=== PATIENT | male | born 1960 | race Caucasian/White ===

== ENCOUNTER 2016-08-10 10:11 | Inpatient (IN) | payer MEDICARE, MEDICAID ==
[2016-08-10 10:11] VITALS: BMI 27.1
[2016-08-10 10:40] LABS: BASO % 0.8 % (0.0-2.0); EOS # 0.3 K/uL (0.0-0.7); EOS % 5.1 % (0.0-4.0); HEMATOCRIT 35.1 % (35.0-51.0); LYMPH # 1.7 K/uL (1.0-4.3); LYMPH % 29.2 % (20.0-40.0); MEAN CELL VOLUME 91.2 fL (80.0-94.0); MEAN CORPUSCULAR HEMOGLOBIN 29.8 pg (27.0-31.0); MEAN CORPUSCULAR HGB CONC 32.7 g/dL (33.0-37.0); MEAN PLATELET VOLUME 9.6 fL (7.2-11.7); MONO # 0.4 K/uL (0.0-0.8); MONO % 6.7 % (0.0-10.0); WHITE BLOOD COUNT 5.9 K/uL (4.8-10.8)
--- NOTE | 2016-08-10 10:47 | C.PDOC ---
History Of Present Illness Patient is a 56 y/o male that is brought to the ED by for evaluation of onset of seizure this morning. As per , patient is non-verbal at baseline s/ p stroke 9 months ago. denies any fever, or vomiting. HPI limited due to pt non-verbal condition. PMD: Eva Sorensen from [facility] Time Seen by Provider: 08/10/16 10:20 Chief Complaint (Nursing): Seizure History Per: Family () History/Exam Limitations: no limitations Recent travel outside of the [place]: No Past Medical History Reviewed: Historical Data, Nursing Documentation, Vital Signs Vital Signs: Last Vital Signs Temp 97.8 F 08/10/16 10:17 Pulse 78 08/10/16 12:13 Resp 13 08/10/16 12:13 BP 146/70 08/10/16 12:13 Pulse Ox 97 08/10/16 12:26 - Medical History PMH: Anemia, Depression, HTN, Hypercholesterolemia, Chronic Kidney Disease, Sleep Apnea (c pap) Surgical History: Endoscopy - [facility] Procedures CATARAC PHACOEMULS/ASPIR (05/17/14) INSERT LENS AT CATAR EXT (05/17/14) Family History: States: No Known Family Hx - Social History Hx Alcohol Use: No Hx Substance Use: No Review Of Systems Constitutional: Negative for: Fever Gastrointestinal: Negative for: Vomiting Neurological: Positive for: Seizures Physical Exam - Physical Exam Additional Physical Exam Comments: Constitutional: No acute distress. Head: Atraumatic. Left side craniectomy. Eyes: PERRL. ENT: Moist mucous membranes. Neck: Supple. Cardiovascular: Regular rate. Radial pulse 2+ bilaterally. Chest: No tenderness. Respiratory: Clear to auscultation bilaterally. GI: Soft. Nontender. Nondistended. Gastrostomy tube in place. Back: No CVA tenderness. Musculoskeletal: No tenderness or swelling of extremities. Skin: No rash. Neurologic: Motor 0/5 right leg and arm. Left motor intact. ED Course And Treatment - Laboratory Results Result Diagrams: 08/10/16 10:37 08/10/16 10:37 O2 Sat by Pulse Oximetry: 97 Medical Decision Making Medical Decision Making: EKG: Normal sinus rhythm at [address] elevation. No acute changes. CXR: Midline sternotomy wire. Patchy opacity left lower lobe. No infiltrates or consolidation. Head CT FINDINGS: HEMORRHAGE: No intracranial hemorrhage. Linear hyperdensity along the left parieto- occipital cerebrum likely represents calcification. BRAIN: Prior left frontoparietal temporal craniectomy. A portion of the left frontoparietal cerebral cortex extrudes through the large craniotomy site. Prominent somewhat cystic encephalomalacia seen within the left posterior frontal, parietal, occipital, and temporal regions. Prominent lacunar infarction within the left basal ganglia with associated encephalomalacia. Focal areas of low attenuation with a suggestion of chronic infarction in the left aspect of the midbrain and jesus. Bilateral basal ganglia calcifications. VENTRICLES: Ex vacuo dilatation of the left lateral ventricle as well as the 3rd ventricle. Mild right to left midline shift measuring approximately 4 millimeters. CALVARIUM: Prominent left-sided craniectomy. PARANASAL SINUSES: Mild mucosal thickening of the ethmoid air cells. MASTOID AIR CELLS: Unremarkable as visualized. No inflammatory changes. OTHER FINDINGS: Intracranial arterial atherosclerotic calcifications. IMPRESSION: Prior left frontoparietal temporal craniectomy. A portion of the left frontoparietal cerebral cortex extrudes through the large craniotomy site. Prominent somewhat cystic encephalomalacia seen within the left posterior frontal, parietal, occipital, and temporal regions. Prominent lacunar infarction within the left basal ganglia with associated encephalomalacia. Focal areas of low attenuation with a suggestion of chronic infarction in the left aspect of the midbrain and jesus. Bilateral basal ganglia calcifications. Ex vacuo dilatation of the left lateral ventricle as well as the 3rd ventricle. Mild right to left midline shift measuring approximately 4 millimeters. Correlation with MRI may be helpful if clinically indicated. Accepted for admission by Dr. Hauser for PNA and first time seizure. Antibiotics started and blood cultures drawn. Disposition Discussed With : Emilia Hauser Doctor Will See Patient In The: Hospital - Disposition Disposition: HOSPITALIZED Disposition Time: 12:10 Condition: GUARDED - POA Core Measure Indicators: Pneumonia - Clinical Impression Clinical Impression: Seizure, Pneumonia - Scribe Statement The provider has reviewed the documentation as recorded by the Luis Enrique Hauser Provider Attestation: All medical record entries made by the Amanibelio were at my direction and personally dictated by me. I have reviewed the chart and agree that the record accurately reflects my personal performance of the history, physical exam, medical decision making, and the department course for this patient. I have also personally directed, reviewed, and agree with the discharge instructions and disposition.
[2016-08-10 10:48] LABS: CHLORIDE 97 mmol/L (98-107)
[2016-08-10 10:49] LABS: POTASSIUM 4.6 mmol/L (3.6-5.2); SODIUM 138 mmol/L (132-148)
[2016-08-10 10:51] LABS: ALB/GLOB RATIO 1.3 (1.0-2.1); ALKALINE PHOSPHATASE 76 U/L (38-126); AST/SGOT 31 U/L (17-59); BILIRUBIN,TOTAL 0.4 mg/dL (0.2-1.3); BLOOD UREA NITROGEN 30 mg/dL (9-20); CARBON DIOXIDE 24 mmol/L (22-30); GFR AFRICAN-AMERICAN > 60; TOTAL PROTEIN 7.1 g/dL (6.3-8.3)
[2016-08-10 10:52] LABS: ALT/SGPT 40 U/L (21-72); CALCIUM 8.7 mg/dl (8.6-10.4); GLUCOSE,RANDOM 200 mg/dL (75-110); MAGNESIUM 1.7 mg/dL (1.6-2.3); PHOSPHOROUS 3.8 mg/dL (2.5-4.5)
[2016-08-10 11:28] LABS: RBC URINE 8 /hpf (0-3); URINE BILIRUBIN NEGATIVE (NEGATIVE); URINE COLOR Straw (YELLOW); URINE GLUCOSE (UA) NORMAL (Normal); URINE KETONE NEGATIVE (NEGATIVE); URINE LEUKOCYTE ESTERASE NEG Leu/uL (Negative); URINE PROTEIN 2+ mg/dL (NEGATIVE); URINE UROBILINOGEN NORMAL mg/dL (0.2-1.0); WBC URINE 1 /hpf (0-5)
[2016-08-10 11:32] LABS: URINE BLOOD 1+ (NEGATIVE)
--- NOTE | 2016-08-10 12:05 | CT ---
PROCEDURE: CT HEAD WITHOUT CONTRAST. HISTORY: seizure, h/o CVA/craniectomy COMPARISON: None available. TECHNIQUE: Axial computed tomography images were obtained through the head/brain without intravenous contrast. Radiation dose: Total exam DLP = 917 mGy-cm. This CT exam was performed using one or more of the following dose reduction techniques: Automated exposure control, adjustment of the mA and/or kV according to patient size, and/or use of iterative reconstruction technique. FINDINGS: HEMORRHAGE: No intracranial hemorrhage. Linear hyperdensity along the left parieto-occipital cerebrum likely represents calcification. BRAIN: Prior left frontoparietal temporal craniectomy. A portion of the left frontoparietal cerebral cortex extrudes through the large craniotomy site. Prominent somewhat cystic encephalomalacia seen within the left posterior frontal, parietal, occipital, and temporal regions. Prominent lacunar infarction within the left basal ganglia with associated encephalomalacia. Focal areas of low attenuation with a suggestion of chronic infarction in the left aspect of the midbrain and jesus. Bilateral basal ganglia calcifications. VENTRICLES: Ex vacuo dilatation of the left lateral ventricle as well as the 3rd ventricle. Mild right to left midline shift measuring approximately 4 millimeters. CALVARIUM: Prominent left-sided craniectomy. PARANASAL SINUSES: Mild mucosal thickening of the ethmoid air cells. MASTOID AIR CELLS: Unremarkable as visualized. No inflammatory changes. OTHER FINDINGS: Intracranial arterial atherosclerotic calcifications. IMPRESSION: Prior left frontoparietal temporal craniectomy. A portion of the left frontoparietal cerebral cortex extrudes through the large craniotomy site. Prominent somewhat cystic encephalomalacia seen within the left posterior frontal, parietal, occipital, and temporal regions. Prominent lacunar infarction within the left basal ganglia with associated encephalomalacia. Focal areas of low attenuation with a suggestion of chronic infarction in the left aspect of the midbrain and jesus. Bilateral basal ganglia calcifications. Ex vacuo dilatation of the left lateral ventricle as well as the 3rd ventricle. Mild right to left midline shift measuring approximately 4 millimeters. Correlation with MRI may be helpful if clinically indicated.
--- NOTE | 2016-08-10 12:17 | RAD ---
HISTORY: seizure COMPARISON: 05/02/2014 FINDINGS: LUNGS: Mild venous congestion. Patchy left basilar airspace opacity. PLEURA: No significant pleural effusion identified, no pneumothorax apparent. CARDIOVASCULAR: Status post median sternotomy and CABG. Mild cardiomegaly. OSSEOUS STRUCTURES: No significant abnormalities. VISUALIZED UPPER ABDOMEN: Normal. OTHER FINDINGS: None. IMPRESSION: Mild venous congestion. Patchy left basilar airspace opacity.
[2016-08-10] MEDS ORDERED: Azithromycin 500 MG in Sodium Chloride 0.9% 250 ML IVPB STA (12:55)
[2016-08-10] MEDS ORDERED: cefTRIAXone IV 1 gm in Dextros 50 ML IVPB ONE (13:32)
[2016-08-10] MEDS ORDERED: Acetaminophen 650mg/20.3ml solution UD PO PRN (15:32)
--- NOTE | 2016-08-10 15:36 | CP.PCM.HP ---
History of Present Illness - History of Present Illness History of Present Illness: 56-year-old male patient that is brought to the ED by for evaluation of onset of seizure this morning. As per , patient is nonverbal at baseline S/ P stroke 9 months ago. denies any fever, vomiting. HPI limited due to patient nonverbal condition. Present on Admission - Present on Admission Any Indicators Present on Admission: No Past Patient History - Past Medical History & Family History Past Medical History?: Yes - Past Social History Smoking Status: Never Smoked - CARDIAC Hx Hypercholesterolemia: Yes Hx Hypertension: Yes - PULMONARY Hx Sleep Apnea: Yes (c pap) - NEUROLOGICAL HX Cerebrovascular Accident: Yes - HEENT Hx HEENT Problems: No - RENAL Hx Chronic Kidney Disease: Yes - ENDOCRINE/METABOLIC Hx Endocrine Disorders: Yes Hx Diabetes Mellitus Type 2: Yes - HEMATOLOGICAL/ONCOLOGICAL Hx Anemia: Yes - INTEGUMENTARY Hx Dermatological Problems: No - MUSCULOSKELETAL/RHEUMATOLOGICAL Hx Musculoskeletal Disorders: No - GASTROINTESTINAL Hx Gastrointestinal Disorders: Yes HX Swallowing Problems: Yes - GENITOURINARY/GYNECOLOGICAL Hx Genitourinary Disorders: No - PSYCHIATRIC Hx Depression: Yes Hx Substance Use: No - SURGICAL HISTORY Hx Surgeries: Yes Hx Cataract Extraction: Yes (BILATERAL) Hx Cardiac Catheterization: Yes - ANESTHESIA Hx Anesthesia: Yes Hx Anesthesia Reactions: No Hx Malignant Hyperthermia: No Meds Home Medications: Home Medication List Medication Instructions Recorded Confirmed Type Azithromycin [Zithromax] 500 mg IVPB Q24H vial 08/13/16 Rx cefTRIAXone [Rocephin] 1 gm IVPB STAT vial 08/13/16 Rx levETIRAcetam [Keppra] 500 mg PO BID tab 08/13/16 Rx Allergies/Adverse Reactions: Allergies Allergy/AdvReac Type Severity Reaction Status Date / Time lisinopril Allergy Verified 08/10/16 10:17 Physical Exam - Constitutional Appears: Well - Head Exam Head Exam: ATRAUMATIC, NORMAL INSPECTION, NORMOCEPHALIC - Eye Exam Eye Exam: EOMI, Normal appearance, PERRL Pupil Exam: NORMAL ACCOMODATION, PERRL - ENT Exam ENT Exam: Mucous Membranes Moist, Normal Exam - Neck Exam Neck exam: Positive for: Normal Inspection - Respiratory Exam Respiratory Exam: Decreased Breath Sounds - Cardiovascular Exam Cardiovascular Exam: REGULAR RHYTHM, +S1, +S2 - GI/Abdominal Exam GI & Abdominal Exam: Diminished Bowel Sounds, Soft - Rectal Exam Rectal Exam: Deferred Results - Vital Signs Recent Vital Signs: Last Vital Signs Temp 97.8 F 08/10/16 10:17 Pulse 74 08/10/16 13:33 Resp 10 L 08/10/16 13:33 BP 153/75 H 08/10/16 13:33 Pulse Ox 99 08/10/16 13:33 - Labs Result Diagrams: 08/13/16 11:20 08/13/16 11:20 Assessment & Plan - Assessment and Plan (Free Text) Plan: protonix voenox rocephine zithromax [facility] ct head neurology consultation toher mx as ordred feeding as ordred
[2016-08-10] MEDS: Dextrose 5%/0.45% NS 1,000 ML IV SCH (18:57)
[2016-08-11] MEDS: Dextrose 5%/0.45% NS 1,000 ML IV SCH ×3 (05:49→21:53)
--- NOTE | 2016-08-11 10:04 | CON ---
DATE: 08/11/2016 ATTENDING PHYSICIAN: Gopi Hauser MD ROOM NUMBER: [id number], bed A. REASON FOR CONSULTATION: New onset of seizures. CHIEF COMPLAINT: The patient was brought into [facility] by his with a history of witnessed seizure. Following this, patient was nonverbal. From neurological point of view, I was called in to evaluate him for further management. HISTORY OF PRESENTING ILLNESS: The patient is a 56-year-old, right-handed, male presenting with witnessed seizure activities while he was at home , being witnessed by his . No history of similar episodes happened in the past. HISTORY OF PRESENTING ILLNESS: The patient is a 56-year-old, right-handed, male who had undergone hemicraniectomy on his left side with a history of possible stroke 9 months ago. Ever since, he was nonverbal and right hemiparesis. No history of seizures as per the documentation. The patient did have seizures. Ever since, he was nonverbal and not arousable in the Emergency Room. PAST MEDICAL HISTORY: Anemia, depression, hypertension, dyslipidemia, chronic kidney disease, sleep apnea. The patient did have a history of tracheostomy during the neurological insult 9 months ago. The patient also on PEG. REVIEW OF SYSTEMS: As per H and P. PHYSICAL EXAMINATION: VITAL SIGNS: Blood pressure 145/77, mean arterial [id number], respiratory rate 16, temperature afebrile. NECK: Supple. No carotid bruit. HEART SOUNDS: Regular. CHEST: Fair air entry. EXTREMITIES: Right side diffuse hypotrophy of all proximal and distal muscle groups. Tone is increased on his right side. NEUROLOGIC: The patient is awake. Tried to communicate. Speech is not communicable. The patient is aphasic. The patient able to copy. CRANIAL NERVES: Visual field decreased on his right side to compare with the left side. Visual threat is decreased. Good corneal reflex. No primary gaze. Nystagmus noted. Facial asymmetry manifesting as a flattening of the right nasolabial fold. SKULL: Swelling on his left frontoparietal occipital region with soft to touch. MOTOR: Left side spontaneous movement. Right side, he needs assistance to move. DEEP TENDON REFLEXES: Hyperreflexic on the right side. Left side was 1+. Plantars are upgoing on the right side. SENSORY: Decreased response to pain on his right side to compare with the left side. COORDINATION AND GAIT: Deferred at this time. CONCLUSION: Upon reviewing his history and neurological examination, the patient is presenting with new onset of seizures with postictal phase of weakness with speech impairment. The patient's current examination, patient presenting with aphasia, spastic hemiparesis, right homonymous hemianopsia. This current presentation is old from his previous surgery secondary to his stroke. 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 Encephalomalacia also noted. Some shift from left to the right noted. There is a questionable hyperdense area over frontal region at subarachnoid area, probably post-surgical changes versus new bleed. BLOOD WORKUP: WBC 5.9, hemoglobin 11.5, hematocrit 35.1, platelet 176. PT 11.1 , INR 1.0, PTT 31. Sodium 138, potassium 4.6, chloride 97, bicarbonate 30, creatinine 1.1, glucose 169. Urinalysis shows 2+ proteinuria, 1+ blood, 8 RBCs. RECOMMENDATIONS: 1. EEG. 2. Seizure precaution. 3. Keppra dose is increased to 500 twice a day. 4. MRI of the brain to rule out any space occupying lesion as well as to assess the current status of his brain from his previous surgery. 5. The patient can be resumed percutaneous endoscopic gastrostomy feeding. The patient may be benefited with proper antibiotic for his possible urinary tract infection. Rizwan Merino MD cc: [id number] TT: 08/11/2016 08:51:59 Confirmation # [id number] Dictation # [id number] MTDD
[2016-08-11] MEDS: Pantoprazole 40 mg EC Tab PO SCH (10:41)
[2016-08-11] MEDS: Enoxaparin 40 mg Syringe SC SCH (10:44)
[2016-08-11] MEDS: (Novolog) Insulin Aspart, Recombinant 100 u/ml 10 ml vial SC SCH ×3 (12:42→21:57)
[2016-08-11] MEDS: Azithromycin 500 MG in Sodium Chloride 0.9% 250 ML IVPB SCH (15:44)
--- NOTE | 2016-08-11 18:54 | CP.PCM.PN ---
Subjective - Date & Time of Evaluation Date of Evaluation: 08/11/16 Time of Evaluation: 03:00 - Subjective Subjective: pt. is stable after episode of seizure Objective - Vital Signs/Intake and Output Vital Signs (last 24 hours): Temp Pulse Resp BP Pulse Ox 97.8 F 86 20 138/71 98 08/11/16 16:41 08/11/16 18:40 08/11/16 16:41 08/11/16 16:41 08/11/16 16:41 Intake and Output: 08/11/16 08/11/16 06:59 18:59 Intake Total 750 800 Output Total 200 550 Balance 550 250 - Medications Medications: Current Medications Acetaminophen (Tylenol 650mg/20.3ml Solution Ud) 650 mg PO Q6 PRN PRN Reason: Fever >100.4 F Aspirin (Ecotrin) 81 mg PO DAILY [facility] Last Admin: 08/11/16 10:42 Dose: 81 mg Enoxaparin Sodium (Lovenox) 40 mg SC DAILY [facility] Last Admin: 08/11/16 10:44 Dose: 40 mg Escitalopram Oxalate (Lexapro) 5 mg PO DAILY [facility] Last Admin: 08/11/16 10:53 Dose: 5 mg Finasteride (Proscar) 5 mg PO DAILY [facility] Last Admin: 08/11/16 10:42 Dose: 5 mg Folic Acid (Folic Acid) 1 mg PO DAILY [facility] Last Admin: 08/11/16 10:42 Dose: 1 mg Azithromycin 500 mg/ Sodium (Chloride) 250 mls @ 167 mls/hr IVPB Q24H [facility] Last Admin: 08/11/16 15:44 Dose: 167 mls/hr Ceftriaxone Sodium 1 gm/ (Sodium Chloride) 100 mls @ 100 mls/hr IVPB DAILY [facility] Last Admin: 08/11/16 10:49 Dose: 100 mls/hr Dextrose/Sodium Chloride (Dextrose 5%/0.45% Ns 1000 Ml) 1,000 mls @ 75 mls/hr IV .[id number] [facility] Last Admin: 08/11/16 08:30 Dose: Not Given Insulin Aspart (Novolog) 0 unit SC ACHS [facility] PRN Reason: Protocol Last Admin: 08/11/16 12:42 Dose: 3 unit Levetiracetam (Keppra) 500 mg PO BID [facility] Last Admin: 08/11/16 12:42 Dose: 500 mg Metoprolol Tartrate (Lopressor) 25 mg PO DAILY [facility] Last Admin: 08/11/16 10:42 Dose: 25 mg Pantoprazole Sodium (Protonix Ec Tab) 40 mg PO DAILY [facility] Last Admin: 08/11/16 10:41 Dose: 40 mg Pneumococcal Polyvalent Vaccine (Pneumovax 23 Vaccine) 0.5 ml IM .ONCE ONE Stop: 08/14/16 10:01 Rosuvastatin Calcium (Crestor) 40 mg PO [facility] Last Admin: 08/10/16 22:00 Dose: Not Given - Labs Labs: PT 11.1 SECONDS (9.7-12.2) 08/10/16 10:37 INR 1.0 08/10/16 10:37 APTT 31 SECONDS (21-34) 08/10/16 10:37 - Constitutional Appears: Well - Head Exam Head Exam: ATRAUMATIC, NORMAL INSPECTION, NORMOCEPHALIC - Eye Exam Eye Exam: EOMI, Normal appearance, PERRL Pupil Exam: NORMAL ACCOMODATION, PERRL - ENT Exam ENT Exam: Mucous Membranes Moist, Normal Exam - Neck Exam Neck Exam: Full ROM, Normal Inspection. absent: Lymphadenopathy - Respiratory Exam Respiratory Exam: Decreased Breath Sounds - Cardiovascular Exam Cardiovascular Exam: REGULAR RHYTHM, +S1, +S2 - GI/Abdominal Exam GI & Abdominal Exam: Soft, Diminished Bowel Sounds - Rectal Exam Rectal Exam: Deferred Assessment and Plan - Assessment and Plan (Free Text) Plan: protonix voenox rocephine zithromax [facility] ct head shows sign of infarction from previous stroke neurology consultation toher mx as ordred feeding as ordred
--- NOTE | 2016-08-11 21:01 | EEG ---
DATE: 08/11/2016 This is a 16-channel electroencephalogram of an awake and drowsy adult. During the study, photic stimulation was performed. Hyperventilation was not performed. The resting electroencephalogram consists of low amplitude low frequency theta activity noted from the beginning, which showed up increased amplitude with delta activities seen in bilateral cortical leads suggestive of drowsiness. This slow activity is continuously noted from the beginning. The photic stimulation did not evoke driving response noted at 2-20 Hz. IMPRESSION: This is abnormal electroencephalogram because of persistent slowing throughout the record suggestive of possible N2 sleep. However, during the study, K complexes and sleep spindles are not noted. This study also does not show any paroxysmal activities or focal slowing noted. Rizwan Merino MD cc: [id number] TT: 08/11/2016 21:00:15 Confirmation # [id number] Dictation # [id number] MTDD
[2016-08-12] MEDS: (Novolog) Insulin Aspart, Recombinant 100 u/ml 10 ml vial SC SCH ×4 (08:25→21:38)
[2016-08-12] MEDS ORDERED: Gadodiamide 287 MG/ML VIAL (15ML) IV ONE (09:10)
--- NOTE | 2016-08-12 10:28 | CP.PCM.PN ---
Subjective - Date & Time of Evaluation Date of Evaluation: 08/12/16 Time of Evaluation: 13:40 - Subjective Subjective: clinically same Objective - Vital Signs/Intake and Output Vital Signs (last 24 hours): Temp Pulse Resp BP Pulse Ox 98.7 F 68 20 149/77 100 08/12/16 07:05 08/12/16 07:05 08/12/16 07:05 08/12/16 07:05 08/12/16 07:05 Intake and Output: 08/12/16 08/12/16 06:59 18:59 Intake Total 600 Balance 600 - Medications Medications: Current Medications Acetaminophen (Tylenol 650mg/20.3ml Solution Ud) 650 mg PO Q6 PRN PRN Reason: Fever >100.4 F Aspirin (Ecotrin) 81 mg PO DAILY [facility] Last Admin: 08/11/16 10:42 Dose: 81 mg Enoxaparin Sodium (Lovenox) 40 mg SC DAILY [facility] Last Admin: 08/11/16 10:44 Dose: 40 mg Escitalopram Oxalate (Lexapro) 5 mg PO DAILY [facility] Last Admin: 08/11/16 10:53 Dose: 5 mg Finasteride (Proscar) 5 mg PO DAILY [facility] Last Admin: 08/11/16 10:42 Dose: 5 mg Folic Acid (Folic Acid) 1 mg PO DAILY [facility] Last Admin: 08/11/16 10:42 Dose: 1 mg Azithromycin 500 mg/ Sodium (Chloride) 250 mls @ 167 mls/hr IVPB Q24H [facility] Last Admin: 08/11/16 15:44 Dose: 167 mls/hr Ceftriaxone Sodium 1 gm/ (Sodium Chloride) 100 mls @ 100 mls/hr IVPB DAILY [facility] Last Admin: 08/11/16 10:49 Dose: 100 mls/hr Dextrose/Sodium Chloride (Dextrose 5%/0.45% Ns 1000 Ml) 1,000 mls @ 75 mls/hr IV .[id number] [facility] Last Admin: 08/11/16 21:53 Dose: 75 mls/hr Insulin Aspart (Novolog) 0 unit SC ACHS [facility] PRN Reason: Protocol Last Admin: 08/12/16 08:25 Dose: 2 unit Levetiracetam (Keppra) 500 mg PO BID [facility] Last Admin: 08/11/16 21:50 Dose: 500 mg Metoprolol Tartrate (Lopressor) 25 mg PO DAILY [facility] Last Admin: 08/11/16 10:42 Dose: 25 mg Pantoprazole Sodium (Protonix Ec Tab) 40 mg PO DAILY [facility] Last Admin: 08/11/16 10:41 Dose: 40 mg Pneumococcal Polyvalent Vaccine (Pneumovax 23 Vaccine) 0.5 ml IM .ONCE ONE Stop: 08/14/16 10:01 Rosuvastatin Calcium (Crestor) 40 mg PO [facility] Last Admin: 08/11/16 21:53 Dose: 40 mg - Labs Labs: PT 11.1 SECONDS (9.7-12.2) 08/10/16 10:37 INR 1.0 08/10/16 10:37 APTT 31 SECONDS (21-34) 08/10/16 10:37 - Constitutional Appears: Well - Head Exam Head Exam: ATRAUMATIC, NORMAL INSPECTION, NORMOCEPHALIC - Eye Exam Eye Exam: EOMI, Normal appearance, PERRL Pupil Exam: NORMAL ACCOMODATION, PERRL - ENT Exam ENT Exam: Mucous Membranes Moist, Normal Exam - Neck Exam Neck Exam: Full ROM, Normal Inspection. absent: Lymphadenopathy - Respiratory Exam Respiratory Exam: Decreased Breath Sounds - Cardiovascular Exam Cardiovascular Exam: REGULAR RHYTHM, +S1, +S2 - GI/Abdominal Exam GI & Abdominal Exam: Soft, Diminished Bowel Sounds - Rectal Exam Rectal Exam: Deferred Assessment and Plan - Assessment and Plan (Free Text) Plan: continue meds as ordered f/u MRI f/u Dr. Merino and Dr. Finn
[2016-08-12] MEDS: Enoxaparin 40 mg Syringe SC SCH (10:50)
[2016-08-12] MEDS: Pantoprazole 40 mg EC Tab PO SCH (10:51)
--- NOTE | 2016-08-12 11:45 | MRI ---
PROCEDURE: MRI BRAIN WITH AND WITHOUT CONTRAST HISTORY: Seizure protocol COMPARISON: Noncontrast head CT from 08/10/2016 and MRI brain from 05/29/2015. TECHNIQUE: Multiplanar, multisequence MR images of the brain were obtained with and without intravenous contrast enhancement. 13 mL Omniscan was injected intravenously. FINDINGS: HEMORRHAGE: None DWI: No evidence of an acute or early subacute infarction. BRAIN PARENCHYMA: Status post left temporal parietal craniectomy and duraplasty. There is cystic encephalomalacia and gliosis in the left temporal and parietal lobes with volume loss and ex vacuo dilatation of the left lateral ventricle as well as well Wallerian degeneration of the pyramidal tract. There is also cystic encephalomalacia in the left basal ganglia. There is herniation of the encephalomalacic parietal and temporal lobes into the craniectomy defect. There is no mass or extra-axial fluid collection. ENHANCEMENT: No abnormal intracranial enhancement. VENTRICLES: Ex vacuo dilatation of the left lateral ventricle. Normal remaining ventricles. No hydrocephalus. CRANIUM: Status post left temporoparietal craniectomy, otherwise normal bone marrow signal. ORBITS: Grossly unremarkable. PARANASAL SINUSES/MASTOIDS: Mild mucosal thickening in the paranasal sinuses and trace left mastoid effusion. VASCULAR SYSTEM: There are normal signal voids in the larger intracranial arteries. OTHER FINDINGS: None . IMPRESSION: Status post left temporoparietal craniectomy and duraplasty, cystic encephalomalacia and gliosis in the temporal and parietal lobes and herniation of the temporal and parietal lobes into the craniectomy defect. Ex vacuo dilatation of the left lateral ventricle and Wallerian degeneration of the pyramidal tract.
[2016-08-12] MEDS: Azithromycin 500 MG in Sodium Chloride 0.9% 250 ML IVPB SCH (14:39)
[2016-08-12] MEDS: Dextrose 5%/0.45% NS 1,000 ML IV SCH ×2 (14:40)
[2016-08-12 16:47] VITALS: RESP 20
--- NOTE | 2016-08-12 18:15 | CT ---
PROCEDURE: CT Chest without contrast HISTORY: hiccup COMPARISON: None. TECHNIQUE: Contiguous axial images were obtained through the chest without intravenous contrast enhancement. Sagittal and coronal reconstructions were performed. Radiation dose (DLP): 469.52. MGy-cm. This CT exam was performed using one or more of the following dose reduction techniques: Automated exposure control, adjustment of the mA and/or kV according to patient size, and/or use of iterative reconstruction technique. FINDINGS: LUNGS: Clear lungs. Visualized airway clear. Incidental finding(s): Calcified granuloma right lower lobe. MEDIASTINUM: Unremarkable thoracic aorta. No aneurysm. Cardiomegaly. No evidence of acute, significant cardiovascular disease. Main pulmonary artery unremarkable. No vascular congestion. No lymphadenopathy.Incidental Finding(s): Postoperative changes related to sternotomy. PLEURA: No pleural fluid. No pneumothorax. BONES: No fracture. No destructive lesion. UPPER ABDOMEN: Grossly unremarkable. OTHER FINDINGS: None. IMPRESSION: No significant or acute findings to account for/ related to the clinical presentation.
[2016-08-13] MEDS: Dextrose 5%/0.45% NS 1,000 ML IV SCH ×2 (05:27→14:38)
--- NOTE | 2016-08-13 07:54 | CP.PCM.PN ---
Subjective - Date & Time of Evaluation Date of Evaluation: 08/13/16 Time of Evaluation: 09:00 - Subjective Subjective: Dr. Hauser service: Patient seen and examined this morning. He is non verbal with no family member present. Per chart review he is her because of seizures, there are no acute events overnight per nursing staff. Objective - Vital Signs/Intake and Output Vital Signs (last 24 hours): Temp Pulse Resp BP Pulse Ox 97.8 F 69 20 162/73 H 100 08/13/16 07:05 08/13/16 07:05 08/13/16 07:05 08/13/16 07:05 08/13/16 07:05 Intake and Output: 08/13/16 08/13/16 06:59 18:59 Intake Total 1325 Output Total 150 Balance 1175 - Medications Medications: Current Medications Acetaminophen (Tylenol 650mg/20.3ml Solution Ud) 650 mg PO Q6 PRN PRN Reason: Fever >100.4 F Aspirin (Ecotrin) 81 mg PO DAILY [facility] Last Admin: 08/12/16 10:49 Dose: 81 mg Enoxaparin Sodium (Lovenox) 40 mg SC DAILY [facility] Last Admin: 08/12/16 10:50 Dose: 40 mg Escitalopram Oxalate (Lexapro) 5 mg PO DAILY [facility] Last Admin: 08/12/16 10:50 Dose: 5 mg Finasteride (Proscar) 5 mg PO DAILY [facility] Last Admin: 08/12/16 10:51 Dose: 5 mg Folic Acid (Folic Acid) 1 mg PO DAILY [facility] Last Admin: 08/12/16 10:49 Dose: 1 mg Azithromycin 500 mg/ Sodium (Chloride) 250 mls @ 167 mls/hr IVPB Q24H [facility] Last Admin: 08/12/16 14:39 Dose: 167 mls/hr Ceftriaxone Sodium 1 gm/ (Sodium Chloride) 100 mls @ 100 mls/hr IVPB DAILY [facility] Last Admin: 08/12/16 10:52 Dose: 100 mls/hr Dextrose/Sodium Chloride (Dextrose 5%/0.45% Ns 1000 Ml) 1,000 mls @ 75 mls/hr IV .[id number] [facility] Last Admin: 08/13/16 05:27 Dose: 75 mls/hr Insulin Aspart (Novolog) 0 unit SC ACHS [facility] PRN Reason: Protocol Last Admin: 08/12/16 21:38 Dose: Not Given Levetiracetam (Keppra) 500 mg PO BID [facility] Last Admin: 08/12/16 18:03 Dose: 500 mg Metoprolol Tartrate (Lopressor) 25 mg PO DAILY [facility] Last Admin: 08/12/16 10:50 Dose: 25 mg Pantoprazole Sodium (Protonix Ec Tab) 40 mg PO DAILY [facility] Last Admin: 08/12/16 10:51 Dose: 40 mg Pneumococcal Polyvalent Vaccine (Pneumovax 23 Vaccine) 0.5 ml IM .ONCE ONE Stop: 08/14/16 10:01 Rosuvastatin Calcium (Crestor) 40 mg PO HS [facility] Last Admin: 08/12/16 21:38 Dose: 40 mg - Labs Labs: PT 11.1 SECONDS (9.7-12.2) 08/10/16 10:37 INR 1.0 08/10/16 10:37 APTT 31 SECONDS (21-34) 08/10/16 10:37 - Constitutional Appears: No Acute Distress - Head Exam Head Exam: NORMOCEPHALIC - Respiratory Exam Respiratory Exam: Clear to Ausculation Bilateral. 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 Spoke with Dr. Merino and Dr. Finn Neurosurgery who is ok with the patient to be discharged to [facility]. Patient will follow up with Dr. Finn as outpatient. Status: Acute (2) Pneumonia Status: Acute
[2016-08-13] MEDS: (Novolog) Insulin Aspart, Recombinant 100 u/ml 10 ml vial SC SCH ×3 (08:15→17:36)
--- NOTE | 2016-08-13 09:29 | CP.PCM.CON ---
<Fahad Briones - Last Filed: 08/13/16 09:23> History of Present Illness - History of Present Illness History of Present Illness: PGY4 GI Fellow Consult Note Patient is a 56yo male with PMHx significant for CVA (9 months prior) with left temporoparietal craniectomy and duraplasty, HTN, dyslipidemia, CKD, VIRY and diverticulosis who was brought in by his for new onset seizure. Per records , patient is aphasic but he is responding to questions that we ask him; unclear if he suffers from receptive aphasia. Our service has been consulted for hiccups. At bedside the patient is unable to provide history and there is no family present. According to nursing staff, they heard him making noise from hallway and on evaluation noted him to be having hiccups yesterday. At present, there is no evidence of this and no issues overnight. He is currently written for a soft diet and has been tolerating without issue. Patient is being evaluated by neurology and is on Azithromycin/Ceftriaxone for presumed CAP though CT chest was rather unremarkable. PMHx: See HPI PSHx: Tracheostomy (reversed), PEG placement, Left temporoparietal craniectomy and duraplasty FHx: Unknown Social: Denies tobacco, EtOH or illicit drug use Endo: Per EMR, Colonoscopy 04/2015 - 1mm polyp - unremarkable Review of Systems - Review of Systems Systems not reviewed;Unavailable: Other (clinical condition) Past Patient History - Past Medical History & Family History Past Medical History?: Yes - Past Social History Smoking Status: Former Smoker - CARDIAC Hx Hypercholesterolemia: Yes Hx Hypertension: Yes - PULMONARY Hx Sleep Apnea: Yes (c pap) - NEUROLOGICAL HX Cerebrovascular Accident: Yes (right side residual weakness) - HEENT Hx HEENT Problems: No - RENAL Hx Chronic Kidney Disease: Yes - ENDOCRINE/METABOLIC Hx Endocrine Disorders: Yes Hx Diabetes Mellitus Type 2: Yes - HEMATOLOGICAL/ONCOLOGICAL Hx Anemia: Yes - INTEGUMENTARY Hx Dermatological Problems: No - MUSCULOSKELETAL/RHEUMATOLOGICAL Hx Falls: No - GASTROINTESTINAL Hx Gastrointestinal Disorders: Yes HX Swallowing Problems: Yes Other/Comment: with old PEG but not in use as per son. - GENITOURINARY/GYNECOLOGICAL Hx Genitourinary Disorders: No - PSYCHIATRIC Hx Depression: Yes Hx Substance Use: No - SURGICAL HISTORY Hx Surgeries: Yes Hx Cataract Extraction: Yes (BILATERAL) Hx Cardiac Catheterization: Yes Hx Open Heart Surgery: Yes (August 2015) Other/Comment: craniotomy October 22, 2015. - ANESTHESIA Hx Anesthesia: Yes Hx Anesthesia Reactions: No Hx Malignant Hyperthermia: No Meds Allergies/Adverse Reactions: Allergies Allergy/AdvReac Type Severity Reaction Status Date / Time lisinopril Allergy Verified 08/10/16 10:17 - Medications Medications: Current Medications Acetaminophen (Tylenol 650mg/20.3ml Solution Ud) 650 mg PO Q6 PRN PRN Reason: Fever >100.4 F Aspirin (Ecotrin) 81 mg PO DAILY [facility] Last Admin: 08/12/16 10:49 Dose: 81 mg Enoxaparin Sodium (Lovenox) 40 mg SC DAILY [facility] Last Admin: 08/12/16 10:50 Dose: 40 mg Escitalopram Oxalate (Lexapro) 5 mg PO DAILY [facility] Last Admin: 08/12/16 10:50 Dose: 5 mg Finasteride (Proscar) 5 mg PO DAILY [facility] Last Admin: 08/12/16 10:51 Dose: 5 mg Folic Acid (Folic Acid) 1 mg PO DAILY [facility] Last Admin: 08/12/16 10:49 Dose: 1 mg Azithromycin 500 mg/ Sodium (Chloride) 250 mls @ 167 mls/hr IVPB Q24H [facility] Last Admin: 08/12/16 14:39 Dose: 167 mls/hr Ceftriaxone Sodium 1 gm/ (Sodium Chloride) 100 mls @ 100 mls/hr IVPB DAILY [facility] Last Admin: 08/12/16 10:52 Dose: 100 mls/hr Dextrose/Sodium Chloride (Dextrose 5%/0.45% Ns 1000 Ml) 1,000 mls @ 75 mls/hr IV .[id number] [facility] Last Admin: 08/13/16 05:27 Dose: 75 mls/hr Insulin Aspart (Novolog) 0 unit SC ACHS [facility] PRN Reason: Protocol Last Admin: 08/13/16 08:15 Dose: 2 unit Levetiracetam (Keppra) 500 mg PO BID [facility] Last Admin: 08/12/16 18:03 Dose: 500 mg Metoprolol Tartrate (Lopressor) 25 mg PO DAILY [facility] Last Admin: 08/12/16 10:50 Dose: 25 mg Pantoprazole Sodium (Protonix Ec Tab) 40 mg PO DAILY [facility] Last Admin: 08/12/16 10:51 Dose: 40 mg Pneumococcal Polyvalent Vaccine (Pneumovax 23 Vaccine) 0.5 ml IM .ONCE ONE Stop: 08/14/16 10:01 Rosuvastatin Calcium (Crestor) 40 mg PO HS [facility] Last Admin: 08/12/16 21:38 Dose: 40 mg Physical Exam - Constitutional Appears: Non-toxic, No Acute Distress - Eye Exam Eye Exam: PERRL - ENT Exam ENT Exam: Mucous Membranes Dry - Respiratory Exam Respiratory Exam: Clear to Auscultation Bilateral. absent: Rales, Rhonchi, Wheezes - Cardiovascular Exam Cardiovascular Exam: RRR, +S1, +S2 - GI/Abdominal Exam GI & Abdominal Exam: Normal Bowel Sounds, Soft. absent: Distended, Firm, Guarding, Organomegaly, Rigid, Tenderness - Extremities Exam Extremities exam: Positive for: normal inspection. Negative for: pedal edema - Neurological Exam Neurological exam: Alert Additional comments: RUE/RLE 0/5 - Psychiatric Exam Psychiatric exam: Normal Affect, Normal Mood - Skin Skin Exam: Dry, Warm Results - Vital Signs Recent Vital Signs: Last Vital Signs Temp 97.8 F 08/13/16 07:05 Pulse 69 08/13/16 07:05 Resp 20 08/13/16 07:05 BP 162/73 H 08/13/16 07:05 Pulse Ox 100 08/13/16 07:05 - Labs Result Diagrams: 08/10/16 10:37 08/10/16 10:37 Labs: Laboratory Results - last 24 hr 08/12/16 08/12/16 08/12/16 11:33 16:18 21:06 POC Glucose (mg/dL) 198 H 202 H 187 H 08/13/16 06:13 POC Glucose (mg/dL) 200 H Assessment & Plan - Assessment and Plan (Free Text) Assessment: Patient is a 56yo male with PMHx significant for CVA (9 months prior) with left temporoparietal craniectomy and duraplasty, HTN, dyslipidemia, CKD, VIRY and diverticulosis who was brought in by his for new onset seizure. Our service has been consulted for hiccups. -New onset seizure -Significant neurologic dysfunction 2/2 prior CVA -Right hemiplegia -Intermittent hiccups Plan: -No evidence of intractable hiccups at this time -If persistent, consider use of a promotility agent such as reglan though risk of neurologic side effects should be noted and described to family prior to use - would have high threshold for initiation in absence of symptoms -Neurologic work up ongoing -Consider discontinuation of antibiotic therapy in absence of SIRS, leukocytosis , abnormal vitals or infiltrates on CT chest -No further recommendations at this time - Date & Time Date: 08/13/16 Time: 06:30 <Shannon Shukla - Last Filed: 08/13/16 11:09> Meds - Medications Medications: Current Medications Acetaminophen (Tylenol 650mg/20.3ml Solution Ud) 650 mg PO Q6 PRN PRN Reason: Fever >100.4 F Aspirin (Ecotrin) 81 mg PO DAILY [facility] Last Admin: 08/13/16 10:13 Dose: 81 mg Enoxaparin Sodium (Lovenox) 40 mg SC DAILY [facility] Last Admin: 08/13/16 10:13 Dose: 40 mg Escitalopram Oxalate (Lexapro) 5 mg PO DAILY [facility] Last Admin: 08/13/16 10:14 Dose: 5 mg Finasteride (Proscar) 5 mg PO DAILY [facility] Last Admin: 08/13/16 10:13 Dose: 5 mg Folic Acid (Folic Acid) 1 mg PO DAILY [facility] Last Admin: 08/13/16 10:14 Dose: 1 mg Azithromycin 500 mg/ Sodium (Chloride) 250 mls @ 167 mls/hr IVPB Q24H [facility] Last Admin: 08/12/16 14:39 Dose: 167 mls/hr Ceftriaxone Sodium 1 gm/ (Sodium Chloride) 100 mls @ 100 mls/hr IVPB DAILY [facility] Last Admin: 08/13/16 10:12 Dose: 100 mls/hr Dextrose/Sodium Chloride (Dextrose 5%/0.45% Ns 1000 Ml) 1,000 mls @ 75 mls/hr IV .[id number] [facility] Last Admin: 08/13/16 05:27 Dose: 75 mls/hr Insulin Aspart (Novolog) 0 unit SC ACHS [facility] PRN Reason: Protocol Last Admin: 08/13/16 08:15 Dose: 2 unit Levetiracetam (Keppra) 500 mg PO BID [facility] Last Admin: 08/13/16 10:22 Dose: 500 mg Metoprolol Tartrate (Lopressor) 25 mg PO DAILY [facility] Last Admin: 08/13/16 10:22 Dose: 25 mg Pantoprazole Sodium (Protonix Ec Tab) 40 mg PO DAILY [facility] Last Admin: 08/13/16 10:14 Dose: 40 mg Pneumococcal Polyvalent Vaccine (Pneumovax 23 Vaccine) 0.5 ml IM .ONCE ONE Stop: 08/14/16 10:01 Rosuvastatin Calcium (Crestor) 40 mg PO HS [facility] Last Admin: 08/12/16 21:38 Dose: 40 mg Results - Vital Signs Recent Vital Signs: Last Vital Signs Temp 97.8 F 08/13/16 07:05 Pulse 69 08/13/16 07:05 Resp 20 08/13/16 07:05 BP 162/73 H 08/13/16 10:22 Pulse Ox 100 08/13/16 07:05 - Labs Result Diagrams: 08/10/16 10:37 08/10/16 10:37 Labs: Laboratory Results - last 24 hr 08/12/16 08/12/16 08/12/16 11:33 16:18 21:06 POC Glucose (mg/dL) 198 H 202 H 187 H 08/13/16 06:13 POC Glucose (mg/dL) 200 H Attending/Attestation - Attestation I have personally seen and examined this patient.: Yes I have fully participated in the care of the patient.: Yes I have reviewed all pertinent clinical information: Yes Notes (Text): Patient seen and examined with GI fellow. Agree with his note as documented above with the following additions/exceptions. This is a 56 year old male with h/o prior stroke s/p L parietotemporal craniectomy complicated by R hemiplegia, HTN, HL, s/p trach (reversed) and PEG who is admitted with seizure. We are consulted for evaluation of hiccups. His hiccups are non intractable. He is unable to provide meaningful history, but appears comfortable at present. Discussed with nursing staff who report self limited hiccups yesterday, but none at present. His undergoing neuro evaluation for seizure activity, MRI brain shows craniectomy with gliosis/encephalomalacia and herniation of temporoparietal lobe into craniectomy defect. He is receiving/tolerating PEG feedings. No vomiting. He is having regular BM. His abdomen is soft and non distended. Hiccups possibly neurologic in etiology and would continue current management as per neurology service, but at this time they are intermittent/ transient, would treat conservatively. If more persistent can consider use of chlorpromazine. Please call with any further questions/concerns. 08/13/16 11:01
[2016-08-13] MEDS: Enoxaparin 40 mg Syringe SC SCH (10:13)
[2016-08-13] MEDS: Pantoprazole 40 mg EC Tab PO SCH (10:14)
[2016-08-13 11:25] LABS: BASO % 0.7 % (0.0-2.0); EOS # 0.3 K/uL (0.0-0.7); EOS % 4.8 % (0.0-4.0); HEMATOCRIT 32.4 % (35.0-51.0); LYMPH # 1.4 K/uL (1.0-4.3); LYMPH % 21.2 % (20.0-40.0); MEAN CELL VOLUME 90.4 fL (80.0-94.0); MEAN CORPUSCULAR HGB CONC 33.2 g/dL (33.0-37.0); MEAN PLATELET VOLUME 9.9 fL (7.2-11.7); MONO # 0.5 K/uL (0.0-0.8); MONO % 6.8 % (0.0-10.0); NRBC % 0.1 % (0.0-2.0); WHITE BLOOD COUNT 6.8 K/uL (4.8-10.8)
[2016-08-13 11:36] LABS: CHLORIDE 95 mmol/L (98-107); POTASSIUM 4.4 mmol/L (3.6-5.2); SODIUM 136 mmol/L (132-148)
[2016-08-13 11:38] LABS: BILIRUBIN,TOTAL 0.3 mg/dL (0.2-1.3); CARBON DIOXIDE 30 mmol/L (22-30); GFR AFRICAN-AMERICAN > 60
[2016-08-13 11:39] LABS: ALB/GLOB RATIO 1.2 (1.0-2.1); ALKALINE PHOSPHATASE 77 U/L (38-126); ALT/SGPT 39 U/L (21-72); AST/SGOT 25 U/L (17-59); BLOOD UREA NITROGEN 15 mg/dL (9-20); CALCIUM 8.2 mg/dl (8.6-10.4); GLUCOSE,RANDOM 244 mg/dL (75-110); MAGNESIUM 1.5 mg/dL (1.6-2.3); PHOSPHOROUS 3.7 mg/dL (2.5-4.5); TOTAL PROTEIN 6.2 g/dL (6.3-8.3)
[2016-08-13] MEDS: Azithromycin 500 MG in Sodium Chloride 0.9% 250 ML IVPB SCH (14:33)
[2016-08-13 15:48] VITALS: BP 150/83; PULSE 65; TEMP 98.4; O2SAT 98
--- NOTE | 2016-08-13 18:04 | CP.PCM.PN ---
Subjective - Date & Time of Evaluation Date of Evaluation: 08/13/16 Time of Evaluation: 13:20 - Subjective Subjective: clinically same Objective - Vital Signs/Intake and Output Vital Signs (last 24 hours): Temp Pulse Resp BP Pulse Ox 98.4 F 65 20 150/83 98 08/13/16 15:42 08/13/16 15:42 08/13/16 15:42 08/13/16 15:42 08/13/16 15:42 Intake and Output: 08/13/16 08/13/16 06:59 18:59 Intake Total 1325 1100 Output Total 150 1700 Balance 1175 -600 - Medications Medications: Current Medications Acetaminophen (Tylenol 650mg/20.3ml Solution Ud) 650 mg PO Q6 PRN PRN Reason: Fever >100.4 F Aspirin (Ecotrin) 81 mg PO DAILY [facility] Last Admin: 08/13/16 10:13 Dose: 81 mg Enoxaparin Sodium (Lovenox) 40 mg SC DAILY [facility] Last Admin: 08/13/16 10:13 Dose: 40 mg Escitalopram Oxalate (Lexapro) 5 mg PO DAILY [facility] Last Admin: 08/13/16 10:14 Dose: 5 mg Finasteride (Proscar) 5 mg PO DAILY [facility] Last Admin: 08/13/16 10:13 Dose: 5 mg Folic Acid (Folic Acid) 1 mg PO DAILY [facility] Last Admin: 08/13/16 10:14 Dose: 1 mg Azithromycin 500 mg/ Sodium (Chloride) 250 mls @ 167 mls/hr IVPB Q24H [facility] Last Admin: 08/13/16 14:33 Dose: 167 mls/hr Ceftriaxone Sodium 1 gm/ (Sodium Chloride) 100 mls @ 100 mls/hr IVPB DAILY [facility] Last Admin: 08/13/16 10:12 Dose: 100 mls/hr Dextrose/Sodium Chloride (Dextrose 5%/0.45% Ns 1000 Ml) 1,000 mls @ 75 mls/hr IV .[id number] [facility] Last Admin: 08/13/16 14:38 Dose: Not Given Insulin Aspart (Novolog) 0 unit SC ACHS [facility] PRN Reason: Protocol Last Admin: 08/13/16 17:36 Dose: 2 unit Levetiracetam (Keppra) 500 mg PO BID [facility] Last Admin: 08/13/16 17:36 Dose: 500 mg Metoprolol Tartrate (Lopressor) 25 mg PO DAILY [facility] Last Admin: 08/13/16 10:22 Dose: 25 mg Pantoprazole Sodium (Protonix Ec Tab) 40 mg PO DAILY [facility] Last Admin: 08/13/16 10:14 Dose: 40 mg Pneumococcal Polyvalent Vaccine (Pneumovax 23 Vaccine) 0.5 ml IM .ONCE ONE Stop: 08/14/16 10:01 Rosuvastatin Calcium (Crestor) 40 mg PO HS [facility] Last Admin: 08/12/16 21:38 Dose: 40 mg - Labs Labs: 08/13/16 11:20 08/13/16 11:20 PT 11.1 SECONDS (9.7-12.2) 08/10/16 10:37 INR 1.0 08/10/16 10:37 APTT 31 SECONDS (21-34) 08/10/16 10:37 - Constitutional Appears: Well - Head Exam Head Exam: ATRAUMATIC, NORMAL INSPECTION, NORMOCEPHALIC - Eye Exam Eye Exam: EOMI, Normal appearance, PERRL Pupil Exam: NORMAL ACCOMODATION, PERRL - ENT Exam ENT Exam: Mucous Membranes Moist, Normal Exam - Neck Exam Neck Exam: Full ROM, Normal Inspection. 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 Spoke with Dr. Merino and Dr. Finn, who is ok with the patient to be discharged to [facility]. Pt. will f/u with Dr. Finn as outpatient.
[2016-08-14] MEDS ORDERED: Pneumococcal 23-Valent Vaccine IM ONE (10:00)
== END 2016-08-13 20:25 | DRG 100 ==
LOC: C.ER 10:11 → C.9E 12:55 → C.6T 20:27
PROVIDERS: ADMIT Internal Medicine Nephrology; ATTEND Internal Medicine Nephrology
DX: R56.9 Unspecified convulsions (principal); J18.9 Pneumonia, unspecified organism; I69.351 Hemiplegia and hemiparesis following cerebral infarction affecting right dominant side; I12.9 Hypertensive chronic kidney disease with stage 1 through stage 4 chronic kidney disease, or unspecified chronic kidney disease; E78.5 Hyperlipidemia, unspecified; N18.9 Chronic kidney disease, unspecified; F32.9 Major depressive disorder, single episode, unspecified; I69.320 Aphasia following cerebral infarction

== ENCOUNTER 2017-01-29 07:04 | Day surgery (SDC) | payer MEDICARE ==
[2017-01-29 07:38] VITALS: BMI 26.6
[2017-01-29 08:09] VITALS: O2SAT 100
[2017-01-29] MEDS ORDERED: Bacitracin 500 Units/gm Oint Foilpak UD ONE (08:50)
[2017-01-29 09:28] VITALS: BP 148/73; PULSE 62; RESP 18; TEMP 97.5
== END 2017-01-29 09:25 | disposition home or self-care (01) ==
LOC: C.ENDO 07:04
PROVIDERS: ATTEND Internal Medicine Gastroenterology
DX: Z43.1 Encounter for attention to gastrostomy (principal)

== ENCOUNTER 2017-02-15 20:49 | Observation (INO) | payer MEDICARE ==
[2017-02-15 20:49] VITALS: BMI 26.6
--- NOTE | 2017-02-16 00:44 | C.PDOC ---
History Of Present Illness 56 y/o male comes in with his family after his peg tube came out at 19:00 today. Tube was placed by Dr. Mcintyre 3 weeks ago. Patient has no other complaints at this time. Patient has a hx of CVA with right sided paralysis and is now nonverbal. Time Seen by Provider: 02/15/17 21:35 Chief Complaint (Nursing): GI Problem History Per: Patient, Family History/Exam Limitations: no limitations Onset/Duration Of Symptoms: Hrs Current Symptoms Are (Timing): Still Present Severity: Mild Reports Recently: Treated By A Physician Additional History Per: Patient Past Medical History Reviewed: Historical Data, Nursing Documentation, Vital Signs Vital Signs: Last Vital Signs Temp 98.5 F 02/15/17 20:55 Pulse 63 02/15/17 20:55 Resp 16 02/15/17 20:55 BP 156/78 H 02/15/17 20:55 Pulse Ox 100 02/16/17 00:46 - Medical History PMH: Anemia, Depression, HTN, Hypercholesterolemia Denies: Chronic Kidney Disease Surgical History: Endoscopy - [employer] Procedures CATARAC PHACOEMULS/ASPIR (05/17/14) INSERT LENS AT CATAR EXT (05/17/14) Family History: States: Unknown Family Hx - Social History Hx Alcohol Use: No Hx Substance Use: No Review Of Systems Except As Marked, All Systems Reviewed And Found Negative. Constitutional: Negative for: Fever, Chills Cardiovascular: Negative for: Chest Pain Respiratory: Negative for: Shortness of Breath Gastrointestinal: Negative for: Nausea, Vomiting, Diarrhea Physical Exam - Physical Exam Appears: Non-toxic, No Acute Distress Skin: Warm, Dry Head: Atraumatic, Normacephalic Cardiovascular: Rhythm Regular, No Murmur Respiratory: Normal Breath Sounds, No Rales, No Rhonchi, No Wheezing Gastrointestinal/Abdominal: Bowel Sounds (Good), Soft, Other (Peg tube hole, no drainage, no erythema.) Neurological/Psych: Other (Right upper and lower extremity has no movement (old symptom). Awake and alert) ED Course And Treatment O2 Sat by Pulse Oximetry: 100 (RA) Pulse Ox Interpretation: Normal Medical Decision Making Medical Decision Making: Plans: * EKG * Blood labs * CXR Spoke with GI fellow and hospitalist and patient will be admitted for peg tube placement in the morning. Disposition - Disposition Disposition Time: 22:40 Condition: STABLE Forms: [employer] Connect (Dive[employer]) - Clinical Impression Clinical Impression: PEG (percutaneous endoscopic gastrostomy) adjustment/replacement/removal - Scribe Statement The provider has reviewed the documentation as recorded by the Scribe Jun han All medical record entries made by the Amanibe were at my direction and personally dictated by me. I have reviewed the chart and agree that the record accurately reflects my personal performance of the history, physical exam, medical decision making, and the department course for this patient. I have also personally directed, reviewed, and agree with the discharge instructions and disposition.
[2017-02-16 00:50] LABS: BASO # 0.1 K/uL (0.0-0.2); BASO % 0.8 % (0.0-2.0); EOS # 0.4 K/uL (0.0-0.7); EOS % 5.7 % (0.0-4.0); HEMATOCRIT 30.2 % (35.0-51.0); LYMPH # 2.3 K/uL (1.0-4.3); LYMPH % 29.7 % (20.0-40.0); MEAN CELL VOLUME 91.6 fL (80.0-94.0); MEAN CORPUSCULAR HEMOGLOBIN 31.3 pg (27.0-31.0); MEAN CORPUSCULAR HGB CONC 34.2 g/dL (33.0-37.0); MEAN PLATELET VOLUME 9.1 fL (7.2-11.7); MONO # 0.5 K/uL (0.0-0.8); MONO % 6.9 % (0.0-10.0); WHITE BLOOD COUNT 7.8 K/uL (4.8-10.8)
[2017-02-16 01:00] LABS: CHLORIDE 99 mmol/L (98-107); POTASSIUM 4.6 mmol/L (3.6-5.2); SODIUM 134 mmol/L (132-148)
[2017-02-16 01:02] LABS: BILIRUBIN,TOTAL 0.4 mg/dL (0.2-1.3); CARBON DIOXIDE 27 mmol/L (22-30); GFR AFRICAN-AMERICAN > 60
[2017-02-16 01:03] LABS: ALKALINE PHOSPHATASE 97 U/L (38-126); ALT/SGPT 50 U/L (21-72); AST/SGOT 27 U/L (17-59); BLOOD UREA NITROGEN 21 mg/dL (9-20); GLUCOSE,RANDOM 114 mg/dL (75-110); TOTAL PROTEIN 7.3 g/dL (6.3-8.3)
[2017-02-16 01:08] VITALS: RESP 20
--- NOTE | 2017-02-16 01:28 | CP.PCM.HP ---
<Becky Cuevas - Last Filed: 02/16/17 01:19> History of Present Illness - History of Present Illness History of Present Illness: Patient is a 56 year old male with a past medical history of CVA (2015) with left temporoparietal craniectomy and duraplasty, right sided weakness, hypertension, dyslipidemia, chronic kidney disease, obstructive sleep apnea, seizures, and diverticulosis, who was brought in to the ED by family because his PEG tube came out. The PEG tube was placed approximately three weeks ago by Dr. Mcintyre. Patient is oriented to self only, and when examined, no family was at bedside. History was obtained from prior EMR records. Patient does follow commands. Patient reports having headaches, leg pain, weakness on his right side of his body; otherwise review of systems obtainable due to patient's condition. PMHx: As per EMR, CVA (2015) with left temporoparietal craniectomy and duraplasty, hypertension, dyslipidemia, chronic kidney disease, obstructive sleep apnea, and diverticulosis PSHx: As per EMR, Colonoscopy 04/2015 - 1mm polyp - unremarkable, Tracheostomy ( reversed), PEG placement, Left temporoparietal craniectomy and duraplasty FHx: As per EMR, Unknown Social: As per EMR, denies tobacco, EtOH or illicit drug use Allergies: NKDA Medications: See EMR Present on Admission - Present on Admission Any Indicators Present on Admission: No Review of Systems - Review of Systems Systems not reviewed;Unavailable: Other Past Patient History - Past Medical History & Family History Past Medical History?: Yes - Past Social History Smoking Status: Never Smoked - CARDIAC Hx Hypercholesterolemia: Yes Hx Hypertension: Yes - NEUROLOGICAL Hx Neurological Disorder: Yes HX Cerebrovascular Accident: Yes Hx Paralysis: Yes (right side) - HEENT Hx HEENT Problems: No Hx Cataracts: Yes - RENAL Hx Chronic Kidney Disease: No - ENDOCRINE/METABOLIC Hx Endocrine Disorders: Yes Hx Diabetes Mellitus Type 2: Yes - HEMATOLOGICAL/ONCOLOGICAL Hx Anemia: Yes - INTEGUMENTARY Hx Dermatological Problems: No - MUSCULOSKELETAL/RHEUMATOLOGICAL Hx Musculoskeletal Disorders: No Hx Falls: No Other/Comment: amp 5 th toe right foot - GASTROINTESTINAL Hx Gastrointestinal Disorders: Yes HX Swallowing Problems: Yes Other/Comment: with old PEG but not in use as per son. - GENITOURINARY/GYNECOLOGICAL Hx Genitourinary Disorders: No - PSYCHIATRIC Hx Depression: Yes Hx Substance Use: No - SURGICAL HISTORY Hx Surgeries: Yes Hx Amputation: Yes (RIGHT FIFTH TOE) Hx Cataract Extraction: Yes (BILATERAL) Hx Cardiac Catheterization: Yes Hx Herniorrhaphy: Yes Hx Open Heart Surgery: Yes (August 2015) Other/Comment: craniotomy October 22, 2015. - ANESTHESIA Hx Anesthesia: Yes Hx Anesthesia Reactions: No Hx Malignant Hyperthermia: No Meds Allergies/Adverse Reactions: Allergies Allergy/AdvReac Type Severity Reaction Status Date / Time No Known Allergies Allergy Verified 01/29/17 07:37 Physical Exam - Head Exam Head Exam: ATRAUMATIC - Eye Exam Eye Exam: EOMI, Normal appearance - ENT Exam ENT Exam: Mucous Membranes Moist - Respiratory Exam Respiratory Exam: Clear to Auscultation Bilateral, NORMAL BREATHING PATTERN. absent: Rhonchi, Wheezes, Respiratory Distress - Cardiovascular Exam Cardiovascular Exam: REGULAR RHYTHM, +S1, +S2. absent: Bradycardia, Tachycardia - GI/Abdominal Exam GI & Abdominal Exam: Normal Bowel Sounds, Soft. absent: Distended, Firm, Guarding, Mass, Tenderness - Extremities Exam Extremities exam: Positive for: pedal pulses present. Negative for: calf tenderness, full ROM (Right sided weakness LE&UE; Full ROM Left side), pedal edema - Neurological Exam Neurological exam: Alert - Psychiatric Exam Psychiatric exam: Normal Affect, Normal Mood - Skin Skin Exam: Dry, Normal Color, Warm Additional comments: Dressing at PEG site- clean, dry, intact. Results - Vital Signs Recent Vital Signs: Last Vital Signs Temp 97.8 F 02/16/17 00:55 Pulse 66 02/16/17 00:55 Resp 20 02/16/17 00:55 BP 159/76 H 02/16/17 00:55 Pulse Ox 100 02/16/17 00:55 - Labs Result Diagrams: 02/16/17 00:47 02/16/17 00:47 Labs: Laboratory Results - last 24 hr 02/16/17 02/16/17 02/16/17 00:47 00:47 00:47 WBC 7.8 RBC 3.30 L Hgb 10.3 L Hct 30.2 L MCV 91.6 MCH 31.3 H MCHC 34.2 RDW 13.0 Plt Count 187 MPV 9.1 Neut % (Auto) 56.9 Lymph % (Auto) 29.7 [place] % (Auto) 6.9 Eos % (Auto) 5.7 H Baso % (Auto) 0.8 Neut # 4.4 Lymph # 2.3 [place] # 0.5 Eos # 0.4 Baso # 0.1 PT 11.4 INR 1.0 APTT 31 Sodium 134 Potassium 4.6 Chloride 99 Carbon Dioxide 27 Anion Gap 13 BUN 21 H Creatinine 1.1 Est GFR ( Amer) > 60 Est GFR (Non-Af Amer) > 60 Random Glucose 114 H Calcium 9.0 Total Bilirubin 0.4 AST 27 ALT 50 Alkaline Phosphatase 97 Total Protein 7.3 Albumin 3.7 Globulin 3.6 Albumin/Globulin Ratio 1.0 Assessment & Plan (1) PEG (percutaneous endoscopic gastrostomy) adjustment/replacement/removal Assessment and Plan: Patient is scheduled for PEG replacement with Dr. Mcintyre on 02/16/17. Keep NPO EKG: f/u results CXR: f/u results Follow up morning labs Status: Acute (2) Prophylactic measure Assessment and Plan: NPO Fall precautions SCDs Status: Acute <Raúl Foy - Last Filed: 02/16/17 06:17> Results - Vital Signs Recent Vital Signs: Last Vital Signs Temp 98.1 F 02/16/17 01:54 Pulse 64 02/16/17 01:54 Resp 20 02/16/17 01:54 BP 174/84 H 02/16/17 01:54 Pulse Ox 98 02/16/17 01:54 - Labs Result Diagrams: 02/16/17 00:47 02/16/17 00:47 Labs: Laboratory Results - last 24 hr 02/16/17 02/16/17 02/16/17 00:47 00:47 00:47 WBC 7.8 RBC 3.30 L Hgb 10.3 L Hct 30.2 L MCV 91.6 MCH 31.3 H MCHC 34.2 RDW 13.0 Plt Count 187 MPV 9.1 Neut % (Auto) 56.9 Lymph % (Auto) 29.7 [place] % (Auto) 6.9 Eos % (Auto) 5.7 H Baso % (Auto) 0.8 Neut # 4.4 Lymph # 2.3 [place] # 0.5 Eos # 0.4 Baso # 0.1 PT 11.4 INR 1.0 APTT 31 Sodium 134 Potassium 4.6 Chloride 99 Carbon Dioxide 27 Anion Gap 13 BUN 21 H Creatinine 1.1 Est GFR ( Amer) > 60 Est GFR (Non-Af Amer) > 60 Random Glucose 114 H Calcium 9.0 Total Bilirubin 0.4 AST 27 ALT 50 Alkaline Phosphatase 97 Total Protein 7.3 Albumin 3.7 Globulin 3.6 Albumin/Globulin Ratio 1.0 Assessment & Plan - Date & Time Date: 02/16/17 (I have seen and examined the patient. I agree with the findings and plan of care as documented by Dr. Cuevas. Patient with PEG tube but recently pulled out. Consult to GI for replacement of PEG. Medically optimize. Monitor for acute changes.) Time: 06:16 Attending/Attestation - Attestation I have personally seen and examined this patient.: Yes I have fully participated in the care of the patient.: Yes I have reviewed all pertinent clinical information: Yes
--- NOTE | 2017-02-16 08:00 | CP.PCM.CON ---
<Kaitlyn Robert - Last Filed: 02/16/17 10:14> History of Present Illness - History of Present Illness History of Present Illness: GI Fellow PGY4 Consult This is a 56 year old male with a past medical history of CVA (2015) with left temporoparietal craniectomy and duraplasty, right sided weakness, hypertension, dyslipidemia, chronic kidney disease, obstructive sleep apnea, seizures, who was brought in to the ED by family because his PEG tube came out. The PEG tube was exchanged on 01/29/2017 because it was clogged with 22 Fr Bard. Unclear when pt had initial PEG tube placed. Patient is oriented to self only and is unable to answer questions, no family was at bedside. History was obtained from prior EMR records. ROs: A 12pt ROS was negative except as above. PMHx: As stated in HPI PSHx: Colonoscopy 04/2015 - 1mm polyp, Tracheostomy (reversed), PEG placement, Left temporoparietal craniectomy and duraplasty FHx: Unknown SHx: As per EMR, denies tobacco, EtOH or illicit drug use Past Patient History - Past Medical History & Family History Past Medical History?: Yes - Past Social History Smoking Status: Never Smoked - CARDIAC Hx Hypercholesterolemia: Yes Hx Hypertension: Yes - NEUROLOGICAL Hx Neurological Disorder: Yes HX Cerebrovascular Accident: Yes Hx Paralysis: Yes (right side) - HEENT Hx HEENT Problems: No Hx Cataracts: Yes - RENAL Hx Chronic Kidney Disease: No - ENDOCRINE/METABOLIC Hx Endocrine Disorders: Yes Hx Diabetes Mellitus Type 2: Yes - HEMATOLOGICAL/ONCOLOGICAL Hx Anemia: Yes - INTEGUMENTARY Hx Dermatological Problems: No - MUSCULOSKELETAL/RHEUMATOLOGICAL Hx Musculoskeletal Disorders: No Hx Falls: No Other/Comment: amp 5 th toe right foot - GASTROINTESTINAL Hx Gastrointestinal Disorders: Yes HX Swallowing Problems: Yes Other/Comment: with old PEG but not in use as per son. - GENITOURINARY/GYNECOLOGICAL Hx Genitourinary Disorders: No - PSYCHIATRIC Hx Depression: Yes Hx Substance Use: No - SURGICAL HISTORY Hx Surgeries: Yes Hx Amputation: Yes (RIGHT FIFTH TOE) Hx Cataract Extraction: Yes (BILATERAL) Hx Cardiac Catheterization: Yes Hx Herniorrhaphy: Yes Hx Open Heart Surgery: Yes (August 2015) Other/Comment: craniotomy October 22, 2015. - ANESTHESIA Hx Anesthesia: Yes Hx Anesthesia Reactions: No Hx Malignant Hyperthermia: No Meds Allergies/Adverse Reactions: Allergies Allergy/AdvReac Type Severity Reaction Status Date / Time No Known Allergies Allergy Verified 01/29/17 07:37 - Medications Medications: Current Medications Pneumococcal Polyvalent Vaccine (Pneumovax 23 Vaccine) 0.5 ml IM .ONCE ONE Stop: 02/19/17 10:01 Physical Exam - Constitutional Appears: Non-toxic, No Acute Distress - Head Exam Head Exam: ATRAUMATIC, NORMAL INSPECTION, NORMOCEPHALIC - Eye Exam Eye Exam: EOMI, Normal appearance, PERRL Pupil Exam: PERRL - ENT Exam ENT Exam: Mucous Membranes Moist, Normal Exam - Neck Exam Neck exam: Positive for: Normal Inspection - Respiratory Exam Respiratory Exam: Clear to Auscultation Bilateral, Wheezes - Cardiovascular Exam Cardiovascular Exam: RRR, +S1, +S2 - GI/Abdominal Exam GI & Abdominal Exam: Normal Bowel Sounds, Soft. absent: Distended, Organomegaly , Tenderness Additional comments: PEg site with clean dressing, no erythema, no signs of infection - Rectal Exam Rectal Exam: Deferred - Extremities Exam Extremities exam: Positive for: normal inspection - Back Exam Back exam: NORMAL INSPECTION - Neurological Exam Neurological exam: Alert - Psychiatric Exam Psychiatric exam: Normal Affect, Normal Mood - Skin Skin Exam: Dry, Intact, Normal Color, Warm Results - Vital Signs Recent Vital Signs: Last Vital Signs Temp 98.1 F 02/16/17 01:54 Pulse 64 02/16/17 01:54 Resp 20 02/16/17 01:54 BP 174/84 H 02/16/17 01:54 Pulse Ox 98 02/16/17 01:54 - Labs Result Diagrams: 02/16/17 00:47 02/16/17 00:47 Labs: Laboratory Results - last 24 hr 02/16/17 02/16/17 02/16/17 00:47 00:47 00:47 WBC 7.8 RBC 3.30 L Hgb 10.3 L Hct 30.2 L MCV 91.6 MCH 31.3 H MCHC 34.2 RDW 13.0 Plt Count 187 MPV 9.1 Neut % (Auto) 56.9 Lymph % (Auto) 29.7 [place] % (Auto) 6.9 Eos % (Auto) 5.7 H Baso % (Auto) 0.8 Neut # 4.4 Lymph # 2.3 [place] # 0.5 Eos # 0.4 Baso # 0.1 PT 11.4 INR 1.0 APTT 31 Sodium 134 Potassium 4.6 Chloride 99 Carbon Dioxide 27 Anion Gap 13 BUN 21 H Creatinine 1.1 Est GFR ( Amer) > 60 Est GFR (Non-Af Amer) > 60 POC Glucose (mg/dL) Random Glucose 114 H Calcium 9.0 Total Bilirubin 0.4 AST 27 ALT 50 Alkaline Phosphatase 97 Total Protein 7.3 Albumin 3.7 Globulin 3.6 Albumin/Globulin Ratio 1.0 02/16/17 06:43 WBC RBC Hgb Hct MCV MCH MCHC RDW Plt Count MPV Neut % (Auto) Lymph % (Auto) [place] % (Auto) Eos % (Auto) Baso % (Auto) Neut # Lymph # [place] # Eos # Baso # PT INR APTT Sodium Potassium Chloride Carbon Dioxide Anion Gap BUN Creatinine Est GFR ( Amer) Est GFR (Non-Af Amer) POC Glucose (mg/dL) 161 H Random Glucose Calcium Total Bilirubin AST ALT Alkaline Phosphatase Total Protein Albumin Globulin Albumin/Globulin Ratio Assessment & Plan - Assessment and Plan (Free Text) Assessment: This is 56yM presenting after pulling PEG tube out at home. 1. Pulled PEG tube 2. Anemia 3. Hx of CVA, aphasia 4. Hx Seizures Plan: -Continue supportive care -Plan to replace PEG today at bedside with 22Fr Bard. -Keep NPO -Anemia-Hgb trending down slowly from prior admissions, no active GI bleed, hemodynamically stable -Will order iron profile, folate, vitamin B12 -Colonoscopy 2yrs ago with one polyp removed -Will continue to follow pt closely <Jordan RIBERA,Lan - Last Filed: 02/16/17 13:15> Meds - Medications Medications: Current Medications Pneumococcal Polyvalent Vaccine (Pneumovax 23 Vaccine) 0.5 ml IM .ONCE ONE Stop: 02/19/17 10:01 Results - Vital Signs Recent Vital Signs: Last Vital Signs Temp 97.5 F L 02/16/17 08:00 Pulse 70 02/16/17 11:02 Resp 20 02/16/17 08:00 BP 152/75 H 02/16/17 11:02 Pulse Ox 96 02/16/17 11:02 - Labs Result Diagrams: 02/16/17 00:47 02/16/17 00:47 Labs: Laboratory Results - last 24 hr 02/16/17 02/16/17 02/16/17 00:47 00:47 00:47 WBC 7.8 RBC 3.30 L Hgb 10.3 L Hct 30.2 L MCV 91.6 MCH 31.3 H MCHC 34.2 RDW 13.0 Plt Count 187 MPV 9.1 Neut % (Auto) 56.9 Lymph % (Auto) 29.7 [place] % (Auto) 6.9 Eos % (Auto) 5.7 H Baso % (Auto) 0.8 Neut # 4.4 Lymph # 2.3 [place] # 0.5 Eos # 0.4 Baso # 0.1 PT 11.4 INR 1.0 APTT 31 Sodium 134 Potassium 4.6 Chloride 99 Carbon Dioxide 27 Anion Gap 13 BUN 21 H Creatinine 1.1 Est GFR ( Amer) > 60 Est GFR (Non-Af Amer) > 60 POC Glucose (mg/dL) Random Glucose 114 H Calcium 9.0 Iron TIBC % Saturation Total Bilirubin 0.4 AST 27 ALT 50 Alkaline Phosphatase 97 Total Protein 7.3 Albumin 3.7 Globulin 3.6 Albumin/Globulin Ratio 1.0 Vitamin B12 Folate 02/16/17 02/16/17 02/16/17 06:43 11:02 11:02 WBC RBC Hgb Hct MCV MCH MCHC RDW Plt Count MPV Neut % (Auto) Lymph % (Auto) [place] % (Auto) Eos % (Auto) Baso % (Auto) Neut # Lymph # [place] # Eos # Baso # PT INR APTT Sodium Potassium Chloride Carbon Dioxide Anion Gap BUN Creatinine Est GFR ( Amer) Est GFR (Non-Af Amer) POC Glucose (mg/dL) 161 H Random Glucose Calcium Iron 83 TIBC 332 % Saturation 25 Total Bilirubin AST ALT Alkaline Phosphatase Total Protein Albumin Globulin Albumin/Globulin Ratio Vitamin B12 > 1000 H Folate > 20.0 02/16/17 02/16/17 11:02 11:55 WBC RBC Hgb Hct MCV MCH MCHC RDW Plt Count MPV Neut % (Auto) Lymph % (Auto) [place] % (Auto) Eos % (Auto) Baso % (Auto) Neut # Lymph # [place] # Eos # Baso # PT INR APTT Sodium Potassium Chloride Carbon Dioxide Anion Gap BUN Creatinine Est GFR ( Amer) Est GFR (Non-Af Amer) POC Glucose (mg/dL) 151 H Random Glucose Calcium Iron TIBC % Saturation 24 Total Bilirubin AST ALT Alkaline Phosphatase Total Protein Albumin Globulin Albumin/Globulin Ratio Vitamin B12 Folate Attending/Attestation - Attestation I have personally seen and examined this patient.: Yes I have fully participated in the care of the patient.: Yes I have reviewed all pertinent clinical information: Yes Notes (Text): 02/16/17 13:11 Patient seen and examined at bedside this am. This is a 56 yr old M with history of CVA and aphasia presenting after pulling PEG tube out at home. PEG placed endoscopically more than 4 weeks ago. PEG replacement done at bedside on 01/29. Stoma open. No s/s of induration. placed roman 16 fr at bedside to keep stoma open. Will place bedside PEG 18 Fr if size present in endoscopy. If patient is high risk for pulling PEG, recommend putting binder. Continue supportive care.
--- NOTE | 2017-02-16 08:48 | RAD ---
HISTORY: r/o infiltrate COMPARISON: 08/10/2016. FINDINGS: LUNGS: There are low lung volumes. No focal consolidation. PLEURA: No significant pleural effusion identified, no pneumothorax apparent. CARDIOVASCULAR: There is mild cardiomegaly. Status post CABG. OSSEOUS STRUCTURES: No significant abnormalities. VISUALIZED UPPER ABDOMEN: Normal. OTHER FINDINGS: None. IMPRESSION: No acute findings.
[2017-02-16 08:55] VITALS: O2SAT 96
[2017-02-16 12:06] LABS: IRON 83 ug/dL (49-181)
[2017-02-16 12:43] LABS: FOLATE > 20.0 ng/mL
--- NOTE | 2017-02-16 12:59 | CARD ---
APPROVED REPORT EKG Measurement Heart [id number] CT [id number] [id number] <Conclusion> Normal sinus rhythm ST & T wave abnormality, consider lateral ischemia Abnormal ECG
--- NOTE | 2017-02-16 14:18 | PCM.PROC ---
Procedures Attestation:: I certify that I have explained the specified Operation(s) or Procedure(s), risks, benefits and reasonable alternatives to the Patient and/or other person responsible. The opportunity was given to ask questions and all questions answered - Feeding Tube Replacement Type of Tube: gastrostomy Insertion Site Prior to Procedure: clean Tube Used for Reinsertion: Bard [place] Tube Size (F): 18 Verification of Placement: auscultation Tube Secured by: attachment device Patient Tolerated Procedure: well, no complications Additional comments: After pt pulled out PEG, inserted Snyder 16 [place]. This was replaced by PEG at bedside 18French Bard.
[2017-02-16] MEDS ORDERED: ACETAMINOPHEN PO PRN (14:41)
[2017-02-16] MEDS: Influenza Vaccine 60 mcg/0.5 mL SYR (4YR UP) IM ONE ×2 (14:45→15:15)
--- NOTE | 2017-02-16 14:49 | CP.PCM.DIS ---
<Denise Pierce - Last Filed: 02/16/17 17:18> Provider - Provider Date of Admission: 02/15/17 23:48 Attending physician: Raúl Foy MD Consults: GI consult: Dr. Mcintyre Time Spent in preparation of Discharge (in minutes): 34 Hospital Course - Lab Results Lab Results: Most Recent Lab Values WBC 7.8 K/uL (4.8-10.8) 02/16/17 00:47 RBC 3.30 Mil/uL (4.40-5.90) L 02/16/17 00:47 Hgb 10.3 g/dL (12.0-18.0) L 02/16/17 00:47 Hct 30.2 % (35.0-51.0) L 02/16/17 00:47 MCV 91.6 fL (80.0-94.0) 02/16/17 00:47 MCH 31.3 pg (27.0-31.0) H 02/16/17 00:47 MCHC 34.2 g/dL (33.0-37.0) 02/16/17 00:47 RDW 13.0 % (11.5-14.5) 02/16/17 00:47 Plt Count 187 K/uL (130-400) 02/16/17 00:47 MPV 9.1 fL (7.2-11.7) 02/16/17 00:47 Neut % (Auto) 56.9 % (50.0-75.0) 02/16/17 00:47 Lymph % (Auto) 29.7 % (20.0-40.0) 02/16/17 00:47 [place] % (Auto) 6.9 % (0.0-10.0) 02/16/17 00:47 Eos % (Auto) 5.7 % (0.0-4.0) H 02/16/17 00:47 Baso % (Auto) 0.8 % (0.0-2.0) 02/16/17 00:47 Neut # 4.4 K/uL (1.8-7.0) 02/16/17 00:47 Lymph # 2.3 K/uL (1.0-4.3) 02/16/17 00:47 [place] # 0.5 K/uL (0.0-0.8) 02/16/17 00:47 Eos # 0.4 K/uL (0.0-0.7) 02/16/17 00:47 Baso # 0.1 K/uL (0.0-0.2) 02/16/17 00:47 PT 11.4 SECONDS (9.7-12.2) 02/16/17 00:47 INR 1.0 02/16/17 00:47 APTT 31 SECONDS (21-34) 02/16/17 00:47 Sodium 134 mmol/L (132-148) 02/16/17 00:47 Potassium 4.6 mmol/L (3.6-5.2) 02/16/17 00:47 Chloride 99 mmol/L (98-107) 02/16/17 00:47 Carbon Dioxide 27 mmol/L (22-30) 02/16/17 00:47 Anion Gap 13 (10-20) 02/16/17 00:47 BUN 21 mg/dL (9-20) H 02/16/17 00:47 Creatinine 1.1 mg/dL (0.8-1.5) 02/16/17 00:47 Est GFR ( Amer) > 60 02/16/17 00:47 Est GFR (Non-Af Amer) > 60 02/16/17 00:47 POC Glucose (mg/dL) 151 mg/dL (65-110) H 02/16/17 11:55 Random Glucose 114 mg/dL (75-110) H 02/16/17 00:47 Calcium 9.0 mg/dl (8.6-10.4) 02/16/17 00:47 Iron 83 ug/dL (49-181) 02/16/17 11:02 TIBC 332 ug/dL (250-450) 02/16/17 11:02 % Saturation 24 (20-55) 02/16/17 11:02 Total Bilirubin 0.4 mg/dL (0.2-1.3) 02/16/17 00:47 AST 27 U/L (17-59) 02/16/17 00:47 ALT 50 U/L (21-72) 02/16/17 00:47 Alkaline Phosphatase 97 U/L (38-126) 02/16/17 00:47 Total Protein 7.3 g/dL (6.3-8.3) 02/16/17 00:47 Albumin 3.7 g/dL (3.5-5.0) 02/16/17 00:47 Globulin 3.6 gm/dL (2.2-3.9) 02/16/17 00:47 Albumin/Globulin Ratio 1.0 (1.0-2.1) 02/16/17 00:47 Vitamin B12 > 1000 pg/mL (239-931) H 02/16/17 11:02 Folate > 20.0 ng/mL 02/16/17 11:02 - Hospital Course Hospital Course: HPI 56 year old male with a past medical history of CVA (2016) with left temporoparietal craniectomy and duraplasty, right sided weakness, hypertension, dyslipidemia, chronic kidney disease, obstructive sleep apnea, seizures, and diverticulosis, who was brought in to the ED by family because his PEG tube came out. The PEG tube was placed approximately three weeks ago by Dr. Mcintyre. Patient is oriented to self only, and when examined, no family was at bedside. History was obtained from prior EMR records. Patient does follow commands. Patient reports having headaches, leg pain, weakness on his right side of his body; otherwise review of systems obtainable due to patient's condition Hospital Course During hospital stay, patient had 16Fr roman catheter placed in place of the PEG pulled out by patient. Patient pulled out PEG prior to arrival at ED. GI placed an 18Fr Gastrostomy tube at bedside. and Patient was medically stable for discharge. Patient had no complaints during hospital stay and was able to tolerate procedure well at bedside. It's important to note that patient can speak full sentences, but has difficulty coming up with words at times. Discharge: follow up with GI doctor in 1 week Follow up with Primary care doctor in 1 week Patient is able to use PEG tube if necessary. Patient can eat by mouth if tolerated. Return to ED if abdominal pain, nausea, vomiting Please see EMR for further information regarding patient's stay at the hospital - Date & Time of H&P Date of H&P: 02/16/17 Time of H&P: 14:48 Discharge Exam - Head Exam Head Exam: ATRAUMATIC, NORMAL INSPECTION, NORMOCEPHALIC - Eye Exam Eye Exam: EOMI - ENT Exam ENT Exam: Mucous Membranes Moist - Respiratory Exam Respiratory Exam: NORMAL BREATHING PATTERN. absent: Accessory Muscle Use, Respiratory Distress - Cardiovascular Exam Cardiovascular Exam: REGULAR RHYTHM, +S1, +S2. absent: Bradycardia, Tachycardia - GI/Abdominal Exam GI & Abdominal Exam: Soft. absent: Tenderness Additional comments: PEG tube insertion site midepigastric. no drainage. - Extremities Exam Additional comments: patient states he can't move his right leg well because of the CVA in his past - Psychiatric Exam Psychiatric exam: Normal Affect, Normal Mood - Skin Skin Exam: Dry, Warm Discharge Plan - Follow Up Plan Condition: STABLE Disposition: HOME/ ROUTINE Instructions: Percutaneous Endoscopic Gastrostomy Insertion (DC), How to Use and Care for Your PEG Tube (DC) Additional Instructions: Patient can go home with abdominal guard PEG was placed. patient can resume tube feeds if necessary continue feeding by mouth as tolerated Return to ED if abdominal pain, nausea, vomiting Follow up with family doctor in 1 week Follow up with GI doctor in 1 week <Remi Aguilar - Last Filed: 02/16/17 17:40> Provider - Provider Date of Admission: 02/15/17 23:48 Attending physician: Raúl Foy MD Hospital Course - Lab Results Lab Results: Most Recent Lab Values WBC 7.8 K/uL (4.8-10.8) 02/16/17 00:47 RBC 3.30 Mil/uL (4.40-5.90) L 02/16/17 00:47 Hgb 10.3 g/dL (12.0-18.0) L 02/16/17 00:47 Hct 30.2 % (35.0-51.0) L 02/16/17 00:47 MCV 91.6 fL (80.0-94.0) 02/16/17 00:47 MCH 31.3 pg (27.0-31.0) H 02/16/17 00:47 MCHC 34.2 g/dL (33.0-37.0) 02/16/17 00:47 RDW 13.0 % (11.5-14.5) 02/16/17 00:47 Plt Count 187 K/uL (130-400) 02/16/17 00:47 MPV 9.1 fL (7.2-11.7) 02/16/17 00:47 Neut % (Auto) 56.9 % (50.0-75.0) 02/16/17 00:47 Lymph % (Auto) 29.7 % (20.0-40.0) 02/16/17 00:47 [place] % (Auto) 6.9 % (0.0-10.0) 02/16/17 00:47 Eos % (Auto) 5.7 % (0.0-4.0) H 02/16/17 00:47 Baso % (Auto) 0.8 % (0.0-2.0) 02/16/17 00:47 Neut # 4.4 K/uL (1.8-7.0) 02/16/17 00:47 Lymph # 2.3 K/uL (1.0-4.3) 02/16/17 00:47 [place] # 0.5 K/uL (0.0-0.8) 02/16/17 00:47 Eos # 0.4 K/uL (0.0-0.7) 02/16/17 00:47 Baso # 0.1 K/uL (0.0-0.2) 02/16/17 00:47 PT 11.4 SECONDS (9.7-12.2) 02/16/17 00:47 INR 1.0 02/16/17 00:47 APTT 31 SECONDS (21-34) 02/16/17 00:47 Sodium 134 mmol/L (132-148) 02/16/17 00:47 Potassium 4.6 mmol/L (3.6-5.2) 02/16/17 00:47 Chloride 99 mmol/L (98-107) 02/16/17 00:47 Carbon Dioxide 27 mmol/L (22-30) 02/16/17 00:47 Anion Gap 13 (10-20) 02/16/17 00:47 BUN 21 mg/dL (9-20) H 02/16/17 00:47 Creatinine 1.1 mg/dL (0.8-1.5) 02/16/17 00:47 Est GFR ( Amer) > 60 10 00:47 Est GFR (Non-Af Amer) > 60 02/16/17 00:47 POC Glucose (mg/dL) 116 mg/dL (65-110) H 02/16/17 15:55 Random Glucose 114 mg/dL (75-110) H 02/16/17 00:47 Calcium 9.0 mg/dl (8.6-10.4) 02/16/17 00:47 Iron 83 ug/dL (49-181) 02/16/17 11:02 TIBC 332 ug/dL (250-450) 02/16/17 11:02 % Saturation 24 (20-55) 02/16/17 11:02 Total Bilirubin 0.4 mg/dL (0.2-1.3) 02/16/17 00:47 AST 27 U/L (17-59) 02/16/17 00:47 ALT 50 U/L (21-72) 02/16/17 00:47 Alkaline Phosphatase 97 U/L (38-126) 02/16/17 00:47 Total Protein 7.3 g/dL (6.3-8.3) 02/16/17 00:47 Albumin 3.7 g/dL (3.5-5.0) 02/16/17 00:47 Globulin 3.6 gm/dL (2.2-3.9) 02/16/17 00:47 Albumin/Globulin Ratio 1.0 (1.0-2.1) 02/16/17 00:47 Vitamin B12 > 1000 pg/mL (239-931) H 02/16/17 11:02 Folate > 20.0 ng/mL 02/16/17 11:02 Attending/Attestation - Attestation I have personally seen and examined this patient.: Yes I have fully participated in the care of the patient.: Yes I have reviewed all pertinent clinical information, including history, physical exam and plan: Yes Notes (Text): 02/16/17 17:34 Medical attending: Patient was seen and examined by me, agree with the above note by medical tech. This is my first time meeting the patient, so I had reviewed the previous notes , discussed with the medical residents, and also introduced myself and discussed with the patient. This being said the patient does have history of CVA in the past, our discussion with the patient was rather limited because of this. From what I understand the patient was brought in the previous day to concerns of the PEG tube that was out. From my discussion with some the staff there was concern that the patient pulled out his previous PEG tube Regardless the PEG has been icepack and by GI. This time were try to discharge patient back to home. His lab work is currently stable at this time as is his vital signs. Thank you very much, Remi Aguilar
[2017-02-16] MEDS ORDERED: Influenza Vaccine 60 mcg/0.5 mL SYR (4YR UP) IM ONE (15:00)
[2017-02-16 16:16] VITALS: BP 154/83; PULSE 72; TEMP 98.2
[2017-02-19] MEDS ORDERED: Pneumococcal 23-Valent Vaccine IM ONE (10:00)
== END 2017-02-16 16:20 | disposition home or self-care (01) ==
LOC: C.ER 20:49 → C.5S 23:48
PROVIDERS: ADMIT Family Medicine; ATTEND Family Medicine
DX: Z43.1 Encounter for attention to gastrostomy (principal); G47.33 Obstructive sleep apnea (adult) (pediatric); E78.5 Hyperlipidemia, unspecified; D64.9 Anemia, unspecified; I69.251 Hemiplegia and hemiparesis following other nontraumatic intracranial hemorrhage affecting right dominant side; I69.220 Aphasia following other nontraumatic intracranial hemorrhage
CPT/HCPCS: 71010; 80053; 82607; 82746; 82948; 83540; 83550; 85025; 85610; 85730; 90674; 93005; 97110; 97162; 99285; G0008; G0378; G8978; G8979

== ENCOUNTER 2017-02-19 09:30 | Emergency (ER) | payer MEDICARE ==
[2017-02-19 09:30] VITALS: BMI 26.6
[2017-02-19 09:35] VITALS: TEMP 98.2; O2SAT 100
--- NOTE | 2017-02-19 10:32 | C.PDOC ---
History Of Present Illness 56 y/o M c PMHx hemorrhagic stroke s/p craniectomy, s/p trach, s/p gastrostomy tube, now with motor and verbal deficit brought by family for dislodged gastrostomy tube. Patient has had tube placed about 1 month prior and replaced due to dislodgement twice since. Family states patient not using tube, just "sits there." Reportedly eating a full normal diet by mouth without coughing or difficulty. Gastrostomy site without discharge of pus, no fever, no erythema. Time Seen by Provider: 02/19/17 09:50 Chief Complaint (Nursing): GI Problem Past Medical History Vital Signs: Last Vital Signs Temp 98.2 F 02/19/17 09:34 Pulse 63 02/19/17 09:34 Resp 20 02/19/17 09:34 BP 161/81 H 02/19/17 09:34 Pulse Ox 100 02/19/17 09:34 - Medical History PMH: Anemia, Depression, HTN, Hypercholesterolemia Denies: Chronic Kidney Disease Surgical History: Endoscopy - [facility] Procedures CATARAC PHACOEMULS/ASPIR (05/17/14) INSERT LENS AT CATAR EXT (05/17/14) Family History: States: Unknown Family Hx - Social History Hx Alcohol Use: No Hx Substance Use: No Review Of Systems Review Of Systems: ROS cannot be obtained secondary to pt's inabilty to answer questions. Constitutional: Negative for: Fever Gastrointestinal: Negative for: Vomiting Physical Exam - Physical Exam Appears: No Acute Distress Head: No Normacephalic (craniectomy) Oral Mucosa: Moist Cardiovascular: Rhythm Regular Respiratory: No Accessory Muscle Use Gastrointestinal/Abdominal: Soft, No Tenderness, No Distention, No Guarding, No Rebound, Other (gastrostomy site with normal discharge, no pus, no surrounding erythema) Neurological/Psych: Other (Awake) ED Course And Treatment O2 Sat by Pulse Oximetry: 100 Medical Decision Making Medical Decision Making: Discussed case with Dr. Ellison, she agrees with no replacement at this time and will see patient in office. Discharged home, instructed to return to ED for any fever, visible pus, or erythema concerning for infection. Disposition Discussed With DrNya: Anny Ellison Doctor Will See Patient In The: Office - Disposition Referrals: Anny Ellison MD [Staff Provider] - Disposition: HOME/ ROUTINE Disposition Time: 10:24 Condition: STABLE Instructions: How to Use and Care for Your PEG Tube (ED) - Clinical Impression Clinical Impression: Dislodged gastrostomy tube
[2017-02-19 10:42] VITALS: BP 149/63; PULSE 64; RESP 18
== END 2017-02-19 10:41 | disposition home or self-care (01) ==
LOC: C.ER 09:30
DX: Z43.1 Encounter for attention to gastrostomy (principal); E78.00 Pure hypercholesterolemia, unspecified; I10 Essential (primary) hypertension; Z93.0 Tracheostomy status

== ENCOUNTER 2017-06-02 13:29 | Inpatient (IN) | payer MEDICARE ==
[2017-06-02 13:29] VITALS: BMI 26.6
--- NOTE | 2017-06-02 14:56 | C.PDOC ---
History Of Present Illness Patient is a 56 year old male with a past medical history of CVA (2015) with left temporoparietal craniectomy and duraplasty, right sided weakness, hypertension, dyslipidemia, chronic kidney disease, obstructive sleep apnea, seizures, and diverticulosis, who was brought in to the ED by family because his PMHx: As per EMR, CVA (2016) with left temporoparietal craniectomy and duraplasty, hypertension, dyslipidemia, chronic kidney disease, obstructive sleep apnea, and diverticulosis PSHx: As per EMR, Colonoscopy 04/2015 - 1mm polyp - unremarkable, Tracheostomy ( reversed), PEG placement, Left temporoparietal craniectomy and duraplasty FHx: As per EMR, Unknown Social: As per EMR, denies tobacco, EtOH or illicit drug use Allergies: NKDA Medications: See EMR Time Seen by Provider: 06/02/17 14:29 Chief Complaint (Nursing): Abnormal Skin Integrity Past Medical History Vital Signs: Last Vital Signs Temp 98.4 F 06/02/17 13:55 Pulse 66 06/02/17 13:55 Resp 14 06/02/17 13:55 BP 178/81 H 06/02/17 13:55 Pulse Ox 99 06/02/17 16:45 - Medical History PMH: Anemia, Depression, HTN, Hypercholesterolemia, Seizures Denies: Chronic Kidney Disease Surgical History: Endoscopy - [facility] Procedures CATARAC PHACOEMULS/ASPIR (05/17/14) INSERT LENS AT CATAR EXT (05/17/14) Family History: States: Unknown Family Hx - Social History Hx Alcohol Use: No Hx Substance Use: No - Immunization History Hx Influenza Vaccination: No Hx Pneumococcal Vaccination: No ED Course And Treatment - Laboratory Results Result Diagrams: 06/02/17 15:18 06/02/17 15:18 Lab Interpretation: No Acute Changes ECG: Interpreted By Me, Viewed By Me (and ED attending) ECG Interpretation: Abnormal Interpretation Of ECG: SR@65/min, LAD, T wave inversion in I, AVL, V5-6, no acute St-T changes O2 Sat by Pulse Oximetry: 99 Pulse Ox Interpretation: Normal - Other Rad Right foot X-Ray: Interpreted by Me, Viewed By Me - CT Scan/US Doppler US Other Rad Studies (CT/US): Read By Radiologist, Radiology Report Reviewed CT/US Interpretation: (-) DVT RLE Progress Note: Podiatry consult called, pt was evaluated by resident. Wound Cx obtained. As per Podiatry resident, case discussed with Occupational Health Nurse Manager on-call and wound debridement offered Disposition - Disposition Disposition Time: 17:29 Condition: STABLE Forms: [facility] ([place]) - Clinical Impression Clinical Impression: EKG abnormalities, Foot ulcer, Osteomyelitis
[2017-06-02 15:25] LABS: BASO % 0.6 % (0.0-2.0); EOS # 0.3 K/uL (0.0-0.7); EOS % 5.4 % (0.0-4.0); HEMOGLOBIN 11.4 g/dL (12.0-18.0); LYMPH # 1.4 K/uL (1.0-4.3); MEAN CELL VOLUME 90.6 fL (80.0-94.0); MEAN CORPUSCULAR HEMOGLOBIN 31.3 pg (27.0-31.0); MEAN CORPUSCULAR HGB CONC 34.6 g/dL (33.0-37.0); MEAN PLATELET VOLUME 9.2 fL (7.2-11.7); MONO # 0.4 K/uL (0.0-0.8); MONO % 6.4 % (0.0-10.0); NEUT # 4.2 K/uL (1.8-7.0); NEUT % 65.6 % (50.0-75.0); RBC 3.64 Mil/uL (4.40-5.90); WHITE BLOOD COUNT 6.4 K/uL (4.8-10.8)
[2017-06-02 15:35] LABS: PROTHROMBIN TIME 11.6 SECONDS (9.7-12.2)
[2017-06-02 15:36] LABS: BLOOD UREA NITROGEN 17 mg/dL (9-20); CALCIUM 8.6 mg/dl (8.6-10.4); GFR AFRICAN-AMERICAN > 60; GFR NON-AFRICAN AMERICAN > 60
--- NOTE | 2017-06-02 16:45 | CP.PCM.CON ---
History of Present Illness - History of Present Illness History of Present Illness: Podiatry Consult Note- Dr. Song: This is a 56 yo male patient who was seen in the ED today for right foot ulceration/discoloration. Pt's family brought patient to ED, because mother noticed a blister 4 weeks ago, which see says she tried to pop and drain at home and then noticed the bottom of his foot getting darker 3 weeks ago. Mother says she was becoming concerned as it was not going away. Family says that patient is bed and wheelchair bound, that his feet are usually down on the wheelchair foot pedals during the day, and that he does not wear a shoe to the right foot. Pt denies f/n/v/c/sob/cp/weakness or dizziness at this time. Does complain of tenderness to the bottom of the right foot. 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 PMHX: CVA (2016) with left temporoparietal craniectomy and duraplasty, right sided weakness, HTN, HLD, CKD, obstructive sleep apnea, seizures, and diverticulosis who seen in the ED today for right foot ulceration ALL: NKDA Review of Systems - Review of Systems Review of Systems: all systems reviewed and found negative outside hpi Past Patient History - Infectious Disease Hx of Infectious Diseases: None - Past Medical History & Family History Past Medical History?: Yes - Past Social History Smoking Status: Never Smoked - CARDIAC Hx Hypercholesterolemia: Yes Hx Hypertension: Yes - NEUROLOGICAL Hx Seizures: Yes - HEENT Hx Cataracts: Yes - RENAL Hx Chronic Kidney Disease: No - ENDOCRINE/METABOLIC Hx Diabetes Mellitus Type 2: Yes - HEMATOLOGICAL/ONCOLOGICAL Hx Anemia: Yes - INTEGUMENTARY Hx Dermatological Problems: No - MUSCULOSKELETAL/RHEUMATOLOGICAL Hx Musculoskeletal Disorders: No - GASTROINTESTINAL Hx Gastrointestinal Disorders: Yes HX Swallowing Problems: Yes (now eats "reg food") - GENITOURINARY/GYNECOLOGICAL Hx Genitourinary Disorders: No - PSYCHIATRIC Hx Depression: Yes Hx Substance Use: No - SURGICAL HISTORY Other/Comment: "Cardiac sugery 3 veins clogged" - veins taken from [facility] @ [place]". Tracheostomy removed 2016. Feeding removed Mar 2017. Amputation 5th digit - rt foot - ANESTHESIA Hx Anesthesia: Yes Hx Anesthesia Reactions: No Hx Malignant Hyperthermia: No Meds Allergies/Adverse Reactions: Allergies Allergy/AdvReac Type Severity Reaction Status Date / Time No Known Allergies Allergy Verified 06/02/17 14:03 Physical Exam - Constitutional Appears: Non-toxic, No Acute Distress - Extremities Exam Extremities exam: Negative for: calf tenderness Additional comments: RLE exam: VASC- pedal pulses are palpable (DP/PT), skin temp runs warm to cool, cap refill is brisk to all digits, neg edema NEURO- gross and protective pedal sensation are intact DERM- there is a necrotic eschar noted to central-lateral aspect of plantar right foot with surrounding fibrotic rim (eschar appears stable and dry), just proximal to this echar there is a bullous lesion which appears sero-sanguinous, no local erythema, no ascending cellulitis, + malodor, neg probe to one, neg undermining Post drainage of bullous lesion: 2 cc of sero-sanguinous drainage evacuated, neg purulence MSK: POP to central aspect of wound, MMT 0/4 in all directions right lower extremity - Neurological Exam Neurological exam: Alert, CN II-XII Intact, Oriented x3 - Psychiatric Exam Psychiatric exam: Normal Affect, Normal Mood Results - Vital Signs Recent Vital Signs: Last Vital Signs Temp 98.4 F 06/02/17 13:55 Pulse 66 06/02/17 13:55 Resp 14 06/02/17 13:55 BP 178/81 H 06/02/17 13:55 Pulse Ox 99 06/02/17 14:56 - Labs Result Diagrams: 06/02/17 15:18 06/02/17 15:18 Labs: Laboratory Results - last 24 hr 06/02/17 06/02/17 06/02/17 15:18 15:18 15:18 WBC 6.4 RBC 3.64 L Hgb 11.4 L Hct 33.0 L MCV 90.6 MCH 31.3 H MCHC 34.6 RDW 13.0 Plt Count 226 MPV 9.2 Neut % (Auto) 65.6 Lymph % (Auto) 22.0 [place] % (Auto) 6.4 Eos % (Auto) 5.4 H Baso % (Auto) 0.6 Neut # 4.2 Lymph # 1.4 [place] # 0.4 Eos # 0.3 Baso # 0.0 PT 11.6 INR 1.0 APTT 33 Sodium 135 Potassium 5.1 Chloride 97 L Carbon Dioxide 31 H Anion Gap 12 BUN 17 Creatinine 1.2 Est GFR ( Amer) > 60 Est GFR (Non-Af Amer) > 60 Random Glucose 192 H Calcium 8.6 Assessment & Plan - Assessment and Plan (Free Text) Assessment: 56 yo male patient with ulceration of right plantar foot 2/2 pressure Plan: Pt S&E at bedside in ED Plan discussed with attending Dr. Song Chart, labs vitals reviewed: afebrile, no leukocytosis Verbal consent obtained for aseptic drainage of blister right foot with 2 cc of serosanguinous drainage expressed. Pt tolerated procedure well without incident Wound dressed with betadine soaked gauze, DSD Multipodus boot ordered: to be worn to right foot at all times while in bed Wound cx taken: results pending Right foot x-ray: negative findings for gas, s/p partial 5th ray amputation, soft tissue defect consistent with ulcer location is noted sub-met 4, sub-met 5 appears plantarflexed, calcification of pedal arteries noted Venous duplex: neg DVT Arterial duplex: pending Per ED, plan for admission to hospitalist service (abnormal EKG) Will require surgical debridement of right foot ulceration, DOS TBD Will require medical clearance prior to debridement Podiatry will follow while in house.
--- NOTE | 2017-06-02 16:51 | VASCLAB ---
PROCEDURE: Right Lower Extremity Venous Duplex Exam. HISTORY: Right foot discoloration, Right hemiplegia PRIORS: None. TECHNIQUE: Right common femoral, femoral, popliteal and posterior tibial, peroneal and great saphenous veins were evaluated. Flow was assessed with color Doppler, compressibility, assessment of phasic flow and augmentation response. Report prepared by ASIM Vega, RVT FINDINGS: RIGHT: 1. Common Femoral Vein: 1.1. Compressibility - Fully compressible: Thrombus - None: Flow - Phasic: Augmentation -Normal: Reflux - None. 2. Femoral Vein: 2.1. Compressibility - Fully compressible: Thrombus - None: Flow - Phasic: Augmentation -Normal: Reflux - None. 3. Popliteal Vein: 3.1. Compressibility - Fully compressible: Thrombus - None: Flow - Phasic: Augmentation -Normal: Reflux - None. 4. Posterior Tibial Vein: 4.1. Compressibility - Fully compressible: Thrombus - None: Flow - Phasic: Augmentation -Normal: Reflux - None. 5. Peroneal Vein: 5.1. Compressibility - Fully compressible: Thrombus - None: Flow - Phasic: Augmentation -Normal: Reflux - None. 6. Great Saphenous Vein: 6.1. Compressibility - Fully compressible: Thrombus -None: Flow - Phasic: Augmentation - Normal: Reflux - None. OTHER FINDINGS: Biphasic arterial velocities noted in the right distal posterior and anterior tibial arteries. IMPRESSION: No evidence of deep or superficial vein thrombosis of the right lower extremity with excellent venous flow. Normal valve function noted of the right side. Normal venous flow noted in the left common femoral vein.
[2017-06-02 17:16] LABS: B-TYPE NATRIURETIC PEPTIDE 1240 pg/mL (0-900)
--- NOTE | 2017-06-02 18:20 | CP.PCM.HP ---
<Becky Cuevas - Last Filed: 06/02/17 20:19> History of Present Illness - History of Present Illness History of Present Illness: HPI: Patient is a 56 year old male with a past medical history of HTN, DM, HLD, CVA with right sided weakness, seizures, and triple bypass, who presents to the ED with a right foot ulcer. Patient's son, Romeo, and , Taty, were at bedside providing the history. Patient is nonverbal since patient had CVA in 2016 (occasionally saying a few words and responds to some commands). Patient's noticed the right foot ulceration 4 weeks ago, which started on the heel and progressed to the arch. The tried to "pop" the blister and used hydrogen peroxide to clean the wound; no improvement was noticed. Patient's noticed "water" that drained from the blister. Patient has not complained of any pain in the lower extremity. As per the family, the patient has never had a foot ulcer in the past. Review of systems is limited due to patient's condition. PMD: Dr. Ellison PMHX: HTN, HLD, DM, CVA with right sided weakness, seizures, triple bypass, depression, BPH. SurgHx: [facility] at [facility] ([facility]); left temporoparietal craniectomy and duraplasty; PEG placement and removal (02/17); tracheostomy (removed 05/20) FamHx: denies SocHx: former tobacco user (1 pack per month for 1 year); Former social drinker ; denies drug use; lives with and son (Romeo Posey) in [place]. Allergies: NKDA Medications: See EMR Present on Admission - Present on Admission Any Indicators Present on Admission: No Review of Systems - Review of Systems Systems not reviewed;Unavailable: Uncooperative (limited due to patients condition) Past Patient History - Infectious Disease Hx of Infectious Diseases: None - Past Medical History & Family History Past Medical History?: Yes - Past Social History Smoking Status: Never Smoked - CARDIAC Hx Hypercholesterolemia: Yes Hx Hypertension: Yes - NEUROLOGICAL Hx Seizures: Yes - HEENT Hx Cataracts: Yes - RENAL Hx Chronic Kidney Disease: No - ENDOCRINE/METABOLIC Hx Diabetes Mellitus Type 2: Yes - HEMATOLOGICAL/ONCOLOGICAL Hx Anemia: Yes - INTEGUMENTARY Hx Dermatological Problems: No - MUSCULOSKELETAL/RHEUMATOLOGICAL Hx Musculoskeletal Disorders: No - GASTROINTESTINAL Hx Gastrointestinal Disorders: Yes HX Swallowing Problems: Yes (now eats "reg food") - GENITOURINARY/GYNECOLOGICAL Hx Genitourinary Disorders: No - PSYCHIATRIC Hx Depression: Yes Hx Substance Use: No - SURGICAL HISTORY Other/Comment: "Cardiac sugery 3 veins clogged" - veins taken from ze legs @ [facility]". Tracheostomy removed 2016. Feeding removed Mar 2017. Amputation 5th digit - rt foot - ANESTHESIA Hx Anesthesia: Yes Hx Anesthesia Reactions: No Hx Malignant Hyperthermia: No Meds Allergies/Adverse Reactions: Allergies Allergy/AdvReac Type Severity Reaction Status Date / Time No Known Allergies Allergy Verified 06/02/17 14:03 Physical Exam - Constitutional Appears: No Acute Distress - Eye Exam Eye Exam: Normal appearance (loss of vision in right eye) - ENT Exam ENT Exam: Mucous Membranes Moist - Neck Exam Neck exam: Negative for: Normal Inspection (scar from tracheostomy) - Respiratory Exam Respiratory Exam: Clear to Auscultation Bilateral, Rhonchi, NORMAL BREATHING PATTERN. absent: Rales, Wheezes - Cardiovascular Exam Cardiovascular Exam: REGULAR RHYTHM, +S1, +S2 - GI/Abdominal Exam GI & Abdominal Exam: Normal Bowel Sounds, Soft, Tenderness (RUQ, RLQ). absent: Distended, Firm - Extremities Exam Extremities exam: Negative for: normal inspection, pedal edema, pedal pulses present (diminished) Additional comments: RLE- s/p drainage by podiatry; wrapped in gauze, dressing clean, dry, intact. Decreased sensation in RLE; Weakness RUE, RLE secondary to hx CVA - Neurological Exam Neurological exam: Abnormal Gait (unable to ambulate), Alert Additional comments: Right sided weakness, loss of vision in right eye secondary to CVA. - Psychiatric Exam Psychiatric exam: Normal Affect, Normal Mood - Skin Skin Exam: Dry, Warm Additional comments: Tracheostomy scar noted. Midline sternal scar s/p triple bypass. Scarring from previous sacral ulcer noted. RLE scar noted. Dressing from previous PEG tube- clean, dry, intact. Results - Vital Signs Recent Vital Signs: Last Vital Signs Temp 98.4 F 06/02/17 17:58 Pulse 66 06/02/17 17:58 Resp 18 06/02/17 17:58 BP 182/88 H 06/02/17 17:58 Pulse Ox 99 06/02/17 17:58 - Labs Result Diagrams: 06/02/17 15:18 06/02/17 15:18 Labs: Laboratory Results - last 24 hr 06/02/17 06/02/17 06/02/17 15:18 15:18 15:18 WBC 6.4 RBC 3.64 L Hgb 11.4 L Hct 33.0 L MCV 90.6 MCH 31.3 H MCHC 34.6 RDW 13.0 Plt Count 226 MPV 9.2 Neut % (Auto) 65.6 Lymph % (Auto) 22.0 Childress % (Auto) 6.4 Eos % (Auto) 5.4 H Baso % (Auto) 0.6 Neut # 4.2 Lymph # 1.4 Childress # 0.4 Eos # 0.3 Baso # 0.0 PT 11.6 INR 1.0 APTT 33 Sodium 135 Potassium 5.1 Chloride 97 L Carbon Dioxide 31 H Anion Gap 12 BUN 17 Creatinine 1.2 Est GFR ( Amer) > 60 Est GFR (Non-Af Amer) > 60 Random Glucose 192 H Calcium 8.6 Total Creatine Kinase Troponin I NT-Pro-B Natriuret Pep 06/02/17 16:29 WBC RBC Hgb Hct MCV MCH MCHC RDW Plt Count MPV Neut % (Auto) Lymph % (Auto) Childress % (Auto) Eos % (Auto) Baso % (Auto) Neut # Lymph # Childress # Eos # Baso # PT INR APTT Sodium Potassium Chloride Carbon Dioxide Anion Gap BUN Creatinine Est GFR ( Amer) Est GFR (Non-Af Amer) Random Glucose Calcium Total Creatine Kinase 69 Troponin I < 0.0120 NT-Pro-B Natriuret Pep 1240 H Assessment & Plan (1) Right foot ulcer Assessment and Plan: Blister drained by podiatry in ED * Vancomycin 1gm IV Q12h (started on 06/02/17) * Zosyn 3.375gm IV Q6h (started on 06/02/17) * Florastor 250mg PO BID * Tylenol 650mg PO Q6h prn for pain * Blood cx: f/u results * Wound cx: f/u results * Right foot xray: f/u results * Venous dopplers: negative * Arterial duplex: f/u results * Podiatry consulted, Dr. Song; help appreciated Status: Acute (2) Abnormal EKG Assessment and Plan: History of triple bypass * Prior cardiology workup from [facility]; request prior records * Cardiology consulted for cardiac clearance, Dr. Rosen; recs appreciated. * Hold aspirin for possible podiatry procedure * Continue home medications: Metoprolol 25mg PO daily, Atorvastatin 80mg PO HS Status: Acute (3) Hypertension Assessment and Plan: Continue home medication: Metoprolol 25mg PO daily Not on Otto/Arb at home; will follow up. Continue to monitor Status: Acute (4) Diabetes Assessment and Plan: * ISS * A1c: f/u results * Lipid panel: f/u * Hold Metformin (prevent lactic acidosis, possible MRI to r/o osteomyelitis. * Hypoglycemic protocol * Monitor blood glucose, accuchecks Status: Acute (5) History of seizure Assessment and Plan: Continue home medication: Keppra 500mg PO BID Seizure precautions Status: Chronic (6) History of cerebrovascular accident (CVA) with residual deficit Assessment and Plan: History of CVA with right sided weakness * Hold aspirin for possible podiatry procedure * Patient not on otto/arb? Will follow up. * Continue home medication: Atorvastatin 80mg PO HS Status: Chronic (7) BPH (benign prostatic hyperplasia) Assessment and Plan: Continue home medication: Finasteride 5mg PO daily Status: Chronic (8) Depression Assessment and Plan: Continue home medication: Lexapro 5mg PO daily Status: Chronic (9) Prophylactic measure Assessment and Plan: Heparin 5000sc Q8h Protonix 40mg PO Status: Acute <Katie Wright V - Last Filed: 06/05/17 06:32> Results - Vital Signs Recent Vital Signs: Last Vital Signs Temp 98.5 F 06/04/17 23:48 Pulse 67 06/04/17 23:48 Resp 18 06/04/17 23:48 BP 157/74 H 06/04/17 23:48 Pulse Ox 96 06/04/17 23:48 - Labs Result Diagrams: 06/04/17 07:56 06/04/17 07:56 Labs: Laboratory Results - last 24 hr 06/04/17 06/04/17 06/04/17 06:22 07:56 07:56 WBC 6.0 RBC 3.39 L Hgb 10.8 L Hct 30.7 L MCV 90.6 MCH 31.8 H MCHC 35.1 RDW 13.1 Plt Count 198 MPV 10.1 Neut % (Auto) 60.9 Lymph % (Auto) 26.6 Childress % (Auto) 7.1 Eos % (Auto) 4.8 H Baso % (Auto) 0.6 Neut # (Auto) 3.6 Lymph # (Auto) 1.6 Childress # (Auto) 0.4 Eos # (Auto) 0.3 Baso # (Auto) 0.0 PT INR Sodium 132 Potassium 4.3 Chloride 98 Carbon Dioxide 26 Anion Gap 12 BUN 15 Creatinine 1.4 Est GFR ( Amer) > 60 Est GFR (Non-Af Amer) 52 POC Glucose (mg/dL) 143 H Random Glucose 153 H Calcium 8.1 L Phosphorus 4.0 Magnesium 1.4 L Total Bilirubin 0.6 AST 22 ALT 26 Alkaline Phosphatase 109 Total Protein 6.0 L Albumin 3.2 L Globulin 2.8 Albumin/Globulin Ratio 1.2 Vancomycin Trough 06/04/17 06/04/17 06/04/17 07:56 07:56 11:09 WBC RBC Hgb Hct MCV MCH MCHC RDW Plt Count MPV Neut % (Auto) Lymph % (Auto) Childress % (Auto) Eos % (Auto) Baso % (Auto) Neut # (Auto) Lymph # (Auto) Childress # (Auto) Eos # (Auto) Baso # (Auto) PT 12.7 H INR 1.1 Sodium Potassium Chloride Carbon Dioxide Anion Gap BUN Creatinine Est GFR ( Amer) Est GFR (Non-Af Amer) POC Glucose (mg/dL) 257 H Random Glucose Calcium Phosphorus Magnesium Total Bilirubin AST ALT Alkaline Phosphatase Total Protein Albumin Globulin Albumin/Globulin Ratio Vancomycin Trough 23.5 H 18 06/04/17 16:35 20:55 WBC RBC Hgb Hct MCV MCH MCHC RDW Plt Count MPV Neut % (Auto) Lymph % (Auto) Childress % (Auto) Eos % (Auto) Baso % (Auto) Neut # (Auto) Lymph # (Auto) Childress # (Auto) Eos # (Auto) Baso # (Auto) PT INR Sodium Potassium Chloride Carbon Dioxide Anion Gap BUN Creatinine Est GFR ( Amer) Est GFR (Non-Af Amer) POC Glucose (mg/dL) 213 H 157 H Random Glucose Calcium Phosphorus Magnesium Total Bilirubin AST ALT Alkaline Phosphatase Total Protein Albumin Globulin Albumin/Globulin Ratio Vancomycin Trough Attending/Attestation - Attestation I have personally seen and examined this patient.: Yes I have fully participated in the care of the patient.: Yes I have reviewed all pertinent clinical information: Yes Notes (Text): This is a late computer entry for 06/02/17. Patient seen, examined and case discussed with medical field representative. Patient with past medical history including hypertension, triple vessel disease , diabetes, history of seizure, history of CVA with residual deficit (cannot move right upper extremity) comes in for right foot ulcer. Podiatry resident has came and evaluated the patient in the ED. We will start antibiotics to cover. We will consult cardiology in light of extensive cardiac history. Case discussed with medical field representative and admitting orders discussed with the resident. Note: right foot ulcer has areas of eschar not only bullae. Assessment/Plan (1) Right foot ulcer Assessment and Plan: * Podiatry consulted, Dr. Song; help appreciated * Blister drained by podiatry in ED * Start Vancomycin 1gm IV Q12h (started on 06/02/17) * Start Zosyn 3.375gm IV Q6h (started on 06/02/17) * Florastor 250mg PO BID * Tylenol 650mg PO Q6h prn for pain * Blood cx (06/02/17): f/u results * Wound cx (06/02/17): f/u results * Right foot xray (06/02/17): f/u results * Venous dopplers: negative * Arterial duplex: f/u results * Podiatry consulted, Dr. Song; help appreciated Status: Acute (2) Abnormal EKG Assessment and Plan: History of triple bypass * Prior cardiology workup from [facility]; request prior records * Cardiology consulted for cardiac clearance, Dr. Rsoen; recs appreciated. * Hold aspirin for possible podiatry procedure * Continue home medications: Metoprolol tarate 25mg PO daily, Atorvastatin 80mg PO HS Status: Chronic (3) Hypertension Assessment and Plan: * Continue home medication: Metoprolol tartrate 25mg PO daily * Not on Otto/Arb at home; will follow up. * Continue to monitor Status: Chronic (4) Diabetes Assessment and Plan: * ISS * A1c: f/u results * Lipid panel: f/u * Hold Metformin on admission: prevent lactic acidosis and if patient needs contrast based study for further evaluation * Hypoglycemic protocol * Monitor blood glucose, accuchecks Status: Chronic (5) History of seizure Assessment and Plan: * Continue home medication: Keppra 500mg PO BID * Seizure precautions Status: Chronic (6) History of cerebrovascular accident (CVA) with residual deficit Assessment and Plan: * History of CVA with right sided weakness * Hold aspirin for possible podiatry procedure * Patient not on otto/arb? Will follow up. * Continue home medication: Atorvastatin 80mg PO HS Status: Chronic (7) BPH (benign prostatic hyperplasia) Assessment and Plan: * Continue home medication: Finasteride 5mg PO daily Status: Chronic (8) Depression Assessment and Plan: * Continue home medication: Lexapro 5mg PO daily Status: Chronic (9) Prophylactic measure Assessment and Plan: * Heparin 5000sc Q8h * Protonix 40mg PO daily * Prevalon boots Status: Acute
[2017-06-02] MEDS: Piperacillin/Tazobact 3.375 GM in Sodium Chloride 100 ML IVPB SCH (21:30)
[2017-06-02] MEDS: (Novolin R) Insulin Human Regular 100 units/ml vial SC SCH (22:26)
[2017-06-02] MEDS: Vancomycin 1 gm/NS 200 ml 1 GM/200 ML BAG IVPB SCH (22:41)
[2017-06-02 23:48] LABS: HDL CHOLESTEROL 34 mg/dL (30-70)
[2017-06-02 23:59] LABS: LDL CHOLESTEROL 46 mg/dL (0-129)
[2017-06-03 03:49] LABS: BASO # 0.1 K/uL (0.0-0.2); EOS # 0.3 K/uL (0.0-0.7); EOS % 5.2 % (0.0-4.0); HEMOGLOBIN 10.4 g/dL (12.0-18.0); LYMPH # 1.5 K/uL (1.0-4.3); LYMPH % 23.8 % (20.0-40.0); MEAN CELL VOLUME 90.1 fL (80.0-94.0); MEAN CORPUSCULAR HEMOGLOBIN 31.5 pg (27.0-31.0); MEAN PLATELET VOLUME 9.4 fL (7.2-11.7); MONO # 0.4 K/uL (0.0-0.8); MONO % 6.8 % (0.0-10.0); NEUT # 4.1 K/uL (1.8-7.0); NEUT % 63.2 % (50.0-75.0); NRBC % 0.1 % (0.0-2.0); RBC 3.3 Mil/uL (4.40-5.90); WHITE BLOOD COUNT 6.4 K/uL (4.8-10.8)
[2017-06-03 04:02] LABS: ALB/GLOB RATIO 1.1 (1.0-2.1); ALBUMIN 3.4 g/dL (3.5-5.0); CALCIUM 8.3 mg/dl (8.6-10.4); GFR AFRICAN-AMERICAN > 60; GFR NON-AFRICAN AMERICAN > 60
[2017-06-03 04:03] LABS: ALT/SGPT 28 U/L (21-72); AST/SGOT 31 U/L (17-59); BLOOD UREA NITROGEN 14 mg/dL (9-20)
[2017-06-03] MEDS: Piperacillin/Tazobact 3.375 GM in Sodium Chloride 100 ML IVPB SCH (04:20)
--- NOTE | 2017-06-03 08:36 | RAD ---
PROCEDURE: Right Foot Radiographs. HISTORY: pain COMPARISON: None. FINDINGS: BONES: Prior 5th transmetatarsal amputation. No acute fracture or periosteal reaction. JOINTS: Normal. SOFT TISSUES: Unremarkable. OTHER FINDINGS: Arterial vascular calcifications. IMPRESSION: Prior 5th transmetatarsal amputation. No demonstrated acute fracture no evidence of periosteal reaction.
--- NOTE | 2017-06-03 09:09 | RAD ---
PROCEDURE: CHEST RADIOGRAPH, 1 VIEW HISTORY: Cough COMPARISON: Chest radiograph dated 02/15/2017. FINDINGS: LUNGS: Clear. PLEURA: No pneumothorax or pleural fluid seen. CARDIOVASCULAR: Prior sternotomy with sternal wires and surgical clips redemonstrated. Cardiomediastinal silhouette stably enlarged. OSSEOUS STRUCTURES: Unchanged. VISUALIZED UPPER ABDOMEN: Normal. OTHER FINDINGS: None. IMPRESSION: No active disease.
--- NOTE | 2017-06-03 09:39 | CP.PCM.PN ---
<Iwona Niteo - Last Filed: 06/03/17 19:10> Subjective - Date & Time of Evaluation Date of Evaluation: 06/03/17 Time of Evaluation: 07:00 - Subjective Subjective: Medicine Progress Note: Patient was sen and examined at bedside in the AM. 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 Objective - Vital Signs/Intake and Output Vital Signs (last 24 hours): Temp Pulse Resp BP Pulse Ox 98 F 66 16 161/74 H 98 06/03/17 07:20 06/03/17 09:25 06/03/17 09:25 06/03/17 09:25 06/03/17 09:25 Intake and Output: 06/03/17 06/03/17 06:59 18:59 Output Total 750 Balance -750 - Medications Medications: Current Medications Acetaminophen (Tylenol 650 Mg Supp) 650 mg GA Q6 PRN PRN Reason: Pain, Mild (1-3) Escitalopram Oxalate (Lexapro) 5 mg PO DAILY [facility] Finasteride (Proscar) 5 mg PO DAILY [facility] Folic Acid (Folic Acid) 1 mg PO DAILY [facility] Heparin Sodium (Porcine) (Heparin) 5,000 units SC Q8 [facility] Last Admin: 06/03/17 06:23 Dose: 5,000 units Vancomycin/Sodium Chloride (Vancomycin 1 Gm/Ns 200 Ml) 1 gm in 200 mls @ 133 mls/hr IVPB Q12H [facility] Stop: 06/07/17 21:31 Last Admin: 06/02/17 22:41 Dose: 133 mls/hr Piperacillin Sod/Tazobactam Sod (Zosyn 3.375 Gm Iv Premix) 3.375 gm in 50 mls @ 200 mls/hr IVPB Q6H [facility] Insulin Human Regular (Novolin R) 0 unit SC ACHS [facility] PRN Reason: Protocol Last Admin: 06/02/17 22:26 Dose: Not Given Levetiracetam (Keppra) 500 mg PO BID [facility] Metoprolol Tartrate (Lopressor) 25 mg PO DAILY [facility] Pantoprazole Sodium (Protonix Ec Tab) 40 mg PO DAILY [facility] Rosuvastatin Calcium (Crestor) 40 mg PO HS [facility] Last Admin: 06/02/17 22:24 Dose: 40 mg Saccharomyces Boulardii (Florastor) 250 mg PO DAILY [facility] - Labs Labs: 06/03/17 03:45 06/03/17 03:45 PT 11.6 SECONDS (9.7-12.2) 06/02/17 15:18 INR 1.0 06/02/17 15:18 APTT 33 SECONDS (21-34) 06/02/17 15:18 - Constitutional Appears: No Acute Distress - Head Exam Head Exam: ATRAUMATIC, NORMAL INSPECTION - Eye Exam Eye Exam: EOMI, Normal appearance - ENT Exam ENT Exam: Mucous Membranes Moist - Respiratory Exam Respiratory Exam: NORMAL BREATHING PATTERN - Cardiovascular Exam Cardiovascular Exam: REGULAR RHYTHM, +S1, +S2 - GI/Abdominal Exam GI & Abdominal Exam: Soft, Normal Bowel Sounds. absent: Tenderness - Extremities Exam Extremities Exam: absent: Normal Inspection (Right lower extremity wrapped in gauze and boot in place, dressing clean, dry, intact.) Additional comments: Patient cannot move his right upper extremity s/p CVA in 2016 - Neurological Exam Neurological Exam: Alert, Awake. absent: Oriented x3 Additional comments: Patient does not understand when asked to complete tasks - does not respond to commands - Psychiatric Exam Psychiatric exam: Normal Affect, Normal Mood - Skin Skin Exam: Dry, Intact, Normal Color, Warm Assessment and Plan - Assessment and Plan (Free Text) Assessment: 1.) Right foot ulcer - Podiatry Consult: Dr. Song --> help appreciated - Blister drained by podiatry in ED - Spoke with Podiatry Resident Dr. Kraus: plan is for debridement on Thursday - Cardiology Consult: Dr. Rosen --> appreciated for Cardiac clearance for surgery - per cardiology note: Patient is clear from cardiology standpoint for surgery under LOCAL anesthesia - Medications: * Vancomycin 1gm IV Q12h (started on 06/02/17) * f/u Vanco troph 06/04/17 * Zosyn 3.375gm IV Q6h (started on 06/02/17) * Florastor 250mg PO BID * Tylenol 650mg PO Q6h prn for pain - Blood culture: f/u results - Wound culture: Gram Positive Cocci - Images: * Right foot xray: Prior 5th transmetatarsal amputation. No demonstrated acute fracture no evidence of periosteal reaction. * Venous dopplers: No evidence of DVT of the right lower extremity with excellent venous flow. Normal valve function noted of the right side. Normal venous flow noted in the left common femoral vein. * Arterial duplex: There is no evidence of hemodynamically significant arterial insufficiency in the right lower extremity. Arterial wall calcification is noted throughout the right lower extremity. 2.) Abnormal EKG History of triple bypass - Cardiology Consult: Dr. Rosen --> help appreciated appreciated - Metoprolol 25mg PO daily - Atorvastatin 80mg PO HS - Lisinopril 10mg po daily 3.) Hypertension - uncontrolled - Home medication: Metoprolol 25mg PO daily --> changed (06/03/17) Metoprolol Tartrate 25mg po BID - Patient receives medication from [facility]. - the provider on the prescriptions is: Dr. Yovanny Cui; however will again follow up with PMD in regards to HTN - Lisinopril 10mg po daily - Hydralazine 10mg q6 PRN systolic bp >160 - Continue to monitor 4.) Diabetes - ISS - Accuchecks - Hemoglobin A1c: 8.6 - Lipid panel: Triglycerides 219; Total Cholesterol 112; LDL 46; HDL 34 - Metformin (home medication) - held - Hypoglycemic protocol 5.) History of seizure - Keppra 500mg PO BID - Seizure precautions 6.) History of cerebrovascular accident (CVA) with residual deficit History of CVA with right sided weakness - Aspirin 81mg po daily - Atorvastatin 80mg PO HS 7.) Benign prostatic hyperplasia - Finasteride 5mg PO daily 8.) Depression - Lexapro 5mg PO daily 9.) Prophylactic measure - Heparin 5000sc Q8h - Protonix 40mg PO - PT eval and treat - OT eval and treat Case discussed with Dr. Adriana Nieto PGY-1 <Katie Wright V - Last Filed: 06/05/17 06:41> Objective - Vital Signs/Intake and Output Vital Signs (last 24 hours): Temp Pulse Resp BP Pulse Ox 98.5 F 67 18 157/74 H 96 06/04/17 23:48 06/04/17 23:48 06/04/17 23:48 06/04/17 23:48 06/04/17 23:48 Intake and Output: 06/04/17 06/05/17 18:59 06:59 Output Total 550 Balance -550 - Medications Medications: Current Medications Acetaminophen (Tylenol 650 Mg Supp) 650 mg GA Q6 PRN PRN Reason: Pain, Mild (1-3) Aspirin (Aspirin Chewable) 81 mg PO DAILY [facility] Last Admin: 06/04/17 09:39 Dose: 81 mg Escitalopram Oxalate (Lexapro) 5 mg PO DAILY [facility] Last Admin: 06/04/17 09:38 Dose: 5 mg Finasteride (Proscar) 5 mg PO DAILY [facility] Last Admin: 06/04/17 09:38 Dose: 5 mg Folic Acid (Folic Acid) 1 mg PO DAILY [facility] Last Admin: 06/04/17 09:39 Dose: 1 mg Heparin Sodium (Porcine) (Heparin) 5,000 units SC Q8 [facility] Last Admin: 06/04/17 14:23 Dose: 5,000 units Vancomycin/Sodium Chloride (Vancomycin 1 Gm/Ns 200 Ml) 1 gm in 200 mls @ 133 mls/hr IVPB Q12H [facility] Stop: 06/07/17 21:31 Last Admin: 06/04/17 22:36 Dose: Not Given Piperacillin Sod/Tazobactam Sod (Zosyn 3.375 Gm Iv Premix) 3.375 gm in 50 mls @ 200 mls/hr IVPB Q6H [facility] Last Admin: 06/05/17 02:43 Dose: 200 mls/hr Insulin Human Regular (Novolin R) 0 unit SC ACHS [facility] PRN Reason: Protocol Last Admin: 06/04/17 22:00 Dose: 2 unit Levetiracetam (Keppra) 500 mg PO BID [facility] Last Admin: 06/04/17 19:00 Dose: 500 mg Lisinopril (Zestril) 10 mg PO DAILY [facility] Last Admin: 06/04/17 09:38 Dose: 10 mg Metoprolol Succinate (Toprol Xl) 12.5 mg PO DAILY [facility] Pantoprazole Sodium (Protonix Ec Tab) 40 mg PO DAILY [facility] Last Admin: 06/04/17 09:39 Dose: 40 mg Rosuvastatin Calcium (Crestor) 40 mg PO HS [facility] Last Admin: 06/04/17 21:59 Dose: 40 mg Saccharomyces Boulardii (Florastor) 250 mg PO DAILY [facility] Last Admin: 06/04/17 09:38 Dose: 250 mg Spironolactone (Aldactone) 25 mg PO BID [facility] Last Admin: 06/04/17 19:04 Dose: 25 mg - Labs Labs: 06/04/17 07:56 06/04/17 07:56 PT 12.7 SECONDS (9.7-12.2) H 06/04/17 07:56 INR 1.1 06/04/17 07:56 APTT 33 SECONDS (21-34) 06/02/17 15:18 Attending/Attestation - Attestation I have personally seen and examined this patient.: Yes I have fully participated in the care of the patient.: Yes I have reviewed all pertinent clinical information, including history, physical exam and plan: Yes Notes (Text): This is late computer entry for 06/03/17. Patient seen, examined and case discussed with day-time resident. Patient seen at bedside with his present during morning rounds. Patient does speak in [place] in simple statements. Patient does not report any pain. Patient cannot move his right upper extremity and is weak in the right lower extremity in comparison to his left side. Resident has confirmed patient's home medications and will reach out to patient's primary care: Dr Ellison. Plan by podiatry is for debridement for this upcoming Thursday pending medical optimization prior to procedure. Assessment/Plan (1) Right foot ulcer Assessment and Plan: * Podiatry consulted, Dr. Song; help appreciated * Blister drained by podiatry in ED on admission * Start Vancomycin 1gm IV Q12h (started on 06/02/17) * Start Zosyn 3.375gm IV Q6h (started on 06/02/17) * Florastor 250mg PO BID * Tylenol 650mg PO Q6h prn for pain * Blood cx (06/02/17): f/u results * Wound cx (06/02/17): Gram Positive Cocci * Right foot xray: Prior 5th transmetatarsal amputation. No demonstrated acute fracture no evidence of periosteal reaction. * Venous dopplers: No evidence of DVT of the right lower extremity with excellent venous flow. Normal valve function noted of the right side. Normal venous flow noted in the left common femoral vein. * Arterial duplex: There is no evidence of hemodynamically significant arterial insufficiency in the right lower extremity. Arterial wall calcification is noted throughout the right lower extremity. * Cardiology (Dr. Rosen) Help appreciated * Cardiology Consult: Dr. Rosen --> appreciated for Cardiac clearance for surgery * per cardiology note: Patient is clear from cardiology standpoint for surgery under LOCAL anesthesia Status: Acute (2) Abnormal EKG Assessment and Plan: History of triple bypass * Prior [facility] workup from [facility]; request prior records * Cardiology consulted for cardiac clearance, Dr. Rosen; recs appreciated. * Hold aspirin for possible podiatry procedure * Increase Metoprolol tarate 25mg PO BID * Atorvastatin 80mg PO HS (switch to Crestor in hospital secondary to lack of lipitor on formulary) * Start Lisinopril 10mg PO daily Status: Chronic (3) Hypertension Assessment and Plan: * Increase Metoprolol tarate 25mg PO BID * Atorvastatin 80mg PO HS (switch to Crestor in hospital secondary to lack of lipitor on formulary) * Start Lisinopril 10mg PO daily Status: Chronic (4) Uncontrolled Diabetes Assessment and Plan: * ISS * A1c: 8.6 * Lipid panel: Triglycerides 219; Total Cholesterol 112; LDL 46; HDL 34 * Hold Metformin on admission: prevent lactic acidosis and if patient needs contrast based study for further evaluation * Atorvastatin 80mg PO HS (switch to Crestor in hospital secondary to lack of lipitor on formulary) * Hypoglycemic protocol * Monitor blood glucose, accuchecks Status: Chronic (5) History of seizure Assessment and Plan: * Continue home medication: Keppra 500mg PO BID * Seizure precautions Status: Chronic (6) History of cerebrovascular accident (CVA) with residual deficit Assessment and Plan: * History of CVA with right sided weakness * Hold aspirin for possible podiatry procedure * Atorvastatin 80mg PO HS (switch to Crestor in hospital secondary to lack of lipitor on formulary) * Increase Metoprolol tarate 25mg PO BID * Start Lisinopril 10mg PO daily Status: Chronic (7) BPH (benign prostatic hyperplasia) Assessment and Plan: * Continue home medication: Finasteride 5mg PO daily Status: Chronic (8) Depression Assessment and Plan: * Continue home medication: Lexapro 5mg PO daily Status: Chronic (9) Prophylactic measure Assessment and Plan: * Heparin 5000sc Q8h * Protonix 40mg PO daily * Prevalon boots Status: Acute
--- NOTE | 2017-06-03 10:05 | CP.PCM.CON ---
<Maurice Garcia - Last Filed: 06/03/17 15:08> History of Present Illness - History of Present Illness History of Present Illness: Cardiology Consult Note for Dr. Rosen CC: Right foot ulcer Pt is a 56 yo M with PMH of HTN, DM, HLD, CVA, seizures, and CAD s/p triple bypass presents to [facility] for a right foot ulcer. Right foot ulcer on heel was noticed by 4 weeks ago, which began as a blister and is starting to drain. Pt's attempted to care for the wound at home, but it did not improve. Of note, patient does not respond to questioning appropriately and is his baseline since CVA in 2016. Pt has prior history of CABG on 08/11/15 at [facility], in which triple bypass was performed (GAMBLE to LAD, SVG to OM, and SVG to PDA). At that time EF was 25-30%. According to family, patient has not experienced any recent CP, SOB, palpitations, or any other symptoms that would be concerning for worsening cardiac status. Review of systems limited due to patient's current mental status. PMH: HTN, HLD, DM, CVA, CAD, seizures, triple bypass, depression, BPH. Surg: CABG triple bypass ([facility] 2015); left temporoparietal craniectomy and duraplasty; PEG placement and removal (02/17); tracheostomy (removed 05/20) All: NKDA FH: Non-contributory SocHx: Former tobacco user, Denied EtOH and illicit drug use. Lives with and son in [place]. Medications as per MAR Review of Systems - Review of Systems Review of Systems: ROS limited due to patient's current mental status. Past Patient History - Infectious Disease Hx of Infectious Diseases: None - Past Medical History & Family History Past Medical History?: Yes - Past Social History Smoking Status: Never Smoked - CARDIAC Hx Hypercholesterolemia: Yes Hx Hypertension: Yes - NEUROLOGICAL Hx Seizures: Yes - HEENT Hx Cataracts: Yes - RENAL Hx Chronic Kidney Disease: No - ENDOCRINE/METABOLIC Hx Diabetes Mellitus Type 2: Yes - HEMATOLOGICAL/ONCOLOGICAL Hx Anemia: Yes - INTEGUMENTARY Hx Dermatological Problems: No - MUSCULOSKELETAL/RHEUMATOLOGICAL Hx Musculoskeletal Disorders: No - GASTROINTESTINAL Hx Gastrointestinal Disorders: Yes HX Swallowing Problems: Yes (now eats "reg food") - GENITOURINARY/GYNECOLOGICAL Hx Genitourinary Disorders: No - PSYCHIATRIC Hx Depression: Yes Hx Substance Use: No - SURGICAL HISTORY Other/Comment: "Cardiac sugery 3 veins clogged" - veins taken from ze legs @ [facility]". Tracheostomy removed 2016. Feeding removed Mar 2017. Amputation 5th digit - rt foot - ANESTHESIA Hx Anesthesia: Yes Hx Anesthesia Reactions: No Hx Malignant Hyperthermia: No Meds Allergies/Adverse Reactions: Allergies Allergy/AdvReac Type Severity Reaction Status Date / Time No Known Allergies Allergy Verified 06/02/17 14:03 - Medications Medications: Current Medications Acetaminophen (Tylenol 650 Mg Supp) 650 mg MA Q6 PRN PRN Reason: Pain, Mild (1-3) Escitalopram Oxalate (Lexapro) 5 mg PO DAILY [facility] Finasteride (Proscar) 5 mg PO DAILY [facility] Folic Acid (Folic Acid) 1 mg PO DAILY [facility] Heparin Sodium (Porcine) (Heparin) 5,000 units SC Q8 [facility] Last Admin: 06/03/17 06:23 Dose: 5,000 units Vancomycin/Sodium Chloride (Vancomycin 1 Gm/Ns 200 Ml) 1 gm in 200 mls @ 133 mls/hr IVPB Q12H [facility] Stop: 06/07/17 21:31 Last Admin: 06/02/17 22:41 Dose: 133 mls/hr Piperacillin Sod/Tazobactam Sod (Zosyn 3.375 Gm Iv Premix) 3.375 gm in 50 mls @ 200 mls/hr IVPB Q6H [facility] Insulin Human Regular (Novolin R) 0 unit SC ACHS [facility] PRN Reason: Protocol Last Admin: 06/02/17 22:26 Dose: Not Given Levetiracetam (Keppra) 500 mg PO BID [facility] Metoprolol Tartrate (Lopressor) 25 mg PO DAILY [facility] Pantoprazole Sodium (Protonix Ec Tab) 40 mg PO DAILY [facility] Rosuvastatin Calcium (Crestor) 40 mg PO HS [facility] Last Admin: 06/02/17 22:24 Dose: 40 mg Saccharomyces Boulardii (Florastor) 250 mg PO DAILY [facility] Physical Exam - Constitutional Appears: No Acute Distress - Head Exam Head Exam: NORMAL INSPECTION - Eye Exam Eye Exam: Normal appearance - ENT Exam ENT Exam: Normal Exam - Neck Exam Neck exam: Positive for: Normal Inspection - Respiratory Exam Respiratory Exam: Clear to Auscultation Bilateral. absent: Rales, Rhonchi, Wheezes - Cardiovascular Exam Cardiovascular Exam: RRR. absent: Diastolic murmur, Gallop, Rubs, Systolic Murmur - GI/Abdominal Exam GI & Abdominal Exam: Soft. absent: Distended, Guarding, Rebound, Tenderness - Extremities Exam Additional comments: right foot ulcer - Back Exam Back exam: NORMAL INSPECTION - Neurological Exam Neurological exam: Alert, Altered Results - Vital Signs Recent Vital Signs: Last Vital Signs Temp 98 F 06/03/17 07:20 Pulse 62 06/03/17 07:20 Resp 15 06/03/17 07:20 BP 169/68 H 06/03/17 07:20 Pulse Ox 100 06/03/17 07:20 - Labs Result Diagrams: 06/03/17 03:45 06/03/17 03:45 Labs: Laboratory Results - last 24 hr 06/02/17 06/02/17 06/02/17 15:18 15:18 15:18 WBC 6.4 RBC 3.64 L Hgb 11.4 L Hct 33.0 L MCV 90.6 MCH 31.3 H MCHC 34.6 RDW 13.0 Plt Count 226 MPV 9.2 Neut % (Auto) 65.6 Lymph % (Auto) 22.0 Gilmer % (Auto) 6.4 Eos % (Auto) 5.4 H Baso % (Auto) 0.6 Neut # 4.2 Lymph # 1.4 Gilmer # 0.4 Eos # 0.3 Baso # 0.0 Neut # (Auto) Lymph # (Auto) Gilmer # (Auto) Eos # (Auto) Baso # (Auto) PT 11.6 INR 1.0 APTT 33 Sodium 135 Potassium 5.1 Chloride 97 L Carbon Dioxide 31 H Anion Gap 12 BUN 17 Creatinine 1.2 Est GFR ( Amer) > 60 Est GFR (Non-Af Amer) > 60 Random Glucose 192 H POC Glucose (mg/dL) Hemoglobin A1c Calcium 8.6 Total Bilirubin AST ALT Alkaline Phosphatase Total Creatine Kinase Troponin I NT-Pro-B Natriuret Pep Total Protein Albumin Globulin Albumin/Globulin Ratio Triglycerides Cholesterol LDL Cholesterol Direct HDL Cholesterol 06/02/17 06/02/17 06/02/17 16:29 21:34 23:38 WBC RBC Hgb Hct MCV MCH MCHC RDW Plt Count MPV Neut % (Auto) Lymph % (Auto) Gilmer % (Auto) Eos % (Auto) Baso % (Auto) Neut # Lymph # Gilmer # Eos # Baso # Neut # (Auto) Lymph # (Auto) Gilmer # (Auto) Eos # (Auto) Baso # (Auto) PT INR APTT Sodium Potassium Chloride Carbon Dioxide Anion Gap BUN Creatinine Est GFR ( Amer) Est GFR (Non-Af Amer) Random Glucose POC Glucose (mg/dL) 93 Hemoglobin A1c Calcium Total Bilirubin AST ALT Alkaline Phosphatase Total Creatine Kinase 69 Troponin I < 0.0120 NT-Pro-B Natriuret Pep 1240 H Total Protein Albumin Globulin Albumin/Globulin Ratio Triglycerides 219 H Cholesterol 112 LDL Cholesterol Direct 46 HDL Cholesterol 34 06/03/17 06/03/17 06/03/17 03:45 03:45 03:45 WBC 6.4 RBC 3.30 L Hgb 10.4 L Hct 29.7 L MCV 90.1 MCH 31.5 H MCHC 35.0 RDW 13.0 Plt Count 198 MPV 9.4 Neut % (Auto) 63.2 Lymph % (Auto) 23.8 Gilmer % (Auto) 6.8 Eos % (Auto) 5.2 H Baso % (Auto) 1.0 Neut # Lymph # Gilmer # Eos # Baso # Neut # (Auto) 4.1 Lymph # (Auto) 1.5 Gilmer # (Auto) 0.4 Eos # (Auto) 0.3 Baso # (Auto) 0.1 PT INR APTT Sodium 136 Potassium 4.8 Chloride 101 Carbon Dioxide 30 Anion Gap 10 BUN 14 Creatinine 1.1 Est GFR ( Amer) > 60 Est GFR (Non-Af Amer) > 60 Random Glucose 146 H POC Glucose (mg/dL) Hemoglobin A1c 8.6 H Calcium 8.3 L Total Bilirubin 0.6 AST 31 ALT 28 Alkaline Phosphatase 105 Total Creatine Kinase Troponin I NT-Pro-B Natriuret Pep Total Protein 6.6 Albumin 3.4 L Globulin 3.2 Albumin/Globulin Ratio 1.1 Triglycerides Cholesterol LDL Cholesterol Direct HDL Cholesterol Assessment & Plan - Assessment and Plan (Free Text) Assessment: 56 yo male with PMH of HTN, HLD, DM CVA, seizure, depression BPH, and CAD s/p CABG presents to [facility] for right foot ulcer. Cardiology consulted for cardiac clearance for surgical debridement of right foot. Plan: 1. Right Foot Ulcer - Management per Podiatry - Patient is low to moderate risk for surgery - Patient is clear from cardiology standpoint for surgery under LOCAL anesthesia If general anesthesia is required further cardiac testing will be needed prior to surgery 2. CAD s/p CABG - Troponin negative x1 - BNP 1240 - Cont Lopressor - Echo showed EF 30-35% 3. HTN - Cont Lopressor - Cont to monitor 4. HLD - Cont Crestor 5. DM - Management per primary 6. BPH - Management per primary 7. H/O Seizures - Management per primary 8. Depression - Management per primary GI/DVT PPx - Protonix - Heparin Pt seen and discussed in detail with Dr. Rosen. Anupam Garcia, PGY1 <Raffi Rosen - Last Filed: 06/03/17 22:28> Meds - Medications Medications: Current Medications Acetaminophen (Tylenol 650 Mg Supp) 650 mg MA Q6 PRN PRN Reason: Pain, Mild (1-3) Aspirin (Aspirin Chewable) 81 mg PO DAILY [facility] Escitalopram Oxalate (Lexapro) 5 mg PO DAILY [facility] Last Admin: 06/03/17 10:30 Dose: 5 mg Finasteride (Proscar) 5 mg PO DAILY [facility] Last Admin: 06/03/17 10:30 Dose: 5 mg Folic Acid (Folic Acid) 1 mg PO DAILY [facility] Last Admin: 06/03/17 10:30 Dose: 1 mg Heparin Sodium (Porcine) (Heparin) 5,000 units SC Q8 [facility] Last Admin: 06/03/17 22:02 Dose: 5,000 units Vancomycin/Sodium Chloride (Vancomycin 1 Gm/Ns 200 Ml) 1 gm in 200 mls @ 133 mls/hr IVPB Q12H [facility] Stop: 06/07/17 21:31 Last Admin: 06/03/17 22:03 Dose: 133 mls/hr Piperacillin Sod/Tazobactam Sod (Zosyn 3.375 Gm Iv Premix) 3.375 gm in 50 mls @ 200 mls/hr IVPB Q6H [facility] Last Admin: 06/03/17 17:22 Dose: 200 mls/hr Insulin Human Regular (Novolin R) 0 unit SC ACHS [facility] PRN Reason: Protocol Last Admin: 06/03/17 21:58 Dose: Not Given Levetiracetam (Keppra) 500 mg PO BID [facility] Last Admin: 06/03/17 17:22 Dose: 500 mg Lisinopril (Zestril) 10 mg PO DAILY [facility] Metoprolol Tartrate (Lopressor) 25 mg PO BID [facility] Pantoprazole Sodium (Protonix Ec Tab) 40 mg PO DAILY [facility] Pneumococcal Polyvalent Vaccine (Pneumovax 23 Vaccine) 0.5 ml IM .ONCE ONE Stop: 06/05/17 10:01 Rosuvastatin Calcium (Crestor) 40 mg PO HS [facility] Last Admin: 06/03/17 22:02 Dose: 40 mg Saccharomyces Boulardii (Florastor) 250 mg PO DAILY [facility] Last Admin: 06/03/17 10:21 Dose: 250 mg Results - Vital Signs Recent Vital Signs: Last Vital Signs Temp 98.7 F 06/03/17 15:59 Pulse 66 06/03/17 15:59 Resp 20 06/03/17 15:59 BP 171/82 H 06/03/17 15:59 Pulse Ox 98 06/03/17 15:59 - Labs Result Diagrams: 06/03/17 03:45 06/03/17 03:45 Labs: Laboratory Results - last 24 hr 06/02/17 06/03/17 06/03/17 23:38 03:45 03:45 WBC 6.4 RBC 3.30 L Hgb 10.4 L Hct 29.7 L MCV 90.1 MCH 31.5 H MCHC 35.0 RDW 13.0 Plt Count 198 MPV 9.4 Neut % (Auto) 63.2 Lymph % (Auto) 23.8 Gilmer % (Auto) 6.8 Eos % (Auto) 5.2 H Baso % (Auto) 1.0 Neut # (Auto) 4.1 Lymph # (Auto) 1.5 Gilmer # (Auto) 0.4 Eos # (Auto) 0.3 Baso # (Auto) 0.1 Sodium 136 Potassium 4.8 Chloride 101 Carbon Dioxide 30 Anion Gap 10 BUN 14 Creatinine 1.1 Est GFR ( Amer) > 60 Est GFR (Non-Af Amer) > 60 POC Glucose (mg/dL) Random Glucose 146 H Hemoglobin A1c Calcium 8.3 L Total Bilirubin 0.6 AST 31 ALT 28 Alkaline Phosphatase 105 Total Protein 6.6 Albumin 3.4 L Globulin 3.2 Albumin/Globulin Ratio 1.1 Triglycerides 219 H Cholesterol 112 LDL Cholesterol Direct 46 HDL Cholesterol 34 06/03/17 06/03/17 06/03/17 03:45 08:10 13:01 WBC RBC Hgb Hct MCV MCH MCHC RDW Plt Count MPV Neut % (Auto) Lymph % (Auto) [place] % (Auto) Eos % (Auto) Baso % (Auto) Neut # (Auto) Lymph # (Auto) [place] # (Auto) Eos # (Auto) Baso # (Auto) Sodium Potassium Chloride Carbon Dioxide Anion Gap BUN Creatinine Est GFR ( Amer) Est GFR (Non-Af Amer) POC Glucose (mg/dL) 163 H 220 H Random Glucose Hemoglobin A1c 8.6 H Calcium Total Bilirubin AST ALT Alkaline Phosphatase Total Protein Albumin Globulin Albumin/Globulin Ratio Triglycerides Cholesterol LDL Cholesterol Direct HDL Cholesterol 06/03/17 06/03/17 06/03/17 13:01 16:56 20:57 WBC RBC Hgb Hct MCV MCH MCHC RDW Plt Count MPV Neut % (Auto) Lymph % (Auto) [place]mer % (Auto) Eos % (Auto) Baso % (Auto) Neut # (Auto) Lymph # (Auto) [place] # (Auto) Eos # (Auto) Baso # (Auto) Sodium Potassium Chloride Carbon Dioxide Anion Gap BUN Creatinine Est GFR ( Amer) Est GFR (Non-Af Amer) POC Glucose (mg/dL) 220 H 168 H 142 H Random Glucose Hemoglobin A1c Calcium Total Bilirubin AST ALT Alkaline Phosphatase Total Protein Albumin Globulin Albumin/Globulin Ratio Triglycerides Cholesterol LDL Cholesterol Direct HDL Cholesterol Attending/Attestation - Attestation I have personally seen and examined this patient.: Yes I have fully participated in the care of the patient.: Yes I have reviewed all pertinent clinical information: Yes
[2017-06-03] MEDS: Piperacill/Tazo 3.375gm in Dex 3.375 GM/50 ML BAG IVPB SCH ×2 (10:10→17:22)
[2017-06-03] MEDS: (Novolin R) Insulin Human Regular 100 units/ml vial SC SCH ×3 (10:20→21:58)
[2017-06-03] MEDS: Saccharomyces Boulardi 250 mg Cap PO SCH (10:21)
[2017-06-03] MEDS ORDERED: (Novolin R) Insulin Human Regular 100 units/ml vial ONE (10:22)
[2017-06-03] MEDS: Vancomycin 1 gm/NS 200 ml 1 GM/200 ML BAG IVPB SCH ×2 (10:50→22:03)
--- NOTE | 2017-06-03 10:52 | CP.PCM.PN ---
Subjective - Date & Time of Evaluation Date of Evaluation: 06/03/17 Time of Evaluation: 10:30 - Subjective Subjective: Podiatry Progress Note- Dr. Song 56 yo male patient seen at bedside in ED this AM concerning right foot ulceration. Pt seen resting comfortably eating breakfast at time of visit. Dressing to R foot appears c/d/i with multipodus boot in place. Pt is mostly non -verbal (2/2 CVA 2015), however is able to follow verbal commands. Does complain of some tenderness to the ulcer site. Denies f/n/v/c/sob/cp/weakness or dizziness today. Objective - Vital Signs/Intake and Output Vital Signs (last 24 hours): Temp Pulse Resp BP Pulse Ox 98 F 66 16 162/74 H 98 06/03/17 07:20 06/03/17 09:25 06/03/17 09:25 06/03/17 10:30 06/03/17 09:25 Intake and Output: 06/03/17 06/03/17 06:59 18:59 Output Total 750 Balance -750 - Medications Medications: Current Medications Acetaminophen (Tylenol 650 Mg Supp) 650 mg ND Q6 PRN PRN Reason: Pain, Mild (1-3) Escitalopram Oxalate (Lexapro) 5 mg PO DAILY [facility] Last Admin: 06/03/17 10:30 Dose: 5 mg Finasteride (Proscar) 5 mg PO DAILY [facility] Last Admin: 06/03/17 10:30 Dose: 5 mg Folic Acid (Folic Acid) 1 mg PO DAILY [facility] Last Admin: 06/03/17 10:30 Dose: 1 mg Heparin Sodium (Porcine) (Heparin) 5,000 units SC Q8 [facility] Last Admin: 06/03/17 06:23 Dose: 5,000 units Vancomycin/Sodium Chloride (Vancomycin 1 Gm/Ns 200 Ml) 1 gm in 200 mls @ 133 mls/hr IVPB Q12H [facility] Stop: 06/07/17 21:31 Last Admin: 06/02/17 22:41 Dose: 133 mls/hr Piperacillin Sod/Tazobactam Sod (Zosyn 3.375 Gm Iv Premix) 3.375 gm in 50 mls @ 200 mls/hr IVPB Q6H [facility] Last Admin: 06/03/17 10:10 Dose: 200 mls/hr Insulin Human Regular (Novolin R) 0 unit SC ACHS [facility] PRN Reason: Protocol Last Admin: 06/03/17 10:20 Dose: 2 unit Levetiracetam (Keppra) 500 mg PO BID [facility] Last Admin: 06/03/17 10:30 Dose: 500 mg Metoprolol Tartrate (Lopressor) 25 mg PO DAILY [facility] Last Admin: 06/03/17 10:30 Dose: 25 mg Pantoprazole Sodium (Protonix Ec Tab) 40 mg PO DAILY [facility] Rosuvastatin Calcium (Crestor) 40 mg PO HS [facility] Last Admin: 06/02/17 22:24 Dose: 40 mg Saccharomyces Boulardii (Florastor) 250 mg PO DAILY [facility] Last Admin: 06/03/17 10:21 Dose: 250 mg - Labs Labs: 06/03/17 03:45 06/03/17 03:45 PT 11.6 SECONDS (9.7-12.2) 06/02/17 15:18 INR 1.0 06/02/17 15:18 APTT 33 SECONDS (21-34) 06/02/17 15:18 - Constitutional Appears: Non-toxic, No Acute Distress - Extremities Exam Extremities Exam: absent: Calf Tenderness Additional comments: RLE exam: dressing appears c/d/i VASC- pedal pulses palpable (DP/PT graded 2/4), skin temp runs warm to cool, cap refill is brisk to all digits, neg edema NEURO- gross and protective pedal sensation are intact DERM- there is a necrotic eschar noted to central-lateral aspect of plantar right foot with surrounding fibrotic rim (eschar appears stable and dry), just proximal to this echar there is a lanced bullous lesion which appears sero- sanguinous, no local erythema, no ascending cellulitis, + malodor, neg probe to one, neg undermining, there is also an unstageable DTI to the right posterior heel (neg signs infection) MSK: + POP to central aspect of wound, MMT 0/4 in all directions right lower extremity - Neurological Exam Neurological Exam: Alert, Awake - Psychiatric Exam Psychiatric exam: Normal Affect, Normal Mood Assessment and Plan - Assessment and Plan (Free Text) Assessment: 56 yo male patient with ulcerations of right plantar foot 2/2 pressure Plan: Pt S&E at bedside in ED Plan discussed with attending Dr. 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 Rosen): Echo ordered Plan for OR Monday 06/05 @ 3pm w/ Dr. Song for R foot ulcer debridement + graft application Will require medical/cardiac clearance prior to debridement Podiatry will follow
--- NOTE | 2017-06-03 11:34 | VASCLAB ---
PROCEDURE: HISTORY: Right foot discoloration, right hemiplegia COMPARISON: Previous arterial exam, 03/17/2015 TECHNIQUE: Grayscale and duplex Doppler evaluation of the right common femoral, femoral, profunda femoral, popliteal, posterior tibial, anterior tibial and dorsalis pedis arteries was performed. Report prepared by ASIM Vega, RVT FINDINGS: RIGHT LOWER EXTREMITY: * Common Femoral Artery: Peak Systolic Velocity - 82: Doppler Waveform: Biphasic: Plaque description - * Profunda Femoral Artery: Peak Systolic Velocity - 71: Doppler Waveform: Biphasic.: Plaque description - * Femoral Artery o Proximal Segment: Peak Systolic Velocity - 64: Doppler Waveform: Biphasic: Plaque description - o Middle Segment: Peak Systolic Velocity - 72: Doppler Waveform: Biphasic: Plaque description - o Distal Segment: Peak Systolic Velocity - 74: Doppler Waveform: Biphasic: Plaque description - * Popliteal Artery o Proximal Segment: Peak Systolic Velocity - 85: Doppler Waveform: Biphasic: Plaque description - o Middle Segment: Peak Systolic Velocity - 55: Doppler Waveform: Biphasic: Plaque description - o Distal Segment: Peak Systolic Velocity - 82: Doppler Waveform: Biphasic: Plaque description - * Posterior Tibial Artery: Peak Systolic Velocity - 101: Doppler Waveform: Biphasic: Plaque description - * Anterior Tibial Artery: Peak Systolic Velocity - 106: Doppler Waveform: Biphasic: Plaque description - OTHER FINDINGS: IMPRESSION: There is no evidence of hemodynamically significant arterial insufficiency in the right lower extremity. Arterial wall calcification is noted throughout the right lower extremity.
[2017-06-04] MEDS: Piperacill/Tazo 3.375gm in Dex 3.375 GM/50 ML BAG IVPB SCH ×4 (03:29→20:48)
[2017-06-04] MEDS: (Novolin R) Insulin Human Regular 100 units/ml vial SC SCH ×4 (07:54→22:00)
[2017-06-04 08:10] LABS: INR 1.1; PROTHROMBIN TIME 12.7 SECONDS (9.7-12.2)
[2017-06-04 08:11] LABS: BASO % 0.6 % (0.0-2.0); EOS # 0.3 K/uL (0.0-0.7); EOS % 4.8 % (0.0-4.0); HEMOGLOBIN 10.8 g/dL (12.0-18.0); LYMPH # 1.6 K/uL (1.0-4.3); LYMPH % 26.6 % (20.0-40.0); MEAN CELL VOLUME 90.6 fL (80.0-94.0); MEAN CORPUSCULAR HEMOGLOBIN 31.8 pg (27.0-31.0); MEAN CORPUSCULAR HGB CONC 35.1 g/dL (33.0-37.0); MEAN PLATELET VOLUME 10.1 fL (7.2-11.7); MONO # 0.4 K/uL (0.0-0.8); MONO % 7.1 % (0.0-10.0); NEUT # 3.6 K/uL (1.8-7.0); NEUT % 60.9 % (50.0-75.0); RBC 3.39 Mil/uL (4.40-5.90); RED CELL DISTRIBUTION WIDTH 13.1 % (11.5-14.5)
[2017-06-04 08:26] LABS: ALB/GLOB RATIO 1.2 (1.0-2.1); ALBUMIN 3.2 g/dL (3.5-5.0); ALT/SGPT 26 U/L (21-72); AST/SGOT 22 U/L (17-59); BLOOD UREA NITROGEN 15 mg/dL (9-20); CALCIUM 8.1 mg/dl (8.6-10.4); GFR AFRICAN-AMERICAN > 60; GFR NON-AFRICAN AMERICAN 52; MAGNESIUM 1.4 mg/dL (1.6-2.3)
--- NOTE | 2017-06-04 09:25 | CP.PCM.PN ---
<Iwona Nieto - Last Filed: 06/04/17 15:55> Subjective - Date & Time of Evaluation Date of Evaluation: 06/04/17 Time of Evaluation: 07:00 - Subjective Subjective: Medicine Progress Note: Patient was sen and examined at bedside in the AM. 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 Objective - Vital Signs/Intake and Output Vital Signs (last 24 hours): Temp Pulse Resp BP Pulse Ox 98.0 F 61 20 146/74 96 06/04/17 07:10 06/04/17 07:10 06/04/17 07:10 06/04/17 08:18 06/04/17 07:10 Intake and Output: 06/04/17 06/04/17 06:59 18:59 Output Total 450 Balance -450 - Medications Medications: Current Medications Acetaminophen (Tylenol 650 Mg Supp) 650 mg MS Q6 PRN PRN Reason: Pain, Mild (1-3) Aspirin (Aspirin Chewable) 81 mg PO DAILY [facility] Escitalopram Oxalate (Lexapro) 5 mg PO DAILY [facility] Last Admin: 06/03/17 10:30 Dose: 5 mg Finasteride (Proscar) 5 mg PO DAILY [facility] Last Admin: 06/03/17 10:30 Dose: 5 mg Folic Acid (Folic Acid) 1 mg PO DAILY [facility] Last Admin: 06/03/17 10:30 Dose: 1 mg Heparin Sodium (Porcine) (Heparin) 5,000 units SC Q8 [facility] Last Admin: 06/04/17 05:03 Dose: 5,000 units Vancomycin/Sodium Chloride (Vancomycin 1 Gm/Ns 200 Ml) 1 gm in 200 mls @ 133 mls/hr IVPB Q12H [facility] Stop: 06/07/17 21:31 Last Admin: 06/03/17 22:03 Dose: 133 mls/hr Piperacillin Sod/Tazobactam Sod (Zosyn 3.375 Gm Iv Premix) 3.375 gm in 50 mls @ 200 mls/hr IVPB Q6H [facility] Last Admin: 06/04/17 03:29 Dose: 200 mls/hr Insulin Human Regular (Novolin R) 0 unit SC ACHS [facility] PRN Reason: Protocol Last Admin: 06/04/17 07:54 Dose: Not Given Levetiracetam (Keppra) 500 mg PO BID [facility] Last Admin: 06/03/17 17:22 Dose: 500 mg Lisinopril (Zestril) 10 mg PO DAILY [facility] Metoprolol Tartrate (Lopressor) 25 mg PO BID [facility] Last Admin: 06/04/17 08:18 Dose: 25 mg Pantoprazole Sodium (Protonix Ec Tab) 40 mg PO DAILY [facility] Pneumococcal Polyvalent Vaccine (Pneumovax 23 Vaccine) 0.5 ml IM .ONCE ONE Stop: 06/05/17 10:01 Rosuvastatin Calcium (Crestor) 40 mg PO HS [facility] Last Admin: 06/03/17 22:02 Dose: 40 mg Saccharomyces Boulardii (Florastor) 250 mg PO DAILY [facility] Last Admin: 06/03/17 10:21 Dose: 250 mg - Labs Labs: 06/04/17 07:56 06/04/17 07:56 PT 12.7 SECONDS (9.7-12.2) H 06/04/17 07:56 INR 1.1 06/04/17 07:56 APTT 33 SECONDS (21-34) 06/02/17 15:18 - Constitutional Appears: No Acute Distress - Head Exam Head Exam: ATRAUMATIC, NORMAL INSPECTION - Eye Exam Eye Exam: EOMI - ENT Exam ENT Exam: Mucous Membranes Moist - Respiratory Exam Respiratory Exam: NORMAL BREATHING PATTERN - Cardiovascular Exam Cardiovascular Exam: REGULAR RHYTHM, +S1, +S2 - GI/Abdominal Exam GI & Abdominal Exam: Soft, Normal Bowel Sounds. absent: Tenderness - Extremities Exam Extremities Exam: absent: Normal Inspection (Right lower extremity wrapped in gauze and boot in place, dressing clean, dry, intact.) - Neurological Exam Neurological Exam: Alert, Awake - Psychiatric Exam Psychiatric exam: Normal Affect, Normal Mood - Skin Skin Exam: Dry, Intact, Normal Color, Warm Assessment and Plan - Assessment and Plan (Free Text) Assessment: 1.) Right foot ulcer - Podiatry Consult: Dr. Song --> help appreciated - Blister drained by podiatry in ED - Spoke with Podiatry Resident Dr. Kraus: plan is for debridement on Thursday - NPO after midnight & heparin held - Cardiology Consult: Dr. Rosen --> appreciated for Cardiac clearance for surgery - per cardiology note: Patient is clear from cardiology standpoint for surgery under LOCAL anesthesia - Medications: * Vancomycin 1gm IV Q12h (started on 06/02/17) * Vanco troph 06/04/17: 23.5 * Zosyn 3.375gm IV Q6h (started on 06/02/17) * Florastor 250mg PO BID * Tylenol 650mg PO Q6h prn for pain - Blood culture: no growth - preliminary - Right Wound culture: MRSA + - Images: * Right foot xray: Prior 5th transmetatarsal amputation. No demonstrated acute fracture no evidence of periosteal reaction. * Venous dopplers: No evidence of DVT of the right lower extremity with excellent venous flow. Normal valve function noted of the right side. Normal venous flow noted in the left common femoral vein. * Arterial duplex: There is no evidence of hemodynamically significant arterial insufficiency in the right lower extremity. Arterial wall calcification is noted throughout the right lower extremity. 2.) Abnormal EKG History of triple bypass - Cardiology Consult: Dr. Rosen --> help appreciated appreciated - Metoprolol Succinate 12.5mg PO daily - Atorvastatin 80mg PO HS - Lisinopril 10mg po daily 3.) Hypertension - uncontrolled - Home medication: Metoprolol 25mg PO daily --> changed (06/03/17) Metoprolol Tartrate 25mg po BID - Patient receives medication from [facility]. - the provider on the prescriptions is: Dr. Yovanny Cui; however will again follow up with PMD in regards to HTN - Lisinopril 10mg po daily - Spironolactone 25mg PO bid - Continue to monitor 4.) Diabetes - ISS - Accuchecks - Hemoglobin A1c: 8.6 - Lipid panel: Triglycerides 219; Total Cholesterol 112; LDL 46; HDL 34 - Metformin (home medication) - held - Hypoglycemic protocol 5.) History of seizure - Keppra 500mg PO BID - Seizure precautions 6.) History of cerebrovascular accident (CVA) with residual deficit History of CVA with right sided weakness - Aspirin 81mg po daily - Atorvastatin 80mg PO HS 7.) Benign prostatic hyperplasia - Finasteride 5mg PO daily 8.) Depression - Lexapro 5mg PO daily 9.) Prophylactic measure - Heparin 5000sc Q8h - held for debridement on Thursday06/05/17 - Protonix 40mg PO - PT eval and treat - OT eval and treat Case discussed with Dr. Adriana Nieto PGY-1 <Katie Wright V - Last Filed: 06/05/17 06:52> Objective - Vital Signs/Intake and Output Vital Signs (last 24 hours): Temp Pulse Resp BP Pulse Ox 98.5 F 67 18 157/74 H 96 06/04/17 23:48 06/04/17 23:48 06/04/17 23:48 06/04/17 23:48 06/04/17 23:48 Intake and Output: 06/04/17 06/05/17 18:59 06:59 Output Total 550 Balance -550 - Medications Medications: Current Medications Acetaminophen (Tylenol 650 Mg Supp) 650 mg MS Q6 PRN PRN Reason: Pain, Mild (1-3) Aspirin (Aspirin Chewable) 81 mg PO DAILY [facility] Last Admin: 06/04/17 09:39 Dose: 81 mg Escitalopram Oxalate (Lexapro) 5 mg PO DAILY [facility] Last Admin: 06/04/17 09:38 Dose: 5 mg Finasteride (Proscar) 5 mg PO DAILY [facility] Last Admin: 06/04/17 09:38 Dose: 5 mg Folic Acid (Folic Acid) 1 mg PO DAILY [facility] Last Admin: 06/04/17 09:39 Dose: 1 mg Heparin Sodium (Porcine) (Heparin) 5,000 units SC Q8 [facility] Last Admin: 06/04/17 14:23 Dose: 5,000 units Vancomycin/Sodium Chloride (Vancomycin 1 Gm/Ns 200 Ml) 1 gm in 200 mls @ 133 mls/hr IVPB Q12H [facility] Stop: 06/07/17 21:31 Last Admin: 06/04/17 22:36 Dose: Not Given Piperacillin Sod/Tazobactam Sod (Zosyn 3.375 Gm Iv Premix) 3.375 gm in 50 mls @ 200 mls/hr IVPB Q6H [facility] Last Admin: 06/05/17 02:43 Dose: 200 mls/hr Insulin Human Regular (Novolin R) 0 unit SC ACHS [facility] PRN Reason: Protocol Last Admin: 06/04/17 22:00 Dose: 2 unit Levetiracetam (Keppra) 500 mg PO BID [facility] Last Admin: 06/04/17 19:00 Dose: 500 mg Lisinopril (Zestril) 10 mg PO DAILY [facility] Last Admin: 06/04/17 09:38 Dose: 10 mg Metoprolol Succinate (Toprol Xl) 12.5 mg PO DAILY [facility] Pantoprazole Sodium (Protonix Ec Tab) 40 mg PO DAILY [facility] Last Admin: 06/04/17 09:39 Dose: 40 mg Rosuvastatin Calcium (Crestor) 40 mg PO HS [facility] Last Admin: 06/04/17 21:59 Dose: 40 mg Saccharomyces Boulardii (Florastor) 250 mg PO DAILY [facility] Last Admin: 06/04/17 09:38 Dose: 250 mg Spironolactone (Aldactone) 25 mg PO BID [facility] Last Admin: 06/04/17 19:04 Dose: 25 mg - Labs Labs: 06/04/17 07:56 06/04/17 07:56 PT 12.7 SECONDS (9.7-12.2) H 06/04/17 07:56 INR 1.1 06/04/17 07:56 APTT 33 SECONDS (21-34) 06/02/17 15:18 Attending/Attestation - Attestation I have personally seen and examined this patient.: Yes I have fully participated in the care of the patient.: Yes I have reviewed all pertinent clinical information, including history, physical exam and plan: Yes Notes (Text): This is late computer entry for 06/04/17. Patient seen, examined and case discussed with medical laboratory technicians. Patient seen at bedside, in no acute distress. No family present at bedside. Patient moved into isolation room secondary to MRSA infection. Infectious Disease on consult Per cardiology, patient is low to moderate risk for surgery for procedure under local anesthesia. Will continue IV antibiotics. Patient is planned for podiatric procedure tomorrow for right foot ulcer debridement and graft application. Will need to follow up with podiatry post procedure when to restart aspirin and anticoagulation Assessment/Plan (1) Right foot ulcer History of Peripheral Vascular Disease Assessment and Plan: * Podiatry consulted, Dr. Song; help appreciated * Plan for OR tomorrow Monday 06/05 @ 3pm w/ Dr. Song for R foot ulcer debridement + graft application * NPO past midnight tonight * Hold anti-coags for procedure * Pt's Taty (health proxy) plans to be present prior to surgery tomorrow to sign surgical consent * Infectious Disease, Dr. Myers: help appreciated * Blister drained by podiatry in ED on admission * Start Vancomycin 1gm IV Q12h (started on 06/02/17) * Start Zosyn 3.375gm IV Q6h (started on 06/02/17) * Florastor 250mg PO BID * Tylenol 650mg PO Q6h prn for pain * On contact isolation * Blood cx (06/02/17): f/u results * Wound cx (06/02/17): Gram Positive Cocci * Right foot xray: Prior 5th transmetatarsal amputation. No demonstrated acute fracture no evidence of periosteal reaction. * Venous dopplers: No evidence of DVT of the right lower extremity with excellent venous flow. Normal valve function noted of the right side. Normal venous flow noted in the left common femoral vein. * Arterial duplex: There is no evidence of hemodynamically significant arterial insufficiency in the right lower extremity. Arterial wall calcification is noted throughout the right lower extremity. * Will hold Aspirin in light of podiatric procedure * Chest xray: no active disease * Cardiology (Dr. Rosen) Help appreciated * Cardiology Consult: Dr. Rosen --> appreciated for Cardiac clearance for surgery * per cardiology note: Patient is clear from cardiology standpoint for surgery under LOCAL anesthesia * Patient is low to moderate risk for surgery * If general anesthesia is required further cardiac testing will be needed prior to surgery * Patient is moderate risk individual in light of extensive cardiac history for podiatric procedure. Surgery and anesthesia to explain risk and benefits of procedure respectively to patient's prior to procedure. Status: Acute (2) Abnormal EKG History of Triple Bypass Chronic Systolic Congestive Heart Failure EF: 30-35% Assessment and Plan: * Cardiology consulted for cardiac clearance, Dr. Rosen; recs appreciated. * Patient has had prior extensive cardiac workup at [facility] * Hold aspirin for possible podiatry procedure * Echo showed EF 30-35% per consult read; echocardiogram not officially read in the EMR * c/w Metoprolol tarate 25mg PO BID-->Switched to Toprol XL 12.5mg PO daily * Atorvastatin 80mg PO HS (switch to Crestor in hospital secondary to lack of lipitor on formulary) * Start Lisinopril 10mg PO daily * Started Aldactone 25 mg PO BID Status: Chronic (3) Hypertension Assessment and Plan: * c/w Metoprolol tarate 25mg PO BID-->Switched to Toprol XL 12.5mg PO daily * Atorvastatin 80mg PO HS (switch to Crestor in hospital secondary to lack of lipitor on formulary) * Start Lisinopril 10mg PO daily * Started Aldactone 25 mg PO BID Status: Chronic (4) Uncontrolled Diabetes Assessment and Plan: * ISS * A1c: 8.6 * Lipid panel: Triglycerides 219; Total Cholesterol 112; LDL 46; HDL 34 * Hold Metformin on admission: prevent lactic acidosis and if patient needs contrast based study for further evaluation * Atorvastatin 80mg PO HS (switch to Crestor in hospital secondary to lack of lipitor on formulary) * Hypoglycemic protocol * Monitor blood glucose, accuchecks Status: Chronic (5) History of seizure Assessment and Plan: * Continue home medication: Keppra 500mg PO BID * Seizure precautions Status: Chronic (6) History of cerebrovascular accident (CVA) with residual deficit Assessment and Plan: * Patient speaks in small words * has former peg and trach sites which are healed * History of CVA with right sided weakness * Hold aspirin for possible podiatry procedure * Atorvastatin 80mg PO HS (switch to Crestor in hospital secondary to lack of lipitor on formulary) * Increase Metoprolol tarate 25mg PO BID * Start Lisinopril 10mg PO daily Status: Chronic (7) BPH (benign prostatic hyperplasia) Assessment and Plan: * Continue home medication: Finasteride 5mg PO daily Status: Chronic (8) Depression Assessment and Plan: * Continue home medication: Lexapro 5mg PO daily Status: Chronic (9) Prophylactic measure Assessment and Plan: * on hold Heparin 5000sc Q8h for podiatric procedure * Protonix 40mg PO daily * Prevalon boots Status: Acute
[2017-06-04] MEDS: Saccharomyces Boulardi 250 mg Cap PO SCH (09:38)
[2017-06-04] MEDS: Pantoprazole 40 mg EC Tab PO SCH (09:39)
--- NOTE | 2017-06-04 09:45 | CP.PCM.PN ---
Subjective - Date & Time of Evaluation Date of Evaluation: 06/04/17 Time of Evaluation: 10:45 - Subjective Subjective: Podiatry Progress Note- Dr. Song 56 yo male seen at bedside this AM for right foot ulceration. Pt is seen in isolation room (wound cx grew +MRSA). Pt is seen resting comfortably in bed at time of visit with multipodus boot in place R foot. Pt says "yes" when asked if he has pain to the foot wound. No acute events reported overnight. Objective - Vital Signs/Intake and Output Vital Signs (last 24 hours): Temp Pulse Resp BP Pulse Ox 98.0 F 58 L 20 150/76 96 06/04/17 07:10 06/04/17 09:37 06/04/17 07:10 06/04/17 09:37 06/04/17 07:10 Intake and Output: 06/04/17 06/04/17 06:59 18:59 Output Total 450 Balance -450 - Medications Medications: Current Medications Acetaminophen (Tylenol 650 Mg Supp) 650 mg [place] Q6 PRN PRN Reason: Pain, Mild (1-3) Aspirin (Aspirin Chewable) 81 mg PO DAILY [facility] Last Admin: 06/04/17 09:39 Dose: 81 mg Escitalopram Oxalate (Lexapro) 5 mg PO DAILY [facility] Last Admin: 06/04/17 09:38 Dose: 5 mg Finasteride (Proscar) 5 mg PO DAILY [facility] Last Admin: 06/04/17 09:38 Dose: 5 mg Folic Acid (Folic Acid) 1 mg PO DAILY [facility] Last Admin: 06/04/17 09:39 Dose: 1 mg Heparin Sodium (Porcine) (Heparin) 5,000 units SC Q8 [facility] Last Admin: 06/04/17 05:03 Dose: 5,000 units Vancomycin/Sodium Chloride (Vancomycin 1 Gm/Ns 200 Ml) 1 gm in 200 mls @ 133 mls/hr IVPB Q12H [facility] Stop: 06/07/17 21:31 Last Admin: 06/03/17 22:03 Dose: 133 mls/hr Piperacillin Sod/Tazobactam Sod (Zosyn 3.375 Gm Iv Premix) 3.375 gm in 50 mls @ 200 mls/hr IVPB Q6H [facility] Last Admin: 06/04/17 09:40 Dose: 200 mls/hr Insulin Human Regular (Novolin R) 0 unit SC [facility] PRN Reason: Protocol Last Admin: 06/04/17 07:54 Dose: Not Given Levetiracetam (Keppra) 500 mg PO BID [facility] Last Admin: 06/04/17 09:39 Dose: 500 mg Lisinopril (Zestril) 10 mg PO DAILY [facility] Last Admin: 06/04/17 09:38 Dose: 10 mg Metoprolol Tartrate (Lopressor) 25 mg PO BID [facility] Last Admin: 06/04/17 08:18 Dose: 25 mg Pantoprazole Sodium (Protonix Ec Tab) 40 mg PO DAILY [facility] Last Admin: 06/04/17 09:39 Dose: 40 mg Pneumococcal Polyvalent Vaccine (Pneumovax 23 Vaccine) 0.5 ml IM .ONCE ONE Stop: 06/05/17 10:01 Rosuvastatin Calcium (Crestor) [address] [facility] Last Admin: 06/03/17 22:02 Dose: 40 mg Saccharomyces Boulardii (Florastor) 250 mg PO DAILY [facility] Last Admin: 06/04/17 09:38 Dose: 250 mg - Labs Labs: 06/04/17 07:56 06/04/17 07:56 PT 12.7 SECONDS (9.7-12.2) H 06/04/17 07:56 INR 1.1 06/04/17 07:56 APTT 33 SECONDS (21-34) 06/02/17 15:18 - Constitutional Appears: Non-toxic, No Acute Distress - Extremities Exam Extremities Exam: absent: Calf Tenderness Additional comments: RLE exam: dressing appears c/d/i w/ multipodus boot in place VASC- pedal pulses palpable (DP/PT graded 2/4), skin temp runs warm to cool, cap refill is brisk to all digits, neg edema NEURO- gross and protective pedal sensation are intact DERM- there is a necrotic eschar noted to central-lateral aspect of plantar right foot with surrounding fibrotic rim (eschar appears stable and dry), just proximal to this echar there is a lanced bullous lesion which appears dry, no local erythema, no ascending cellulitis, neg malodor today, neg probe to one, neg undermining, there is also an unstageable DTI to the right posterior heel ( neg signs infection) MSK: + POP to central aspect of wound, MMT 0/4 in all directions right lower extremity - Neurological Exam Neurological Exam: Alert, Awake - Psychiatric Exam Psychiatric exam: Normal Affect, Normal Mood Assessment and Plan - Assessment and Plan (Free Text) Assessment: Pt S&E at the bedside Plan discussed with attending DR. Song Chart, labs and vitals reviewed wound cx + MRSA ID consulted (Dr. Myers): f/u recs Per cardiology (Dr. Rosen), pt is cleared for foot surgery with LOCAL Arterial duplex: neg for hemodynamically significant insufficiency in the right lower extremity Plan for OR tomorrow Monday 06/05 @ 3pm w/ Dr. Song for R foot ulcer debridement + graft application NPO past midnight tonight Hold anti-coags for procedure Pt's Taty (health proxy) plans to be present prior to surgery tomorrow to sign surgical consent c/w multipodus boot at all times right foot Will follow
--- NOTE | 2017-06-04 09:46 | CP.PCM.PN ---
Addendum entered and electronically signed by Maurice Gacria DO 06/04/17 10:32 : Additional Assessment: Peripheral Vascular Disease: cont crestor and ASA Original Note: <Maurice Garcia - Last Filed: 06/04/17 10:13> Subjective - Date & Time of Evaluation Date of Evaluation: 06/04/17 Time of Evaluation: 09:43 - Subjective Subjective: Cardiology Progress Note for Dr. Rosen Pt seen and examined at bedside. No acute overnight events. BP improved overnight. ROS limited due to patient's current mental status. Objective - Vital Signs/Intake and Output Vital Signs (last 24 hours): Temp Pulse Resp BP Pulse Ox 98.0 F 58 L 20 150/76 96 06/04/17 07:10 06/04/17 09:37 06/04/17 07:10 06/04/17 09:37 06/04/17 07:10 Intake and Output: 06/04/17 06/04/17 06:59 18:59 Output Total 450 Balance -450 - Medications Medications: Current Medications Acetaminophen (Tylenol 650 Mg Supp) 650 mg KS Q6 PRN PRN Reason: Pain, Mild (1-3) Aspirin (Aspirin Chewable) 81 mg PO DAILY [facility] Last Admin: 06/04/17 09:39 Dose: 81 mg Escitalopram Oxalate (Lexapro) 5 mg PO DAILY [facility] Last Admin: 06/04/17 09:38 Dose: 5 mg Finasteride (Proscar) 5 mg PO DAILY [facility] Last Admin: 06/04/17 09:38 Dose: 5 mg Folic Acid (Folic Acid) 1 mg PO DAILY [facility] Last Admin: 06/04/17 09:39 Dose: 1 mg Heparin Sodium (Porcine) (Heparin) 5,000 units SC Q8 [facility] Last Admin: 06/04/17 05:03 Dose: 5,000 units Vancomycin/Sodium Chloride (Vancomycin 1 Gm/Ns 200 Ml) 1 gm in 200 mls @ 133 mls/hr IVPB Q12H [facility] Stop: 06/07/17 21:31 Last Admin: 06/03/17 22:03 Dose: 133 mls/hr Piperacillin Sod/Tazobactam Sod (Zosyn 3.375 Gm Iv Premix) 3.375 gm in 50 mls @ 200 mls/hr IVPB Q6H [facility] Last Admin: 06/04/17 09:40 Dose: 200 mls/hr Insulin Human Regular (Novolin R) 0 unit SC ACHS [facility] PRN Reason: Protocol Last Admin: 06/04/17 07:54 Dose: Not Given Levetiracetam (Keppra) 500 mg PO BID [facility] Last Admin: 06/04/17 09:39 Dose: 500 mg Lisinopril (Zestril) 10 mg PO DAILY [facility] Last Admin: 06/04/17 09:38 Dose: 10 mg Metoprolol Tartrate (Lopressor) 25 mg PO BID [facility] Last Admin: 06/04/17 08:18 Dose: 25 mg Pantoprazole Sodium (Protonix Ec Tab) 40 mg PO DAILY [facility] Last Admin: 06/04/17 09:39 Dose: 40 mg Pneumococcal Polyvalent Vaccine (Pneumovax 23 Vaccine) 0.5 ml IM .ONCE ONE Stop: 06/05/17 10:01 Rosuvastatin Calcium (Crestor) 40 mg PO [facility] Last Admin: 06/03/17 22:02 Dose: 40 mg Saccharomyces Boulardii (Florastor) 250 mg PO DAILY [facility] Last Admin: 06/04/17 09:38 Dose: 250 mg - Labs Labs: 06/04/17 07:56 06/04/17 07:56 PT 12.7 SECONDS (9.7-12.2) H 06/04/17 07:56 INR 1.1 06/04/17 07:56 APTT 33 SECONDS (21-34) 06/02/17 15:18 - Constitutional Appears: No Acute Distress - Head Exam Head Exam: NORMAL INSPECTION - Eye Exam Eye Exam: Normal appearance - ENT Exam ENT Exam: Normal Exam - Neck Exam Neck Exam: Normal Inspection - Respiratory Exam Respiratory Exam: Clear to Ausculation Bilateral. absent: Accessory Muscle Use , Rales, Rhonchi, Wheezes, Respiratory Distress - Cardiovascular Exam Cardiovascular Exam: RRR, +S1, +S2. absent: Clicks, Gallop, Rubs, Murmur - GI/Abdominal Exam GI & Abdominal Exam: Soft. absent: Distended, Guarding, Tenderness, Hernia, Rebound - Extremities Exam Additional comments: R foot ulcer - Back Exam Back Exam: NORMAL INSPECTION - Neurological Exam Neurological Exam: Alert, Awake - Skin Skin Exam: Dry, Intact, Normal Color, Warm Assessment and Plan - Assessment and Plan (Free Text) Assessment: 56 yo male with PMH of HTN, HLD, DM CVA, seizure, depression BPH, and CAD s/p CABG presents to [facility] for right foot ulcer. Cardiology consulted for cardiac clearance for surgical debridement of right foot. Plan: 1. Right Foot Ulcer - Management per Podiatry - Patient is low to moderate risk for surgery - Patient is clear from cardiology standpoint for surgery under LOCAL anesthesia If general anesthesia is required further cardiac testing will be needed prior to surgery 2. Chronic CHF with Reduced EF - Echo showed EF 30-35% - BNP 1240 - Started Toprol XL 12.5 mg PO daily; D/c Lopressor - Started Aldactone 25 mg PO BID - Cont Lisinopril 3. CAD s/p CABG - Troponin negative x1 - Cont ASA, crestor 3. HTN - Cont lisinopril - Cont to monitor 4. HLD - Cont Crestor 5. DM - Management per primary 6. BPH - Management per primary 7. H/O Seizures - Management per primary 8. Depression - Management per primary GI/DVT PPx - Protonix - Heparin Pt seen and discussed in detail with Dr. Rosen. Anupam Garcia, PGY1 <Raffi Rosen - Last Filed: 06/05/17 01:46> Objective - Vital Signs/Intake and Output Vital Signs (last 24 hours): Temp Pulse Resp BP Pulse Ox 98.5 F 67 18 157/74 H 96 06/04/17 23:48 06/04/17 23:48 06/04/17 23:48 06/04/17 23:48 06/04/17 23:48 Intake and Output: 06/04/17 06/05/17 18:59 06:59 Output Total 250 Balance -250 - Medications Medications: Current Medications Acetaminophen (Tylenol 650 Mg Supp) 650 mg KS Q6 PRN PRN Reason: Pain, Mild (1-3) Aspirin (Aspirin Chewable) 81 mg PO DAILY [facility] Last Admin: 06/04/17 09:39 Dose: 81 mg Escitalopram Oxalate (Lexapro) 5 mg PO DAILY [facility] Last Admin: 06/04/17 09:38 Dose: 5 mg Finasteride (Proscar) 5 mg PO DAILY [facility] Last Admin: 06/04/17 09:38 Dose: 5 mg Folic Acid (Folic Acid) 1 mg PO DAILY [facility] Last Admin: 06/04/17 09:39 Dose: 1 mg Heparin Sodium (Porcine) (Heparin) 5,000 units SC Q8 [facility] Last Admin: 06/04/17 14:23 Dose: 5,000 units Vancomycin/Sodium Chloride (Vancomycin 1 Gm/Ns 200 Ml) 1 gm in 200 mls @ 133 mls/hr IVPB Q12H [facility] Stop: 06/07/17 21:31 Last Admin: 06/04/17 22:36 Dose: Not Given Piperacillin Sod/Tazobactam Sod (Zosyn 3.375 Gm Iv Premix) 3.375 gm in 50 mls @ 200 mls/hr IVPB Q6H [facility] Last Admin: 06/04/17 20:48 Dose: 200 mls/hr Insulin Human Regular (Novolin R) 0 unit SC ACHS [facility] PRN Reason: Protocol Last Admin: 06/04/17 22:00 Dose: 2 unit Levetiracetam (Keppra) 500 mg PO BID [facility] Last Admin: 06/04/17 19:00 Dose: 500 mg Lisinopril (Zestril) 10 mg PO DAILY [facility] Last Admin: 06/04/17 09:38 Dose: 10 mg Metoprolol Succinate (Toprol Xl) 12.5 mg PO DAILY [facility] Pantoprazole Sodium (Protonix Ec Tab) 40 mg PO DAILY [facility] Last Admin: 06/04/17 09:39 Dose: 40 mg Rosuvastatin Calcium (Crestor) 40 mg PO HS [facility] Last Admin: 06/04/17 21:59 Dose: 40 mg Saccharomyces Boulardii (Florastor) 250 mg PO DAILY [facility] Last Admin: 06/04/17 09:38 Dose: 250 mg Spironolactone (Aldactone) 25 mg PO BID [facility] Last Admin: 06/04/17 19:04 Dose: 25 mg - Labs Labs: 06/04/17 07:56 06/04/17 07:56 PT 12.7 SECONDS (9.7-12.2) H 06/04/17 07:56 INR 1.1 06/04/17 07:56 APTT 33 SECONDS (21-34) 06/02/17 15:18 Attending/Attestation - Attestation I have personally seen and examined this patient.: Yes I have fully participated in the care of the patient.: Yes I have reviewed all pertinent clinical information, including history, physical exam and plan: Yes
[2017-06-04] MEDS: Vancomycin 1 gm/NS 200 ml 1 GM/200 ML BAG IVPB SCH ×3 (10:12→22:36)
--- NOTE | 2017-06-04 11:11 | CP.PCM.PCO ---
Physician Communication Note - Physician Communication Note Physician Communication Note: Patient has MRSA right foot infection. Please hold influenza vaccination.
--- NOTE | 2017-06-04 20:37 | CP.PCM.CON ---
History of Present Illness - History of Present Illness History of Present Illness: dictated Past Patient History - Infectious Disease Hx of Infectious Diseases: None - Past Medical History & Family History Past Medical History?: Yes - Past Social History Smoking Status: Never Smoked - CARDIAC Hx Hypercholesterolemia: Yes Hx Hypertension: Yes - NEUROLOGICAL Hx Seizures: Yes - HEENT Hx Cataracts: Yes - RENAL Hx Chronic Kidney Disease: No - ENDOCRINE/METABOLIC Hx Diabetes Mellitus Type 2: Yes - HEMATOLOGICAL/ONCOLOGICAL Hx Anemia: Yes - INTEGUMENTARY Hx Dermatological Problems: No - MUSCULOSKELETAL/RHEUMATOLOGICAL Hx Musculoskeletal Disorders: No - GASTROINTESTINAL Hx Gastrointestinal Disorders: Yes HX Swallowing Problems: Yes (now eats "reg food") - GENITOURINARY/GYNECOLOGICAL Hx Genitourinary Disorders: No - PSYCHIATRIC Hx Depression: Yes Hx Substance Use: No - SURGICAL HISTORY Other/Comment: "Cardiac sugery 3 veins clogged" - veins taken from ze legs @ [facility]". Tracheostomy removed 2016. Feeding removed Mar 2017. Amputation 5th digit - rt foot - ANESTHESIA Hx Anesthesia: Yes Hx Anesthesia Reactions: No Hx Malignant Hyperthermia: No Meds Allergies/Adverse Reactions: Allergies Allergy/AdvReac Type Severity Reaction Status Date / Time No Known Allergies Allergy Verified 06/02/17 14:03 - Medications Medications: Current Medications Acetaminophen (Tylenol 650 Mg Supp) 650 mg NE Q6 PRN PRN Reason: Pain, Mild (1-3) Aspirin (Aspirin Chewable) 81 mg PO DAILY [facility] Last Admin: 06/04/17 09:39 Dose: 81 mg Escitalopram Oxalate (Lexapro) 5 mg PO DAILY [facility] Last Admin: 06/04/17 09:38 Dose: 5 mg Finasteride (Proscar) 5 mg PO DAILY [facility] Last Admin: 06/04/17 09:38 Dose: 5 mg Folic Acid (Folic Acid) 1 mg PO DAILY [facility] Last Admin: 06/04/17 09:39 Dose: 1 mg Heparin Sodium (Porcine) (Heparin) 5,000 units SC Q8 [facility] Last Admin: 06/04/17 14:23 Dose: 5,000 units Vancomycin/Sodium Chloride (Vancomycin 1 Gm/Ns 200 Ml) 1 gm in 200 mls @ 133 mls/hr IVPB Q12H [facility] Stop: 06/07/17 21:31 Last Admin: 06/04/17 10:12 Dose: 133 mls/hr Piperacillin Sod/Tazobactam Sod (Zosyn 3.375 Gm Iv Premix) 3.375 gm in 50 mls @ 200 mls/hr IVPB Q6H [facility] Last Admin: 06/04/17 16:25 Dose: 200 mls/hr Insulin Human Regular (Novolin R) 0 unit SC ACHS [facility] PRN Reason: Protocol Last Admin: 06/04/17 17:19 Dose: 3 unit Levetiracetam (Keppra) 500 mg PO BID [facility] Last Admin: 06/04/17 19:00 Dose: 500 mg Lisinopril (Zestril) 10 mg PO DAILY [facility] Last Admin: 06/04/17 09:38 Dose: 10 mg Metoprolol Succinate (Toprol Xl) 12.5 mg PO DAILY [facility] Pantoprazole Sodium (Protonix Ec Tab) 40 mg PO DAILY [facility] Last Admin: 06/04/17 09:39 Dose: 40 mg Rosuvastatin Calcium (Crestor) 40 mg PO HS [facility] Last Admin: 06/03/17 22:02 Dose: 40 mg Saccharomyces Boulardii (Florastor) 250 mg PO DAILY [facility] Last Admin: 06/04/17 09:38 Dose: 250 mg Spironolactone (Aldactone) 25 mg PO BID [facility] Last Admin: 06/04/17 19:04 Dose: 25 mg Results - Vital Signs Recent Vital Signs: Last Vital Signs Temp 98.4 F 06/04/17 15:54 Pulse 60 06/04/17 15:54 Resp 20 06/04/17 15:54 BP 152/80 H 06/04/17 15:54 Pulse Ox 97 06/04/17 15:54 - Labs Result Diagrams: 06/04/17 07:56 06/04/17 07:56 Labs: Laboratory Results - last 24 hr 06/03/17 06/04/17 06/04/17 20:57 06:22 07:56 WBC 6.0 RBC 3.39 L Hgb 10.8 L Hct 30.7 L MCV 90.6 MCH 31.8 H MCHC 35.1 RDW 13.1 Plt Count 198 MPV 10.1 Neut % (Auto) 60.9 Lymph % (Auto) 26.6 Jefferson % (Auto) 7.1 Eos % (Auto) 4.8 H Baso % (Auto) 0.6 Neut # (Auto) 3.6 Lymph # (Auto) 1.6 Jefferson # (Auto) 0.4 Eos # (Auto) 0.3 Baso # (Auto) 0.0 PT INR Sodium Potassium Chloride Carbon Dioxide Anion Gap BUN Creatinine Est GFR ( Amer) Est GFR (Non-Af Amer) POC Glucose (mg/dL) 142 H 143 H Random Glucose Calcium Phosphorus Magnesium Total Bilirubin AST ALT Alkaline Phosphatase Total Protein Albumin Globulin Albumin/Globulin Ratio Vancomycin Trough 06/04/17 06/04/17 06/04/17 07:56 07:56 07:56 WBC RBC Hgb Hct MCV MCH MCHC RDW Plt Count MPV Neut % (Auto) Lymph % (Auto) Jefferson % (Auto) Eos % (Auto) Baso % (Auto) Neut # (Auto) Lymph # (Auto) Jefferson # (Auto) Eos # (Auto) Baso # (Auto) PT 12.7 H INR 1.1 Sodium 132 Potassium 4.3 Chloride 98 Carbon Dioxide 26 Anion Gap 12 BUN 15 Creatinine 1.4 Est GFR ( Amer) > 60 Est GFR (Non-Af Amer) 52 POC Glucose (mg/dL) Random Glucose 153 H Calcium 8.1 L Phosphorus 4.0 Magnesium 1.4 L Total Bilirubin 0.6 AST 22 ALT 26 Alkaline Phosphatase 109 Total Protein 6.0 L Albumin 3.2 L Globulin 2.8 Albumin/Globulin Ratio 1.2 Vancomycin Trough 23.5 H 06/04/17 06/04/17 11:09 16:35 WBC RBC Hgb Hct MCV MCH MCHC RDW Plt Count MPV Neut % (Auto) Lymph % (Auto) Jefferson % (Auto) Eos % (Auto) Baso % (Auto) Neut # (Auto) Lymph # (Auto) Jefferson # (Auto) Eos # (Auto) Baso # (Auto) PT INR Sodium Potassium Chloride Carbon Dioxide Anion Gap BUN Creatinine Est GFR ( Amer) Est GFR (Non-Af Amer) POC Glucose (mg/dL) 257 H 213 H Random Glucose Calcium Phosphorus Magnesium Total Bilirubin AST ALT Alkaline Phosphatase Total Protein Albumin Globulin Albumin/Globulin Ratio Vancomycin Trough
--- NOTE | 2017-06-05 00:09 | CON ---
DATE: INFECTIOUS DISEASE CONSULTATION REQUESTING PHYSICIAN: Dr. Wright. HISTORY OF PRESENT ILLNESS: This patient is 56-year-old male. He has history of hypertension, diabetes mellitus, hyperlipidemia, CVA. He has right-sided weakness and seizure disorder. He also has coronary artery disease with triple bypass and has right-sided weakness. He has a right foot ulcer, and he is mostly nonverbal, but is able to comprehend. He had a CVA in 2016. He has a right foot ulcer which started 4 weeks ago, and . tried to pop it up and then it started to get bigger and it developed a blister, and the patient has never had foot ulcers in the past but it is dependent right foot probably due to his condition, but he is also diabetic. PAST MEDICAL HISTORY: Significant as above for hypertension, hyperlipemia, diabetes, CVA with right-sided hemiparesis, seizure disorder, triple bypass, depression, and BPH. PAST SURGICAL HISTORY: Surgical history of cardiac bypass at [place] in 2015, left temporoparietal craniotomy and duraplasty, pack placement and removal in 02/2017. FAMILY HISTORY: Denies. SOCIAL HISTORY: Former smoker. One pack per day. Former social drinker. Denies drug abuse. Lives with and the son. ALLERGIES: HE IS NOT ALLERGIC TO ANY MEDICINE. REVIEW OF SYSTEMS: We are not able to obtain due to the patient is nonverbal. Most of it is seen from the chart. Past history is in the chart. At this time, taken from the chart. Most of the history is as above. He is nonverbal, but he comprehends, probably expressive aphasia. PHYSICAL EXAMINATION: VITAL SIGNS: T-max is 98.4, pulse 60, blood pressure 152/80, respirations at 20. HEENT: Head is atraumatic, normocephalic. Pupils are reacting to light. NECK: Supple. JVP is flat. LUNGS: Clear. No crackles or rales present. No wheezing. HEART: S1 and S2 is regular. No murmur is appreciated. ABDOMEN: Soft and is firm. Right hemiplegia present. EXTREMITIES: He had a dressing on the foot and so I was not able to see, it has been drained and he is for OR tomorrow with right leg weakness from the stroke. LABORATORY DATA: Labs are noted. Labs show white count is 6, hemoglobin 10.8, hematocrit 30.7, platelet count is 198. INR is 1.1. His BUN is 15, creatinine is 1.4. Magnesium was low and needs to be supplemented, and micro-membreno, there were wound culture which grew MRSA, hence he is in contact precautions and it is sensitive to vancomycin. He is on vancomycin and Zosyn at this time, and blood culture also is positive, but it has enterococcus faecalis by PNA FISH. Actually, we will continue both the antibiotics. His creatinine is 1.4, so I will stay away from gentamicin at this time and other than echo to be sure that he has no vegetation. Makenzie Myers MD
[2017-06-05] MEDS: Piperacill/Tazo 3.375gm in Dex 3.375 GM/50 ML BAG IVPB SCH ×4 (02:43→21:46)
--- NOTE | 2017-06-05 03:58 | CARD ---
APPROVED REPORT EKG Measurement Heart [id number] <Conclusion> Normal sinus rhythm Anterior infarct, age undetermined T wave abnormality, consider lateral ischemia Abnormal ECG
--- NOTE | 2017-06-05 07:25 | CARD ---
APPROVED REPORT EXAM: Two-dimensional and M-mode echocardiogram with Doppler and color Doppler. Other Information Quality : GoodRhythm : INDICATION CVA/TIA Pre-Op RISK FACTORS Hypertension Diabetes M-Mode DIMENSIONS RVDd3.30 (2.1-3.2cm)Left Atrium (MM)3.40 (2.5-4.0cm) IVSd1.18 (0.7-1.1cm)Aortic Root3.59 (2.2-3.7cm) LVDd5.17 (4.0-5.6cm)Aortic Cusp Exc.1.95 (1.5-2.0cm) PWd1.18 (0.7-1.1cm)FS (%) 23 % LVDs3.99 (2.0-3.8cm)LVEF (%)46 (>50%) Mitral Valve MV E Tlxsgsau67.1cm/sMV A Trdrlrrb99.8cm/sE/A ratio0.9 TDI E/Lateral E'0.0E/Medial E'0.0 Tricuspid Valve TR Peak [id number]/sTR Peak [id number] <Conclusion> Left ventricle: thickness: normal; size: normal; overall ejection fraction: 45%: diastolic filling pressures: elevated Mitral valve: annulus: normal: leaflets: normal: excursion: normal; no significant trans-mitral gradient: no significant incompetence: left atrium: normal Aortic valve: leaflets: normal: excursion: normal; no significant trans-aortic gradient: No significant incompetence: aortic root: normal Right sided Structures: Pulmonary valve: normal; no significant incompetence; Tricuspid valve: normal; no significant incompetence: Intra-cardiac hemodynamics: pulmonary systolic pressures: normal; central venous pressures: normal No pericardial effusion
[2017-06-05 07:50] LABS: BASO % 0.5 % (0.0-2.0); EOS # 0.3 K/uL (0.0-0.7); EOS % 4.7 % (0.0-4.0); HEMOGLOBIN 10.6 g/dL (12.0-18.0); INR 1.1; LYMPH # 1.7 K/uL (1.0-4.3); LYMPH % 27.4 % (20.0-40.0); MEAN CELL VOLUME 90.4 fL (80.0-94.0); MEAN CORPUSCULAR HEMOGLOBIN 31.4 pg (27.0-31.0); MEAN CORPUSCULAR HGB CONC 34.8 g/dL (33.0-37.0); MEAN PLATELET VOLUME 9.8 fL (7.2-11.7); MONO # 0.5 K/uL (0.0-0.8); MONO % 8.1 % (0.0-10.0); NEUT # 3.6 K/uL (1.8-7.0); NEUT % 59.3 % (50.0-75.0); NRBC % 0.2 % (0.0-2.0); PROTHROMBIN TIME 12.2 SECONDS (9.7-12.2); RBC 3.38 Mil/uL (4.40-5.90); RED CELL DISTRIBUTION WIDTH 13.1 % (11.5-14.5); WHITE BLOOD COUNT 6.1 K/uL (4.8-10.8)
[2017-06-05 08:03] LABS: ALB/GLOB RATIO 1.1 (1.0-2.1); ALBUMIN 3.4 g/dL (3.5-5.0); CALCIUM 8.3 mg/dl (8.6-10.4); MAGNESIUM 1.5 mg/dL (1.6-2.3)
[2017-06-05] MEDS: (Novolin R) Insulin Human Regular 100 units/ml vial SC SCH ×4 (08:17→21:52)
[2017-06-05] MEDS ORDERED: Pneumococcal 23-Valent Vaccine IM ONE (10:00)
[2017-06-05] MEDS ORDERED: Metoprolol Succinate 12.5 mg XL PO SCH (10:00)
[2017-06-05] MEDS: Saccharomyces Boulardi 250 mg Cap PO SCH (11:00)
[2017-06-05] MEDS: Metoprolol Succinate 25 mg XL Tab PO SCH (11:00)
[2017-06-05] MEDS: Pantoprazole 40 mg EC Tab PO SCH ×2 (11:00→11:08)
[2017-06-05] MEDS: Sodium Chloride 0.9% 1,000 ML IV SCH (11:19)
--- NOTE | 2017-06-05 12:56 | CARD ---
APPROVED REPORT EXAM: Two-dimensional and M-mode echocardiogram with Doppler and color Doppler. Other Information Quality : GoodRhythm : INDICATION R/O ENDOCARDITIS, LIMITED ECHO Mitral Valve E/A ratio0.0 TDI E/Lateral E'0.0E/Medial E'0.0 LEFT VENTRICLE The left ventricle is normal size. There is normal left ventricular wall thickness. Left ventricle systolic function is normal. The Ejection Fraction is 55-60%. There is mild to moderate hypokinesis in the apical septal wall. No Doppler There is no ventricular septal defect visualized. RIGHT VENTRICLE The right ventricle is normal size. The right ventricular systolic function is normal. ATRIA The left atrium size is normal. The right atrium size is normal. AORTIC VALVE The aortic valve is tri-cuspid. The aortic valve is normal in structure. No aortic regurgitation is present. No spectral Doppler MITRAL VALVE 1 cm density on the posterior leaflet of the mitral valve, atrial aspect. Fixed on the leaflet highly suggestive of vegetations, definite increases in size and density over 48 hours There is no evidence of mitral valve prolapse. Mitral regurgitation is mild. TRICUSPID VALVE The tricuspid valve is normal in structure. No Doppler PULMONIC VALVE The pulmonary valve is normal in structure. No Doppler GREAT VESSELS The aortic root is normal in size. PERICARDIAL EFFUSION There is no pericardial effusion. <Conclusion> Left ventricle systolic function is normal. The Ejection Fraction is 55-60%. There is mild to moderate hypokinesis in the apical septal wall. 1 cm density on the posterior leaflet of the mitral valve, atrial aspect. Fixed on the leaflet highly suggestive of vegetations, definite increases in size and density over 48 hours
[2017-06-05] MEDS ORDERED: Lidocaine 2% Inj (20ml) ONE ×2 (13:05→14:45)
[2017-06-05] MEDS ORDERED: Bupivacaine HCl 0.5% PF (10 ml) Inj ONE (13:05)
[2017-06-05] MEDS ORDERED: Propofol 10 mg/ml Inj (20 ML) ONE (13:08)
[2017-06-05] MEDS ORDERED: Midazolam 2 MG/2 ML VIAL ONE (13:08)
[2017-06-05] MEDS ORDERED: Lidocaine Hydrochloride 5 ML INJ ONE (13:22)
[2017-06-05] MEDS ORDERED: Magnesium Sulfate 1 gm in D5W 1 GM/100 ML BAG IVPB ONE (13:30)
--- NOTE | 2017-06-05 14:05 | CP.PCM.PCO ---
Assessment & Plan - Assessment and Plan (Free Text) Assessment: pt is a 56 yo m ho multiple co-morbities with recent echo showing density on MV. Spoke with Dr. Rosen re: patients cardiac risk during procedure. Pt is a moderate risk and local anesthesia (NOT general) is the safest route at this time. Case d/w dr. asencio. Will proceed under [place].
--- NOTE | 2017-06-05 14:23 | CP.PCM.PN ---
<Russell Price - Last Filed: 06/05/17 19:30> Subjective - Date & Time of Evaluation Date of Evaluation: 06/05/17 Time of Evaluation: 08:23 - Subjective Subjective: Medicine Progress Note: Patient was sen and examined at bedside in the AM. 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 Objective - Vital Signs/Intake and Output Vital Signs (last 24 hours): Temp Pulse Resp BP Pulse Ox 97.6 F 60 20 152/79 H 95 06/05/17 07:15 06/05/17 07:15 06/05/17 07:15 06/05/17 07:15 06/05/17 07:15 Intake and Output: 06/05/17 06/05/17 06:59 18:59 Output Total 550 Balance -550 - Medications Medications: Current Medications Acetaminophen (Tylenol 650 Mg Supp) 650 mg MT Q6 PRN PRN Reason: Pain, Mild (1-3) Aspirin (Aspirin Chewable) 81 mg PO DAILY [facility] Last Admin: 06/04/17 09:39 Dose: 81 mg Escitalopram Oxalate (Lexapro) 5 mg PO DAILY [facility] Last Admin: 06/05/17 11:00 Dose: 5 mg Finasteride (Proscar) 5 mg PO DAILY [facility] Last Admin: 06/05/17 11:00 Dose: 5 mg Folic Acid (Folic Acid) 1 mg PO DAILY [facility] Last Admin: 06/05/17 11:00 Dose: 1 mg Heparin Sodium (Porcine) (Heparin) 5,000 units SC Q8 [facility] Last Admin: 06/04/17 14:23 Dose: 5,000 units Vancomycin/Sodium Chloride (Vancomycin 1 Gm/Ns 200 Ml) 1 gm in 200 mls @ 133 mls/hr IVPB Q12H [facility] Stop: 06/07/17 21:31 Last Admin: 06/04/17 22:36 Dose: Not Given Piperacillin Sod/Tazobactam Sod (Zosyn 3.375 Gm Iv Premix) 3.375 gm in 50 mls @ 200 mls/hr IVPB Q6H [facility] Last Admin: 06/05/17 09:30 Dose: 200 mls/hr Sodium Chloride (Sodium Chloride 0.9%) 1,000 mls @ 50 mls/hr IV .Q20H [facility] Last Admin: 06/05/17 11:19 Dose: 50 mls/hr Insulin Human Regular (Novolin R) 0 unit SC ACHS [facility] PRN Reason: Protocol Last Admin: 06/05/17 13:03 Dose: Not Given Levetiracetam (Keppra) 500 mg PO BID [facility] Last Admin: 06/05/17 11:00 Dose: 500 mg Lisinopril (Zestril) 10 mg PO DAILY [facility] Last Admin: 06/05/17 11:00 Dose: 10 mg Metoprolol Succinate (Toprol Xl) 25 mg PO DAILY [facility] Last Admin: 06/05/17 11:00 Dose: 25 mg Pantoprazole Sodium (Protonix Ec Tab) 40 mg PO DAILY [facility] Last Admin: 06/05/17 11:08 Dose: 40 mg Rosuvastatin Calcium (Crestor) 40 mg PO HS [facility] Last Admin: 06/04/17 21:59 Dose: 40 mg Saccharomyces Boulardii (Florastor) 250 mg PO DAILY [facility] Last Admin: 06/05/17 11:00 Dose: 250 mg Spironolactone (Aldactone) 25 mg PO BID [facility] Last Admin: 06/05/17 11:00 Dose: 25 mg - Labs Labs: 06/05/17 07:13 06/05/17 07:13 PT 12.2 SECONDS (9.7-12.2) 06/05/17 07:13 INR 1.1 06/05/17 07:13 APTT 33 SECONDS (21-34) 06/02/17 15:18 Assessment and Plan - Assessment and Plan (Free Text) Plan: 1.) Right foot ulcer - Podiatry Consult: Dr. Song --> help appreciated - Blister drained by podiatry in ED - Spoke with Podiatry Resident Dr. Kraus: plan is for debridement on Thursday -Echo results showed 1cm density on the posterior leaflet of the mitral valve , atrial aspect. Fixed on the leaflet highly suggestive for vegetations. EF 55-60%. -F/u with Podiatry resident to determine when to restart Anticoagulation - Cardiology Consult: Dr. Rosen --> appreciated for Cardiac clearance for surgery - per cardiology note: Patient is clear from cardiology standpoint for surgery under LOCAL anesthesia - Medications: * Vancomycin 1gm IV Q12h (started on 06/02/17) held due to level being elevated. Will recheck a random Vancomycin level tomorrow. * Vanco troph 06/04/17: 23.5 * Zosyn 3.375gm IV Q6h (started on 06/02/17) * Florastor 250mg PO BID * Tylenol 650mg PO Q6h prn for pain * IV fluids ns @50cc/hr. 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 No demonstrated acute fracture no evidence of periosteal reaction. * Venous dopplers: No evidence of DVT of the right lower extremity with excellent venous flow. Normal valve function noted of the right side. Normal venous flow noted in the left common femoral vein. * Arterial duplex: There is no evidence of hemo-dynamically significant arterial insufficiency in the right lower extremity. Arterial wall calcification is noted throughout the right lower extremity. 2.) Abnormal EKG History of triple bypass - Cardiology Consult: Dr. Rosen --> help appreciated appreciated - Metoprolol Succinate 12.5mg PO daily - Atorvastatin 80mg PO HS - Lisinopril 10mg po daily 3.) Hypertension - uncontrolled - Home medication: Metoprolol 25mg PO daily --> changed (06/03/17) Metoprolol Tartrate 25mg po BID - Patient receives medication from [facility]. - the provider on the prescriptions is: Dr. Yovanny Ciu; however will again follow up with PMD in regards to HTN - Lisinopril 10mg po daily - Spironolactone 25mg PO bid - Continue to monitor 4.) Diabetes - ISS - Accuchecks - Hemoglobin A1c: 8.6 - Lipid panel: Triglycerides 219; Total Cholesterol 112; LDL 46; HDL 34 - Metformin (home medication) - held - Hypoglycemic protocol 5.) History of seizure - Keppra 500mg PO BID - Seizure precautions 6.) History of cerebrovascular accident (CVA) with residual deficit History of CVA with right sided weakness - Aspirin 81mg po daily - Atorvastatin 80mg PO HS 7.) Benign prostatic hyperplasia - Finasteride 5mg PO daily 8.) Depression - Lexapro 5mg PO daily 9.) Prophylactic measure - Heparin 5000sc Q8h - held for debridement on Thursday06/05/17 - Protonix 40mg PO - PT eval and treat - OT eval and treat <Katie Wright V - Last Filed: 06/06/17 00:36> Objective - Vital Signs/Intake and Output Vital Signs (last 24 hours): Temp Pulse Resp BP Pulse Ox 98.1 F 58 L 20 143/82 96 06/05/17 16:22 06/05/17 16:22 06/05/17 16:22 06/05/17 16:22 06/05/17 16:22 - Medications Medications: Current Medications Acetaminophen (Tylenol 650 Mg Supp) 650 mg MT Q6 PRN PRN Reason: Pain, Mild (1-3) Aspirin (Aspirin Chewable) 81 mg PO DAILY [facility] Last Admin: 06/04/17 09:39 Dose: 81 mg Escitalopram Oxalate (Lexapro) 5 mg PO DAILY [facility] Last Admin: 06/05/17 11:00 Dose: 5 mg Finasteride (Proscar) 5 mg PO DAILY [facility] Last Admin: 06/05/17 11:00 Dose: 5 mg Folic Acid (Folic Acid) 1 mg PO DAILY [facility] Last Admin: 06/05/17 11:00 Dose: 1 mg Heparin Sodium (Porcine) (Heparin) 5,000 units SC Q8 [facility] Last Admin: 06/04/17 14:23 Dose: 5,000 units Vancomycin/Sodium Chloride (Vancomycin 1 Gm/Ns 200 Ml) 1 gm in 200 mls @ 133 mls/hr IVPB Q12H [facility] Stop: 06/07/17 21:31 Last Admin: 06/04/17 22:36 Dose: Not Given Piperacillin Sod/Tazobactam Sod (Zosyn 3.375 Gm Iv Premix) 3.375 gm in 50 mls @ 200 mls/hr IVPB Q6H [facility] Last Admin: 06/05/17 21:46 Dose: 200 mls/hr Sodium Chloride (Sodium Chloride 0.9%) 1,000 mls @ 50 mls/hr IV .Q20H [facility] Last Admin: 06/05/17 11:19 Dose: 50 mls/hr Insulin Human Regular (Novolin R) 0 unit SC ACHS [facility] PRN Reason: Protocol Last Admin: 06/05/17 21:52 Dose: 3 unit Levetiracetam (Keppra) 500 mg PO BID [facility] Last Admin: 06/05/17 18:23 Dose: 500 mg Lisinopril (Zestril) 10 mg PO DAILY [facility] Last Admin: 06/05/17 11:00 Dose: 10 mg Metoprolol Succinate (Toprol Xl) 25 mg PO DAILY [facility] Last Admin: 06/05/17 11:00 Dose: 25 mg Oxycodone/Acetaminophen (Percocet 5/325 Mg Tab) 1 tab PO Q4H PRN PRN Reason: Pain, moderate (4-7) Stop: 06/08/17 16:00 Last Admin: 06/05/17 21:47 Dose: 1 tab Oxycodone/Acetaminophen (Percocet 5/325 Mg Tab) 2 tab PO Q4H PRN PRN Reason: Pain, severe (8-10) Stop: 06/08/17 16:00 Pantoprazole Sodium (Protonix Ec Tab) 40 mg PO DAILY [facility] Last Admin: 06/05/17 11:08 Dose: 40 mg Rosuvastatin Calcium (Crestor) 40 mg PO HS [facility] Last Admin: 06/05/17 21:47 Dose: 40 mg Saccharomyces Boulardii (Florastor) 250 mg PO DAILY [facility] Last Admin: 06/05/17 11:00 Dose: 250 mg Spironolactone (Aldactone) 25 mg PO BID [facility] Last Admin: 06/05/17 18:23 Dose: 25 mg - Labs Labs: 06/05/17 07:13 06/05/17 07:13 PT 12.2 SECONDS (9.7-12.2) 06/05/17 07:13 INR 1.1 06/05/17 07:13 APTT 33 SECONDS (21-34) 06/02/17 15:18 Attending/Attestation - Attestation I have personally seen and examined this patient.: Yes I have fully participated in the care of the patient.: Yes I have reviewed all pertinent clinical information, including history, physical exam and plan: Yes Notes (Text): This is late computer entry for 06/05/17. Patient seen, examined and case discussed with day-time resident Patient seen prior OR for podiatric procedure. Podiatry, anesthesia, and cardiology discussed amongst regarding latest echocardiogram result revealing vegetation; per cardiology may proceed with procedure under local anesthesia. Cardiology to schedule patient for RAHEL for 06/09/17. Assessment/Plan (1) Endocarditis Assessment and Plan: * Cardiology (Dr. Rosen) on the case-->help appreciated * Echocardiogram (06/05/17): left ventricle systolic function is normal. EF: 55- 560%. Mild to moderate hypokineses in the apical septal wall 1cm density on the posterior leaflet of the mitral valve, atrial aspect. Fixed on the leaflet highly suggestive of vegetations, definite increases in size and density over 48 hours * RAHEL scheduled for 06/09/17 * Blood culture (06/02/17): Enterococcus Faecalis (1 out 2 cultures) * Repeat blood culture (06/05/17): uncollected-->unclear why * Repeat blood culture (06/06/17): * Patient is afebrile (2) Right foot ulcer History of Peripheral Vascular Disease Assessment and Plan: * Podiatry consulted, Dr. Song; help appreciated * Plan for OR today Monday 06/05 @ 3pm w/ Dr. Song for R foot ulcer debridement + graft application-->Debridement of necrotic ulceration right foot with application of Integra graft and wound vac * Infectious Disease, Dr. Myers: help appreciated * Blister drained by podiatry in ED on admission * Start Vancomycin 1gm IV Q12h (started on 06/02/17) * On hold in light of vancomycin trough and elevated random vancomycin level * Repeat vancomycin level tomorrow * Start Zosyn 3.375gm IV Q6h (started on 06/02/17) * Florastor 250mg PO BID * Tylenol 650mg PO Q6h prn for pain * On contact isolation * Wound cx (06/02/17): Gram Positive Cocci * Blood culture (06/02/17): Enterococcus Faecalis (1 out 2 cultures) Imaging: * Right foot xray: Prior 5th transmetatarsal amputation. No demonstrated acute fracture no evidence of periosteal reaction. * Venous dopplers: No evidence of DVT of the right lower extremity with excellent venous flow. Normal valve function noted of the right side. Normal venous flow noted in the left common femoral vein. * Arterial duplex: There is no evidence of hemodynamically significant arterial insufficiency in the right lower extremity. Arterial wall calcification is noted throughout the right lower extremity. * Will hold Aspirin in light of podiatric procedure * Chest xray: no active disease * Cardiology (Dr. Rosen) Help appreciated * Cardiology Consult: Dr. Rosen --> appreciated for Cardiac clearance for surgery * per cardiology note: Patient is clear from cardiology standpoint for surgery under LOCAL anesthesia * Patient is low to moderate risk for surgery * If general anesthesia is required further cardiac testing will be needed prior to surgery * Patient is moderate risk individual in light of extensive cardiac history for podiatric procedure. Surgery and anesthesia to explain risk and benefits of procedure respectively to patient's prior to procedure. Status: Acute (2) Abnormal EKG History of Triple Bypass Chronic Systolic Congestive Heart Failure EF: 30-35% Assessment and Plan: * Cardiology consulted for cardiac clearance, Dr. Rosen; recs appreciated. * Patient has had prior extensive cardiac workup at [place] * Hold aspirin for possible podiatry procedure * Echo showed EF 30-35% per consult read; echocardiogram not officially read in the EMR * c/w Metoprolol tarate 25mg PO BID-->Switched to Toprol XL 12.5mg PO daily * Atorvastatin 80mg PO HS (switch to Crestor in hospital secondary to lack of lipitor on formulary) * Start Lisinopril 10mg PO daily * Started Aldactone 25 mg PO BID * Echocardiogram (06/05/17): left ventricle systolic function is normal. EF: 55- 560%. Mild to moderate hypokineses in the apical septal wall 1cm density on the posterior leaflet of the mitral valve, atrial aspect. Fixed on the leaflet highly suggestive of vegetations, definite increases in size and density over 48 hours * RAHEL scheduled for 06/09/17 Status: Chronic (3) Hypertension Assessment and Plan: * c/w Metoprolol tarate 25mg PO BID-->Switched to Toprol XL 12.5mg PO daily * Atorvastatin 80mg PO HS (switch to Crestor in hospital secondary to lack of lipitor on formulary) * Start Lisinopril 10mg PO daily * Started Aldactone 25 mg PO BID Status: Chronic (4) Uncontrolled Diabetes Assessment and Plan: * ISS * A1c: 8.6 * Lipid panel: Triglycerides 219; Total Cholesterol 112; LDL 46; HDL 34 * Hold Metformin on admission: prevent lactic acidosis and if patient needs contrast based study for further evaluation * Atorvastatin 80mg PO HS (switch to Crestor in hospital secondary to lack of lipitor on formulary) * Hypoglycemic protocol * Monitor blood glucose, accuchecks Status: Chronic (5) History of seizure Assessment and Plan: * Continue home medication: Keppra 500mg PO BID * Seizure precautions Status: Chronic (6) History of cerebrovascular accident (CVA) with residual deficit Assessment and Plan: * Patient speaks in small words * has former peg and trach sites which are healed * History of CVA with right sided weakness * Hold aspirin for possible podiatry procedure * Atorvastatin 80mg PO HS (switch to Crestor in hospital secondary to lack of lipitor on formulary) * Increase Metoprolol tarate 25mg PO BID * Start Lisinopril 10mg PO daily Status: Chronic (7) BPH (benign prostatic hyperplasia) Assessment and Plan: * Continue home medication: Finasteride 5mg PO daily Status: Chronic (8) Depression Assessment and Plan: * Continue home medication: Lexapro 5mg PO daily Status: Chronic (9) Prophylactic measure Assessment and Plan: * on hold Heparin 5000sc Q8h for podiatric procedure * Protonix 40mg PO daily * Prevalon boots Status: Acute Disposition: Patient went to OR today for debridement ulceration of plantar aspect right foot. Of latest echocardiogram, cardiology, anethesiology, and podiatry discussed prior to proceeding with procedure under local. Patient is scheduled for RAHEL this morning. Vancomycin on hold in light of elevated random vancomycin level. Patient is on gentle IV hydration.
--- NOTE | 2017-06-05 15:58 | PCM.SURG1 ---
Surgeon's Initial Post Op Note - Surgeon's Notes Surgeon: Dr. Song Window Caser: Dr. Ellyn Kraus PGY-2; Dr. Paula Padilla PGY-1 Type of Anesthesia: Local Anesthesia Administered By: Nahun (monitoring only) Pre-Operative Diagnosis: necrotic ulceration of plantar aspect right foot Operative Findings: see operative report Post-Operative Diagnosis: same Operation Performed: debridement of necrotic ulceration right foot with application of Integra graft and wound vac Specimen/Specimens Removed: necrotic soft tissue right foot Estimated Blood Loss: EBL {In ML}: 50 Blood Products Given: N/A Drains Used: Wound Vac ([facility]) Date of Surgery/Procedure: 06/05/17 Time of Surgery/Procedure: 15:00
[2017-06-05] MEDS ORDERED: Oxycodone/Acetaminophen 5/325 mg Tab PO PRN ×2 (15:59)
--- NOTE | 2017-06-05 17:53 | CP.PCM.PN ---
<Maurice Garcia - Last Filed: 06/05/17 17:44> Subjective - Date & Time of Evaluation Date of Evaluation: 06/05/17 Time of Evaluation: 17:45 - Subjective Subjective: Cardiology Progress Note for Dr. Rosen Pt seen and examined at bedside. No acute overnight events. Pt is s/p right foot debridement POD#0. ROS limited due to patient's current mental status. Objective - Vital Signs/Intake and Output Vital Signs (last 24 hours): Temp Pulse Resp BP Pulse Ox 98.1 F 58 L 20 143/82 96 06/05/17 16:22 06/05/17 16:22 06/05/17 16:22 06/05/17 16:22 06/05/17 16:22 Intake and Output: 06/05/17 06/05/17 06:59 18:59 Output Total 550 Balance -550 - Medications Medications: Current Medications Acetaminophen (Tylenol 650 Mg Supp) 650 mg AL Q6 PRN PRN Reason: Pain, Mild (1-3) Aspirin (Aspirin Chewable) 81 mg PO DAILY [facility] Last Admin: 06/04/17 09:39 Dose: 81 mg Escitalopram Oxalate (Lexapro) 5 mg PO DAILY [facility] Last Admin: 06/05/17 11:00 Dose: 5 mg Finasteride (Proscar) 5 mg PO DAILY [facility] Last Admin: 06/05/17 11:00 Dose: 5 mg Folic Acid (Folic Acid) 1 mg PO DAILY [facility] Last Admin: 06/05/17 11:00 Dose: 1 mg Heparin Sodium (Porcine) (Heparin) 5,000 units SC Q8 [facility] Last Admin: 06/04/17 14:23 Dose: 5,000 units Vancomycin/Sodium Chloride (Vancomycin 1 Gm/Ns 200 Ml) 1 gm in 200 mls @ 133 mls/hr IVPB Q12H [facility] Stop: 06/07/17 21:31 Last Admin: 06/04/17 22:36 Dose: Not Given Piperacillin Sod/Tazobactam Sod (Zosyn 3.375 Gm Iv Premix) 3.375 gm in 50 mls @ 200 mls/hr IVPB Q6H [facility] Last Admin: 06/05/17 17:13 Dose: 200 mls/hr Sodium Chloride (Sodium Chloride 0.9%) 1,000 mls @ 50 mls/hr IV .Q20H [facility] Last Admin: 06/05/17 11:19 Dose: 50 mls/hr Insulin Human Regular (Novolin R) 0 unit SC ACHS [facility] PRN Reason: Protocol Last Admin: 06/05/17 17:14 Dose: Not Given Levetiracetam (Keppra) 500 mg PO BID [facility] Last Admin: 06/05/17 11:00 Dose: 500 mg Lisinopril (Zestril) 10 mg PO DAILY [facility] Last Admin: 06/05/17 11:00 Dose: 10 mg Metoprolol Succinate (Toprol Xl) 25 mg PO DAILY [facility] Last Admin: 06/05/17 11:00 Dose: 25 mg Oxycodone/Acetaminophen (Percocet 5/325 Mg Tab) 1 tab PO Q4H PRN PRN Reason: Pain, moderate (4-7) Stop: 06/08/17 16:00 Oxycodone/Acetaminophen (Percocet 5/325 Mg Tab) 2 tab PO Q4H PRN PRN Reason: Pain, severe (8-10) Stop: 06/08/17 16:00 Pantoprazole Sodium (Protonix Ec Tab) 40 mg PO DAILY [facility] Last Admin: 06/05/17 11:08 Dose: 40 mg Rosuvastatin Calcium (Crestor) 40 mg PO HS [facility] Last Admin: 06/04/17 21:59 Dose: 40 mg Saccharomyces Boulardii (Florastor) 250 mg PO DAILY [facility] Last Admin: 06/05/17 11:00 Dose: 250 mg Spironolactone (Aldactone) 25 mg PO BID [facility] Last Admin: 06/05/17 11:00 Dose: 25 mg - Labs Labs: 06/05/17 07:13 06/05/17 07:13 PT 12.2 SECONDS (9.7-12.2) 06/05/17 07:13 INR 1.1 06/05/17 07:13 APTT 33 SECONDS (21-34) 06/02/17 15:18 Assessment and Plan - Assessment and Plan (Free Text) Assessment: 56 yo male with PMH of HTN, HLD, DM CVA, seizure, depression BPH, and CAD s/p CABG presents to [facility] for right foot ulcer. Cardiology consulted for cardiac clearance for surgical debridement of right foot. Plan: 1. Right Foot Ulcer - Management per Podiatry - Patient is low to moderate risk for surgery - Patient is clear from cardiology standpoint for surgery under LOCAL anesthesia - POD #0 right foot debridement 2. Possible Endocarditis - Echo showed 1 cm density on posterior leaflet of mitral valve - RAHEL scheduled for Thursday 3. Chronic CHF with Reduced EF - Echo showed EF 55-60%, mild to moderate hypokinesis, 1cm density on posterior leaflet of mitral valve - BNP 1240 - Cont Toprol XL 12.5 mg PO daily - Cont Aldactone 25 mg PO BID - Cont Lisinopril 4. CAD s/p CABG - Troponin negative x1 - Cont ASA, crestor 5. Peripheral Vascular Disease - Cont Crestor and ASA 6. HTN - Cont lisinopril - Cont to monitor 7. HLD - Cont Crestor 8. DM - Management per primary 9. BPH - Management per primary 10. H/O Seizures - Management per primary 11. Depression - Management per primary GI/DVT PPx - Protonix - Heparin Pt seen and discussed in detail with Dr. Rosen. Anupam Garcia, PGY1 <Raffi Rosen - Last Filed: 06/05/17 23:53> Objective - Vital Signs/Intake and Output Vital Signs (last 24 hours): Temp Pulse Resp BP Pulse Ox 98.1 F 58 L 20 143/82 96 06/05/17 16:22 06/05/17 16:22 06/05/17 16:22 06/05/17 16:22 06/05/17 16:22 - Medications Medications: Current Medications Acetaminophen (Tylenol 650 Mg Supp) 650 mg AL Q6 PRN PRN Reason: Pain, Mild (1-3) Aspirin (Aspirin Chewable) 81 mg PO DAILY [facility] Last Admin: 06/04/17 09:39 Dose: 81 mg Escitalopram Oxalate (Lexapro) 5 mg PO DAILY [facility] Last Admin: 06/05/17 11:00 Dose: 5 mg Finasteride (Proscar) 5 mg PO DAILY [facility] Last Admin: 06/05/17 11:00 Dose: 5 mg Folic Acid (Folic Acid) 1 mg PO DAILY [facility] Last Admin: 06/05/17 11:00 Dose: 1 mg Heparin Sodium (Porcine) (Heparin) 5,000 units SC Q8 [facility] Last Admin: 06/04/17 14:23 Dose: 5,000 units Vancomycin/Sodium Chloride (Vancomycin 1 Gm/Ns 200 Ml) 1 gm in 200 mls @ 133 mls/hr IVPB Q12H [facility] Stop: 06/07/17 21:31 Last Admin: 06/04/17 22:36 Dose: Not Given Piperacillin Sod/Tazobactam Sod (Zosyn 3.375 Gm Iv Premix) 3.375 gm in 50 mls @ 200 mls/hr IVPB Q6H [facility] Last Admin: 06/05/17 21:46 Dose: 200 mls/hr Sodium Chloride (Sodium Chloride 0.9%) 1,000 mls @ 50 mls/hr IV .Q20H [facility] Last Admin: 06/05/17 11:19 Dose: 50 mls/hr Insulin Human Regular (Novolin R) 0 unit SC ACHS [facility] PRN Reason: Protocol Last Admin: 06/05/17 21:52 Dose: 3 unit Levetiracetam (Keppra) 500 mg PO BID [facility] Last Admin: 06/05/17 18:23 Dose: 500 mg Lisinopril (Zestril) 10 mg PO DAILY [facility] Last Admin: 06/05/17 11:00 Dose: 10 mg Metoprolol Succinate (Toprol Xl) 25 mg PO DAILY [facility] Last Admin: 06/05/17 11:00 Dose: 25 mg Oxycodone/Acetaminophen (Percocet 5/325 Mg Tab) 1 tab PO Q4H PRN PRN Reason: Pain, moderate (4-7) Stop: 06/08/17 16:00 Last Admin: 06/05/17 21:47 Dose: 1 tab Oxycodone/Acetaminophen (Percocet 5/325 Mg Tab) 2 tab PO Q4H PRN PRN Reason: Pain, severe (8-10) Stop: 06/08/17 16:00 Pantoprazole Sodium (Protonix Ec Tab) 40 mg PO DAILY [facility] Last Admin: 06/05/17 11:08 Dose: 40 mg Rosuvastatin Calcium (Crestor) 40 mg PO HS [facility] Last Admin: 06/05/17 21:47 Dose: 40 mg Saccharomyces Boulardii (Florastor) 250 mg PO DAILY [facility] Last Admin: 06/05/17 11:00 Dose: 250 mg Spironolactone (Aldactone) 25 mg PO BID [facility] Last Admin: 06/05/17 18:23 Dose: 25 mg - Labs Labs: 06/05/17 07:13 02/02/18 07:13 PT 12.2 SECONDS (9.7-12.2) 06/05/17 07:13 INR 1.1 06/05/17 07:13 APTT 33 SECONDS (21-34) 06/02/17 15:18 Attending/Attestation - Attestation I have personally seen and examined this patient.: Yes I have fully participated in the care of the patient.: Yes I have reviewed all pertinent clinical information, including history, physical exam and plan: Yes
--- NOTE | 2017-06-05 21:27 | CP.PCM.PN ---
Subjective - Date & Time of Evaluation Date of Evaluation: 06/05/17 Time of Evaluation: 06:00 - Subjective Subjective: dictated Objective - Vital Signs/Intake and Output Vital Signs (last 24 hours): Temp Pulse Resp BP Pulse Ox 98.1 F 58 L 20 143/82 96 06/05/17 16:22 06/05/17 16:22 06/05/17 16:22 06/05/17 16:22 06/05/17 16:22 - Medications Medications: Current Medications Acetaminophen (Tylenol 650 Mg Supp) 650 mg PA Q6 PRN PRN Reason: Pain, Mild (1-3) Aspirin (Aspirin Chewable) 81 mg PO DAILY [facility] Last Admin: 06/04/17 09:39 Dose: 81 mg Escitalopram Oxalate (Lexapro) 5 mg PO DAILY [facility] Last Admin: 06/05/17 11:00 Dose: 5 mg Finasteride (Proscar) 5 mg PO DAILY [facility] Last Admin: 06/05/17 11:00 Dose: 5 mg Folic Acid (Folic Acid) 1 mg PO DAILY [facility] Last Admin: 06/05/17 11:00 Dose: 1 mg Heparin Sodium (Porcine) (Heparin) 5,000 units SC Q8 [facility] Last Admin: 06/04/17 14:23 Dose: 5,000 units Vancomycin/Sodium Chloride (Vancomycin 1 Gm/Ns 200 Ml) 1 gm in 200 mls @ 133 mls/hr IVPB Q12H [facility] Stop: 06/07/17 21:31 Last Admin: 06/04/17 22:36 Dose: Not Given Piperacillin Sod/Tazobactam Sod (Zosyn 3.375 Gm Iv Premix) 3.375 gm in 50 mls @ 200 mls/hr IVPB Q6H [facility] Last Admin: 06/05/17 17:13 Dose: 200 mls/hr Sodium Chloride (Sodium Chloride 0.9%) 1,000 mls @ 50 mls/hr IV .Q20H [facility] Last Admin: 06/05/17 11:19 Dose: 50 mls/hr Insulin Human Regular (Novolin R) 0 unit SC ACHS [facility] PRN Reason: Protocol Last Admin: 06/05/17 17:14 Dose: Not Given Levetiracetam (Keppra) 500 mg PO BID [facility] Last Admin: 06/05/17 18:23 Dose: 500 mg Lisinopril (Zestril) 10 mg PO DAILY [facility] Last Admin: 06/05/17 11:00 Dose: 10 mg Metoprolol Succinate (Toprol Xl) 25 mg PO DAILY [facility] Last Admin: 06/05/17 11:00 Dose: 25 mg Oxycodone/Acetaminophen (Percocet 5/325 Mg Tab) 1 tab PO Q4H PRN PRN Reason: Pain, moderate (4-7) Stop: 06/08/17 16:00 Oxycodone/Acetaminophen (Percocet 5/325 Mg Tab) 2 tab PO Q4H PRN PRN Reason: Pain, severe (8-10) Stop: 06/08/17 16:00 Pantoprazole Sodium (Protonix Ec Tab) 40 mg PO DAILY [facility] Last Admin: 06/05/17 11:08 Dose: 40 mg Rosuvastatin Calcium (Crestor) 40 mg PO HS [facility] Last Admin: 06/04/17 21:59 Dose: 40 mg Saccharomyces Boulardii (Florastor) 250 mg PO DAILY [facility] Last Admin: 06/05/17 11:00 Dose: 250 mg Spironolactone (Aldactone) 25 mg PO BID [facility] Last Admin: 06/05/17 18:23 Dose: 25 mg - Labs Labs: 06/05/17 07:13 06/05/17 07:13 PT 12.2 SECONDS (9.7-12.2) 06/05/17 07:13 INR 1.1 06/05/17 07:13 APTT 33 SECONDS (21-34) 06/02/17 15:18
--- NOTE | 2017-06-06 02:23 | PN ---
DATE: SUBJECTIVE: He was trying to eat when I went to see him. He is status post surgery. He had debridement skin graft and he has a wound VAC. The patient has right-sided weakness. He was trying to eat. He does not speak much, so he could not communicate. PHYSICAL EXAMINATION: VITAL SIGNS: T-max is 98.1, pulse of 58, blood pressure 143/82, respirations are 20. HEENT: Head is atraumatic, normocephalic. NECK: Supple. LUNGS: Clear. No crackles or rales present. HEART: S1, S2 is regular. ABDOMEN: Soft and nontender. EXTREMITIES: Right foot had surgical dressings. ASSESSMENT: I am told that it seems that the echo showed 1 cm density on the posterior leaflet of the mitral valve, and the service worker noticed that during the echo has a 1 cm density on the posterior leaflet of the mitral valve, and he plans to do a RAHEL on Thursday, and we need to rule out endocarditis. At this time, he had debridement of the wounds on the right leg. His wound culture has MRSA, beta hemolytic, and hemolytic swab, and the blood culture, one of them grew enterococcus, other set is negative. This enterococcus is vancomycin sensitive, and he is on medications. He is on vancomycin and Zosyn. He will continue those. We will repeat the cultures, and of course, he needs echocardiogram. We will repeat culture tomorrow, and he will need RAHEL since transthoracic echo is abnormal, and we will follow. Makenzie Myers MD
[2017-06-06] MEDS: Sodium Chloride 0.9% 1,000 ML IV SCH ×3 (03:00→22:33)
[2017-06-06] MEDS: Piperacill/Tazo 3.375gm in Dex 3.375 GM/50 ML BAG IVPB SCH ×5 (03:43→21:57)
--- NOTE | 2017-06-06 04:32 | CP.PCM.PN ---
<Iwona Nieto - Last Filed: 06/06/17 06:19> Subjective - Date & Time of Evaluation Date of Evaluation: 06/06/17 Time of Evaluation: 06:00 - Subjective Subjective: Medicine Progress Note: Patient was sen and examined at bedside in the AM. 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 Objective - Vital Signs/Intake and Output Vital Signs (last 24 hours): Temp Pulse Resp BP Pulse Ox 97.9 F 57 L 20 125/64 96 06/06/17 00:00 06/06/17 00:00 06/06/17 00:00 06/06/17 00:00 06/06/17 00:00 - Medications Medications: Current Medications Acetaminophen (Tylenol 650 Mg Supp) 650 mg [place] Q6 PRN PRN Reason: Pain, Mild (1-3) Aspirin (Aspirin Chewable) 81 mg PO DAILY [facility] Last Admin: 06/04/17 09:39 Dose: 81 mg Escitalopram Oxalate (Lexapro) 5 mg PO DAILY [facility] Last Admin: 06/05/17 11:00 Dose: 5 mg Finasteride (Proscar) 5 mg PO DAILY [facility] Last Admin: 06/05/17 11:00 Dose: 5 mg Folic Acid (Folic Acid) 1 mg PO DAILY [facility] Last Admin: 06/05/17 11:00 Dose: 1 mg Heparin Sodium (Porcine) (Heparin) 5,000 units SC Q8 [facility] Last Admin: 06/04/17 14:23 Dose: 5,000 units Vancomycin/Sodium Chloride (Vancomycin 1 Gm/Ns 200 Ml) 1 gm in 200 mls @ 133 mls/hr IVPB Q12H [facility] Stop: 06/07/17 21:31 Last Admin: 06/04/17 22:36 Dose: Not Given Piperacillin Sod/Tazobactam Sod (Zosyn 3.375 Gm Iv Premix) 3.375 gm in 50 mls @ 200 mls/hr IVPB Q6H [facility] Last Admin: 06/06/17 03:43 Dose: 200 mls/hr Sodium Chloride (Sodium Chloride 0.9%) 1,000 mls @ 50 mls/hr IV .Q20H [facility] Last Admin: 06/05/17 11:19 Dose: 50 mls/hr Insulin Human Regular (Novolin R) 0 unit SC ACHS [facility] PRN Reason: Protocol Last Admin: 06/05/17 21:52 Dose: 3 unit Levetiracetam (Keppra) 500 mg PO BID [facility] Last Admin: 06/05/17 18:23 Dose: 500 mg Lisinopril (Zestril) 10 mg PO DAILY [facility] Last Admin: 06/05/17 11:00 Dose: 10 mg Metoprolol Succinate (Toprol Xl) 25 mg PO DAILY [facility] Last Admin: 06/05/17 11:00 Dose: 25 mg Oxycodone/Acetaminophen (Percocet 5/325 Mg Tab) 1 tab PO Q4H PRN PRN Reason: Pain, moderate (4-7) Stop: 06/08/17 16:00 Last Admin: 06/05/17 21:47 Dose: 1 tab Oxycodone/Acetaminophen (Percocet 5/325 Mg Tab) 2 tab PO Q4H PRN PRN Reason: Pain, severe (8-10) Stop: 06/08/17 16:00 Pantoprazole Sodium (Protonix Ec Tab) 40 mg PO DAILY [facility] Last Admin: 06/05/17 11:08 Dose: 40 mg Rosuvastatin Calcium (Crestor) 40 mg PO HS [facility] Last Admin: 06/05/17 21:47 Dose: 40 mg Saccharomyces Boulardii (Florastor) 250 mg PO DAILY [facility] Last Admin: 06/05/17 11:00 Dose: 250 mg Spironolactone (Aldactone) 25 mg PO BID [facility] Last Admin: 06/05/17 18:23 Dose: 25 mg - Labs Labs: 06/05/17 07:13 06/05/17 07:13 PT 12.2 SECONDS (9.7-12.2) 06/05/17 07:13 INR 1.1 06/05/17 07:13 APTT 33 SECONDS (21-34) 06/02/17 15:18 - Constitutional Appears: No Acute Distress - Head Exam Head Exam: ATRAUMATIC, NORMAL INSPECTION - Eye Exam Eye Exam: EOMI, Normal appearance - ENT Exam ENT Exam: Mucous Membranes Moist - Respiratory Exam Respiratory Exam: NORMAL BREATHING PATTERN - Cardiovascular Exam Cardiovascular Exam: REGULAR RHYTHM, +S1, +S2 - GI/Abdominal Exam GI & Abdominal Exam: Soft, Normal Bowel Sounds. absent: Tenderness - Extremities Exam Extremities Exam: absent: Normal Inspection (Right lower extremity wrapped in gauze and boot in place, dressing clean, dry, intact) - Neurological Exam Neurological Exam: Alert, Awake - Psychiatric Exam Psychiatric exam: Normal Affect, Normal Mood - Skin Skin Exam: Dry, Intact Assessment and Plan - Assessment and Plan (Free Text) Assessment: 1.) Right foot ulcer - Podiatry Consult: Dr. Song --> help appreciated - Blister drained by podiatry in ED - Spoke with Podiatry Resident Dr. Kraus: s/p PO Day 1 debridement of necrotic ulceration right foot with application of Integra graft and wound vac -F/u with Podiatry resident to determine when to restart Anticoagulation - Cardiology Consult: Dr. Rosen --> appreciated for Cardiac clearance for surgery - per cardiology note: Patient is clear from cardiology standpoint for surgery under LOCAL anesthesia -Echo results showed 1cm density on the posterior leaflet of the mitral valve, atrial aspect. Fixed on the leaflet highly suggestive for vegetations. EF 55- 60%. - Medications: * Vancomycin 1gm IV Q12h (started on 06/02/17) held due to level being elevated. Will recheck a random Vancomycin level tomorrow. * Vanco troph 06/04/17: 23.5 * Zosyn 3.375gm IV Q6h (started on 06/02/17) * Florastor 250mg PO BID * Tylenol 650mg PO Q6h prn for pain * IV fluids ns @50cc/hr. 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 No demonstrated acute fracture no evidence of periosteal reaction. * Venous dopplers: No evidence of DVT of the right lower extremity with excellent venous flow. Normal valve function noted of the right side. Normal venous flow noted in the left common femoral vein. * Arterial duplex: There is no evidence of hemo-dynamically significant arterial insufficiency in the right lower extremity. Arterial wall calcification is noted throughout the right lower extremity. 2.) Abnormal EKG History of triple bypass - Cardiology Consult: Dr. Rosen --> help appreciated appreciated - Metoprolol Succinate 12.5mg PO daily - Atorvastatin 80mg PO HS - Lisinopril 10mg po daily 3.) Hypertension - uncontrolled - Home medication: Metoprolol 25mg PO daily --> changed (06/03/17) Metoprolol Tartrate 25mg po BID - Patient receives medication from [email or web address]. - the provider on the prescriptions is: Dr. Yovanny Cui; however will again follow up with PMD in regards to HTN - Lisinopril 10mg po daily - Spironolactone 25mg PO bid - Continue to monitor 4.) Diabetes - ISS - Accuchecks - Hemoglobin A1c: 8.6 - Lipid panel: Triglycerides 219; Total Cholesterol 112; LDL 46; HDL 34 - Metformin (home medication) - held - Hypoglycemic protocol 5.) History of seizure - Keppra 500mg PO BID - Seizure precautions 6.) History of cerebrovascular accident (CVA) with residual deficit History of CVA with right sided weakness - Aspirin 81mg po daily - Atorvastatin 80mg PO HS 7.) Benign prostatic hyperplasia - Finasteride 5mg PO daily 8.) Depression - Lexapro 5mg PO daily 9.) Prophylactic measure - Heparin 5000sc Q8h - f/u with podiatry resident when can heparin be restarted. - Protonix 40mg PO - PT eval and treat - OT eval and treat <Katie Wright V - Last Filed: 06/06/17 11:40> Objective - Vital Signs/Intake and Output Vital Signs (last 24 hours): Temp Pulse Resp BP Pulse Ox 97.8 F 61 20 139/69 998 H 06/06/17 07:20 06/06/17 10:52 06/06/17 07:20 06/06/17 10:52 06/06/17 07:20 Intake and Output: 06/06/17 06/06/17 06:59 18:59 Intake Total 450 Balance 450 - Medications Medications: Current Medications Acetaminophen (Tylenol 650 Mg Supp) 650 mg VA Q6 PRN PRN Reason: Pain, Mild (1-3) Aspirin (Aspirin Chewable) 81 mg PO DAILY [facility] Last Admin: 06/04/17 09:39 Dose: 81 mg Escitalopram Oxalate (Lexapro) 5 mg PO DAILY [facility] Last Admin: 06/06/17 10:49 Dose: 5 mg Finasteride (Proscar) 5 mg PO DAILY [facility] Last Admin: 06/06/17 10:49 Dose: 5 mg Folic Acid (Folic Acid) 1 mg PO DAILY [facility] Last Admin: 06/06/17 10:50 Dose: 1 mg Heparin Sodium (Porcine) (Heparin) 5,000 units SC Q8 [facility] Last Admin: 06/06/17 07:00 Dose: 5,000 units Vancomycin/Sodium Chloride (Vancomycin 1 Gm/Ns 200 Ml) 1 gm in 200 mls @ 133 mls/hr IVPB Q12H [facility] Stop: 06/07/17 21:31 Last Admin: 06/04/17 22:36 Dose: Not Given Piperacillin Sod/Tazobactam Sod (Zosyn 3.375 Gm Iv Premix) 3.375 gm in 50 mls @ 200 mls/hr IVPB Q6H [facility] Last Admin: 06/06/17 11:21 Dose: 200 mls/hr Sodium Chloride (Sodium Chloride 0.9%) 1,000 mls @ 50 mls/hr IV .Q20H [facility] Last Admin: 06/06/17 03:00 Dose: Not Given Insulin Human Regular (Novolin R) 0 unit SC ACHS [facility] PRN Reason: Protocol Last Admin: 06/06/17 08:50 Dose: 2 unit Levetiracetam (Keppra) 500 mg PO BID [facility] Last Admin: 06/06/17 10:49 Dose: 500 mg Lisinopril (Zestril) 10 mg PO DAILY [facility] Last Admin: 06/06/17 10:49 Dose: 10 mg Metoprolol Succinate (Toprol Xl) 25 mg PO DAILY [facility] Last Admin: 06/06/17 10:49 Dose: 25 mg Oxycodone/Acetaminophen (Percocet 5/325 Mg Tab) 1 tab PO Q4H PRN PRN Reason: Pain, moderate (4-7) Stop: 06/08/17 16:00 Last Admin: 06/05/17 21:47 Dose: 1 tab Oxycodone/Acetaminophen (Percocet 5/325 Mg Tab) 2 tab PO Q4H PRN PRN Reason: Pain, severe (8-10) Stop: 06/08/17 16:00 Pantoprazole Sodium (Protonix Ec Tab) 40 mg PO DAILY [facility] Last Admin: 06/06/17 10:49 Dose: 40 mg Rosuvastatin Calcium (Crestor) 40 mg PO HS [facility] Last Admin: 06/05/17 21:47 Dose: 40 mg Saccharomyces Boulardii (Florastor) 250 mg PO DAILY [facility] Last Admin: 06/06/17 10:49 Dose: 250 mg Spironolactone (Aldactone) 25 mg PO BID [facility] Last Admin: 06/06/17 10:49 Dose: 25 mg - Labs Labs: 06/06/17 07:52 06/06/17 07:52 PT 12.0 SECONDS (9.7-12.2) 06/06/17 07:52 INR 1.1 06/06/17 07:52 APTT 33 SECONDS (21-34) 06/02/17 15:18 Attending/Attestation - Attestation I have personally seen and examined this patient.: Yes I have fully participated in the care of the patient.: Yes I have reviewed all pertinent clinical information, including history, physical exam and plan: Yes Notes (Text): Patient seen, examined and case discussed with day-time resident patient seen this morning. Family not present. patient does respond to simple phrases. patient denies pain. Patient reports had bowel movement yesterday. Note on my exam: some abdominal distension. Patient right foot is wrapped in choco bandage but has not been evaluated by podiatry this morning. Patient placed on telemetry for endocarditis. Cardiology to schedule patient for RAHEL for 06/09/17. Assessment/Plan (1) Endocarditis Assessment and Plan: * Cardiology (Dr. Rosen) on the case-->help appreciated * Echocardiogram (06/05/17): left ventricle systolic function is normal. EF: 55- 560%. Mild to moderate hypokineses in the apical septal wall 1cm density on the posterior leaflet of the mitral valve, atrial aspect. Fixed on the leaflet highly suggestive of vegetations, definite increases in size and density over 48 hours * RAHEL scheduled for 06/09/17 * Blood culture (06/02/17): Enterococcus Faecalis (1 out 2 cultures) * Repeat blood culture (06/06/17): pending * Patient is afebrile (2) Right foot ulcer History of Peripheral Vascular Disease Assessment and Plan: * Podiatry consulted, Dr. Song; help appreciated * 06/05/2017: debridement of necrotic ulceration right foot with application of Integra graft and wound vac * Infectious Disease, Dr. Myers: help appreciated * Blister drained by podiatry in ED on admission * Start Vancomycin 1gm IV Q12h (started on 06/02/17) * Start Zosyn 3.375gm IV Q6h (started on 06/02/17) * Florastor 250mg PO BID * Tylenol 650mg PO Q6h prn for pain * On contact isolation * Wound cx (06/02/17): MRSA, Beta hemolytic Strep Group B * Wound cx (06/05/17): no growth after 24 hours * Blood culture (06/02/17): Enterococcus Faecalis (1 out 2 cultures) * Blood culture (06/06/17): pending Imaging: * Right foot xray: Prior 5th transmetatarsal amputation. No demonstrated acute fracture no evidence of periosteal reaction. * Venous dopplers: No evidence of DVT of the right lower extremity with excellent venous flow. Normal valve function noted of the right side. Normal venous flow noted in the left common femoral vein. * Arterial duplex: There is no evidence of hemodynamically significant arterial insufficiency in the right lower extremity. Arterial wall calcification is noted throughout the right lower extremity. * Will hold Aspirin in light of podiatric procedure * Chest xray: no active disease * Cardiology (Dr. Rosen) Help appreciated * Cardiology Consult: Dr. Rosen --> appreciated for Cardiac clearance for surgery * per cardiology note: Patient is clear from cardiology standpoint for surgery under LOCAL anesthesia * Patient is low to moderate risk for surgery * If general anesthesia is required further cardiac testing will be needed prior to surgery * Patient is moderate risk individual in light of extensive cardiac history for podiatric procedure. Surgery and anesthesia to explain risk and benefits of procedure respectively to patient's prior to procedure. Status: Acute (2) Abnormal EKG History of Triple Bypass Chronic Systolic Congestive Heart Failure EF: 30-35% Assessment and Plan: * Cardiology consulted for cardiac clearance, Dr. Rosen; recs appreciated. * Patient has had prior extensive cardiac workup at [facility] * Hold aspirin for possible podiatry procedure * c/w Metoprolol tarate 25mg PO BID-->Switched to Toprol XL 12.5mg PO daily * Atorvastatin 80mg PO HS (switch to Crestor in hospital secondary to lack of lipitor on formulary) * Start Lisinopril 10mg PO daily * Started Aldactone 25 mg PO BID * Echocardiogram (06/05/17): left ventricle systolic function is normal. EF: 55-60 %. Mild to moderate hypokineses in the apical septal wall 1cm density on the posterior leaflet of the mitral valve, atrial aspect. Fixed on the leaflet highly suggestive of vegetations, definite increases in size and density over 48 hours * RAHEL scheduled for 06/09/17 Status: Chronic (3) Hypertension Assessment and Plan: * c/w Metoprolol tarate 25mg PO BID-->Switched to Toprol XL 12.5mg PO daily * Atorvastatin 80mg PO HS (switch to Crestor in hospital secondary to lack of lipitor on formulary) * Start Lisinopril 10mg PO daily * Started Aldactone 25 mg PO BID Status: Chronic (4) Uncontrolled Diabetes Assessment and Plan: * ISS * A1c: 8.6 * Lipid panel: Triglycerides 219; Total Cholesterol 112; LDL 46; HDL 34 * Hold Metformin on admission: prevent lactic acidosis and if patient needs contrast based study for further evaluation * Atorvastatin 80mg PO HS (switch to Crestor in hospital secondary to lack of lipitor on formulary) * Hypoglycemic protocol * Monitor blood glucose, accuchecks Status: Chronic (5) History of seizure Assessment and Plan: * Continue home medication: Keppra 500mg PO BID * Seizure precautions Status: Chronic (6) History of cerebrovascular accident (CVA) with residual deficit Assessment and Plan: * Patient speaks in small words * has former peg and trach sites which are healed * History of CVA with right sided weakness * Hold aspirin for possible podiatry procedure * Atorvastatin 80mg PO HS (switch to Crestor in hospital secondary to lack of lipitor on formulary) * Increase Metoprolol tarate 25mg PO BID * Start Lisinopril 10mg PO daily Status: Chronic (7) BPH (benign prostatic hyperplasia) Assessment and Plan: * Continue home medication: Finasteride 5mg PO daily Status: Chronic (8) Depression Assessment and Plan: * Continue home medication: Lexapro 5mg PO daily Status: Chronic (9) Prophylactic measure Assessment and Plan: * on hold Heparin 5000sc Q8h for podiatric procedure * Protonix 40mg PO daily * Prevalon boots Status: Acute Disposition: Patient is status post for debridement ulceration of plantar aspect right foot postoperative day one. Patient is scheduled for RAHEL for to evaluate vegetation with cardiology. patient is placed on telemetry. Will need to f/u podiatry in regards to restart aspirin and heparin given patient has skin graft.
--- NOTE | 2017-06-06 07:40 | CP.PCM.PN ---
<Maurice Garcia - Last Filed: 06/06/17 07:33> Subjective - Date & Time of Evaluation Date of Evaluation: 06/06/17 Time of Evaluation: 07:33 - Subjective Subjective: Cardiology Progress Note for Dr. Rosen Pt seen and examined at bedside. No acute overnight events. ROS limited due to patient's current mental status. Objective - Vital Signs/Intake and Output Vital Signs (last 24 hours): Temp Pulse Resp BP Pulse Ox 97.9 F 57 L 20 125/64 96 06/06/17 00:00 06/06/17 00:00 06/06/17 00:00 06/06/17 00:00 06/06/17 00:00 Intake and Output: 06/06/17 06/06/17 06:59 18:59 Intake Total 450 Balance 450 - Medications Medications: Current Medications Acetaminophen (Tylenol 650 Mg Supp) 650 mg UT Q6 PRN PRN Reason: Pain, Mild (1-3) Aspirin (Aspirin Chewable) [address] [facility] Last Admin: 06/04/17 09:39 Dose: 81 mg Escitalopram Oxalate (Lexapro) [address] [facility] Last Admin: 06/05/17 11:00 Dose: 5 mg Finasteride (Proscar) [address] [facility] Last Admin: 06/05/17 11:00 Dose: 5 mg Folic Acid (Folic Acid) [address] [facility] Last Admin: 06/05/17 11:00 Dose: 1 mg Heparin Sodium (Porcine) (Heparin) 5,[address] [facility] Last Admin: 06/04/17 14:23 Dose: 5,000 units Vancomycin/Sodium Chloride (Vancomycin 1 Gm/Ns 200 Ml) 1 gm in 200 mls @ 133 mls/hr IVPB Q12H [facility] Stop: 06/07/17 21:31 Last Admin: 06/04/17 22:36 Dose: Not Given Piperacillin Sod/Tazobactam Sod (Zosyn 3.375 Gm Iv Premix) 3.375 gm in 50 mls @ 200 mls/hr IVPB Q6H [facility] Last Admin: 06/06/17 03:43 Dose: 200 mls/hr Sodium Chloride (Sodium Chloride 0.9%) 1,000 mls @ 50 mls/hr IV .Q20H [facility] Last Admin: 06/06/17 03:00 Dose: Not Given Insulin Human Regular (Novolin R) [address] [facility] PRN Reason: Protocol Last Admin: 06/05/17 21:52 Dose: 3 unit Levetiracetam (Keppra) [address] [facility] Last Admin: 06/05/17 18:23 Dose: 500 mg Lisinopril (Zestril) [address] [facility] Last Admin: 06/05/17 11:00 Dose: 10 mg Metoprolol Succinate (Toprol Xl) [address] [facility] Last Admin: 06/05/17 11:00 Dose: 25 mg Oxycodone/Acetaminophen (Percocet 5/325 Mg Tab) 1 tab PO Q4H PRN PRN Reason: Pain, moderate (4-7) Stop: 06/08/17 16:00 Last Admin: 06/05/17 21:47 Dose: 1 tab Oxycodone/Acetaminophen (Percocet 5/325 Mg Tab) 2 tab PO Q4H PRN PRN Reason: Pain, severe (8-10) Stop: 06/08/17 16:00 Pantoprazole Sodium (Protonix Ec Tab) [address] [facility] Last Admin: 06/05/17 11:08 Dose: 40 mg Rosuvastatin Calcium (Crestor) [address] [facility] Last Admin: 06/05/17 21:47 Dose: 40 mg Saccharomyces Boulardii (Florastor) [address] [facility] Last Admin: 06/05/17 11:00 Dose: 250 mg Spironolactone (Aldactone) [address] [facility] Last Admin: 06/05/17 18:23 Dose: 25 mg - Labs Labs: 06/05/17 07:13 06/05/17 07:13 PT 12.2 SECONDS (9.7-12.2) 06/05/17 07:13 INR 1.1 06/05/17 07:13 APTT 33 SECONDS (21-34) 06/02/17 15:18 - Constitutional Appears: No Acute Distress - Head Exam Head Exam: NORMAL INSPECTION - ENT Exam ENT Exam: Normal Exam - Neck Exam Neck Exam: Normal Inspection - Respiratory Exam Respiratory Exam: Clear to Ausculation Bilateral. absent: Rales, Rhonchi, Wheezes - Cardiovascular Exam Cardiovascular Exam: RRR, +S1, +S2. absent: Clicks, Gallop, Rubs, Murmur - GI/Abdominal Exam GI & Abdominal Exam: Soft. absent: Distended, Guarding, Tenderness, Rebound - Extremities Exam Extremities Exam: Normal Inspection - Neurological Exam Neurological Exam: Alert, Awake. absent: Oriented x3 - Skin Skin Exam: Dry, Intact, Normal Color Assessment and Plan - Assessment and Plan (Free Text) Assessment: 56 yo male with PMH of HTN, HLD, DM CVA, seizure, depression BPH, and CAD s/p CABG presents to [facility] for right foot ulcer. Cardiology consulted for cardiac clearance for surgical debridement of right foot. Plan: 1. Right Foot Ulcer - POD #1 right foot debridement - Management per Podiatry - Patient is low to moderate risk for surgery - Patient is clear from cardiology standpoint for surgery under LOCAL anesthesia - Wound culture positive for MRSA and GBS - Blood culture positive for enterococcus faecalis - Cont IV abx 2. Possible Endocarditis - Echo showed 1 cm density on posterior leaflet of mitral valve - RAHEL scheduled for Thursday 3. Chronic CHF with Reduced EF - Echo showed EF 55-60%, mild to moderate hypokinesis, 1cm density on posterior leaflet of mitral valve - BNP 1240 - Cont Toprol XL 12.5 mg PO daily - Cont Aldactone 25 mg PO BID - Cont Lisinopril 4. CAD s/p CABG - Troponin negative x1 - Cont ASA, crestor 5. Peripheral Vascular Disease - Cont Crestor and ASA 6. HTN - Cont lisinopril - Cont to monitor 7. HLD - Cont Crestor 8. DM - Management per primary 9. BPH - Management per primary 10. H/O Seizures - Management per primary 11. Depression - Management per primary GI/DVT PPx - Protonix - Heparin Pt seen and discussed in detail with Dr. Rosen. Anupam Garcia, PGY1 <Raffi Rosen - Last Filed: 06/06/17 08:22> Objective - Vital Signs/Intake and Output Vital Signs (last 24 hours): Temp Pulse Resp BP Pulse Ox 97.9 F 57 L 20 125/64 96 06/06/17 00:00 06/06/17 00:00 06/06/17 00:00 06/06/17 00:00 06/06/17 00:00 Intake and Output: 06/06/17 06/06/17 06:59 18:59 Intake Total 450 Balance 450 - Medications Medications: Current Medications Acetaminophen (Tylenol 650 Mg Supp) 650 mg UT Q6 PRN PRN Reason: Pain, Mild (1-3) Aspirin (Aspirin Chewable) [address] [facility] Last Admin: 06/04/17 09:39 Dose: 81 mg Escitalopram Oxalate (Lexapro) [address] [facility] Last Admin: 06/05/17 11:00 Dose: 5 mg Finasteride (Proscar) [address] [facility] Last Admin: 06/05/17 11:00 Dose: 5 mg Folic Acid (Folic Acid) [address] [facility] Last Admin: 06/05/17 11:00 Dose: 1 mg Heparin Sodium (Porcine) (Heparin) 5,[address] [facility] Last Admin: 06/06/17 07:00 Dose: 5,000 units Vancomycin/Sodium Chloride (Vancomycin 1 Gm/Ns 200 Ml) 1 gm in 200 mls @ 133 mls/hr IVPB Q12H [facility] Stop: 06/07/17 21:31 Last Admin: 06/04/17 22:36 Dose: Not Given Piperacillin Sod/Tazobactam Sod (Zosyn 3.375 Gm Iv Premix) 3.375 gm in 50 mls @ 200 mls/hr IVPB Q6H [facility] Last Admin: 06/06/17 03:43 Dose: 200 mls/hr Sodium Chloride (Sodium Chloride 0.9%) 1,000 mls @ 50 mls/hr IV .Q20H [facility] Last Admin: 06/06/17 03:00 Dose: Not Given Insulin Human Regular (Novolin R) [address] [facility] PRN Reason: Protocol Last Admin: 06/05/17 21:52 Dose: 3 unit Levetiracetam (Keppra) [address] [facility] Last Admin: 06/05/17 18:23 Dose: 500 mg Lisinopril (Zestril) [address] [facility] Last Admin: 06/05/17 11:00 Dose: 10 mg Metoprolol Succinate (Toprol Xl) [address] [facility] Last Admin: 06/05/17 11:00 Dose: 25 mg Oxycodone/Acetaminophen (Percocet 5/325 Mg Tab) 1 tab PO Q4H PRN PRN Reason: Pain, moderate (4-7) Stop: 06/08/17 16:00 Last Admin: 06/05/17 21:47 Dose: 1 tab Oxycodone/Acetaminophen (Percocet 5/325 Mg Tab) 2 tab PO Q4H PRN PRN Reason: Pain, severe (8-10) Stop: 06/08/17 16:00 Pantoprazole Sodium (Protonix Ec Tab) [address] [facility] Last Admin: 06/05/17 11:08 Dose: 40 mg Rosuvastatin Calcium (Crestor) [address] [facility] Last Admin: 06/05/17 21:47 Dose: 40 mg Saccharomyces Boulardii (Florastor) [address] [facility] Last Admin: 06/05/17 11:00 Dose: 250 mg Spironolactone (Aldactone) [address] [facility] Last Admin: 06/05/17 18:23 Dose: 25 mg - Labs Labs: 06/05/17 07:13 06/05/17 07:13 PT 12.0 SECONDS (9.7-12.2) 06/06/17 07:52 INR 1.1 06/06/17 07:52 APTT 33 SECONDS (21-34) 06/02/17 15:18 Attending/Attestation - Attestation I have personally seen and examined this patient.: Yes I have fully participated in the care of the patient.: Yes I have reviewed all pertinent clinical information, including history, physical exam and plan: Yes Notes (Text): 06/06/17 08:21 Blood cx +ve for enterococcus plan for RAHEL on Thursday
[2017-06-06 08:17] LABS: INR 1.1
[2017-06-06 08:47] LABS: BASO # 0.1 K/uL (0.0-0.2); BASO % 0.9 % (0.0-2.0); EOS # 0.4 K/uL (0.0-0.7); EOS % 5.1 % (0.0-4.0); HEMOGLOBIN 10.3 g/dL (12.0-18.0); LYMPH # 1.9 K/uL (1.0-4.3); MEAN CORPUSCULAR HEMOGLOBIN 31.7 pg (27.0-31.0); MEAN CORPUSCULAR HGB CONC 34.8 g/dL (33.0-37.0); MEAN PLATELET VOLUME 11.5 fL (7.2-11.7); MONO # 0.5 K/uL (0.0-0.8); MONO % 7.7 % (0.0-10.0); NEUT # 4.2 K/uL (1.8-7.0); NEUT % 59.3 % (50.0-75.0); NRBC % 0.1 % (0.0-2.0); RBC 3.26 Mil/uL (4.40-5.90); RED CELL DISTRIBUTION WIDTH 12.9 % (11.5-14.5); WHITE BLOOD COUNT 7.1 K/uL (4.8-10.8)
[2017-06-06 08:48] LABS: ALB/GLOB RATIO 1.1 (1.0-2.1); ALBUMIN 3.6 g/dL (3.5-5.0); CALCIUM 8.4 mg/dl (8.6-10.4); MAGNESIUM 1.9 mg/dL (1.6-2.3)
[2017-06-06] MEDS: (Novolin R) Insulin Human Regular 100 units/ml vial SC SCH ×6 (08:49→21:23)
[2017-06-06] MEDS: Saccharomyces Boulardi 250 mg Cap PO SCH (10:49)
[2017-06-06] MEDS: Metoprolol Succinate 25 mg XL Tab PO SCH (10:49)
[2017-06-06] MEDS: Pantoprazole 40 mg EC Tab PO SCH (10:49)
--- NOTE | 2017-06-06 15:09 | CP.PCM.PN ---
Subjective - Date & Time of Evaluation Date of Evaluation: 06/06/17 Time of Evaluation: 12:00 - Subjective Subjective: Podiatry Progress Note- Dr. Song 56 y.o male seen 1 day s/p debridement of necrotic ulceration right foot with application of Integra graft and wound vac. Patient is seen resting comfortably at bedside and in NAD. , daughter, and son was seen at bedside during visitation. Patient reports yes to pain to the right LE. Dressing is c/d/i without strikethrough. Multipodus on bilateral LE. Patient says yes to nausea, denies v/sob/cp/chills or f when asked. No other pedal complaints at this time. Objective - Vital Signs/Intake and Output Vital Signs (last 24 hours): Temp Pulse Resp BP Pulse Ox 97.8 F 61 20 139/69 998 H 06/06/17 07:20 06/06/17 10:52 06/06/17 07:20 06/06/17 10:52 06/06/17 07:20 Intake and Output: 06/06/17 06/06/17 06:59 18:59 Intake Total 450 Balance 450 - Medications Medications: Current Medications Acetaminophen (Tylenol 650 Mg Supp) 650 mg UT Q6 PRN PRN Reason: Pain, Mild (1-3) Aspirin (Aspirin Chewable) 81 mg PO DAILY [facility] Last Admin: 06/04/17 09:39 Dose: 81 mg Docusate Sodium (Colace) 100 mg PO TID [facility] Last Admin: 06/06/17 14:54 Dose: 100 mg Escitalopram Oxalate (Lexapro) 5 mg PO DAILY [facility] Last Admin: 06/06/17 10:49 Dose: 5 mg Finasteride (Proscar) 5 mg PO DAILY [facility] Last Admin: 06/06/17 10:49 Dose: 5 mg Folic Acid (Folic Acid) 1 mg PO DAILY [facility] Last Admin: 06/06/17 10:50 Dose: 1 mg Heparin Sodium (Porcine) (Heparin) 5,000 units SC Q8 [facility] Last Admin: 06/06/17 07:00 Dose: 5,000 units Vancomycin/Sodium Chloride (Vancomycin 1 Gm/Ns 200 Ml) 1 gm in 200 mls @ 133 mls/hr IVPB Q12H [facility] Stop: 06/07/17 21:31 Last Admin: 06/04/17 22:36 Dose: Not Given Piperacillin Sod/Tazobactam Sod (Zosyn 3.375 Gm Iv Premix) 3.375 gm in 50 mls @ 200 mls/hr IVPB Q6H [facility] Last Admin: 06/06/17 14:54 Dose: 200 mls/hr Sodium Chloride (Sodium Chloride 0.9%) 1,000 mls @ 50 mls/hr IV .Q20H [facility] Last Admin: 06/06/17 14:54 Dose: 50 mls/hr Insulin Human Regular (Novolin R) 0 unit SC ACHS [facility] PRN Reason: Protocol Last Admin: 06/06/17 12:48 Dose: 4 unit Levetiracetam (Keppra) 500 mg PO BID [facility] Last Admin: 06/06/17 10:49 Dose: 500 mg Lisinopril (Zestril) 10 mg PO DAILY [facility] Last Admin: 06/06/17 10:49 Dose: 10 mg Metoprolol Succinate (Toprol Xl) 25 mg PO DAILY [facility] Last Admin: 06/06/17 10:49 Dose: 25 mg Oxycodone/Acetaminophen (Percocet 5/325 Mg Tab) 1 tab PO Q4H PRN PRN Reason: Pain, moderate (4-7) Stop: 06/08/17 16:00 Last Admin: 06/05/17 21:47 Dose: 1 tab Oxycodone/Acetaminophen (Percocet 5/325 Mg Tab) 2 tab PO Q4H PRN PRN Reason: Pain, severe (8-10) Stop: 06/08/17 16:00 Pantoprazole Sodium (Protonix Ec Tab) 40 mg PO DAILY [facility] Last Admin: 06/06/17 10:49 Dose: 40 mg Rosuvastatin Calcium (Crestor) 40 mg PO HS [facility] Last Admin: 06/05/17 21:47 Dose: 40 mg Saccharomyces Boulardii (Florastor) 250 mg PO DAILY [facility] Last Admin: 06/06/17 10:49 Dose: 250 mg Spironolactone (Aldactone) 25 mg PO BID [facility] Last Admin: 06/06/17 10:49 Dose: 25 mg - Labs Labs: 06/06/17 07:52 06/06/17 07:52 PT 12.0 SECONDS (9.7-12.2) 06/06/17 07:52 INR 1.1 06/06/17 07:52 APTT 33 SECONDS (21-34) 06/02/17 15:18 - Constitutional Appears: Well, Non-toxic, No Acute Distress - Extremities Exam Additional comments: RLE exam: VASC- pedal pulses palpable (DP/PT graded 2/4), skin temp runs warm to cool, cap refill is brisk to all digits, neg edema NEURO- gross and protective pedal sensation are intact DERM- graft seen intact to the central-lateral aspect of plantar right foot with mild sero-sanguinous drainage. no local erythema, no ascending cellulitis, + malodor; graft seen intact to right posterior heel, sutures intact. MSK: + POP to central aspect of wound, MMT 0/4 in all directions right lower extremity - Neurological Exam Neurological Exam: Alert, Awake - Psychiatric Exam Psychiatric exam: Normal Affect, Normal Mood Assessment and Plan - Assessment and Plan (Free Text) Assessment: 56 y.o male seen 1 day s/p debridement of necrotic ulceration right foot with application of Integra graft and wound vac to right foot ulceration Plan: Pt S&E at the bedside Plan discussed with attending DR. Song Chart, labs and vitals reviewed wound cx + MRSA Grafts are clean and intact to the ulcerations on right foot. CHAD dressing changed and secured over grafts and turned on. Noted to have continuos delivery of NPWT. Followed by luis curtis, and nati SANCHES. ID consulted (Dr. Myers): f/u recs Arterial duplex: neg for hemodynamically significant insufficiency in the right lower extremity c/w multipodus boot at all times right foot Will follow
--- NOTE | 2017-06-07 00:47 | CP.PCM.PN ---
<Iwona Nieto - Last Filed: 06/07/17 06:10> Subjective - Date & Time of Evaluation Date of Evaluation: 06/07/17 Time of Evaluation: 06:00 - Subjective Subjective: Medicine Progress Note: Patient was sen and examined at bedside in the AM. 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 Objective - Vital Signs/Intake and Output Vital Signs (last 24 hours): Temp Pulse Resp BP Pulse Ox 97.8 F 61 20 116/68 95 06/07/17 00:18 06/07/17 00:18 06/07/17 00:18 06/07/17 00:18 06/07/17 00:18 - Medications Medications: Current Medications Acetaminophen (Tylenol 650 Mg Supp) 650 mg NE Q6 PRN PRN Reason: Pain, Mild (1-3) Aspirin (Aspirin Chewable) 81 mg PO DAILY [facility] Last Admin: 06/04/17 09:39 Dose: 81 mg Docusate Sodium (Colace) 100 mg PO TID [facility] Last Admin: 06/06/17 18:19 Dose: 100 mg Escitalopram Oxalate (Lexapro) 5 mg PO DAILY [facility] Last Admin: 06/06/17 10:49 Dose: 5 mg Finasteride (Proscar) 5 mg PO DAILY [facility] Last Admin: 06/06/17 10:49 Dose: 5 mg Folic Acid (Folic Acid) 1 mg PO DAILY [facility] Last Admin: 06/06/17 10:50 Dose: 1 mg Heparin Sodium (Porcine) (Heparin) 5,000 units SC Q8 [facility] Last Admin: 06/06/17 07:00 Dose: 5,000 units Vancomycin/Sodium Chloride (Vancomycin 1 Gm/Ns 200 Ml) 1 gm in 200 mls @ 133 mls/hr IVPB Q12H [facility] Stop: 06/07/17 21:31 Last Admin: 06/04/17 22:36 Dose: Not Given Piperacillin Sod/Tazobactam Sod (Zosyn 3.375 Gm Iv Premix) 3.375 gm in 50 mls @ 200 mls/hr IVPB Q6H [facility] Last Admin: 06/06/17 21:57 Dose: 200 mls/hr Sodium Chloride (Sodium Chloride 0.9%) 1,000 mls @ 50 mls/hr IV .Q20H [facility] Last Admin: 06/06/17 22:33 Dose: Not Given Insulin Human Regular (Novolin R) 0 unit SC ACHS [facility] PRN Reason: Protocol Last Admin: 06/06/17 21:23 Dose: Not Given Levetiracetam (Keppra) 500 mg PO BID [facility] Last Admin: 06/06/17 18:19 Dose: 500 mg Lisinopril (Zestril) 10 mg PO DAILY [facility] Last Admin: 06/06/17 10:49 Dose: 10 mg Metoprolol Succinate (Toprol Xl) 25 mg PO DAILY [facility] Last Admin: 06/06/17 10:49 Dose: 25 mg Oxycodone/Acetaminophen (Percocet 5/325 Mg Tab) 1 tab PO Q4H PRN PRN Reason: Pain, moderate (4-7) Stop: 06/08/17 16:00 Last Admin: 06/05/17 21:47 Dose: 1 tab Oxycodone/Acetaminophen (Percocet 5/325 Mg Tab) 2 tab PO Q4H PRN PRN Reason: Pain, severe (8-10) Stop: 06/08/17 16:00 Last Admin: 06/06/17 18:19 Dose: 2 tab Pantoprazole Sodium (Protonix Ec Tab) 40 mg PO DAILY [facility] Last Admin: 06/06/17 10:49 Dose: 40 mg Rosuvastatin Calcium (Crestor) 40 mg PO HS [facility] Last Admin: 06/06/17 22:03 Dose: 40 mg Saccharomyces Boulardii (Florastor) 250 mg PO DAILY [facility] Last Admin: 06/06/17 10:49 Dose: 250 mg Spironolactone (Aldactone) 25 mg PO BID [facility] Last Admin: 06/06/17 18:19 Dose: 25 mg - Labs Labs: 06/06/17 07:52 06/06/17 07:52 PT 12.0 SECONDS (9.7-12.2) 06/06/17 07:52 INR 1.1 06/06/17 07:52 APTT 33 SECONDS (21-34) 06/02/17 15:18 - Constitutional Appears: No Acute Distress - Head Exam Head Exam: NORMAL INSPECTION - Eye Exam Eye Exam: EOMI, Normal appearance - ENT Exam ENT Exam: Mucous Membranes Moist - Respiratory Exam Respiratory Exam: NORMAL BREATHING PATTERN - Cardiovascular Exam Cardiovascular Exam: REGULAR RHYTHM, +S1, +S2 - GI/Abdominal Exam GI & Abdominal Exam: Soft, Normal Bowel Sounds. absent: Tenderness - Extremities Exam Additional comments: Right lower extremity wrapped in gauze and boot in place, dressing clean, dry, intact - Neurological Exam Neurological Exam: Alert, Awake - Psychiatric Exam Psychiatric exam: Normal Affect, Normal Mood - Skin Skin Exam: Dry, Intact, Normal Color, Warm Assessment and Plan - Assessment and Plan (Free Text) Assessment: 1.) Right foot ulcer - Podiatry Consult: Dr. Song --> help appreciated - Blister drained by podiatry in ED - Spoke with Podiatry Resident Dr. Kraus: s/p PO Day 1 debridement of necrotic ulceration right foot with application of Integra graft and wound vac -F/u with Podiatry resident to determine when to restart Anticoagulation - Cardiology Consult: Dr. Rosen --> appreciated for Cardiac clearance for surgery - per cardiology note: Patient is clear from cardiology standpoint for surgery under LOCAL anesthesia * Echo (06/04/17) results showed 1cm density on the posterior leaflet of the mitral valve, atrial aspect. Fixed on the leaflet highly suggestive for vegetations. EF 55-60%. * RAHEL scheduled for Thursday - Medications: * Vancomycin 1gm IV Q12h (started on 06/02/17) held due to level being elevated. Will recheck a random Vancomycin level tomorrow. * Vanco troph 06/04/17: 23.5 * Zosyn 3.375gm IV Q6h (started on 06/02/17) * Florastor 250mg PO BID * Tylenol 650mg PO Q6h prn for pain * IV fluids ns @50cc/hr. 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 No demonstrated acute fracture no evidence of periosteal reaction. * Venous dopplers: No evidence of DVT of the right lower extremity with excellent venous flow. Normal valve function noted of the right side. Normal venous flow noted in the left common femoral vein. * Arterial duplex: There is no evidence of hemo-dynamically significant arterial insufficiency in the right lower extremity. Arterial wall calcification is noted throughout the right lower extremity. 2.) Abnormal EKG History of triple bypass - Cardiology Consult: Dr. Rosen --> help appreciated appreciated - Metoprolol Succinate 12.5mg PO daily - Atorvastatin 80mg PO HS - Lisinopril 10mg po daily 3.) Hypertension - uncontrolled - Home medication: Metoprolol 25mg PO daily --> changed (06/03/17) Metoprolol Tartrate 25mg po BID - Patient receives medication from [facility] - the provider on the prescriptions is: Dr. Yovanny Cui; however will again follow up with PMD in regards to HTN - Lisinopril 10mg po daily - Spironolactone 25mg PO bid - Continue to monitor 4.) Diabetes - ISS - Accuchecks - Hemoglobin A1c: 8.6 - Lipid panel: Triglycerides 219; Total Cholesterol 112; LDL 46; HDL 34 - Metformin (home medication) - held - Hypoglycemic protocol 5.) History of seizure - Keppra 500mg PO BID - Seizure precautions 6.) History of cerebrovascular accident (CVA) with residual deficit History of CVA with right sided weakness - Aspirin 81mg po daily - Atorvastatin 80mg PO HS 7.) Benign prostatic hyperplasia - Finasteride 5mg PO daily 8.) Depression - Lexapro 5mg PO daily 9.) Prophylactic measure - Heparin 5000sc Q8h - f/u with podiatry resident when can heparin be restarted. - Protonix 40mg PO - PT eval and treat - OT eval and treat <Katie Wright V - Last Filed: 06/08/17 21:38> Objective - Vital Signs/Intake and Output Vital Signs (last 24 hours): Temp Pulse Resp BP Pulse Ox 97.4 F L 77 20 140/70 99 06/08/17 16:31 06/08/17 16:31 06/08/17 16:31 06/08/17 16:31 06/08/17 16:31 Intake and Output: 06/08/17 06/09/17 18:59 06:59 Intake Total 460 Balance 460 - Medications Medications: Current Medications Acetaminophen (Tylenol 650 Mg Supp) 650 mg NE Q6 PRN PRN Reason: Pain, Mild (1-3) Amlodipine Besylate (Norvasc) 5 mg PO DAILY [facility] Last Admin: 06/08/17 16:23 Dose: 5 mg Aspirin (Aspirin Chewable) 81 mg PO DAILY [facility] Last Admin: 06/04/17 09:39 Dose: 81 mg Docusate Sodium (Colace) 100 mg PO TID [facility] Last Admin: 06/08/17 18:14 Dose: 100 mg Escitalopram Oxalate (Lexapro) 5 mg PO DAILY [facility] Last Admin: 06/08/17 16:23 Dose: 5 mg Finasteride (Proscar) 5 mg PO DAILY [facility] Last Admin: 06/08/17 16:22 Dose: 5 mg Folic Acid (Folic Acid) 1 mg PO DAILY [facility] Last Admin: 06/08/17 16:23 Dose: 1 mg Heparin Sodium (Porcine) (Heparin) 5,000 units SC Q8 [facility] Last Admin: 06/06/17 07:00 Dose: 5,000 units Hydralazine HCl (Apresoline) 10 mg PO Q8H PRN PRN Reason: Systolic Blood Pressure Piperacillin Sod/Tazobactam Sod (Zosyn 2.25 Gm Iv Premix) 2.25 gm in 50 mls @ 100 mls/hr IVPB Q6H [facility] Last Admin: 06/08/17 16:22 Dose: Not Given Daptomycin 420 mg/ Sodium (Chloride) 100 mls @ 100 mls/hr IV Q48H [facility] Last Admin: 06/08/17 14:29 Dose: 100 mls/hr Sodium Chloride (Sodium Chloride 0.9%) 1,000 mls @ 65 mls/hr IV .[id number] [facility] Last Admin: 06/08/17 18:17 Dose: 65 mls/hr Insulin Human Regular (Novolin R) 0 unit SC ACHS [facility] PRN Reason: Protocol Last Admin: 06/08/17 17:25 Dose: Not Given Levetiracetam (Keppra) 500 mg PO BID [facility] Last Admin: 06/08/17 18:14 Dose: 500 mg Lisinopril (Zestril) 10 mg PO DAILY [facility] Last Admin: 06/08/17 10:30 Dose: Not Given Metoprolol Succinate (Toprol Xl) 25 mg PO DAILY [facility] Last Admin: 06/08/17 16:23 Dose: 25 mg Pantoprazole Sodium (Protonix Ec Tab) 40 mg PO DAILY [facility] Last Admin: 06/08/17 16:23 Dose: 40 mg Rosuvastatin Calcium (Crestor) 40 mg PO HS [facility] Last Admin: 06/07/17 22:20 Dose: 40 mg Saccharomyces Boulardii (Florastor) 250 mg PO DAILY [facility] Last Admin: 06/08/17 16:22 Dose: 250 mg Spironolactone (Aldactone) 25 mg PO BID [facility] Last Admin: 06/08/17 18:14 Dose: 25 mg - Labs Labs: 06/08/17 11:37 06/08/17 11:37 PT 11.9 SECONDS (9.7-12.2) 06/07/17 09:12 INR 1.0 06/07/17 09:12 APTT 33 SECONDS (21-34) 06/02/17 15:18 Attending/Attestation - Attestation I have personally seen and examined this patient.: Yes I have fully participated in the care of the patient.: Yes I have reviewed all pertinent clinical information, including history, physical exam and plan: Yes Notes (Text): This is late computer entry for 06/07/17. Patient seen, examined and case discussed with day-time resident patient seen this morning. Family not present. patient does respond to simple phrases. patient denies pain. Patient reports had bowel movement yesterday. Patient right foot is wrapped in choco bandage. Continue for telemetry. Patient placed on telemetry for endocarditis. Cardiology to schedule patient for RAHEL for 06/08/17. Assessment/Plan (1) Endocarditis Assessment and Plan: * Cardiology (Dr. Rosen) on the case-->help appreciated * Echocardiogram (06/05/17): left ventricle systolic function is normal. EF: 55- 560%. Mild to moderate hypokineses in the apical septal wall 1cm density on the posterior leaflet of the mitral valve, atrial aspect. Fixed on the leaflet highly suggestive of vegetations, definite increases in size and density over 48 hours * RAHEL scheduled for 06/08/17 (date in error from prior note, but not day) * Blood culture (06/02/17): Enterococcus Faecalis (1 out 2 cultures) * Repeat blood culture (06/06/17): pending * Patient is afebrile (2) Right foot ulcer History of Peripheral Vascular Disease Assessment and Plan: * Podiatry consulted, Dr. Song; help appreciated * 06/05/2017: debridement of necrotic ulceration right foot with application of Integra graft and wound vac * Infectious Disease, Dr. Myers: help appreciated * Blister drained by podiatry in ED on admission * Start Vancomycin 1gm IV Q12h (started on 06/02/17) * Start Zosyn 3.375gm IV Q6h (started on 06/02/17) * Florastor 250mg PO BID * Tylenol 650mg PO Q6h prn for pain * On contact isolation * Wound cx (06/02/17): MRSA, Beta hemolytic Strep Group B * Wound cx (06/05/17): no growth after 24 hours * Blood culture (06/02/17): Enterococcus Faecalis (1 out 2 cultures) * Blood culture (06/06/17): pending Imaging: * Right foot xray: Prior 5th transmetatarsal amputation. No demonstrated acute fracture no evidence of periosteal reaction. * Venous dopplers: No evidence of DVT of the right lower extremity with excellent venous flow. Normal valve function noted of the right side. Normal venous flow noted in the left common femoral vein. * Arterial duplex: There is no evidence of hemodynamically significant arterial insufficiency in the right lower extremity. Arterial wall calcification is noted throughout the right lower extremity. * Will hold Aspirin in light of podiatric procedure * Chest xray: no active disease * Cardiology (Dr. Rosen) Help appreciated * Cardiology Consult: Dr. Rosen --> appreciated for Cardiac clearance for surgery * per cardiology note: Patient is clear from cardiology standpoint for surgery under LOCAL anesthesia * Patient is low to moderate risk for surgery * If general anesthesia is required further cardiac testing will be needed prior to surgery * Patient is moderate risk individual in light of extensive cardiac history for podiatric procedure. Surgery and anesthesia to explain risk and benefits of procedure respectively to patient's prior to procedure. Status: Acute (2) Abnormal EKG History of Triple Bypass Chronic Systolic Congestive Heart Failure EF: 30-35% Assessment and Plan: * Cardiology consulted for cardiac clearance, Dr. Rosen; recs appreciated. * Patient has had prior extensive cardiac workup at [place] * Hold aspirin for possible podiatry procedure * c/w Metoprolol tarate 25mg PO BID-->Switched to Toprol XL 12.5mg PO daily * Atorvastatin 80mg PO HS (switch to Crestor in hospital secondary to lack of lipitor on formulary) * Start Lisinopril 10mg PO daily * Started Aldactone 25 mg PO BID * Echocardiogram (06/05/17): left ventricle systolic function is normal. EF: 55-60 %. Mild to moderate hypokineses in the apical septal wall 1cm density on the posterior leaflet of the mitral valve, atrial aspect. Fixed on the leaflet highly suggestive of vegetations, definite increases in size and density over 48 hours * RAHEL scheduled for 06/08/17 Status: Chronic (3) Hypertension Assessment and Plan: * c/w Metoprolol tarate 25mg PO BID-->Switched to Toprol XL 12.5mg PO daily * Atorvastatin 80mg PO HS (switch to Crestor in hospital secondary to lack of lipitor on formulary) * Start Lisinopril 10mg PO daily * Started Aldactone 25 mg PO BID Status: Chronic (4) Uncontrolled Diabetes Assessment and Plan: * ISS * A1c: 8.6 * Lipid panel: Triglycerides 219; Total Cholesterol 112; LDL 46; HDL 34 * Hold Metformin on admission: prevent lactic acidosis and if patient needs contrast based study for further evaluation * Atorvastatin 80mg PO HS (switch to Crestor in hospital secondary to lack of lipitor on formulary) * Hypoglycemic protocol * Monitor blood glucose, accuchecks Status: Chronic (5) History of seizure Assessment and Plan: * Continue home medication: Keppra 500mg PO BID * Seizure precautions Status: Chronic (6) History of cerebrovascular accident (CVA) with residual deficit Assessment and Plan: * Patient speaks in small words * has former peg and trach sites which are healed * History of CVA with right sided weakness * Hold aspirin for possible podiatry procedure * Atorvastatin 80mg PO HS (switch to Crestor in hospital secondary to lack of lipitor on formulary) * Increase Metoprolol tarate 25mg PO BID * Start Lisinopril 10mg PO daily Status: Chronic (7) BPH (benign prostatic hyperplasia) Assessment and Plan: * Continue home medication: Finasteride 5mg PO daily Status: Chronic (8) Depression Assessment and Plan: * Continue home medication: Lexapro 5mg PO daily Status: Chronic (9) Prophylactic measure Assessment and Plan: * on hold Heparin 5000sc Q8h for podiatric procedure * Protonix 40mg PO daily * Prevalon boots * Palliative care on consult (Dr. Ellison's private patient) will evaluate on Thursday. Status: Acute Disposition: Patient is status post for debridement ulceration of plantar aspect right foot postoperative day one. Patient is scheduled for RAHEL for to evaluate vegetation with cardiology. patient is placed on telemetry.
[2017-06-07] MEDS: Piperacill/Tazo 3.375gm in Dex 3.375 GM/50 ML BAG IVPB SCH ×2 (03:33→09:05)
[2017-06-07] MEDS: (Novolin R) Insulin Human Regular 100 units/ml vial SC SCH ×4 (08:25→21:27)
[2017-06-07 09:18] LABS: BASO % 0.7 % (0.0-2.0); EOS # 0.3 K/uL (0.0-0.7); EOS % 5.1 % (0.0-4.0); HEMOGLOBIN 9.5 g/dL (12.0-18.0); LYMPH # 1.6 K/uL (1.0-4.3); LYMPH % 23.8 % (20.0-40.0); MEAN CELL VOLUME 90.4 fL (80.0-94.0); MEAN CORPUSCULAR HEMOGLOBIN 31.7 pg (27.0-31.0); MEAN CORPUSCULAR HGB CONC 35.1 g/dL (33.0-37.0); MEAN PLATELET VOLUME 9.7 fL (7.2-11.7); MONO # 0.5 K/uL (0.0-0.8); MONO % 7.1 % (0.0-10.0); NEUT # 4.3 K/uL (1.8-7.0); NEUT % 63.3 % (50.0-75.0); NRBC % 0.1 % (0.0-2.0); RBC 2.99 Mil/uL (4.40-5.90); RED CELL DISTRIBUTION WIDTH 13.1 % (11.5-14.5); WHITE BLOOD COUNT 6.7 K/uL (4.8-10.8)
[2017-06-07 09:24] LABS: PROTHROMBIN TIME 11.9 SECONDS (9.7-12.2)
[2017-06-07 09:32] LABS: ALB/GLOB RATIO 1.1 (1.0-2.1); ALBUMIN 3.4 g/dL (3.5-5.0); CALCIUM 8.3 mg/dl (8.6-10.4); MAGNESIUM 1.9 mg/dL (1.6-2.3)
[2017-06-07] MEDS: Saccharomyces Boulardi 250 mg Cap PO SCH (09:44)
[2017-06-07] MEDS: Metoprolol Succinate 25 mg XL Tab PO SCH (09:44)
[2017-06-07] MEDS: Pantoprazole 40 mg EC Tab PO SCH (09:44)
[2017-06-07] MEDS: Sodium Chloride 0.9% 1,000 ML IV SCH ×2 (12:35→19:44)
--- NOTE | 2017-06-07 13:47 | CP.PCM.PN ---
Subjective - Date & Time of Evaluation Date of Evaluation: 06/07/17 Time of Evaluation: 11:00 - Subjective Subjective: Podiatry Progress Note- Dr. Song 56 y.o male seen 2 days s/p debridement of necrotic ulceration right foot with application of Integra graft and wound vac. Patient is seen sleeping comfortably at bedside and in NAD. Dressing is c/d/i without strikethrough. Multipodus on bilateral LE. CHAD is turned on Objective - Vital Signs/Intake and Output Vital Signs (last 24 hours): Temp Pulse Resp BP Pulse Ox 97.7 F 60 20 157/85 H 95 06/07/17 08:05 06/07/17 08:05 06/07/17 08:05 06/07/17 08:05 06/07/17 08:05 Intake and Output: 06/07/17 06/07/17 06:59 18:59 Output Total 700 Balance -700 - Medications Medications: Current Medications Acetaminophen (Tylenol 650 Mg Supp) 650 mg PA Q6 PRN PRN Reason: Pain, Mild (1-3) Aspirin (Aspirin Chewable) 81 mg PO DAILY [facility] Last Admin: 06/04/17 09:39 Dose: 81 mg Docusate Sodium (Colace) 100 mg PO TID [facility] Last Admin: 06/07/17 09:44 Dose: 100 mg Escitalopram Oxalate (Lexapro) 5 mg PO DAILY [facility] Last Admin: 06/07/17 09:44 Dose: 5 mg Finasteride (Proscar) 5 mg PO DAILY [facility] Last Admin: 06/07/17 09:44 Dose: 5 mg Folic Acid (Folic Acid) 1 mg PO DAILY [facility] Last Admin: 06/07/17 09:44 Dose: 1 mg Heparin Sodium (Porcine) (Heparin) 5,000 units SC Q8 [facility] Last Admin: 06/06/17 07:00 Dose: 5,000 units Vancomycin/Sodium Chloride (Vancomycin 1 Gm/Ns 200 Ml) 1 gm in 200 mls @ 133 mls/hr IVPB Q12H [facility] Stop: 06/07/17 21:31 Last Admin: 06/04/17 22:36 Dose: Not Given Sodium Chloride (Sodium Chloride 0.9%) 1,000 mls @ 50 mls/hr IV .Q20H [facility] Last Admin: 06/07/17 12:35 Dose: 50 mls/hr Piperacillin Sod/Tazobactam (Sod 3.375 gm/ Sodium Chloride) 100 mls @ 200 mls/ hr IVPB Q6H [facility] Insulin Human Regular (Novolin R) 0 unit SC ACHS [facility] PRN Reason: Protocol Last Admin: 06/07/17 12:34 Dose: 4 unit Levetiracetam (Keppra) 500 mg PO BID [facility] Last Admin: 06/07/17 09:44 Dose: 500 mg Lisinopril (Zestril) 10 mg PO DAILY [facility] Last Admin: 06/07/17 09:44 Dose: 10 mg Metoprolol Succinate (Toprol Xl) 25 mg PO DAILY [facility] Last Admin: 06/07/17 09:44 Dose: 25 mg Oxycodone/Acetaminophen (Percocet 5/325 Mg Tab) 1 tab PO Q4H PRN PRN Reason: Pain, moderate (4-7) Stop: 06/08/17 16:00 Last Admin: 06/05/17 21:47 Dose: 1 tab Oxycodone/Acetaminophen (Percocet 5/325 Mg Tab) 2 tab PO Q4H PRN PRN Reason: Pain, severe (8-10) Stop: 06/08/17 16:00 Last Admin: 06/06/17 18:19 Dose: 2 tab Pantoprazole Sodium (Protonix Ec Tab) 40 mg PO DAILY [facility] Last Admin: 06/07/17 09:44 Dose: 40 mg Rosuvastatin Calcium (Crestor) 40 mg PO HS [facility] Last Admin: 06/06/17 22:03 Dose: 40 mg Saccharomyces Boulardii (Florastor) 250 mg PO DAILY [facility] Last Admin: 06/07/17 09:44 Dose: 250 mg Spironolactone (Aldactone) 25 mg PO BID [facility] Last Admin: 06/07/17 09:44 Dose: 25 mg - Labs Labs: 06/07/17 09:12 06/07/17 09:12 PT 11.9 SECONDS (9.7-12.2) 06/07/17 09:12 INR 1.0 06/07/17 09:12 APTT 33 SECONDS (21-34) 06/02/17 15:18 - Constitutional Appears: Well, Non-toxic, No Acute Distress - Extremities Exam Additional comments: Dressing is c/d/i with no strikethrough CHAD wound vac is adhere to the skin with no leakage detected CHAD is turned on and continously running - Psychiatric Exam Psychiatric exam: Normal Affect, Normal Mood Assessment and Plan - Assessment and Plan (Free Text) Assessment: 56 y.o male seen 2 days s/p debridement of necrotic ulceration right foot with application of Integra graft and wound vac to right foot ulceration Plan: Pt S&E at the bedside Plan discussed with attending DR. Song Chart, labs and vitals reviewed wound cx + MRSA CHAD turned on. Dressing is c/d/i. ID consulted (Dr. Myers): f/u recs Arterial duplex: neg for hemodynamically significant insufficiency in the right lower extremity c/w multipodus boot at all times right foot Will follow while in house
[2017-06-07] MEDS: Piperacillin/Tazobact 3.375 GM in Sodium Chloride 0.9% 100 ML IVPB SCH ×2 (16:09→22:00)
[2017-06-08] MEDS: Piperacillin/Tazobact 3.375 GM in Sodium Chloride 0.9% 100 ML IVPB SCH ×2 (03:42→08:44)
--- NOTE | 2017-06-08 07:28 | CP.PCM.PN ---
Subjective - Date & Time of Evaluation Date of Evaluation: 06/08/17 Time of Evaluation: 07:00 - Subjective Subjective: Medicine Progress Note: Patient was sen and examined at bedside in the AM. 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 Objective - Vital Signs/Intake and Output Vital Signs (last 24 hours): Temp Pulse Resp BP Pulse Ox 98.1 F 62 20 147/75 96 06/08/17 00:06 06/08/17 00:38 06/08/17 00:06 06/08/17 00:06 06/08/17 00:06 Intake and Output: 06/08/17 06/08/17 06:59 18:59 Intake Total 400 Balance 400 - Medications Medications: Current Medications Acetaminophen (Tylenol 650 Mg Supp) 650 mg CO Q6 PRN PRN Reason: Pain, Mild (1-3) Aspirin (Aspirin Chewable) 81 mg PO DAILY [facility] Last Admin: 06/04/17 09:39 Dose: 81 mg Docusate Sodium (Colace) 100 mg PO TID [facility] Last Admin: 06/07/17 18:24 Dose: 100 mg Escitalopram Oxalate (Lexapro) 5 mg PO DAILY [facility] Last Admin: 06/07/17 09:44 Dose: 5 mg Finasteride (Proscar) 5 mg PO DAILY [facility] Last Admin: 06/07/17 09:44 Dose: 5 mg Folic Acid (Folic Acid) 1 mg PO DAILY [facility] Last Admin: 06/07/17 09:44 Dose: 1 mg Heparin Sodium (Porcine) (Heparin) 5,000 units SC Q8 [facility] Last Admin: 06/06/17 07:00 Dose: 5,000 units Sodium Chloride (Sodium Chloride 0.9%) 1,000 mls @ 50 mls/hr IV .Q20H [facility] Last Admin: 06/07/17 19:44 Dose: Not Given Piperacillin Sod/Tazobactam (Sod 3.375 gm/ Sodium Chloride) 100 mls @ 200 mls/ hr IVPB Q6H [facility] Last Admin: 06/08/17 03:42 Dose: 200 mls/hr Insulin Human Regular (Novolin R) 0 unit SC ACHS [facility] PRN Reason: Protocol Last Admin: 06/07/17 21:27 Dose: Not Given Levetiracetam (Keppra) 500 mg PO BID [facility] Last Admin: 06/07/17 18:24 Dose: 500 mg Lisinopril (Zestril) 10 mg PO DAILY [facility] Last Admin: 06/07/17 09:44 Dose: 10 mg Metoprolol Succinate (Toprol Xl) 25 mg PO DAILY [facility] Last Admin: 06/07/17 09:44 Dose: 25 mg Oxycodone/Acetaminophen (Percocet 5/325 Mg Tab) 1 tab PO Q4H PRN PRN Reason: Pain, moderate (4-7) Stop: 06/08/17 16:00 Last Admin: 06/05/17 21:47 Dose: 1 tab Oxycodone/Acetaminophen (Percocet 5/325 Mg Tab) 2 tab PO Q4H PRN PRN Reason: Pain, severe (8-10) Stop: 06/08/17 16:00 Last Admin: 06/06/17 18:19 Dose: 2 tab Pantoprazole Sodium (Protonix Ec Tab) 40 mg PO DAILY [facility] Last Admin: 06/07/17 09:44 Dose: 40 mg Rosuvastatin Calcium (Crestor) 40 mg PO [facility] Last Admin: 06/07/17 22:20 Dose: 40 mg Saccharomyces Boulardii (Florastor) 250 mg PO DAILY [facility] Last Admin: 06/07/17 09:44 Dose: 250 mg Spironolactone (Aldactone) 25 mg PO BID [facility] Last Admin: 06/07/17 18:24 Dose: 25 mg - Labs Labs: 06/07/17 09:12 06/07/17 09:12 PT 11.9 SECONDS (9.7-12.2) 06/07/17 09:12 INR 1.0 06/07/17 09:12 APTT 33 SECONDS (21-34) 06/02/17 15:18 - Constitutional Appears: No Acute Distress - Head Exam Head Exam: NORMAL INSPECTION - Eye Exam Eye Exam: EOMI, Normal appearance - ENT Exam ENT Exam: Mucous Membranes Moist - Respiratory Exam Respiratory Exam: NORMAL BREATHING PATTERN - Cardiovascular Exam Cardiovascular Exam: REGULAR RHYTHM, +S1, +S2 - GI/Abdominal Exam GI & Abdominal Exam: Soft, Normal Bowel Sounds. absent: Tenderness - Extremities Exam Additional comments: Right lower extremity wrapped in gauze and boot in place, dressing clean, dry, intact Left lower extremity boot in place - Neurological Exam Neurological Exam: Alert, Awake - Psychiatric Exam Psychiatric exam: Normal Affect, Normal Mood - Skin Skin Exam: Dry, Intact, Normal Color, Warm Assessment and Plan - Assessment and Plan (Free Text) Assessment: 1.) Right foot ulcer - Cardiology Consult: Dr. Rosen --> appreciated for Cardiac clearance for surgery - per cardiology note: Patient is clear from cardiology standpoint for surgery under LOCAL anesthesia - Podiatry Consult: Dr. Song --> help appreciated - Blister drained by podiatry in ED - s/p surgery (06/05/17): debridement of necrotic ulceration right foot with application of Integra graft and wound vac - Medications: * Vancomycin 1gm IV Q12h (started on 06/02/17) - discontinued * Zosyn 2.25gm IV Q6h (started on 06/02/17) * Florastor 250mg PO BID * Tylenol 650mg PO Q6h prn for pain - Blood culture: no growth - preliminary - Right Wound culture: MRSA + - Images: * Right foot xray: Prior 5th transmetatarsal amputation. No demonstrated acute fracture no evidence of periosteal reaction. * Venous dopplers: No evidence of DVT of the right lower extremity with excellent venous flow. Normal valve function noted of the right side. Normal venous flow noted in the left common femoral vein. * Arterial duplex: There is no evidence of hemo-dynamically significant arterial insufficiency in the right lower extremity. Arterial wall calcification is noted throughout the right lower extremity. 2.) Infective Endocarditis Cardiology Consult: Dr. Rosen --> recommendations appreciated - Echo (06/04/17) results showed 1cm density on the posterior leaflet of the mitral valve, atrial aspect. Fixed on the leaflet highly suggestive for vegetations. EF 55-60%. - f/u official report of RAHEL (06/08/17): per resident Dr. Garcia patient has an 8x8mm vegetation on the mitral valve ID Consult: Dr. Myers --> recommendations appreciated - started on Daptomycin 420mg (06/08/17) 3.) Abnormal EKG History of triple bypass - Cardiology Consult: Dr. Rosen --> help appreciated appreciated - Metoprolol Succinate 12.5mg PO daily - Atorvastatin 80mg PO HS - Lisinopril 10mg po daily - hold 4.) Hypertension - uncontrolled - Home medication: Metoprolol 25mg PO daily --> changed (06/03/17) Metoprolol Tartrate 25mg po BID - Patient receives medication from [facility]. - the provider on the prescriptions is: Dr. Yovanny Cui; however will again follow up with PMD in regards to HTN - Lisinopril 10mg po daily - hold - Spironolactone 25mg PO bid - Continue to monitor 5.) Diabetes - ISS - Accuchecks - Hemoglobin A1c: 8.6 - Lipid panel: Triglycerides 219; Total Cholesterol 112; LDL 46; HDL 34 - Metformin (home medication) - hold - Hypoglycemic protocol 6.) CARLOS - secondary to antibiotics - Lightly hydrate with N/S @ 65cc/hr 7.) History of seizure - Keppra 500mg PO BID - Seizure precautions 8.) History of cerebrovascular accident (CVA) with residual deficit History of CVA with right sided weakness - Aspirin 81mg po daily - Atorvastatin 80mg PO HS 9.) Benign prostatic hyperplasia - Finasteride 5mg PO daily 10.) Depression - Lexapro 5mg PO daily 11.) Prophylactic measure - Heparin 5000sc Q8h - f/u with podiatry resident when can heparin be restarted. - Protonix 40mg PO - PT eval and treat - OT eval and treat Family meeting 06/08/17 per palliative nurse Tabitha: Patient is Full Code; Discharge planning to care home. Case discussed with Dr. Murtaza Nieto PGY-1
[2017-06-08] MEDS: (Novolin R) Insulin Human Regular 100 units/ml vial SC SCH ×4 (08:28→22:32)
--- NOTE | 2017-06-08 10:04 | CP.PCM.PN ---
<RadhaMaurice - Last Filed: 06/08/17 13:29> Subjective - Date & Time of Evaluation Date of Evaluation: 06/08/17 Time of Evaluation: 10:01 - Subjective Subjective: Cardiology Progress Note for Dr. Rosen Pt seen and examined at bedside. No acute overnight events. Pt offers no complaints at this time. ROS limited due to patient's current mental state. Objective - Vital Signs/Intake and Output Vital Signs (last 24 hours): Temp Pulse Resp BP Pulse Ox 97.3 F L 65 20 172/92 H 96 06/08/17 09:34 06/08/17 09:34 06/08/17 09:34 06/08/17 09:34 06/08/17 09:34 Intake and Output: 06/08/17 06/08/17 06:59 18:59 Intake Total 400 Balance 400 - Medications Medications: Current Medications Acetaminophen (Tylenol 650 Mg Supp) 650 mg ND Q6 PRN PRN Reason: Pain, Mild (1-3) Aspirin (Aspirin Chewable) 81 mg PO DAILY [facility] Last Admin: 06/04/17 09:39 Dose: 81 mg Docusate Sodium (Colace) 100 mg PO TID [facility] Last Admin: 06/07/17 18:24 Dose: 100 mg Escitalopram Oxalate (Lexapro) 5 mg PO DAILY [facility] Last Admin: 06/07/17 09:44 Dose: 5 mg Finasteride (Proscar) 5 mg PO DAILY [facility] Last Admin: 06/07/17 09:44 Dose: 5 mg Folic Acid (Folic Acid) 1 mg PO DAILY [facility] Last Admin: 06/07/17 09:44 Dose: 1 mg Heparin Sodium (Porcine) (Heparin) 5,000 units SC Q8 [facility] Last Admin: 06/06/17 07:00 Dose: 5,000 units Piperacillin Sod/Tazobactam (Sod 3.375 gm/ Sodium Chloride) 100 mls @ 200 mls/ hr IVPB Q6H [facility] Last Admin: 06/08/17 08:44 Dose: 200 mls/hr Insulin Human Regular (Novolin R) 0 unit SC ACHS [facility] PRN Reason: Protocol Last Admin: 06/08/17 08:28 Dose: Not Given Levetiracetam (Keppra) 500 mg PO BID [facility] Last Admin: 06/07/17 18:24 Dose: 500 mg Lisinopril (Zestril) 10 mg PO DAILY [facility] Last Admin: 06/07/17 09:44 Dose: 10 mg Metoprolol Succinate (Toprol Xl) 25 mg PO DAILY [facility] Last Admin: 06/07/17 09:44 Dose: 25 mg Oxycodone/Acetaminophen (Percocet 5/325 Mg Tab) 1 tab PO Q4H PRN PRN Reason: Pain, moderate (4-7) Stop: 06/08/17 16:00 Last Admin: 06/05/17 21:47 Dose: 1 tab Oxycodone/Acetaminophen (Percocet 5/325 Mg Tab) 2 tab PO Q4H PRN PRN Reason: Pain, severe (8-10) Stop: 06/08/17 16:00 Last Admin: 06/06/17 18:19 Dose: 2 tab Pantoprazole Sodium (Protonix Ec Tab) 40 mg PO DAILY [facility] Last Admin: 06/07/17 09:44 Dose: 40 mg Rosuvastatin Calcium (Crestor) 40 mg PO HS [facility] Last Admin: 06/07/17 22:20 Dose: 40 mg Saccharomyces Boulardii (Florastor) 250 mg PO DAILY [facility] Last Admin: 06/07/17 09:44 Dose: 250 mg Spironolactone (Aldactone) 25 mg PO BID [facility] Last Admin: 06/07/17 18:24 Dose: 25 mg - Labs Labs: 06/07/17 09:12 06/07/17 09:12 PT 11.9 SECONDS (9.7-12.2) 06/07/17 09:12 INR 1.0 06/07/17 09:12 APTT 33 SECONDS (21-34) 06/02/17 15:18 - Constitutional Appears: No Acute Distress - Head Exam Head Exam: NORMAL INSPECTION - Eye Exam Eye Exam: Normal appearance - ENT Exam ENT Exam: Normal Exam - Neck Exam Neck Exam: Normal Inspection - Respiratory Exam Respiratory Exam: Clear to Ausculation Bilateral. absent: Rales, Rhonchi, Wheezes - Cardiovascular Exam Cardiovascular Exam: RRR, +S1, +S2. absent: Clicks, Gallop, Rubs, Murmur - GI/Abdominal Exam GI & Abdominal Exam: Soft. absent: Distended, Guarding, Tenderness, Rebound - Extremities Exam Additional comments: right foot ulcer s/p debridement - Neurological Exam Neurological Exam: Alert, Awake, Oriented x3 - Skin Skin Exam: Dry, Intact, Normal Color, Warm Assessment and Plan - Assessment and Plan (Free Text) Assessment: 56 yo male with PMH of HTN, HLD, DM CVA, seizure, depression BPH, and CAD s/p CABG presents to [facility] for right foot ulcer. Cardiology consulted for cardiac clearance for surgical debridement of right foot. Density found on echo suspicious for endocarditis, will follow up with RAHEL. Plan: 1. Right Foot Ulcer - POD #3 right foot debridement - Management per Podiatry - Wound culture positive for MRSA and GBS; repeat culture positive for MRSA - Blood culture positive for enterococcus faecalis; follow up cultures negative after 48 hrs - Cont IV abx 2. Infective Endocarditis - Echo showed 1 cm density on posterior leaflet of mitral valve - RAHEL revealed circumferential vegetation on A1 and A2 cusp of mitral valve measuring 8mm x 8mm - Recommend 6 weeks of abx on discharge Abx per ID 3. Chronic CHF with Reduced EF - Echo showed EF 45%, repeat Echo showed EF 55-60%, mild to moderate hypokinesis , 1 cm density on posterior leaflet of mitral valve - BNP 1240 - Cont Toprol XL 12.5 mg PO daily - Cont Aldactone 25 mg PO BID - Hold Lisinopril due to CARLOS 4. CARLOS - Cr 2.0 - Hold nephrotoxic medications - Consider Nephro consult 5. CAD s/p CABG - Troponin negative x1 - Cont ASA, crestor 6. Peripheral Vascular Disease - Cont Crestor and ASA 7. HTN - Hold Lisinopril due to CARLOS - Cont Toprol XL - Started Norvasc 5 mg PO daily - Hydralazine 10 mg PO Q8H prn - Cont to monitor 8. HLD - Cont Crestor 9. DM - Management per primary 10. BPH - Management per primary 11. H/O Seizures - Management per primary 12. Depression - Management per primary GI/DVT PPx - Protonix - Heparin Pt seen and discussed in detail with Dr. Rosen. Anupam Garcia, PGY1 <Raffi Rosen - Last Filed: 06/10/17 00:58> Objective - Vital Signs/Intake and Output Vital Signs (last 24 hours): Temp Pulse Resp BP Pulse Ox 98.5 F 63 20 155/73 H 100 06/09/17 16:11 06/09/17 20:13 06/09/17 16:11 06/09/17 16:11 06/09/17 16:11 Intake and Output: 06/09/17 06/10/17 18:59 06:59 Intake Total 1000 1020 Output Total 550 Balance 450 1020 - Medications Medications: Current Medications Acetaminophen (Tylenol 325mg Tab) 650 mg PO Q6 PRN PRN Reason: Pain, moderate (4-7) Last Admin: 06/09/17 13:19 Dose: 650 mg Amlodipine Besylate (Norvasc) 10 mg PO DAILY [facility] Aspirin (Aspirin Chewable) 81 mg PO DAILY [facility] Last Admin: 06/09/17 09:09 Dose: 81 mg Docusate Sodium (Colace) 100 mg PO TID [facility] Last Admin: 06/09/17 17:23 Dose: 100 mg Escitalopram Oxalate (Lexapro) 5 mg PO DAILY [facility] Last Admin: 06/09/17 10:05 Dose: 5 mg Finasteride (Proscar) 5 mg PO DAILY [facility] Last Admin: 06/09/17 10:05 Dose: 5 mg Folic Acid (Folic Acid) 1 mg PO DAILY [facility] Last Admin: 06/09/17 09:09 Dose: 1 mg Heparin Sodium (Porcine) (Heparin) 5,000 units SC Q8 [facility] Last Admin: 06/09/17 22:01 Dose: 5,000 units Hydralazine HCl (Apresoline) 10 mg PO Q8H PRN PRN Reason: Systolic Blood Pressure Piperacillin Sod/Tazobactam Sod (Zosyn 2.25 Gm Iv Premix) 2.25 gm in 50 mls @ 100 mls/hr IVPB Q6H [facility] Last Admin: 06/09/17 20:02 Dose: 100 mls/hr Daptomycin 420 mg/ Sodium (Chloride) 100 mls @ 100 mls/hr IV Q48H [facility] Last Admin: 06/08/17 14:29 Dose: 100 mls/hr Sodium Chloride (Sodium Chloride 0.9%) 1,000 mls @ 65 mls/hr IV .[id number] [facility] Last Admin: 06/09/17 09:07 Dose: 65 mls/hr Insulin Human Regular (Novolin R) 0 unit SC ACHS [facility] PRN Reason: Protocol Last Admin: 06/09/17 21:35 Dose: Not Given Levetiracetam (Keppra) 500 mg PO BID [facility] Last Admin: 06/09/17 17:23 Dose: 500 mg Lisinopril (Zestril) 10 mg PO DAILY [facility] Last Admin: 06/08/17 10:30 Dose: Not Given Metoprolol Succinate (Toprol Xl) 25 mg PO DAILY [facility] Last Admin: 06/09/17 09:08 Dose: 25 mg Pantoprazole Sodium (Protonix Ec Tab) 40 mg PO DAILY [facility] Last Admin: 06/09/17 09:08 Dose: 40 mg Rosuvastatin Calcium (Crestor) 40 mg PO HS [facility] Last Admin: 06/07/17 22:20 Dose: 40 mg Saccharomyces Boulardii (Florastor) 250 mg PO DAILY [facility] Last Admin: 06/09/17 09:08 Dose: 250 mg Spironolactone (Aldactone) 25 mg PO BID [facility] Last Admin: 06/09/17 09:08 Dose: 25 mg - Labs Labs: 06/09/17 07:51 06/09/17 07:51 PT 11.9 SECONDS (9.7-12.2) 06/07/17 09:12 INR 1.0 06/07/17 09:12 APTT 33 SECONDS (21-34) 06/02/17 15:18 Attending/Attestation - Attestation I have personally seen and examined this patient.: Yes I have fully participated in the care of the patient.: Yes I have reviewed all pertinent clinical information, including history, physical exam and plan: Yes Notes (Text): 06/08/17 00:57 s/p RAHEL showing 8x8 mm vegetation on A1/A2 cusp of AMV leaflet Abx x 6 weeks re-evaluate with RAHEL in 6 weeks
--- NOTE | 2017-06-08 11:56 | CP.PCM.PCO ---
Physician Communication Note - Physician Communication Note Physician Communication Note: Family meeting at 1 pm today
[2017-06-08 12:04] LABS: BASO % 0.4 % (0.0-2.0); EOS # 0.3 K/uL (0.0-0.7); EOS % 4.4 % (0.0-4.0); HEMOGLOBIN 9.2 g/dL (12.0-18.0); LYMPH # 1.4 K/uL (1.0-4.3); LYMPH % 24.4 % (20.0-40.0); MEAN CELL VOLUME 90.6 fL (80.0-94.0); MEAN CORPUSCULAR HEMOGLOBIN 31.8 pg (27.0-31.0); MEAN CORPUSCULAR HGB CONC 35.1 g/dL (33.0-37.0); MEAN PLATELET VOLUME 9.9 fL (7.2-11.7); MONO # 0.5 K/uL (0.0-0.8); NEUT # 3.6 K/uL (1.8-7.0); NEUT % 62.8 % (50.0-75.0); RBC 2.89 Mil/uL (4.40-5.90); RED CELL DISTRIBUTION WIDTH 12.9 % (11.5-14.5); WHITE BLOOD COUNT 5.8 K/uL (4.8-10.8)
[2017-06-08 12:29] LABS: ALB/GLOB RATIO 1.1 (1.0-2.1); ALBUMIN 3.2 g/dL (3.5-5.0); CALCIUM 8.2 mg/dl (8.6-10.4)
[2017-06-08] MEDS ORDERED: Midazolam 2 MG/2 ML VIAL ONE (12:55)
[2017-06-08] MEDS: Piperacill/Tazo 2.25gm in Dex 2.25 GM/50 ML BAG IVPB SCH ×2 (16:22→21:39)
[2017-06-08] MEDS: Saccharomyces Boulardi 250 mg Cap PO SCH (16:22)
[2017-06-08] MEDS: Metoprolol Succinate 25 mg XL Tab PO SCH (16:23)
[2017-06-08] MEDS: Pantoprazole 40 mg EC Tab PO SCH (16:23)
--- NOTE | 2017-06-08 16:45 | CP.PCM.CON ---
History of Present Illness - History of Present Illness History of Present Illness: Palliative consult Patient is 56 years old male, admitted from home for a right foot ulcer. It was noted that patient's saw the least on the right for about 4 weeks ago, and about 3 weeks ago the bottom of the fourth became dark. On admission the x-ray of the right foot was negative osteomyelitis. On June 05 patient underwent surgical debridement of the right foot wound. The culture of the right foot wound came back positive for MRSA. Patient is placed on Zosyn IV. Patient is managed with Percocet for pain as needed every 4 hours. I was asked to talk to the family members about goals of care Past medical history, CVA in 2016, left temporal craniotomy, right sided weakness, hypertension, high cholesterol lateral, chronic kidney disease, sleep apnea, seizures Social hx:, lives with and son, blocks all the night, and son take the skin taking care of the patient Family history, diabetes runs in the family, father from colon cancer, mother still alive Review of Systems - Review of Systems All systems: reviewed and no additional remarkable complaints except Review of Systems: review of systems obtained from nursing,due to patient's inability to speak. Per nursing, patient was without acute events overnight Past Patient History - Infectious Disease Hx of Infectious Diseases: None - Past Medical History & Family History Past Medical History?: Yes - Past Social History Smoking Status: Never Smoked - CARDIAC Hx Hypercholesterolemia: Yes Hx Hypertension: Yes - NEUROLOGICAL HX Cerebrovascular Accident: Yes (with right sided weakness) - HEENT Hx Cataracts: Yes - RENAL Hx Chronic Kidney Disease: No - ENDOCRINE/METABOLIC Hx Diabetes Mellitus Type 2: Yes - HEMATOLOGICAL/ONCOLOGICAL Hx Anemia: Yes - INTEGUMENTARY Hx Dermatological Problems: No - MUSCULOSKELETAL/RHEUMATOLOGICAL Hx Musculoskeletal Disorders: No - GASTROINTESTINAL Hx Gastrointestinal Disorders: Yes HX Swallowing Problems: Yes (now eats "reg food") - GENITOURINARY/GYNECOLOGICAL Hx Genitourinary Disorders: No - PSYCHIATRIC Hx Depression: Yes Hx Substance Use: No - SURGICAL HISTORY Other/Comment: "Cardiac sugery 3 veins clogged" - veins taken from ze legs @ [facility]". Tracheostomy removed 2016. Feeding removed Mar 2017. Amputation 5th digit - rt foot - ANESTHESIA Hx Anesthesia: Yes Hx Anesthesia Reactions: No Hx Malignant Hyperthermia: No Meds Allergies/Adverse Reactions: Allergies Allergy/AdvReac Type Severity Reaction Status Date / Time No Known Allergies Allergy Verified 06/02/17 14:03 - Medications Medications: Current Medications Acetaminophen (Tylenol 650 Mg Supp) 650 mg [place] Q6 PRN PRN Reason: Pain, Mild (1-3) Amlodipine Besylate (Norvasc) 5 mg PO DAILY [facility] Last Admin: 06/08/17 16:23 Dose: 5 mg Aspirin (Aspirin Chewable) 81 mg PO DAILY [facility] Last Admin: 06/04/17 09:39 Dose: 81 mg Docusate Sodium (Colace) 100 mg PO TID [facility] Last Admin: 06/08/17 16:22 Dose: 100 mg Escitalopram Oxalate (Lexapro) 5 mg PO DAILY [facility] Last Admin: 06/08/17 16:23 Dose: 5 mg Finasteride (Proscar) 5 mg PO DAILY [facility] Last Admin: 06/08/17 16:22 Dose: 5 mg Folic Acid (Folic Acid) 1 mg PO DAILY [facility] Last Admin: 06/08/17 16:23 Dose: 1 mg Heparin Sodium (Porcine) (Heparin) 5,000 units SC Q8 [facility] Last Admin: 06/06/17 07:00 Dose: 5,000 units Hydralazine HCl (Apresoline) 10 mg PO Q8H PRN PRN Reason: Systolic Blood Pressure Piperacillin Sod/Tazobactam Sod (Zosyn 2.25 Gm Iv Premix) 2.25 gm in 50 mls @ 100 mls/hr IVPB Q6H [facility] Daptomycin 420 mg/ Sodium (Chloride) 100 mls @ 100 mls/hr IV Q48H [facility] Last Admin: 06/08/17 14:29 Dose: 100 mls/hr Insulin Human Regular (Novolin R) 0 unit SC ACHS [facility] PRN Reason: Protocol Last Admin: 06/08/17 11:57 Dose: Not Given Levetiracetam (Keppra) 500 mg PO BID [facility] Last Admin: 06/08/17 10:30 Dose: Not Given Lisinopril (Zestril) 10 mg PO DAILY [facility] Last Admin: 06/08/17 10:30 Dose: Not Given Metoprolol Succinate (Toprol Xl) 25 mg PO DAILY [facility] Last Admin: 06/08/17 16:23 Dose: 25 mg Pantoprazole Sodium (Protonix Ec Tab) 40 mg PO DAILY [facility] Last Admin: 06/08/17 16:23 Dose: 40 mg Rosuvastatin Calcium (Crestor) 40 mg PO HS [facility] Last Admin: 06/07/17 22:20 Dose: 40 mg Saccharomyces Boulardii (Florastor) 250 mg PO DAILY [facility] Last Admin: 06/08/17 16:22 Dose: 250 mg Spironolactone (Aldactone) 25 mg PO BID [facility] Last Admin: 06/08/17 10:30 Dose: Not Given Physical Exam - Constitutional Appears: No Acute Distress, Chronically Ill - Head Exam Head Exam: ATRAUMATIC, NORMAL INSPECTION, NORMOCEPHALIC - Eye Exam Eye Exam: EOMI, Normal appearance, PERRL Pupil Exam: NORMAL ACCOMODATION, PERRL - ENT Exam ENT Exam: Mucous Membranes Moist, Normal Exam - Neck Exam Neck exam: Positive for: Normal Inspection - Respiratory Exam Respiratory Exam: Decreased Breath Sounds, NORMAL BREATHING PATTERN - Cardiovascular Exam Cardiovascular Exam: REGULAR RHYTHM - GI/Abdominal Exam GI & Abdominal Exam: Normal Bowel Sounds, Soft Additional comments: incontinent of bowel and bladder - Rectal Exam Rectal Exam: Deferred - Exam Exam: NORMAL INSPECTION - Extremities Exam Additional comments: right sided weakness - Back Exam Back exam: NORMAL INSPECTION - Neurological Exam Neurological exam: Alert, Altered, Motor Sensory Deficit - Psychiatric Exam Psychiatric exam: Normal Affect, Normal Mood - Skin Skin Exam: Normal Color, Warm Additional comments: right foot surgical dressing Results - Vital Signs Recent Vital Signs: Last Vital Signs Temp 97.4 F L 06/08/17 16:31 Pulse 77 06/08/17 16:31 Resp 20 06/08/17 16:31 BP 140/70 06/08/17 16:31 Pulse Ox 99 06/08/17 16:31 - Labs Result Diagrams: 06/08/17 11:37 06/08/17 11:37 Labs: Laboratory Results - last 24 hr 06/07/17 06/08/17 06/08/17 21:22 06:27 11:22 WBC RBC Hgb Hct MCV MCH MCHC RDW Plt Count MPV Neut % (Auto) Lymph % (Auto) [place] % (Auto) Eos % (Auto) Baso % (Auto) Neut # (Auto) Lymph # (Auto) [place] # (Auto) Eos # (Auto) Baso # (Auto) Sodium Potassium Chloride Carbon Dioxide Anion Gap BUN Creatinine Est GFR ( Amer) Est GFR (Non-Af Amer) POC Glucose (mg/dL) 239 H 232 H 169 H Random Glucose Calcium Total Bilirubin AST ALT Alkaline Phosphatase Total Protein Albumin Globulin Albumin/Globulin Ratio 06/08/17 06/08/17 11:37 11:37 WBC 5.8 RBC 2.89 L Hgb 9.2 L Hct 26.2 L MCV 90.6 MCH 31.8 H MCHC 35.1 RDW 12.9 Plt Count 172 MPV 9.9 Neut % (Auto) 62.8 Lymph % (Auto) 24.4 [place] % (Auto) 8.0 Eos % (Auto) 4.4 H Baso % (Auto) 0.4 Neut # (Auto) 3.6 Lymph # (Auto) 1.4 [place] # (Auto) 0.5 Eos # (Auto) 0.3 Baso # (Auto) 0.0 Sodium 138 Potassium 4.6 Chloride 104 Carbon Dioxide 27 Anion Gap 12 BUN 23 H Creatinine 1.9 H Est GFR ( Amer) 44 Est GFR (Non-Af Amer) 37 POC Glucose (mg/dL) Random Glucose 179 H Calcium 8.2 L Total Bilirubin 0.3 AST 29 ALT 32 Alkaline Phosphatase 74 Total Protein 6.2 L Albumin 3.2 L Globulin 3.0 Albumin/Globulin Ratio 1.1 Assessment & Plan - Assessment and Plan (Free Text) Assessment: Palliative consult There is no advanced directive in the chart, CODE STATUS full code, PPS 30%'s I reviewed medical records, all diagnostic studies, examining patient in the bed , discussed his condition with the nursing, and scheduled family meeting over the phone. Patient seen and examined in bed in no acute distress, looking chronically ill. Patient makes eye contact, able to follow simple commands, very poor ability to speak, patient able to say only a few short words. I asked patient if I could speak to his and son about his condition and he said yes. This physical exam reveals a chronically ill patient in no acute distress. Bed sounds are normal, there is no adventitious sounds, abdomen is soft, patient is incontinent of bowel level, patient tries to use the urinal. The right side is flaccid. Patient is moving his right arm by lifting it up by his left arm. The right leg flaccid as well. Blood pressure 147/75, temperature 98.1, oxygen saturation 96% on area. Patient denied pain at the moment. Family meeting held attended by patient's son recall don't and patient's taty. I reviewed patient's present condition. Goals of care discussed. The son and the acknowledged patient's need for maximal assistance at home. The states she works doing denied and taking care of her during the day becoming difficult for her. Her son takes care of father as well. In the past november the [facility] a [facility] and event denied by the insurance. The family is asking for assistance in the process of applying for Medicaid. I discussed these with Taty from drug abuse social worker. Called status discussed. The and the son stated not being ready to discussed it at the moment. They were poorly stated to me that they would like all measures to be applied to support patient's life. If patient's condition gets to the point that no medical interventions at benefiting the patient and she is bed becomes imminent they would like him to be allowed natural . However, despite, having clear expectations of care, family stated not feeling comfortable to sign POLST. Impression * This is chronically ill man with acute right ulcer, status post surgical debridement * Patient is debilitated with right sided weakness and inability to speak * Patient's family, the and the son, I'm advocating for the patient * The family admits not being able to take care of the patient at home, they wish patient was placed as a long-term resident at the facility * Family needs assistance with applying for the Medicaid Suggestions * Apply all measures to support life, for call * Assist patient with ADLs * Discharge planning to jail * Please have drug abuse social worker assist patient and family in applying for Medicaid * Thank you very much for consultation palliative care Advanced care discussion, 45 minutes
[2017-06-08] MEDS: Sodium Chloride 0.9% 1,000 ML IV SCH (18:17)
--- NOTE | 2017-06-08 20:17 | CP.PCM.PN ---
Subjective - Date & Time of Evaluation Date of Evaluation: 06/08/17 Time of Evaluation: 05:40 - Subjective Subjective: dictated Objective - Vital Signs/Intake and Output Vital Signs (last 24 hours): Temp Pulse Resp BP Pulse Ox 97.4 F L 77 20 140/70 99 06/08/17 16:31 06/08/17 16:31 06/08/17 16:31 06/08/17 16:31 06/08/17 16:31 Intake and Output: 06/08/17 06/09/17 18:59 06:59 Intake Total 460 Balance 460 - Medications Medications: Current Medications Acetaminophen (Tylenol 650 Mg Supp) 650 mg [place] Q6 PRN PRN Reason: Pain, Mild (1-3) Amlodipine Besylate (Norvasc) 5 mg PO DAILY [facility] Last Admin: 06/08/17 16:23 Dose: 5 mg Aspirin (Aspirin Chewable) 81 mg PO DAILY [facility] Last Admin: 06/04/17 09:39 Dose: 81 mg Docusate Sodium (Colace) 100 mg PO TID [facility] Last Admin: 06/08/17 18:14 Dose: 100 mg Escitalopram Oxalate (Lexapro) 5 mg PO DAILY [facility] Last Admin: 06/08/17 16:23 Dose: 5 mg Finasteride (Proscar) 5 mg PO DAILY [facility] Last Admin: 06/08/17 16:22 Dose: 5 mg Folic Acid (Folic Acid) 1 mg PO DAILY [facility] Last Admin: 06/08/17 16:23 Dose: 1 mg Heparin Sodium (Porcine) (Heparin) 5,000 units SC Q8 [facility] Last Admin: 06/06/17 07:00 Dose: 5,000 units Hydralazine HCl (Apresoline) 10 mg PO Q8H PRN PRN Reason: Systolic Blood Pressure Piperacillin Sod/Tazobactam Sod (Zosyn 2.25 Gm Iv Premix) 2.25 gm in 50 mls @ 100 mls/hr IVPB Q6H [facility] Last Admin: 06/08/17 16:22 Dose: Not Given Daptomycin 420 mg/ Sodium (Chloride) 100 mls @ 100 mls/hr IV Q48H [facility] Last Admin: 06/08/17 14:29 Dose: 100 mls/hr Sodium Chloride (Sodium Chloride 0.9%) 1,000 mls @ 65 mls/hr IV .[id number] [facility] Last Admin: 06/08/17 18:17 Dose: 65 mls/hr Insulin Human Regular (Novolin R) 0 unit SC [facility] PRN Reason: Protocol Last Admin: 06/08/17 17:25 Dose: Not Given Levetiracetam (Keppra) 500 mg PO BID [facility] Last Admin: 06/08/17 18:14 Dose: 500 mg Lisinopril (Zestril) 10 mg PO DAILY [facility] Last Admin: 06/08/17 10:30 Dose: Not Given Metoprolol Succinate (Toprol Xl) 25 mg PO DAILY [facility] Last Admin: 06/08/17 16:23 Dose: 25 mg Pantoprazole Sodium (Protonix Ec Tab) 40 mg PO DAILY [facility] Last Admin: 06/08/17 16:23 Dose: 40 mg Rosuvastatin Calcium (Crestor) 40 mg PO HS [facility] Last Admin: 06/07/17 22:20 Dose: 40 mg Saccharomyces Boulardii (Florastor) 250 mg PO DAILY [facility] Last Admin: 06/08/17 16:22 Dose: 250 mg Spironolactone (Aldactone) 25 mg PO BID [facility] Last Admin: 06/08/17 18:14 Dose: 25 mg - Labs Labs: 06/08/17 11:37 06/08/17 11:37 PT 11.9 SECONDS (9.7-12.2) 06/07/17 09:12 INR 1.0 06/07/17 09:12 APTT 33 SECONDS (21-34) 06/02/17 15:18
--- NOTE | 2017-06-08 22:45 | PN ---
DATE: SUBJECTIVE: The patient was trying to verbalize. He was trying to eat also. He has right hemiparesis, and he had dressing on the right foot. PHYSICAL EXAMINATION: VITAL SIGNS: T-max is 97.4, pulse 77, blood pressure is 114/70, respirations are 20. HEENT: Head is atraumatic, normocephalic. NECK: Supple. LUNGS: Clear. HEART: S1, S2 is regular. I was told, he had mitral valve endocarditis ABDOMEN: Soft and nontender. EXTREMITIES: Remain the dressing on the right foot and left foot also has mild swelling. He is bed bound. ASSESSMENT AND PLAN: His blood culture when he came in was positive for enterococcus which is ampicillin sensitive, linezolid and penicillin sensitive and is vancomycin sensitive, but his creatinine is 1.9; I cannot give him any vancomycin. He was started today on Cubicin for methicillin-resistant staphylococcus aureus and that will partially cover, and he needs to continue the Zosyn which was also treat for endocarditis and for the wound. So, this Zosyn will continue and right now it is better to use it rather than giving ampicillin. We will follow. He may need 4 to 6 weeks of both antibiotics. Right now Cubicin has started every other day; but if creatinine improves, we might have to give it daily, and if creatinine improves, we can also change it to vancomycin. We will follow. Prognosis remains guarded as he has a right heel ulcer and had graft placed but remains bed bound due to right hemiplegia and needs physical therapy. Makenzie Myers MD
[2017-06-09] MEDS: Piperacill/Tazo 2.25gm in Dex 2.25 GM/50 ML BAG IVPB SCH ×4 (02:33→20:02)
[2017-06-09 08:02] LABS: BASO % 0.6 % (0.0-2.0); EOS # 0.3 K/uL (0.0-0.7); EOS % 5.1 % (0.0-4.0); HEMOGLOBIN 8.8 g/dL (12.0-18.0); LYMPH # 1.4 K/uL (1.0-4.3); LYMPH % 21.6 % (20.0-40.0); MEAN CELL VOLUME 90.7 fL (80.0-94.0); MEAN CORPUSCULAR HEMOGLOBIN 31.9 pg (27.0-31.0); MEAN CORPUSCULAR HGB CONC 35.1 g/dL (33.0-37.0); MEAN PLATELET VOLUME 9.5 fL (7.2-11.7); MONO # 0.5 K/uL (0.0-0.8); MONO % 7.4 % (0.0-10.0); NEUT # 4.4 K/uL (1.8-7.0); NEUT % 65.3 % (50.0-75.0); RBC 2.78 Mil/uL (4.40-5.90); RED CELL DISTRIBUTION WIDTH 12.8 % (11.5-14.5); WHITE BLOOD COUNT 6.7 K/uL (4.8-10.8)
[2017-06-09 08:13] LABS: ALB/GLOB RATIO 1.1 (1.0-2.1); ALBUMIN 3.1 g/dL (3.5-5.0); CALCIUM 7.8 mg/dl (8.6-10.4); MAGNESIUM 1.8 mg/dL (1.6-2.3)
[2017-06-09] MEDS: (Novolin R) Insulin Human Regular 100 units/ml vial SC SCH ×4 (08:20→21:35)
[2017-06-09] MEDS: Sodium Chloride 0.9% 1,000 ML IV SCH (09:07)
[2017-06-09] MEDS: Saccharomyces Boulardi 250 mg Cap PO SCH (09:08)
[2017-06-09] MEDS: Metoprolol Succinate 25 mg XL Tab PO SCH (09:08)
[2017-06-09] MEDS: Pantoprazole 40 mg EC Tab PO SCH (09:08)
--- NOTE | 2017-06-09 09:57 | CP.PCM.PN ---
<Iwona Nieto - Last Filed: 06/09/17 16:12> Subjective - Date & Time of Evaluation Date of Evaluation: 06/09/17 Time of Evaluation: 07:00 - Subjective Subjective: Medicine Progress Note: Patient was sen and examined at bedside in the AM. 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 Objective - Vital Signs/Intake and Output Vital Signs (last 24 hours): Temp Pulse Resp BP Pulse Ox 97.9 F 63 20 173/79 H 100 06/09/17 07:25 06/09/17 07:25 06/09/17 07:25 06/09/17 07:25 06/09/17 07:25 Intake and Output: 06/09/17 06/09/17 06:59 18:59 Intake Total 725 Output Total 1150 Balance -425 - Medications Medications: Current Medications Acetaminophen (Tylenol 650 Mg Supp) 650 mg [place] Q6 PRN PRN Reason: Pain, Mild (1-3) Amlodipine Besylate (Norvasc) 5 mg PO DAILY [facility] Last Admin: 06/09/17 09:09 Dose: 5 mg Aspirin (Aspirin Chewable) 81 mg PO DAILY [facility] Last Admin: 06/09/17 09:09 Dose: 81 mg Docusate Sodium (Colace) 100 mg PO TID [facility] Last Admin: 06/09/17 09:08 Dose: 100 mg Escitalopram Oxalate (Lexapro) 5 mg PO DAILY [facility] Last Admin: 06/08/17 16:23 Dose: 5 mg Finasteride (Proscar) 5 mg PO DAILY [facility] Last Admin: 06/08/17 16:22 Dose: 5 mg Folic Acid (Folic Acid) 1 mg PO DAILY [facility] Last Admin: 06/09/17 09:09 Dose: 1 mg Heparin Sodium (Porcine) (Heparin) 5,000 units SC Q8 [facility] Last Admin: 06/09/17 05:21 Dose: 5,000 units Hydralazine HCl (Apresoline) 10 mg PO Q8H PRN PRN Reason: Systolic Blood Pressure Piperacillin Sod/Tazobactam Sod (Zosyn 2.25 Gm Iv Premix) 2.25 gm in 50 mls @ 100 mls/hr IVPB Q6H [facility] Last Admin: 06/09/17 09:08 Dose: 100 mls/hr Daptomycin 420 mg/ Sodium (Chloride) 100 mls @ 100 mls/hr IV Q48H [facility] Last Admin: 06/08/17 14:29 Dose: 100 mls/hr Sodium Chloride (Sodium Chloride 0.9%) 1,000 mls @ 65 mls/hr IV .[id number] [facility] Last Admin: 06/09/17 09:07 Dose: 65 mls/hr Insulin Human Regular (Novolin R) 0 unit SC ACHS [facility] PRN Reason: Protocol Last Admin: 06/09/17 08:20 Dose: 3 unit Levetiracetam (Keppra) 500 mg PO BID [facility] Last Admin: 06/09/17 09:09 Dose: 500 mg Lisinopril (Zestril) 10 mg PO DAILY [facility] Last Admin: 06/08/17 10:30 Dose: Not Given Metoprolol Succinate (Toprol Xl) 25 mg PO DAILY [facility] Last Admin: 06/09/17 09:08 Dose: 25 mg Pantoprazole Sodium (Protonix Ec Tab) 40 mg PO DAILY [facility] Last Admin: 06/09/17 09:08 Dose: 40 mg Rosuvastatin Calcium (Crestor) 40 mg PO HS [facility] Last Admin: 06/07/17 22:20 Dose: 40 mg Saccharomyces Boulardii (Florastor) 250 mg PO DAILY [facility] Last Admin: 06/09/17 09:08 Dose: 250 mg Spironolactone (Aldactone) 25 mg PO BID [facility] Last Admin: 06/09/17 09:08 Dose: 25 mg - Labs Labs: 06/09/17 07:51 06/09/17 07:51 PT 11.9 SECONDS (9.7-12.2) 06/07/17 09:12 INR 1.0 06/07/17 09:12 APTT 33 SECONDS (21-34) 06/02/17 15:18 - Constitutional Appears: No Acute Distress, Confused, Chronically Ill - Head Exam Head Exam: ATRAUMATIC, NORMAL INSPECTION - Eye Exam Eye Exam: EOMI, Normal appearance - ENT Exam ENT Exam: Mucous Membranes Moist - Respiratory Exam Respiratory Exam: Clear to Ausculation Bilateral, NORMAL BREATHING PATTERN - Cardiovascular Exam Cardiovascular Exam: REGULAR RHYTHM, +S1, +S2 - GI/Abdominal Exam GI & Abdominal Exam: Soft, Normal Bowel Sounds. absent: Tenderness - Extremities Exam Additional comments: Right lower extremity wrapped in gauze and boot in place, dressing clean, dry, intact Left lower extremity boot in place - Neurological Exam Neurological Exam: Alert, Awake - Psychiatric Exam Psychiatric exam: Normal Affect, Normal Mood - Skin Skin Exam: Dry, Intact, Normal Color, Warm Assessment and Plan - Assessment and Plan (Free Text) Assessment: 1.) Right foot ulcer - Cardiology Consult: Dr. Rosen --> appreciated for Cardiac clearance for surgery - per cardiology note: Patient is clear from cardiology standpoint for surgery under LOCAL anesthesia - Podiatry Consult: Dr. Song --> help appreciated - Blister drained by podiatry in ED - s/p surgery (06/05/17): debridement of necrotic ulceration right foot with application of Integra graft and wound vac - spoke with podiatry resident Dr. Valeria Donovan who will follow up in regards to discharge care planning - Medications: * Zosyn 2.25gm IV Q6h (started on 06/02/17) * Florastor 250mg PO BID * Tylenol 650mg PO Q6h prn for pain - Blood culture: no growth - preliminary - Right Wound culture: MRSA + - Images: * Right foot xray: Prior 5th transmetatarsal amputation. No demonstrated acute fracture no evidence of periosteal reaction. * Venous dopplers: No evidence of DVT of the right lower extremity with excellent venous flow. Normal valve function noted of the right side. Normal venous flow noted in the left common femoral vein. * Arterial duplex: There is no evidence of hemo-dynamically significant arterial insufficiency in the right lower extremity. Arterial wall calcification is noted throughout the right lower extremity. 2.) Infective Endocarditis Cardiology Consult: Dr. Rosen --> recommendations appreciated - Echo (06/04/17) results showed 1cm density on the posterior leaflet of the mitral valve, atrial aspect. Fixed on the leaflet highly suggestive for vegetations. EF 55-60%. - f/u official report of RAHEL (06/08/17): per resident Dr. Garcia patient has an 8x8mm vegetation on the mitral valve ID Consult: Dr. Myers --> recommendations appreciated - Daptomycin 420mg (06/08/17) q48h - Vancomycin MWF with dialysis - PICC line ordered for antibiotics for about 6 weeks 3.) Abnormal EKG History of triple bypass - Cardiology Consult: Dr. Rosen --> help appreciated appreciated - Echo (06/04/17) results showed 1cm density on the posterior leaflet of the mitral valve, atrial aspect. Fixed on the leaflet highly suggestive for vegetations. EF 55-60%. 4.) Hypertension - uncontrolled - Norvasc 10mg po daily - Metoprolol Succinate 12.5mg PO daily - Hydralazine 10mg po q8h prn >180 systolic bp - Lisinopril 10mg po daily - hold - Spironolactone 25mg PO bid - hold - Continue to monitor 5.) Diabetes - ISS - Accuchecks - Hemoglobin A1c: 8.6 - Lipid panel: Triglycerides 219; Total Cholesterol 112; LDL 46; HDL 34 - Metformin (home medication) - hold - Hypoglycemic protocol 6.) CARLOS - secondary to antibiotics - Lightly hydrate with N/S @ 65cc/hr 7.) History of seizure - Keppra 500mg PO BID - Seizure precautions 8.) History of cerebrovascular accident (CVA) with residual deficit History of CVA with right sided weakness - Aspirin 81mg po daily - Atorvastatin 40mg PO HS -hold 9.) Benign prostatic hyperplasia - Finasteride 5mg PO daily 10.) Depression - Lexapro 5mg PO daily 11.) Prophylactic measure - Heparin 5000sc Q8h - Protonix 40mg PO daily - PT eval and treat - OT eval and treat Family meeting 06/08/17 per palliative nurse Tabitha: Patient is Full Code. Disposition: Discharge planning to assisted. Case discussed with Dr. Murtaza Nieto PGY-1 <Nesotr Hauser - Last Filed: 06/09/17 19:58> Objective - Vital Signs/Intake and Output Vital Signs (last 24 hours): Temp Pulse Resp BP Pulse Ox 98.5 F 61 20 155/73 H 100 06/09/17 16:11 06/09/17 16:50 06/09/17 16:11 06/09/17 16:11 06/09/17 16:11 Intake and Output: 06/09/17 06/10/17 18:59 06:59 Intake Total 1000 Output Total 550 Balance 450 - Medications Medications: Current Medications Acetaminophen (Tylenol 325mg Tab) 650 mg PO Q6 PRN PRN Reason: Pain, moderate (4-7) Last Admin: 06/09/17 13:19 Dose: 650 mg Amlodipine Besylate (Norvasc) 10 mg PO DAILY [facility] Aspirin (Aspirin Chewable) 81 mg PO DAILY [facility] Last Admin: 06/09/17 09:09 Dose: 81 mg Docusate Sodium (Colace) 100 mg PO TID [facility] Last Admin: 06/09/17 17:23 Dose: 100 mg Escitalopram Oxalate (Lexapro) 5 mg PO DAILY [facility] Last Admin: 06/09/17 10:05 Dose: 5 mg Finasteride (Proscar) 5 mg PO DAILY [facility] Last Admin: 06/09/17 10:05 Dose: 5 mg Folic Acid (Folic Acid) 1 mg PO DAILY [facility] Last Admin: 06/09/17 09:09 Dose: 1 mg Heparin Sodium (Porcine) (Heparin) 5,000 units SC Q8 [facility] Last Admin: 06/09/17 13:19 Dose: 5,000 units Hydralazine HCl (Apresoline) 10 mg PO Q8H PRN PRN Reason: Systolic Blood Pressure Piperacillin Sod/Tazobactam Sod (Zosyn 2.25 Gm Iv Premix) 2.25 gm in 50 mls @ 100 mls/hr IVPB Q6H [facility] Last Admin: 06/09/17 14:57 Dose: 100 mls/hr Daptomycin 420 mg/ Sodium (Chloride) 100 mls @ 100 mls/hr IV Q48H [facility] Last Admin: 06/08/17 14:29 Dose: 100 mls/hr Sodium Chloride (Sodium Chloride 0.9%) 1,000 mls @ 65 mls/hr IV .[id number] [facility] Last Admin: 06/09/17 09:07 Dose: 65 mls/hr Insulin Human Regular (Novolin R) 0 unit SC ACHS [facility] PRN Reason: Protocol Last Admin: 06/09/17 17:23 Dose: 6 unit Levetiracetam (Keppra) 500 mg PO BID [facility] Last Admin: 06/09/17 17:23 Dose: 500 mg Lisinopril (Zestril) 10 mg PO DAILY [facility] Last Admin: 06/08/17 10:30 Dose: Not Given Metoprolol Succinate (Toprol Xl) 25 mg PO DAILY [facility] Last Admin: 06/09/17 09:08 Dose: 25 mg Pantoprazole Sodium (Protonix Ec Tab) 40 mg PO DAILY [facility] Last Admin: 06/09/17 09:08 Dose: 40 mg Rosuvastatin Calcium (Crestor) 40 mg PO HS [facility] Last Admin: 06/07/17 22:20 Dose: 40 mg Saccharomyces Boulardii (Florastor) 250 mg PO DAILY [facility] Last Admin: 06/09/17 09:08 Dose: 250 mg Spironolactone (Aldactone) 25 mg PO BID [facility] Last Admin: 06/09/17 09:08 Dose: 25 mg - Labs Labs: 06/09/17 07:51 06/09/17 07:51 PT 11.9 SECONDS (9.7-12.2) 06/07/17 09:12 INR 1.0 06/07/17 09:12 APTT 33 SECONDS (21-34) 06/02/17 15:18 Attending/Attestation - Attestation I have personally seen and examined this patient.: Yes I have fully participated in the care of the patient.: Yes I have reviewed all pertinent clinical information, including history, physical exam and plan: Yes Notes (Text): 06/09/17 19:47 Patient was seen and examined at 10:15 AM 06/09/17 Exam, assessment and plan were gone over with the resident Also on ROS Did not answer ROS questions at time of my exam Had bowel movement right before my exam as per FREIGHT ELEVATOR OPERATOR Also on Exam: CHAD wound vac on right pedal surface Assessments: 1). Endocarditis Confirmed with RAHEL on Mitral Valve Daptomycin 420 mg IV Q48H Blood Culture 06/02/17 Enterococcus Repeat Blood Cutlure 06/06/17 negative to date Speak with ID Dr. Myers for length of antibiotic: this is likely 6 weeks PICC line insertion has been ordered 2). Right Foot Ulcer Wound Culture showed MRSA and Beta Hemolytic Strep Group B Arterial Dopplers negative X Ray Right Foot shows prior 5th transmetatarsal amputation with NO periosteal elevation Multipodus Boot CHAD wound vac Zosyn 2.25 gm IV Q6H: speak with ID Dr. Myers for length of antibiotic Podiatry Dr. Song: confirm the length of CHAD wound vac and the follow up with Podiatry Team that will need to occur 3). Hx CAD/Systolic HF/CABG ASA 81 mg PO 1x/day Crestor 40 mg PO HS Zestril 10 mg PO 1x/day (on HOLD secondary to increased BUN/Cr) 4). Hx HTN Norvasc increased to 10 mg PO 1x/day due to elevated B/P Aldactone 25 mg PO 2x/day Zestril 10 mg PO 1x/day (on HOLD secondary to increased BUN/Cr) 5). Hx DM RISS ACHS 6). Hx Seizure Keppra 500 mg PO 2x/day 7). Hx CVA with Right Side Body Residual Deficit ASA, Crestor as above 8). Hx BPH Proscar 5 mg PO 1x/day 9). Hx Depression Lexapro 5 mg PO 1x/day 10). Elevated BUN/Cr Likely prerenal IVF 65 ml/hr started 06/08/17 and has normalized and we will continue for now and monitor respiratory exam Nephrology Dr. Maxwell 11). Low HgB/Hct This has been steadily decreasing F/U Stool Occult Blood ordered 06/09/17 Spoke with Paint Booth Operator Taty 06/09/17: patient has been accepted at [facility]. F/U with ID and Podiatry as mentioned above. Have PICC line placed and consent from family will be needed. Nestor Hauser D.O.
--- NOTE | 2017-06-09 17:33 | CP.PCM.PN ---
Subjective - Date & Time of Evaluation Date of Evaluation: 06/09/17 Time of Evaluation: 12:30 - Subjective Subjective: Podiatry Progress Note- Dr. Song 56 y.o male seen 4 days s/p debridement of necrotic ulceration right foot with application of Integra graft and wound vac. Patient is seen resting comfortably at bedside and in NAD. Dressing is c/d/i without strikethrough. Multipodus on bilateral LE. CHAD is turned on and displaying no errors. Pt denies and acute overnight events. Objective - Vital Signs/Intake and Output Vital Signs (last 24 hours): Temp Pulse Resp BP Pulse Ox 98.5 F 61 20 155/73 H 100 06/09/17 16:11 06/09/17 16:50 06/09/17 16:11 06/09/17 16:11 06/09/17 16:11 Intake and Output: 06/09/17 06/09/17 06:59 18:59 Intake Total 725 1000 Output Total 1150 550 Balance -425 450 - Medications Medications: Current Medications Acetaminophen (Tylenol 325mg Tab) 650 mg PO Q6 PRN PRN Reason: Pain, moderate (4-7) Last Admin: 06/09/17 13:19 Dose: 650 mg Amlodipine Besylate (Norvasc) 10 mg PO DAILY [facility] Aspirin (Aspirin Chewable) 81 mg PO DAILY [facility] Last Admin: 06/09/17 09:09 Dose: 81 mg Docusate Sodium (Colace) 100 mg PO TID [facility] Last Admin: 06/09/17 17:23 Dose: 100 mg Escitalopram Oxalate (Lexapro) 5 mg PO DAILY [facility] Last Admin: 06/09/17 10:05 Dose: 5 mg Finasteride (Proscar) 5 mg PO DAILY [facility] Last Admin: 06/09/17 10:05 Dose: 5 mg Folic Acid (Folic Acid) 1 mg PO DAILY [facility] Last Admin: 06/09/17 09:09 Dose: 1 mg Heparin Sodium (Porcine) (Heparin) 5,000 units SC Q8 [facility] Last Admin: 06/09/17 13:19 Dose: 5,000 units Hydralazine HCl (Apresoline) 10 mg PO Q8H PRN PRN Reason: Systolic Blood Pressure Piperacillin Sod/Tazobactam Sod (Zosyn 2.25 Gm Iv Premix) 2.25 gm in 50 mls @ 100 mls/hr IVPB Q6H [facility] Last Admin: 06/09/17 14:57 Dose: 100 mls/hr Daptomycin 420 mg/ Sodium (Chloride) 100 mls @ 100 mls/hr IV Q48H [facility] Last Admin: 06/08/17 14:29 Dose: 100 mls/hr Sodium Chloride (Sodium Chloride 0.9%) 1,000 mls @ 65 mls/hr IV .[id number] [facility] Last Admin: 06/09/17 09:07 Dose: 65 mls/hr Insulin Human Regular (Novolin R) 0 unit SC ACHS [facility] PRN Reason: Protocol Last Admin: 06/09/17 17:23 Dose: 6 unit Levetiracetam (Keppra) 500 mg PO BID [facility] Last Admin: 06/09/17 17:23 Dose: 500 mg Lisinopril (Zestril) 10 mg PO DAILY [facility] Last Admin: 06/08/17 10:30 Dose: Not Given Metoprolol Succinate (Toprol Xl) 25 mg PO DAILY [facility] Last Admin: 06/09/17 09:08 Dose: 25 mg Pantoprazole Sodium (Protonix Ec Tab) 40 mg PO DAILY [facility] Last Admin: 06/09/17 09:08 Dose: 40 mg Rosuvastatin Calcium (Crestor) 40 mg PO HS [facility] Last Admin: 06/07/17 22:20 Dose: 40 mg Saccharomyces Boulardii (Florastor) 250 mg PO DAILY [facility] Last Admin: 06/09/17 09:08 Dose: 250 mg Spironolactone (Aldactone) 25 mg PO BID [facility] Last Admin: 06/09/17 09:08 Dose: 25 mg - Labs Labs: 06/09/17 07:51 06/09/17 07:51 PT 11.9 SECONDS (9.7-12.2) 06/07/17 09:12 INR 1.0 06/07/17 09:12 APTT 33 SECONDS (21-34) 06/02/17 15:18 - Constitutional Appears: Well, Non-toxic, No Acute Distress - Extremities Exam Additional comments: RLE exam: CHAD vac contact dressing noted to be full/saturated with drainage- removed to evaluate wound site. VASC- pedal pulses palpable (DP/PT graded 2/4), skin temp runs warm to cool, cap refill is brisk to all digits, neg edema NEURO- gross and protective pedal sensation are intact DERM- graft seen intact to the central-lateral aspect of plantar right foot with mild sanguinous drainage. no local erythema, no ascending cellulitis, + malodor; graft seen intact to right posterior heel, sutures intact. Both graft sites are stably adhered to base, and showing incorporation and incorporated vascular budding. Absent signs of hematoma or seroma. Peripheral anchoring sutures are all intact. MSK: + POP to central aspect of wound, MMT 0/4 in all directions right lower extremity - Neurological Exam Neurological Exam: Alert, Awake - Psychiatric Exam Psychiatric exam: Normal Affect, Normal Mood Assessment and Plan - Assessment and Plan (Free Text) Assessment: 56 y.o male seen 4 day s/p debridement of necrotic ulceration right foot with application of Integra graft and wound vac to right foot ulceration Plan: Pt S&E at the bedside. Discussed with attending Dr. Song Chart, labs and vitals reviewed. wound cx + MRSA Grafts are clean and intact to the ulcerations on right foot. CHAD dressing changed and secured over grafts and turned on. Noted to have continuos delivery of NPWT, absent leaks. Followed by ever, luis, and light VERÓNICA. ID consulted (Dr. Myers): continue IV abx(Dapto and Vanco) noted PICC line ordered. c/w multipodus boot at all times right foot. Pt is stable for discharge to specialized nursing facility. Current wound vac dressing can remain inplace for up to 7 days( 06/16/17) or until saturated. Upon discharge, pt will follow up with Dr. Song in [facility] on Thursday after discharge. Will follow while inhouse.
[2017-06-09 18:43] LABS: CREATININE, RANDOM URINE 73.2 mg/dL
[2017-06-09 18:50] LABS: URINE CLARITY Clear (Clear); URINE COLOR YELLOW (YELLOW)
[2017-06-09 18:51] LABS: URINE BACTERIA RARE (<OCC); URINE BILIRUBIN NEGATIVE (NEGATIVE); URINE BLOOD 1+ (NEGATIVE); URINE GLUCOSE (UA) 3+ mg/dL (Normal); URINE LEUKOCYTE ESTERASE NEGATIVE Leu/uL (Negative); URINE NITRATE NEGATIVE (NEGATIVE); URINE PROTEIN 2+ mg/dL (NEGATIVE); URINE UROBILINOGEN Normal mg/dL (0.2-1.0)
--- NOTE | 2017-06-10 01:01 | CP.PCM.PN ---
Subjective - Date & Time of Evaluation Date of Evaluation: 06/09/17 Time of Evaluation: 11:00 - Subjective Subjective: status quo MS altered due to CVA Objective - Vital Signs/Intake and Output Vital Signs (last 24 hours): Temp Pulse Resp BP Pulse Ox 98.5 F 63 20 155/73 H 100 06/09/17 16:11 06/09/17 20:13 06/09/17 16:11 06/09/17 16:11 06/09/17 16:11 Intake and Output: 06/09/17 06/10/17 18:59 06:59 Intake Total 1000 1020 Output Total 550 Balance 450 1020 - Medications Medications: Current Medications Acetaminophen (Tylenol 325mg Tab) 650 mg PO Q6 PRN PRN Reason: Pain, moderate (4-7) Last Admin: 06/09/17 13:19 Dose: 650 mg Amlodipine Besylate (Norvasc) 10 mg PO DAILY [facility] Aspirin (Aspirin Chewable) 81 mg PO DAILY [facility] Last Admin: 06/09/17 09:09 Dose: 81 mg Docusate Sodium (Colace) 100 mg PO TID [facility] Last Admin: 06/09/17 17:23 Dose: 100 mg Escitalopram Oxalate (Lexapro) 5 mg PO DAILY [facility] Last Admin: 06/09/17 10:05 Dose: 5 mg Finasteride (Proscar) 5 mg PO DAILY [facility] Last Admin: 06/09/17 10:05 Dose: 5 mg Folic Acid (Folic Acid) 1 mg PO DAILY [facility] Last Admin: 06/09/17 09:09 Dose: 1 mg Heparin Sodium (Porcine) (Heparin) 5,000 units SC Q8 [facility] Last Admin: 06/09/17 22:01 Dose: 5,000 units Hydralazine HCl (Apresoline) 10 mg PO Q8H PRN PRN Reason: Systolic Blood Pressure Piperacillin Sod/Tazobactam Sod (Zosyn 2.25 Gm Iv Premix) 2.25 gm in 50 mls @ 100 mls/hr IVPB Q6H [facility] Last Admin: 06/09/17 20:02 Dose: 100 mls/hr Daptomycin 420 mg/ Sodium (Chloride) 100 mls @ 100 mls/hr IV Q48H [facility] Last Admin: 06/08/17 14:29 Dose: 100 mls/hr Sodium Chloride (Sodium Chloride 0.9%) 1,000 mls @ 65 mls/hr IV .[id number] [facility] Last Admin: 06/09/17 09:07 Dose: 65 mls/hr Insulin Human Regular (Novolin R) 0 unit SC ACHS [facility] PRN Reason: Protocol Last Admin: 06/09/17 21:35 Dose: Not Given Levetiracetam (Keppra) 500 mg PO BID [facility] Last Admin: 06/09/17 17:23 Dose: 500 mg Lisinopril (Zestril) 10 mg PO DAILY [facility] Last Admin: 06/08/17 10:30 Dose: Not Given Metoprolol Succinate (Toprol Xl) 25 mg PO DAILY [facility] Last Admin: 06/09/17 09:08 Dose: 25 mg Pantoprazole Sodium (Protonix Ec Tab) 40 mg PO DAILY [facility] Last Admin: 06/09/17 09:08 Dose: 40 mg Rosuvastatin Calcium (Crestor) 40 mg PO HS [facility] Last Admin: 06/07/17 22:20 Dose: 40 mg Saccharomyces Boulardii (Florastor) 250 mg PO DAILY [facility] Last Admin: 06/09/17 09:08 Dose: 250 mg Spironolactone (Aldactone) 25 mg PO BID [facility] Last Admin: 06/09/17 09:08 Dose: 25 mg - Labs Labs: 06/09/17 07:51 06/09/17 07:51 PT 11.9 SECONDS (9.7-12.2) 06/07/17 09:12 INR 1.0 06/07/17 09:12 APTT 33 SECONDS (21-34) 06/02/17 15:18 - Constitutional Appears: Non-toxic, Chronically Ill - Head Exam Head Exam: ATRAUMATIC, NORMOCEPHALIC - Eye Exam Eye Exam: EOMI, Normal appearance, PERRL - ENT Exam ENT Exam: Mucous Membranes Moist, Normal Exam - Neck Exam Neck Exam: Normal Inspection - Respiratory Exam Respiratory Exam: Rales, NORMAL BREATHING PATTERN - Cardiovascular Exam Cardiovascular Exam: REGULAR RHYTHM, +S1, +S2, Murmur - GI/Abdominal Exam GI & Abdominal Exam: Soft, Normal Bowel Sounds - Extremities Exam Extremities Exam: Normal Capillary Refill - Back Exam Back Exam: NORMAL INSPECTION - Neurological Exam Neurological Exam: Altered - Psychiatric Exam Psychiatric exam: Flat Affect - Skin Skin Exam: Dry Assessment and Plan (1) Endocarditis Status: Acute (2) Abnormal EKG Status: Acute (3) Foot ulcer Status: Acute (4) Hypertension Status: Acute (5) History of cerebrovascular accident (CVA) with residual deficit Status: Chronic (6) History of seizure Status: Chronic
[2017-06-10] MEDS: Piperacill/Tazo 2.25gm in Dex 2.25 GM/50 ML BAG IVPB SCH ×4 (02:23→21:22)
[2017-06-10] MEDS: Sodium Chloride 0.9% 1,000 ML IV SCH ×2 (02:25→15:59)
--- NOTE | 2017-06-10 02:43 | CON ---
DATE: LOCATION: [facility]. NEPHROLOGY CONSULTATION HISTORY OF PRESENT ILLNESS: This is a 56-year-old male with past medical history of hypertension, diabetes, hyperlipidemia, previous CVA with right-sided weakness, status post triple bypass surgery, seizure disorder, presented to ED with right foot ulcer; as part of infectious workup, the patient found to have mitral valve vegetation on transthoracic echo; the patient has been started on antibiotics; Nephrology now being consulted for acute kidney injury. The patient found to have blood culture positive with Enterococcus faecalis, sensitive to vancomycin; the patient's foot wound grew MRSA, as well as beta hemolytic Streptococcus; the patient had been started on vancomycin and Zosyn; vancomycin first given on 06/04/2017, subsequently held after vancomycin trough elevated to . Otherwise, history is difficult to obtain from the patient as the patient is for the most part nonverbal, but does reply to yes and no questions. PAST MEDICAL HISTORY: As above. SURGICAL HISTORY: Triple bypass at [place] in 2016, status post left temporoparietal craniectomy and duraplasty, status post PEG placement and removal, status post tracheostomy. SOCIAL HISTORY: Former smoker. REVIEW OF SYSTEMS: CONSTITUTIONAL: No recent fevers. Reportedly, has been eating per nursing staff. HEENT: The patient reportedly having cough. RESPIRATORY: No reported difficulty breathing. CARDIOVASCULAR: No chest pains. GASTROINTESTINAL: Tolerating diet. Has some loose stool earlier. GENITOURINARY: The patient is passing urine spontaneously. MUSCULOSKELETAL: No complaint of any pain. PSYCHIATRIC: History of depression. SKIN: Right foot ulcer. PHYSICAL EXAMINATION: VITAL SIGNS: This morning, blood pressure 154/71, heart rate 79, respirations 20, temperature 97.9, and O2 saturation 100% via nasal cannula. GENERAL: No distress, lying comfortably in bed. HEENT: Moist mucous membranes, nonicteric. NECK: No cervical lymphadenopathy. RESPIRATORY: Lungs are clear to auscultation bilaterally. No rales. No rhonchi. No wheezes. CARDIOVASCULAR: Heart sounds S1 and S2 normal. No murmurs. No gallops. No rubs. GASTROINTESTINAL: Abdomen soft, nontender, nondistended. GENITOURINARY: No bladder distention. EXTREMITIES: No leg edema. PSYCHIATRIC: Not agitated. SKIN: Warm. No cyanosis. LABORATORY DATA: Labs this morning, CBC: WBC 6.7, hemoglobin 8.8, hematocrit 25.2, platelets 166. Chemistry panel: Sodium 136, potassium 4.6, chloride 102, bicarb 26, BUN 19, creatinine 1.5 improved from 1.9 yesterday. Glucose 242, calcium 7.8, phosphorus 3.2, magnesium 1.8, AST 26, ALT 38, albumin 3.1. UA from last year showing 2+ proteinuria. Renal ultrasound from 2013 showing kidneys with relatively normal echogenicity. ASSESSMENT AND PLAN: 1. Acute kidney disease on chronic kidney disease. The patient's renal function did improve after starting IV fluids and holding lisinopril; cannot rule out some component of acute tubular necrosis due to vancomycin toxicity in the setting of mildly elevated trough level. Otherwise, stable electrolyte and volume status. Continue NS at 65 mL per hour. 2. Chronic kidney disease. The patient with mild renal insufficiency and baseline creatinine about 1.1, but consistently with proteinuria on dipstick; likely due to diabetic nephropathy, but we will obtain limited workup to look for other possible causes. Obtaining hepatitis B and C serologies, HIV serologies, C3, C4, and finally checking random urine for protein, microalbumin and creatinine. 3. Hypertension. Blood pressure mildly elevated today. Currently, the patient is on Toprol 25 mg daily, hydralazine p.r.n., amlodipine just started today 10 mg daily. Should consider to hold spironolactone as we are giving IV fluids. Can restart lisinopril once renal function has returned to baseline. 4. Anemia. Hemoglobin dropping slowly, should check iron studies. 5. Endocarditis. The patient is currently on Zosyn, dose for creatinine clearance less than 40; may need to adjust dose once renal function improves close to the baseline. The patient is also receiving daptomycin, dose for renal insufficiency; may need to dose daily once renal function improves. Thank you for this referral. We will be following up closely. Aleksey Maxwell MD
--- NOTE | 2017-06-10 04:48 | OP ---
PROCEDURE DATE: 06/05/2017. PREOPERATIVE DIAGNOSES: 1. Full-thickness ulceration of plantar lateral foot, right. 2. Deep tissue injury of posterior heel, right foot. POSTOPERATIVE DIAGNOSES: 1. Full-thickness ulceration of plantar lateral foot, right. 2. Deep tissue injury of posterior heel, right foot. PROCEDURES: 1. Full-thickness debridement of necrotic ulceration, plantar lateral aspect of right foot. 2. Debridement of deep tissue injury of posterior heel, right foot. SURGEON: Annette Song DPM ASSISTANTS: 1. Lisbeth Kraus DPM, PGY2. 2. Tiffanie Padilla DPM, PGY1. TYPE OF ANESTHESIA: Local. GLOBAL CONSUMER SECTOR VICE PRESIDENT: Dr. Otto Garnica (Monitoring only). INDICATIONS: The patient is a 56-year-old male with a past history of a CVA with secondary right -sided hemiparesis and aphasia. Of note, the patient was recently hospitalized due to a new-onset pressure ulceration that formed under the posterior lateral aspect of his right foot. The patient is accompanied by his Taty, who is his healthcare proxy and is present at the time of the preoperative assessment. The patient requires surgical intervention at this time. All risks, benefits, and possible complications to the proposed procedure have been explained to the patient and the patient's Taty at length. The patient's Taty verbalized understanding and wishes to proceed with the procedure. All questions were answered, no guarantees were given nor implied. Consent was signed by the patient's and n.p.o. was confirmed prior to bringing the patient into the operating room. OPERATIVE PROCEDURE: The patient was brought into the operating room and placed on the operating room table in a supine position. No pneumatic ankle tourniquet or hemostasis was used for this procedure. Next, a local injection consisting of 1:1 mixture of 30 mL of 0.5% Marcaine plain with 2% lidocaine plain was introduced via a posterior tibial nerve block and a plantar block in the patient's right foot. Once local anesthesia was achieved, the foot was then prepped and draped in the usual sterile manner and the procedure was begun. 1. Debridement of plantar lateral ulceration of right foot with application of graft and wound VAC. At this time, our attention was directed to the plantar lateral aspect of the patient's right midfoot, where a necrotic ulceration was noted. The ulceration had a necrotic central aspect, which measured approximately 12.0 x 3.0 cm. Of note, the ulceration was surrounded by a combination of macerated and hyperkeratotic skin. The wound did not probe to bone at this time. There was no fluctuance. There was no erythema and no clinical signs of infection. At this time, using a #15 blade, the necrotic eschar was excisionally debrided from the right central lateral foot and was packed from the operative field. At this time, the central aspect of the wound bed did appear to be a mixture of fibrogranular tissue with negative probe to bone. At this time, the wound border was then excisionally debrided with a new #15 blade. All nonviable tissue was passed from the operative field at this time. Next, using the Versajet system, the wound bed was then sharply debrided of all the remaining nonviable fibrotic tissue. At this time, post debridement, the wound bed did appear to be 100% granular in nature, measuring the following dimensions, it is a 6.0 cm x 4.0 cm x 0.4 cm. At this time, the INTEGRA bilayer graft was then soaked in saline and then applied to the wound bed. Using #3-0 nylon suture, the graft was then adhered to the wound bed using simple suture technique. 2. Debridement of deep tissue injury/ulceration of posterior heel, right foot. At this time, there did appear to be a deep tissue injury noted to the posterior proximal aspect of the patient's right heel. Using a fresh #15 blade, the ulceration was then excisionally debrided of all necrotic and nonviable tissue, which was then passed from the operative field. Following debridement, the wound dimensions measured of 3.0 x 1.0 x 0.4 cm. The wound did appear to be 100% granular at its base post debridement with negative probe to bone, negative malodor, and negative signs of infection. At this time, the CHAD wound VAC dressing was then applied over the ulceration site running from proximal to distal. Next, copious amounts of gauze, ABDs, and Kerlix were applied as the next layer of dressing. Next, an Otto bandage was applied loosely to give light compression. It should be noted that the wound VAC at this time will remain off until the dressing change when the patient returns to the floor the following morning. POSTOPERATIVE CONDITION: The patient tolerated the procedure and local anesthesia well with no apparent complications or complaint. The patient was escorted from the OR to the recovery room with vital signs stable and neurovascular structures intact to the right foot. The patient will continue to be followed on the floor by the Podiatry Service and will follow up at the [facility] with Dr. Song as an outpatient. Lisbeth Kraus DPM Annette Song DPM [email or web address]
[2017-06-10 07:44] LABS: BASO % 0.7 % (0.0-2.0); EOS # 0.4 K/uL (0.0-0.7); EOS % 5.8 % (0.0-4.0); HEMOGLOBIN 9.3 g/dL (12.0-18.0); LYMPH # 1.5 K/uL (1.0-4.3); LYMPH % 22.3 % (20.0-40.0); MEAN CORPUSCULAR HEMOGLOBIN 31.8 pg (27.0-31.0); MEAN PLATELET VOLUME 9.7 fL (7.2-11.7); MONO # 0.4 K/uL (0.0-0.8); MONO % 6.9 % (0.0-10.0); NEUT # 4.2 K/uL (1.8-7.0); NEUT % 64.3 % (50.0-75.0); RBC 2.94 Mil/uL (4.40-5.90); RED CELL DISTRIBUTION WIDTH 12.8 % (11.5-14.5); WHITE BLOOD COUNT 6.5 K/uL (4.8-10.8)
[2017-06-10 08:05] LABS: ALB/GLOB RATIO 1.2 (1.0-2.1); ALBUMIN 3.3 g/dL (3.5-5.0); ALT/SGPT 43 U/L (21-72); AST/SGOT 25 U/L (17-59); BLOOD UREA NITROGEN 15 mg/dL (9-20); CALCIUM 8.3 mg/dl (8.6-10.4); GFR AFRICAN-AMERICAN 58; GFR NON-AFRICAN AMERICAN 48; MAGNESIUM 1.7 mg/dL (1.6-2.3)
[2017-06-10] MEDS: (Novolin R) Insulin Human Regular 100 units/ml vial SC SCH ×4 (08:20→22:06)
[2017-06-10 08:46] LABS: HEPATITIS B SURFACE AG Negative (NEGATIVE)
[2017-06-10] MEDS: Metoprolol Succinate 25 mg XL Tab PO SCH (10:09)
[2017-06-10] MEDS: Saccharomyces Boulardi 250 mg Cap PO SCH (10:09)
[2017-06-10] MEDS: Pantoprazole 40 mg EC Tab PO SCH (10:09)
--- NOTE | 2017-06-10 10:42 | RAD ---
HISTORY: verify left PICC COMPARISON: 06/02/2017. FINDINGS: The left PICC line terminates in the SVC. LUNGS: The lungs are well inflated and clear. PLEURA: No significant pleural effusion identified, no pneumothorax apparent. CARDIOVASCULAR: There is persistent cardiomegaly. Status post CABG. OSSEOUS STRUCTURES: No significant abnormalities. VISUALIZED UPPER ABDOMEN: Normal. OTHER FINDINGS: None. IMPRESSION: Left PICC line terminates in the SVC. No pneumothorax. No active pulmonary disease.
--- NOTE | 2017-06-10 18:36 | CP.PCM.PN ---
<Iwona Nieto - Last Filed: 06/10/17 18:33> Subjective - Date & Time of Evaluation Date of Evaluation: 06/10/17 Time of Evaluation: 07:00 - Subjective Subjective: Medicine Progress Note: Patient was sen and examined at bedside in the AM. ROS of systems not obtained because patient is not completely verbal and oriented due to CVA in 2016. Objective - Vital Signs/Intake and Output Vital Signs (last 24 hours): Temp Pulse Resp BP Pulse Ox 98.0 F 62 20 149/70 99 06/10/17 16:55 06/10/17 16:55 06/10/17 16:55 06/10/17 16:55 06/10/17 16:55 Intake and Output: 06/10/17 06/10/17 06:59 18:59 Intake Total 1540 200 Output Total 700 Balance 1540 -500 - Medications Medications: Current Medications Acetaminophen (Tylenol 325mg Tab) 650 mg PO Q6 PRN PRN Reason: Pain, moderate (4-7) Last Admin: 06/09/17 13:19 Dose: 650 mg Amlodipine Besylate (Norvasc) 10 mg PO DAILY [facility] Last Admin: 06/10/17 10:09 Dose: 10 mg Aspirin (Aspirin Chewable) 81 mg PO DAILY [facility] Last Admin: 06/10/17 10:09 Dose: 81 mg Docusate Sodium (Colace) 100 mg PO TID [facility] Last Admin: 06/10/17 18:07 Dose: 100 mg Escitalopram Oxalate (Lexapro) 5 mg PO DAILY [facility] Last Admin: 06/10/17 10:08 Dose: 5 mg Finasteride (Proscar) 5 mg PO DAILY [facility] Last Admin: 06/10/17 10:08 Dose: 5 mg Folic Acid (Folic Acid) 1 mg PO DAILY [facility] Last Admin: 06/10/17 10:09 Dose: 1 mg Heparin Sodium (Porcine) (Heparin) 5,000 units SC Q8 [facility] Last Admin: 06/10/17 13:33 Dose: 5,000 units Hydralazine HCl (Apresoline) 10 mg PO Q8H PRN PRN Reason: Systolic Blood Pressure Piperacillin Sod/Tazobactam Sod (Zosyn 2.25 Gm Iv Premix) 2.25 gm in 50 mls @ 100 mls/hr IVPB Q6H [facility] Last Admin: 06/10/17 14:51 Dose: 100 mls/hr Daptomycin 420 mg/ Sodium (Chloride) 100 mls @ 100 mls/hr IV Q48H [facility] Last Admin: 06/10/17 13:33 Dose: 100 mls/hr Sodium Chloride (Sodium Chloride 0.9%) 1,000 mls @ 40 mls/hr IV .Q24H [facility] Last Admin: 06/10/17 15:59 Dose: 40 mls/hr Insulin Human Regular (Novolin R) 0 unit SC ACHS [facility] PRN Reason: Protocol Last Admin: 06/10/17 17:20 Dose: 3 unit Levetiracetam (Keppra) 500 mg PO BID [facility] Last Admin: 06/10/17 18:07 Dose: 500 mg Lisinopril (Zestril) 10 mg PO DAILY [facility] Last Admin: 06/08/17 10:30 Dose: Not Given Metformin HCl (Glucophage) 500 mg PO BID [facility] Last Admin: 06/10/17 18:07 Dose: 500 mg Metoprolol Succinate (Toprol Xl) 25 mg PO DAILY [facility] Last Admin: 06/10/17 10:09 Dose: 25 mg Pantoprazole Sodium (Protonix Ec Tab) 40 mg PO DAILY [facility] Last Admin: 06/10/17 10:09 Dose: 40 mg Rosuvastatin Calcium (Crestor) 40 mg PO HS [facility] Last Admin: 06/07/17 22:20 Dose: 40 mg Saccharomyces Boulardii (Florastor) 250 mg PO DAILY [facility] Last Admin: 06/10/17 10:09 Dose: 250 mg - Labs Labs: 06/10/17 07:20 06/10/17 07:20 PT 11.9 SECONDS (9.7-12.2) 06/07/17 09:12 INR 1.0 06/07/17 09:12 APTT 33 SECONDS (21-34) 06/02/17 15:18 - Constitutional Appears: No Acute Distress, Chronically Ill - Head Exam Head Exam: NORMAL INSPECTION - Eye Exam Eye Exam: EOMI, Normal appearance - ENT Exam ENT Exam: Mucous Membranes Moist - Respiratory Exam Respiratory Exam: Clear to Ausculation Bilateral, NORMAL BREATHING PATTERN - Cardiovascular Exam Cardiovascular Exam: REGULAR RHYTHM, +S1, +S2 - GI/Abdominal Exam GI & Abdominal Exam: Soft, Normal Bowel Sounds. absent: Tenderness - Extremities Exam Additional comments: PICC line in pace in left arm Right lower extremity wrapped in gauze and boot in place, dressing clean, dry, intact Left lower extremity boot in place - Neurological Exam Neurological Exam: Alert, Awake - Psychiatric Exam Psychiatric exam: Normal Affect - Skin Skin Exam: Dry, Intact, Normal Color, Warm Additional comments: Complete skin exam was done - no ulcers seen on bony prominences Assessment and Plan - Assessment and Plan (Free Text) Assessment: 1.) Right foot ulcer - Cardiology Consult: Dr. Rosen --> appreciated for Cardiac clearance for surgery - per cardiology note: Patient is clear from cardiology standpoint for surgery under LOCAL anesthesia - Podiatry Consult: Dr. Song --> help appreciated - Blister drained by podiatry in ED - s/p surgery (06/05/17): debridement of necrotic ulceration right foot with application of Integra graft and wound vac - spoke with podiatry resident Dr. Valeria Donovan: Upon discharge, pt will follow up with Dr. Song in [facility] on Thursday after discharge. Current wound vac dressing can remain in place for up to 7 days or until saturated. - Medications: * Zosyn 2.25gm IV Q6h (started on 06/02/17) will follow up with Dr. Myers in regards to antibiotic * Florastor 250mg PO BID * Tylenol 650mg PO Q6h prn for pain - Blood culture: no growth - preliminary - Right Wound culture: MRSA + - Images: * Right foot xray: Prior 5th transmetatarsal amputation. No demonstrated acute fracture no evidence of periosteal reaction. * Venous dopplers: No evidence of DVT of the right lower extremity with excellent venous flow. Normal valve function noted of the right side. Normal venous flow noted in the left common femoral vein. * Arterial duplex: There is no evidence of hemo-dynamically significant arterial insufficiency in the right lower extremity. Arterial wall calcification is noted throughout the right lower extremity. 2.) Infective Endocarditis Cardiology Consult: Dr. Rosen --> recommendations appreciated - Echo (06/04/17) results showed 1cm density on the posterior leaflet of the mitral valve, atrial aspect. Fixed on the leaflet highly suggestive for vegetations. EF 55-60%. - f/u official report of [facility] (06/08/17): per resident Dr. Garcia patient has an 8x8mm vegetation on the mitral valve ID Consult: Dr. Myers --> recommendations appreciated - Daptomycin 420mg (06/08/17) q48h - Vancomycin MWF with dialysis - PICC line placed in left arm 06/10/17 3.) Abnormal EKG History of triple bypass - Cardiology Consult: Dr. Rosen --> help appreciated appreciated - Echo (06/04/17) results showed 1cm density on the posterior leaflet of the mitral valve, atrial aspect. Fixed on the leaflet highly suggestive for vegetations. EF 55-60%. 4.) Hypertension - uncontrolled - Norvasc 10mg po daily - Metoprolol Succinate 25mg PO daily - Hydralazine 10mg po q8h prn >180 systolic bp - Lisinopril 10mg po daily - Continue to monitor 5.) Diabetes - ISS - Accuchecks - Hemoglobin A1c: 8.6 - Lipid panel: Triglycerides 219; Total Cholesterol 112; LDL 46; HDL 34 - Metformin 500mg bid po daily - Hypoglycemic protocol 6.) CARLOS - secondary to antibiotics - Lightly hydrate with N/S @ 40cc/hr 7.) History of seizure - Keppra 500mg PO BID - Seizure precautions 8.) History of cerebrovascular accident (CVA) with residual deficit History of CVA with right sided weakness - Aspirin 81mg po daily - Atorvastatin 40mg PO HS 9.) Benign prostatic hyperplasia - Finasteride 5mg PO daily 10.) Depression - Lexapro 5mg PO daily 11.) Prophylactic measure - Heparin 5000sc Q8h - Protonix 40mg PO daily - PT eval and treat - OT eval and treat Family meeting 06/08/17 per palliative nurse Tabitha: Patient is Full Code. Disposition: Discharge planning to LTAC pending approval Case discussed with Dr. Murtaza Nieto PGY-1 <Nestor Hauser - Last Filed: 06/10/17 19:51> Objective - Vital Signs/Intake and Output Vital Signs (last 24 hours): Temp Pulse Resp BP Pulse Ox 98.0 F 62 20 149/70 99 06/10/17 16:55 06/10/17 16:55 06/10/17 16:55 06/10/17 16:55 06/10/17 16:55 Intake and Output: 06/10/17 06/11/17 18:59 06:59 Intake Total 200 Output Total 700 Balance -500 - Medications Medications: Current Medications Acetaminophen (Tylenol 325mg Tab) 650 mg PO Q6 PRN PRN Reason: Pain, moderate (4-7) Last Admin: 06/09/17 13:19 Dose: 650 mg Amlodipine Besylate (Norvasc) 10 mg PO DAILY [facility] Last Admin: 06/10/17 10:09 Dose: 10 mg Aspirin (Aspirin Chewable) 81 mg PO DAILY [facility] Last Admin: 06/10/17 10:09 Dose: 81 mg Docusate Sodium (Colace) 100 mg PO TID [facility] Last Admin: 06/10/17 18:07 Dose: 100 mg Escitalopram Oxalate (Lexapro) 5 mg PO DAILY [facility] Last Admin: 06/10/17 10:08 Dose: 5 mg Finasteride (Proscar) 5 mg PO DAILY [facility] Last Admin: 06/10/17 10:08 Dose: 5 mg Folic Acid (Folic Acid) 1 mg PO DAILY [facility] Last Admin: 06/10/17 10:09 Dose: 1 mg Heparin Sodium (Porcine) (Heparin) 5,000 units SC Q8 [facility] Last Admin: 06/10/17 13:33 Dose: 5,000 units Hydralazine HCl (Apresoline) 10 mg PO Q8H PRN PRN Reason: Systolic Blood Pressure Piperacillin Sod/Tazobactam Sod (Zosyn 2.25 Gm Iv Premix) 2.25 gm in 50 mls @ 100 mls/hr IVPB Q6H [facility] Last Admin: 06/10/17 14:51 Dose: 100 mls/hr Daptomycin 420 mg/ Sodium (Chloride) 100 mls @ 100 mls/hr IV Q48H [facility] Last Admin: 06/10/17 13:33 Dose: 100 mls/hr Sodium Chloride (Sodium Chloride 0.9%) 1,000 mls @ 40 mls/hr IV .Q24H [facility] Last Admin: 06/10/17 15:59 Dose: 40 mls/hr Insulin Human Regular (Novolin R) 0 unit SC ACHS [facility] PRN Reason: Protocol Last Admin: 06/10/17 17:20 Dose: 3 unit Levetiracetam (Keppra) 500 mg PO BID [facility] Last Admin: 06/10/17 18:07 Dose: 500 mg Lisinopril (Zestril) 10 mg PO DAILY [facility] Last Admin: 06/08/17 10:30 Dose: Not Given Metformin HCl (Glucophage) 500 mg PO BID [facility] Last Admin: 06/10/17 18:07 Dose: 500 mg Metoprolol Succinate (Toprol Xl) 25 mg PO DAILY [facility] Last Admin: 06/10/17 10:09 Dose: 25 mg Pantoprazole Sodium (Protonix Ec Tab) 40 mg PO DAILY [facility] Last Admin: 06/10/17 10:09 Dose: 40 mg Rosuvastatin Calcium (Crestor) 40 mg PO HS [facility] Last Admin: 06/07/17 22:20 Dose: 40 mg Saccharomyces Boulardii (Florastor) 250 mg PO DAILY [facility] Last Admin: 06/10/17 10:09 Dose: 250 mg - Labs Labs: 06/10/17 07:20 06/10/17 07:20 PT 11.9 SECONDS (9.7-12.2) 06/07/17 09:12 INR 1.0 06/07/17 09:12 APTT 33 SECONDS (21-34) 06/02/17 15:18 Attending/Attestation - Attestation I have personally seen and examined this patient.: Yes I have fully participated in the care of the patient.: Yes I have reviewed all pertinent clinical information, including history, physical exam and plan: Yes Notes (Text): 06/10/17 19:40 Patient was seen and examined with resident 06/10/17 Exam, assessment and plan were gone over with the resident Also on ROS Did not answer ROS questions at time of my exam He is having bowel movements Also on Exam: CHAD wound vac on right pedal surface Assessments: 1). Endocarditis Confirmed with RAHEL on Mitral Valve Daptomycin 420 mg IV Q48H Blood Culture 06/02/17 Enterococcus Repeat Blood Cutlure 06/06/17 negative to date Speak with ID Dr. Myers for length of antibiotic: this is likely 6 weeks Left Arm PICC placed 06/10/17 2). Right Foot Ulcer s/p debridement with application of Integra graft and CHAD Wound Vac 06/06/17 Wound Culture showed MRSA and Beta Hemolytic Strep Group B Arterial Dopplers negative X Ray Right Foot shows prior 5th transmetatarsal amputation with NO periosteal elevation Multipodus Boot CHAD wound vac Zosyn 2.25 gm IV Q6H Podiatry Dr. Song: Current wound vac dressing can remain in place for up to 7 days( 06/16/17) or until saturated. Upon discharge, patient will follow up with Dr. Song in [facility] on Thursday after discharge. 3). Hx CAD/Systolic HF/CABG ASA 81 mg PO 1x/day Crestor 40 mg PO HS Zestril 10 mg PO 1x/day (on HOLD secondary to increased BUN/Cr) 4). Hx HTN Norvasc 10 mg PO 1x/day Zestril 10 mg PO 1x/day Metoprolol Succinate 25 mg PO 1x/day 5). Hx DM RISS ACHS Metformin 500 mg PO 2x/day 6). Hx Seizure Keppra 500 mg PO 2x/day 7). Hx CVA with Right Side Body Residual Deficit ASA, Crestor as above 8). Hx BPH Proscar 5 mg PO 1x/day 9). Hx Depression Lexapro 5 mg PO 1x/day 10). Elevated BUN/Cr Likely prerenal IVF 40 ml/hr continued due to patient likely not taking in enough fluids and because of the Zosyn and Daptomycin Nephrology Dr. Maxwell 11). Low HgB/Hct Has not stablized Stool Occult Blood ordered 06/09/17 is negative Spoke with [employer] Gurpreet: patient was denied at [facility] and she is working on sending patient to LTAC F/U with ID Dr. Myers: Daptomycin can be used to treat both the Left Endocarditis and the MRSA in the Right Foot Ulcer. Can we discontinue the Zosyn as the MRSA is resistant to PCN? Nestor Hauser D.O.
--- NOTE | 2017-06-10 19:05 | CP.PCM.PN ---
Subjective - Date & Time of Evaluation Date of Evaluation: 06/10/17 Time of Evaluation: 12:00 - Subjective Subjective: Patient reportedly tolerating diet well; Objective - Vital Signs/Intake and Output Vital Signs (last 24 hours): Temp Pulse Resp BP Pulse Ox 98.0 F 62 20 149/70 99 06/10/17 16:55 06/10/17 16:55 06/10/17 16:55 06/10/17 16:55 06/10/17 16:55 Intake and Output: 06/10/17 06/11/17 18:59 06:59 Intake Total 200 Output Total 700 Balance -500 - Medications Medications: Current Medications Acetaminophen (Tylenol 325mg Tab) 650 mg PO Q6 PRN PRN Reason: Pain, moderate (4-7) Last Admin: 06/09/17 13:19 Dose: 650 mg Amlodipine Besylate (Norvasc) 10 mg PO DAILY [facility] Last Admin: 06/10/17 10:09 Dose: 10 mg Aspirin (Aspirin Chewable) 81 mg PO DAILY [facility] Last Admin: 06/10/17 10:09 Dose: 81 mg Docusate Sodium (Colace) 100 mg PO TID [facility] Last Admin: 06/10/17 18:07 Dose: 100 mg Escitalopram Oxalate (Lexapro) 5 mg PO DAILY [facility] Last Admin: 06/10/17 10:08 Dose: 5 mg Finasteride (Proscar) 5 mg PO DAILY [facility] Last Admin: 06/10/17 10:08 Dose: 5 mg Folic Acid (Folic Acid) 1 mg PO DAILY [facility] Last Admin: 06/10/17 10:09 Dose: 1 mg Heparin Sodium (Porcine) (Heparin) 5,000 units SC Q8 [facility] Last Admin: 06/10/17 13:33 Dose: 5,000 units Hydralazine HCl (Apresoline) 10 mg PO Q8H PRN PRN Reason: Systolic Blood Pressure Piperacillin Sod/Tazobactam Sod (Zosyn 2.25 Gm Iv Premix) 2.25 gm in 50 mls @ 100 mls/hr IVPB Q6H [facility] Last Admin: 06/10/17 14:51 Dose: 100 mls/hr Daptomycin 420 mg/ Sodium (Chloride) 100 mls @ 100 mls/hr IV Q48H [facility] Last Admin: 06/10/17 13:33 Dose: 100 mls/hr Sodium Chloride (Sodium Chloride 0.9%) 1,000 mls @ 40 mls/hr IV .Q24H [facility] Last Admin: 06/10/17 15:59 Dose: 40 mls/hr Insulin Human Regular (Novolin R) 0 unit SC ACHS [facility] PRN Reason: Protocol Last Admin: 06/10/17 17:20 Dose: 3 unit Levetiracetam (Keppra) 500 mg PO BID [facility] Last Admin: 06/10/17 18:07 Dose: 500 mg Lisinopril (Zestril) 10 mg PO DAILY [facility] Last Admin: 06/08/17 10:30 Dose: Not Given Metformin HCl (Glucophage) 500 mg PO BID [facility] Last Admin: 06/10/17 18:07 Dose: 500 mg Metoprolol Succinate (Toprol Xl) 25 mg PO DAILY [facility] Last Admin: 06/10/17 10:09 Dose: 25 mg Pantoprazole Sodium (Protonix Ec Tab) 40 mg PO DAILY [facility] Last Admin: 06/10/17 10:09 Dose: 40 mg Rosuvastatin Calcium (Crestor) 40 mg PO HS [facility] Last Admin: 06/07/17 22:20 Dose: 40 mg Saccharomyces Boulardii (Florastor) 250 mg PO DAILY [facility] Last Admin: 06/10/17 10:09 Dose: 250 mg - Labs Labs: 06/10/17 07:20 06/10/17 07:20 PT 11.9 SECONDS (9.7-12.2) 06/07/17 09:12 INR 1.0 06/07/17 09:12 APTT 33 SECONDS (21-34) 06/02/17 15:18 - Constitutional Appears: Non-toxic, No Acute Distress - Eye Exam Eye Exam: absent: Scleral icterus - ENT Exam ENT Exam: Mucous Membranes Moist - Respiratory Exam Respiratory Exam: Clear to Ausculation Bilateral. absent: Respiratory Distress - Cardiovascular Exam Cardiovascular Exam: RRR, +S1, +S2 - GI/Abdominal Exam GI & Abdominal Exam: Soft. absent: Distended, Tenderness - Extremities Exam Additional comments: no leg edema; - Neurological Exam Neurological Exam: Alert, Awake - Psychiatric Exam Psychiatric exam: absent: Agitated - Skin Skin Exam: Warm. absent: Cyanosis Assessment and Plan (1) CARLOS (acute kidney injury) Assessment & Plan: Improved though not back to baseline despite continuing IVF; suspect some degree of ATN due to high vanco trough; ok to continue maintenance IVF w/ NS at 40 cc/hr; Status: Acute (2) Endocarditis Assessment & Plan: eGFR now > 40 ml/min, should increase frequency of dapto to daily and zosyn to 3.375g q6h; Status: Acute (3) CKD (chronic kidney disease) Assessment & Plan: 1.5 g proteinuria by spot ratio; should continue with lisinopril for anti- proteinuric effect; Status: Acute (4) Hypertension Assessment & Plan: BP elevated; 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
--- NOTE | 2017-06-10 20:19 | CP.PCM.PN ---
Subjective - Date & Time of Evaluation Date of Evaluation: 06/10/17 Time of Evaluation: 12:00 - Subjective Subjective: Podiatry Progress Note- Dr. Song 56 y/o male seen 5 days s/p debridement of necrotic ulceration right foot with application of Integra graft and wound vac. Patient is seen resting comfortably at bedside and in NAD. Patient is not completely verbal and oriented. Dressing is c/d/i without strikethrough. Multipodus on bilateral LE. CHAD is turned on and displaying no errors. Pt denies and acute overnight events. Objective - Vital Signs/Intake and Output Vital Signs (last 24 hours): Temp Pulse Resp BP Pulse Ox 98.0 F 62 20 149/70 99 06/10/17 16:55 06/10/17 16:55 06/10/17 16:55 06/10/17 16:55 06/10/17 16:55 Intake and Output: 06/10/17 06/11/17 18:59 06:59 Intake Total 200 Output Total 700 Balance -500 - Medications Medications: Current Medications Acetaminophen (Tylenol 325mg Tab) 650 mg PO Q6 PRN PRN Reason: Pain, moderate (4-7) Last Admin: 06/09/17 13:19 Dose: 650 mg Amlodipine Besylate (Norvasc) 10 mg PO DAILY [facility] Last Admin: 06/10/17 10:09 Dose: 10 mg Aspirin (Aspirin Chewable) 81 mg PO DAILY [facility] Last Admin: 06/10/17 10:09 Dose: 81 mg Docusate Sodium (Colace) 100 mg PO TID [facility] Last Admin: 06/10/17 18:07 Dose: 100 mg Escitalopram Oxalate (Lexapro) 5 mg PO DAILY [facility] Last Admin: 06/10/17 10:08 Dose: 5 mg Finasteride (Proscar) 5 mg PO DAILY [facility] Last Admin: 06/10/17 10:08 Dose: 5 mg Folic Acid (Folic Acid) 1 mg PO DAILY [facility] Last Admin: 06/10/17 10:09 Dose: 1 mg Heparin Sodium (Porcine) (Heparin) 5,000 units SC Q8 [facility] Last Admin: 06/10/17 13:33 Dose: 5,000 units Hydralazine HCl (Apresoline) 10 mg PO Q8H PRN PRN Reason: Systolic Blood Pressure Piperacillin Sod/Tazobactam Sod (Zosyn 2.25 Gm Iv Premix) 2.25 gm in 50 mls @ 100 mls/hr IVPB Q6H [facility] Last Admin: 06/10/17 14:51 Dose: 100 mls/hr Daptomycin 420 mg/ Sodium (Chloride) 100 mls @ 100 mls/hr IV Q48H [facility] Last Admin: 06/10/17 13:33 Dose: 100 mls/hr Sodium Chloride (Sodium Chloride 0.9%) 1,000 mls @ 40 mls/hr IV .Q24H [facility] Last Admin: 06/10/17 15:59 Dose: 40 mls/hr Insulin Human Regular (Novolin R) 0 unit SC ACHS [facility] PRN Reason: Protocol Last Admin: 06/10/17 17:20 Dose: 3 unit Levetiracetam (Keppra) 500 mg PO BID [facility] Last Admin: 06/10/17 18:07 Dose: 500 mg Lisinopril (Zestril) 10 mg PO DAILY [facility] Last Admin: 06/08/17 10:30 Dose: Not Given Metformin HCl (Glucophage) 500 mg PO BID [facility] Last Admin: 06/10/17 18:07 Dose: 500 mg Metoprolol Succinate (Toprol Xl) 25 mg PO DAILY [facility] Last Admin: 06/10/17 10:09 Dose: 25 mg Pantoprazole Sodium (Protonix Ec Tab) 40 mg PO DAILY [facility] Last Admin: 06/10/17 10:09 Dose: 40 mg Rosuvastatin Calcium (Crestor) 40 mg PO HS [facility] Last Admin: 06/07/17 22:20 Dose: 40 mg Saccharomyces Boulardii (Florastor) 250 mg PO DAILY [facility] Last Admin: 06/10/17 10:09 Dose: 250 mg - Labs Labs: 06/10/17 07:20 06/10/17 07:20 PT 11.9 SECONDS (9.7-12.2) 06/07/17 09:12 INR 1.0 06/07/17 09:12 APTT 33 SECONDS (21-34) 06/02/17 15:18 - Constitutional Appears: Well, Non-toxic, No Acute Distress - Extremities Exam Additional comments: Dressing is c/d/i with no strikethrough CHAD wound vac is adhere to the skin with no leakage detected CHAD is turned on and continously running - Neurological Exam Neurological Exam: Alert, Awake Assessment and Plan - Assessment and Plan (Free Text) Assessment: 56 y.o male seen 5 days s/p debridement of necrotic ulceration right foot with application of Integra graft and wound vac to right foot ulceration (DOS 06/05/17) . Plan: Wellness check performed. Plan discussed with attending DR. Song Chart, labs and vitals reviewed CHAD to remain in place. Pt is stable for discharge to specialized nursing facility. Current wound vac dressing can remain inplace for up to 7 days( 06/16/17) or until saturated. Upon discharge, pt will follow up with Dr. Song in [facility] on Thursday after discharge. PICC line in place. Continue IV abx per Dr. Myers-(Dapto and Vanco) c/w multipodus boot at all times right foot Podiatry will continue to follow while in house
[2017-06-11] MEDS: Piperacill/Tazo 2.25gm in Dex 2.25 GM/50 ML BAG IVPB SCH ×2 (03:38→09:55)
[2017-06-11] MEDS: Sodium Chloride 0.9% 1,000 ML IV SCH ×2 (03:39→16:00)
[2017-06-11 08:03] LABS: BASO % 0.6 % (0.0-2.0); EOS # 0.4 K/uL (0.0-0.7); EOS % 5.4 % (0.0-4.0); LYMPH # 1.9 K/uL (1.0-4.3); LYMPH % 27.6 % (20.0-40.0); MEAN CELL VOLUME 90.5 fL (80.0-94.0); MEAN CORPUSCULAR HEMOGLOBIN 31.9 pg (27.0-31.0); MEAN CORPUSCULAR HGB CONC 35.2 g/dL (33.0-37.0); MEAN PLATELET VOLUME 10.3 fL (7.2-11.7); MONO # 0.5 K/uL (0.0-0.8); MONO % 6.7 % (0.0-10.0); NEUT % 59.7 % (50.0-75.0); RBC 2.82 Mil/uL (4.40-5.90); RED CELL DISTRIBUTION WIDTH 12.7 % (11.5-14.5); WHITE BLOOD COUNT 6.8 K/uL (4.8-10.8)
[2017-06-11 08:05] LABS: ALBUMIN 3.2 g/dL (3.5-5.0); CALCIUM 8.4 mg/dl (8.6-10.4); MAGNESIUM 1.7 mg/dL (1.6-2.3)
[2017-06-11] MEDS: (Novolin R) Insulin Human Regular 100 units/ml vial SC SCH ×4 (08:07→22:05)
--- NOTE | 2017-06-11 09:27 | CP.PCM.PN ---
Subjective - Date & Time of Evaluation Date of Evaluation: 06/11/17 Time of Evaluation: 07:00 - Subjective Subjective: Medicine Progress Note: Patient was seen and examined at bedside in the AM. ROS of systems not obtained because patient is not completely verbal and oriented due to CVA in 2016. Objective - Vital Signs/Intake and Output Vital Signs (last 24 hours): Temp Pulse Resp BP Pulse Ox 97.9 F 58 L 20 153/73 H 100 06/11/17 08:00 06/11/17 08:00 06/11/17 08:00 06/11/17 08:00 06/11/17 08:00 Intake and Output: 06/11/17 06/11/17 06:59 18:59 Intake Total 920 Output Total 825 Balance 95 - Medications Medications: Current Medications Acetaminophen (Tylenol 325mg Tab) 650 mg PO Q6 PRN PRN Reason: Pain, moderate (4-7) Last Admin: 06/09/17 13:19 Dose: 650 mg Amlodipine Besylate (Norvasc) 10 mg PO DAILY [facility] Last Admin: 06/10/17 10:09 Dose: 10 mg Aspirin (Aspirin Chewable) 81 mg PO DAILY [facility] Last Admin: 06/10/17 10:09 Dose: 81 mg Docusate Sodium (Colace) 100 mg PO TID [facility] Last Admin: 06/10/17 18:07 Dose: 100 mg Escitalopram Oxalate (Lexapro) 5 mg PO DAILY [facility] Last Admin: 06/10/17 10:08 Dose: 5 mg Finasteride (Proscar) 5 mg PO DAILY [facility] Last Admin: 06/10/17 10:08 Dose: 5 mg Folic Acid (Folic Acid) 1 mg PO DAILY [facility] Last Admin: 06/10/17 10:09 Dose: 1 mg Heparin Sodium (Porcine) (Heparin) 5,000 units SC Q8 [facility] Last Admin: 06/11/17 05:32 Dose: 5,000 units Hydralazine HCl (Apresoline) 10 mg PO Q8H PRN PRN Reason: Systolic Blood Pressure Piperacillin Sod/Tazobactam Sod (Zosyn 2.25 Gm Iv Premix) 2.25 gm in 50 mls @ 100 mls/hr IVPB Q6H [facility] Last Admin: 06/11/17 03:38 Dose: 100 mls/hr Daptomycin 420 mg/ Sodium (Chloride) 100 mls @ 100 mls/hr IV Q48H [facility] Last Admin: 06/10/17 13:33 Dose: 100 mls/hr Sodium Chloride (Sodium Chloride 0.9%) 1,000 mls @ 40 mls/hr IV .Q24H [facility] Last Admin: 06/11/17 03:39 Dose: 40 mls/hr Insulin Human Regular (Novolin R) 0 unit SC ACHS [facility] PRN Reason: Protocol Last Admin: 06/11/17 08:07 Dose: Not Given Levetiracetam (Keppra) 500 mg PO BID [facility] Last Admin: 06/10/17 18:07 Dose: 500 mg Lisinopril (Zestril) 10 mg PO DAILY [facility] Last Admin: 06/08/17 10:30 Dose: Not Given Metformin HCl (Glucophage) 500 mg PO BID [facility] Last Admin: 06/10/17 18:07 Dose: 500 mg Metoprolol Succinate (Toprol Xl) 25 mg PO DAILY [facility] Last Admin: 06/10/17 10:09 Dose: 25 mg Pantoprazole Sodium (Protonix Ec Tab) 40 mg PO DAILY [facility] Last Admin: 06/10/17 10:09 Dose: 40 mg Rosuvastatin Calcium (Crestor) 40 mg PO HS [facility] Last Admin: 06/10/17 22:15 Dose: 40 mg Saccharomyces Boulardii (Florastor) 250 mg PO DAILY [facility] Last Admin: 06/10/17 10:09 Dose: 250 mg - Labs Labs: 06/11/17 07:13 06/11/17 07:13 PT 11.9 SECONDS (9.7-12.2) 06/07/17 09:12 INR 1.0 06/07/17 09:12 APTT 33 SECONDS (21-34) 06/02/17 15:18 - Constitutional Appears: No Acute Distress, Chronically Ill - Head Exam Head Exam: NORMAL INSPECTION - Eye Exam Eye Exam: EOMI, Normal appearance - ENT Exam ENT Exam: Mucous Membranes Moist - Respiratory Exam Respiratory Exam: Clear to Ausculation Bilateral, NORMAL BREATHING PATTERN - Cardiovascular Exam Cardiovascular Exam: REGULAR RHYTHM, +S1, +S2 - GI/Abdominal Exam GI & Abdominal Exam: Soft, Normal Bowel Sounds. absent: Tenderness - Extremities Exam Additional comments: PICC line in pace in left arm Right lower extremity wrapped in gauze and boot in place, dressing clean, dry, intact Left lower extremity boot in place - Neurological Exam Neurological Exam: Alert, Awake - Psychiatric Exam Psychiatric exam: Normal Affect, Normal Mood - Skin Skin Exam: Dry, Intact, Normal Color, Warm Additional comments: Former peg tube insertion site on abdomen - dressing is clean/dry/intact Assessment and Plan - Assessment and Plan (Free Text) Assessment: 1.) Right foot ulcer - Cardiology Consult: Dr. Rosen --> appreciated for Cardiac clearance for surgery - per cardiology note: Patient is clear from cardiology standpoint for surgery under LOCAL anesthesia - Podiatry Consult: Dr. Song --> help appreciated - Blister drained by podiatry in ED - s/p surgery (06/05/17): debridement of necrotic ulceration right foot with application of Integra graft and wound vac - spoke with podiatry resident Dr. Valeria Donovan: Upon discharge, pt will follow up with Dr. Song in [facility] on Thursday after discharge. Current wound vac dressing can remain in place for up to 7 days or until saturated. 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 No demonstrated acute fracture no evidence of periosteal reaction. * Venous dopplers: No evidence of DVT of the right lower extremity with excellent venous flow. Normal valve function noted of the right side. Normal venous flow noted in the left common femoral vein. * Arterial duplex: There is no evidence of hemo-dynamically significant arterial insufficiency in the right lower extremity. Arterial wall calcification is noted throughout the right lower extremity. 2.) Infective Endocarditis Cardiology Consult: Dr. Rosen --> recommendations appreciated - Echo (06/04/17) results showed 1cm density on the posterior leaflet of the mitral valve, atrial aspect. Fixed on the leaflet highly suggestive for vegetations. EF 55-60%. - f/u official report of [facility] (06/08/17): per resident Dr. Garcia patient has an 8x8mm vegetation on the mitral valve ID Consult: Dr. Myers --> recommendations appreciated - Medications * Daptomycin 420mg (06/08/17) q48h - discontinued 06/11/17 * Vancomycin 750mg IV daily for a total of 5 weeks (started 06/11/17) * f/u Vanco troph 06/14/17 which should be between 15-20 range - PICC line placed in left arm 06/10/17 3.) Abnormal EKG History of triple bypass - Cardiology Consult: Dr. Rosen --> help appreciated appreciated - Echo (06/04/17) results showed 1cm density on the posterior leaflet of the mitral valve, atrial aspect. Fixed on the leaflet highly suggestive for vegetations. EF 55-60%. 4.) Hypertension - uncontrolled - Norvasc 10mg po daily - Metoprolol Succinate 25mg PO daily - Hydralazine 10mg po q8h prn >180 systolic bp - Lisinopril 10mg po daily - Continue to monitor 5.) Diabetes - ISS - Accuchecks - Hemoglobin A1c: 8.6 - Lipid panel: Triglycerides 219; Total Cholesterol 112; LDL 46; HDL 34 - Metformin 500mg bid po daily - Hypoglycemic protocol 6.) CARLOS - secondary to antibiotics - Lightly hydrate with N/S @ 40cc/hr 7.) History of seizure - Keppra 500mg PO BID - Seizure precautions 8.) History of cerebrovascular accident (CVA) with residual deficit History of CVA with right sided weakness - Aspirin 81mg po daily - Atorvastatin 40mg PO HS 9.) Former Peg Tube insertion Site - Medi honey daily and change dressing daily 10.) Benign prostatic hyperplasia - Finasteride 5mg PO daily 11.) Depression - Lexapro 5mg PO daily 12.) Prophylactic measure - Heparin 5000sc Q8h - Protonix 40mg PO daily - PT eval and treat - OT eval and treat Family meeting 06/08/17 per palliative nurse Tabitha: Patient is Full Code. Disposition: Discharge planning to LTAC pending approval Case discussed with Dr. Murtaza Nieto PGY-1
[2017-06-11] MEDS: Pantoprazole 40 mg EC Tab PO SCH (09:54)
[2017-06-11] MEDS: Metoprolol Succinate 25 mg XL Tab PO SCH (09:54)
[2017-06-11] MEDS: Saccharomyces Boulardi 250 mg Cap PO SCH (09:55)
[2017-06-11] MEDS: Vancomycin 750mg/NS 150 ml 150 ML IVPB SCH (16:00)
--- NOTE | 2017-06-11 18:09 | CP.PCM.PN ---
Subjective - Date & Time of Evaluation Date of Evaluation: 06/11/17 Time of Evaluation: 05:00 - Subjective Subjective: dictated Objective - Vital Signs/Intake and Output Vital Signs (last 24 hours): Temp Pulse Resp BP Pulse Ox 97.9 F 63 20 114/72 98 06/11/17 16:12 06/11/17 16:12 06/11/17 16:12 06/11/17 16:12 06/11/17 16:12 Intake and Output: 06/11/17 06/11/17 06:59 18:59 Intake Total 920 710 Output Total 825 325 Balance 95 385 - Medications Medications: Current Medications Acetaminophen (Tylenol 325mg Tab) 650 mg PO Q6 PRN PRN Reason: Pain, moderate (4-7) Last Admin: 06/09/17 13:19 Dose: 650 mg Amlodipine Besylate (Norvasc) 10 mg PO DAILY [facility] Last Admin: 06/11/17 09:55 Dose: 10 mg Aspirin (Aspirin Chewable) 81 mg PO DAILY [facility] Last Admin: 06/11/17 09:54 Dose: 81 mg Docusate Sodium (Colace) 100 mg PO TID [facility] Last Admin: 06/11/17 17:13 Dose: 100 mg Escitalopram Oxalate (Lexapro) 5 mg PO DAILY [facility] Last Admin: 06/11/17 09:54 Dose: 5 mg Finasteride (Proscar) 5 mg PO DAILY [facility] Last Admin: 06/11/17 09:54 Dose: 5 mg Folic Acid (Folic Acid) 1 mg PO DAILY [facility] Last Admin: 06/11/17 09:54 Dose: 1 mg Heparin Sodium (Porcine) (Heparin) 5,000 units SC Q8 [facility] Last Admin: 06/11/17 13:46 Dose: 5,000 units Hydralazine HCl (Apresoline) 10 mg PO Q8H PRN PRN Reason: Systolic Blood Pressure Sodium Chloride (Sodium Chloride 0.9%) 1,000 mls @ 40 mls/hr IV .Q24H [facility] Last Admin: 06/11/17 16:00 Dose: 40 mls/hr Vancomycin HCl (Vancocin 750mg/Ns 150 Ml) 150 mls @ 100 mls/hr IVPB Q24H [facility] Stop: 06/16/17 15:01 Last Admin: 06/11/17 16:00 Dose: 100 mls/hr Insulin Human Regular (Novolin R) 0 unit SC ACHS [facility] PRN Reason: Protocol Last Admin: 06/11/17 17:13 Dose: 3 unit Levetiracetam (Keppra) 500 mg PO BID [facility] Last Admin: 06/11/17 17:13 Dose: 500 mg Lisinopril (Zestril) 10 mg PO DAILY [facility] Last Admin: 06/11/17 09:54 Dose: 10 mg Metformin HCl (Glucophage) 500 mg PO BID [facility] Last Admin: 06/11/17 17:13 Dose: 500 mg Metoprolol Succinate (Toprol Xl) 25 mg PO DAILY [facility] Last Admin: 06/11/17 09:54 Dose: 25 mg Pantoprazole Sodium (Protonix Ec Tab) 40 mg PO DAILY [facility] Last Admin: 06/11/17 09:54 Dose: 40 mg Rosuvastatin Calcium (Crestor) 40 mg PO HS [facility] Last Admin: 06/10/17 22:15 Dose: 40 mg Saccharomyces Boulardii (Florastor) 250 mg PO DAILY [facility] Last Admin: 06/11/17 09:55 Dose: 250 mg - Labs Labs: 06/11/17 07:13 06/11/17 07:13 PT 11.9 SECONDS (9.7-12.2) 06/07/17 09:12 INR 1.0 06/07/17 09:12 APTT 33 SECONDS (21-34) 06/02/17 15:18
--- NOTE | 2017-06-11 22:05 | CP.PCM.PN ---
Subjective - Date & Time of Evaluation Date of Evaluation: 06/11/17 Time of Evaluation: 10:00 - Subjective Subjective: Podiatry Progress Note- Dr. Song 56 y/o male seen 6 days s/p debridement of necrotic ulceration right foot with application of Integra graft and wound vac. Patient is seen resting comfortably at bedside and in NAD. Patient is more verbal and oriented today. Dressing is c/ d/i without strikethrough. Multipodus on bilateral LE. CHAD is turned on but displays below therapuetic pressure levels. Pt denies and acute overnight events. Objective - Vital Signs/Intake and Output Vital Signs (last 24 hours): Temp Pulse Resp BP Pulse Ox 97.9 F 63 20 114/72 98 06/11/17 16:12 06/11/17 16:12 06/11/17 16:12 06/11/17 16:12 06/11/17 16:12 Intake and Output: 06/11/17 06/12/17 18:59 06:59 Intake Total 710 Output Total 325 Balance 385 - Medications Medications: Current Medications Acetaminophen (Tylenol 325mg Tab) 650 mg PO Q6 PRN PRN Reason: Pain, moderate (4-7) Last Admin: 06/09/17 13:19 Dose: 650 mg Amlodipine Besylate (Norvasc) 10 mg PO DAILY [facility] Last Admin: 06/11/17 09:55 Dose: 10 mg Aspirin (Aspirin Chewable) 81 mg PO DAILY [facility] Last Admin: 06/11/17 09:54 Dose: 81 mg Docusate Sodium (Colace) 100 mg PO TID [facility] Last Admin: 06/11/17 17:13 Dose: 100 mg Escitalopram Oxalate (Lexapro) 5 mg PO DAILY [facility] Last Admin: 06/11/17 09:54 Dose: 5 mg Finasteride (Proscar) 5 mg PO DAILY [facility] Last Admin: 06/11/17 09:54 Dose: 5 mg Folic Acid (Folic Acid) 1 mg PO DAILY [facility] Last Admin: 06/11/17 09:54 Dose: 1 mg Heparin Sodium (Porcine) (Heparin) 5,000 units SC Q8 [facility] Last Admin: 06/11/17 13:46 Dose: 5,000 units Hydralazine HCl (Apresoline) 10 mg PO Q8H PRN PRN Reason: Systolic Blood Pressure Sodium Chloride (Sodium Chloride 0.9%) 1,000 mls @ 40 mls/hr IV .Q24H [facility] Last Admin: 06/11/17 16:00 Dose: 40 mls/hr Vancomycin HCl (Vancocin 750mg/Ns 150 Ml) 150 mls @ 100 mls/hr IVPB Q24H [facility] Stop: 06/16/17 15:01 Last Admin: 06/11/17 16:00 Dose: 100 mls/hr Insulin Human Regular (Novolin R) 0 unit SC ACHS [facility] PRN Reason: Protocol Last Admin: 06/11/17 17:13 Dose: 3 unit Levetiracetam (Keppra) 500 mg PO BID [facility] Last Admin: 06/11/17 17:13 Dose: 500 mg Lisinopril (Zestril) 10 mg PO DAILY [facility] Last Admin: 06/11/17 09:54 Dose: 10 mg Metformin HCl (Glucophage) 500 mg PO BID [facility] Last Admin: 06/11/17 17:13 Dose: 500 mg Metoprolol Succinate (Toprol Xl) 25 mg PO DAILY [facility] Last Admin: 06/11/17 09:54 Dose: 25 mg Pantoprazole Sodium (Protonix Ec Tab) 40 mg PO DAILY [facility] Last Admin: 06/11/17 09:54 Dose: 40 mg Rosuvastatin Calcium (Crestor) 40 mg PO HS [facility] Last Admin: 06/10/17 22:15 Dose: 40 mg Saccharomyces Boulardii (Florastor) 250 mg PO DAILY [facility] Last Admin: 06/11/17 09:55 Dose: 250 mg - Labs Labs: 06/11/17 07:13 06/11/17 07:13 PT 11.9 SECONDS (9.7-12.2) 06/07/17 09:12 INR 1.0 06/07/17 09:12 APTT 33 SECONDS (21-34) 06/02/17 15:18 - Constitutional Appears: Well, Non-toxic, No Acute Distress - Extremities Exam Additional comments: Dressing is c/d/i with no strikethrough CHAD wound vac is adhered to the skin. CHAD is turned on and continously running - Neurological Exam Neurological Exam: Alert, Awake - Psychiatric Exam Psychiatric exam: Normal Affect, Normal Mood Assessment and Plan - Assessment and Plan (Free Text) Assessment: 56 y.o male seen 6 days s/p debridement of necrotic ulceration right foot with application of Integra graft and wound vac to right foot ulceration (DOS 06/05/17) . Plan: Wellness check performed. Plan discussed with attending DR. Song Chart, labs and vitals reviewed CHAD to remain in place. Vac seal reinforced, error resolved, therapeutic pressure level resumed. Pt is stable for discharge to specialized nursing facility. Current wound vac dressing can remain inplace for up to 7 days( 06/16/17) or until saturated. Upon discharge, pt will follow up with Dr. Song in [facility] on Thursday after discharge. PICC line in place. Continue IV abx per Dr. Myers-( Vanco) c/w multipodus boot at all times right foot Podiatry will continue to follow while in house
--- NOTE | 2017-06-11 22:07 | CP.PCM.PN ---
Subjective - Date & Time of Evaluation Date of Evaluation: 06/11/17 Time of Evaluation: 21:00 - Subjective Subjective: Patient with decreased PO intake; Objective - Vital Signs/Intake and Output Vital Signs (last 24 hours): Temp Pulse Resp BP Pulse Ox 97.9 F 63 20 114/72 98 06/11/17 16:12 06/11/17 16:12 06/11/17 16:12 06/11/17 16:12 06/11/17 16:12 Intake and Output: 06/11/17 06/12/17 18:59 06:59 Intake Total 710 Output Total 325 Balance 385 - Medications Medications: Current Medications Acetaminophen (Tylenol 325mg Tab) 650 mg PO Q6 PRN PRN Reason: Pain, moderate (4-7) Last Admin: 06/09/17 13:19 Dose: 650 mg Amlodipine Besylate (Norvasc) 10 mg PO DAILY [facility] Last Admin: 06/11/17 09:55 Dose: 10 mg Aspirin (Aspirin Chewable) 81 mg PO DAILY [facility] Last Admin: 06/11/17 09:54 Dose: 81 mg Docusate Sodium (Colace) 100 mg PO TID [facility] Last Admin: 06/11/17 17:13 Dose: 100 mg Escitalopram Oxalate (Lexapro) 5 mg PO DAILY [facility] Last Admin: 06/11/17 09:54 Dose: 5 mg Finasteride (Proscar) 5 mg PO DAILY [facility] Last Admin: 06/11/17 09:54 Dose: 5 mg Folic Acid (Folic Acid) 1 mg PO DAILY [facility] Last Admin: 06/11/17 09:54 Dose: 1 mg Heparin Sodium (Porcine) (Heparin) 5,000 units SC Q8 [facility] Last Admin: 06/11/17 22:04 Dose: 5,000 units Hydralazine HCl (Apresoline) 10 mg PO Q8H PRN PRN Reason: Systolic Blood Pressure Sodium Chloride (Sodium Chloride 0.9%) 1,000 mls @ 40 mls/hr IV .Q24H [facility] Last Admin: 06/11/17 16:00 Dose: 40 mls/hr Vancomycin HCl (Vancocin 750mg/Ns 150 Ml) 150 mls @ 100 mls/hr IVPB Q24H [facility] Stop: 06/16/17 15:01 Last Admin: 06/11/17 16:00 Dose: 100 mls/hr Insulin Human Regular (Novolin R) 0 unit SC ACHS [facility] PRN Reason: Protocol Last Admin: 06/11/17 22:05 Dose: Not Given Levetiracetam (Keppra) 500 mg PO BID [facility] Last Admin: 06/11/17 17:13 Dose: 500 mg Lisinopril (Zestril) 10 mg PO DAILY [facility] Last Admin: 06/11/17 09:54 Dose: 10 mg Metformin HCl (Glucophage) 500 mg PO BID [facility] Last Admin: 06/11/17 17:13 Dose: 500 mg Metoprolol Succinate (Toprol Xl) 25 mg PO DAILY [facility] Last Admin: 06/11/17 09:54 Dose: 25 mg Pantoprazole Sodium (Protonix Ec Tab) 40 mg PO DAILY [facility] Last Admin: 06/11/17 09:54 Dose: 40 mg Rosuvastatin Calcium (Crestor) 40 mg PO HS [facility] Last Admin: 06/11/17 22:04 Dose: 40 mg Saccharomyces Boulardii (Florastor) 250 mg PO DAILY [facility] Last Admin: 06/11/17 09:55 Dose: 250 mg - Labs Labs: 06/11/17 07:13 06/11/17 07:13 PT 11.9 SECONDS (9.7-12.2) 06/07/17 09:12 INR 1.0 06/07/17 09:12 APTT 33 SECONDS (21-34) 06/02/17 15:18 - Constitutional Appears: Non-toxic, No Acute Distress - Eye Exam Eye Exam: absent: Scleral icterus - ENT Exam ENT Exam: Mucous Membranes Moist - Respiratory Exam Respiratory Exam: Clear to Ausculation Bilateral. absent: Respiratory Distress - Cardiovascular Exam Cardiovascular Exam: RRR, +S1, +S2 - GI/Abdominal Exam GI & Abdominal Exam: Soft. absent: Distended, Tenderness - Exam Exam: absent: Bladder Distension - Extremities Exam Additional comments: minimal leg edema; - Neurological Exam Neurological Exam: Alert, Awake - Psychiatric Exam Psychiatric exam: Normal Affect, Normal Mood. absent: Agitated - Skin Skin Exam: Warm. 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
--- NOTE | 2017-06-11 23:45 | PN ---
DATE: SUBJECTIVE: The patient was trying to eat. He complained of right upper abdominal pain. He also had a dressing in the epigastric area, and it was not clear what this dressing was from. The patient has, however, been afebrile. PHYSICAL EXAMINATION VITAL SIGNS: T-max is 97.9, pulse 63, blood pressure 114/72, and respirations are 20. HEENT: Head is atraumatic and normocephalic. NECK: Supple. LUNGS: Clear. CARDIOPULMONARY: S1 and S2 is regular. ABDOMEN: Had no guarding. No rigidity. It was nontender. EXTREMITIES: He remains with right hemiplegia. He has wound VAC on the right foot and also has foot protectors to keep it straight and he is going to follow with Dr. Song. LABORATORY DATA: White count is 6.8, hemoglobin 9, hematocrit is 25.5, and platelet count is 174,000. The renal doctor told me that he has GFR more than 40%. His creatinine is 1.5 and his LFTs are unremarkable. He did have endocarditis in the mitral valve and he had MRSA in the wound and he had Enterococcus faecalis in the blood culture and MRSA in the wound and beta Strep. All these organisms can be treated with vancomycin if his creatinine is okay. ASSESSMENT AND PLAN: At this time, place him on vancomycin 750 mg intravenous piggyback daily and to repeat the peak and trough. We will take away daptomycin and Zosyn and follow clinically here if stable. He got one week of daptomycin. He will probably need five weeks of vancomycin intravenous and the trough should be maintained between 10 and 20 and also creatinine should be monitored as he did had renal issues. He also has right hemiplegia and he needs physical therapy. Also a followup echo should be done at some point before stopping the antibiotics. Makenzie Myers MD
[2017-06-12] MEDS: Sodium Chloride 0.9% 1,000 ML IV SCH ×2 (05:46→15:05)
--- NOTE | 2017-06-12 07:28 | CP.PCM.PN ---
<Iwona Nieto - Last Filed: 06/12/17 17:20> Subjective - Date & Time of Evaluation Date of Evaluation: 06/12/17 Time of Evaluation: 07:00 - Subjective Subjective: Medicine Progress Note: Patient was seen and examined at bedside in the AM. ROS of systems not obtained because patient is not completely verbal and oriented due to CVA in 2016. Objective - Vital Signs/Intake and Output Vital Signs (last 24 hours): Temp Pulse Resp BP Pulse Ox 98.2 F 103 H 20 146/67 96 06/12/17 01:00 06/12/17 01:00 06/12/17 01:00 06/12/17 01:00 06/12/17 01:00 Intake and Output: 06/12/17 06/12/17 06:59 18:59 Intake Total 840 Output Total 1400 Balance -560 - Medications Medications: Current Medications Acetaminophen (Tylenol 325mg Tab) 650 mg PO Q6 PRN PRN Reason: Pain, moderate (4-7) Last Admin: 06/09/17 13:19 Dose: 650 mg Amlodipine Besylate (Norvasc) 10 mg PO DAILY [facility] Last Admin: 06/11/17 09:55 Dose: 10 mg Aspirin (Aspirin Chewable) 81 mg PO DAILY [facility] Last Admin: 06/11/17 09:54 Dose: 81 mg Docusate Sodium (Colace) 100 mg PO TID [facility] Last Admin: 06/11/17 17:13 Dose: 100 mg Escitalopram Oxalate (Lexapro) 5 mg PO DAILY [facility] Last Admin: 06/11/17 09:54 Dose: 5 mg Finasteride (Proscar) 5 mg PO DAILY [facility] Last Admin: 06/11/17 09:54 Dose: 5 mg Folic Acid (Folic Acid) 1 mg PO DAILY [facility] Last Admin: 06/11/17 09:54 Dose: 1 mg Heparin Sodium (Porcine) (Heparin) 5,000 units SC Q8 [facility] Last Admin: 06/12/17 05:42 Dose: 5,000 units Hydralazine HCl (Apresoline) 10 mg PO Q8H PRN PRN Reason: Systolic Blood Pressure Sodium Chloride (Sodium Chloride 0.9%) 1,000 mls @ 40 mls/hr IV .Q24H [facility] Last Admin: 06/12/17 05:46 Dose: 40 mls/hr Vancomycin HCl (Vancocin 750mg/Ns 150 Ml) 150 mls @ 100 mls/hr IVPB Q24H [facility] Stop: 06/16/17 15:01 Last Admin: 06/11/17 16:00 Dose: 100 mls/hr Insulin Human Regular (Novolin R) 0 unit SC ACHS [facility] PRN Reason: Protocol Last Admin: 06/11/17 22:05 Dose: Not Given Levetiracetam (Keppra) 500 mg PO BID [facility] Last Admin: 06/11/17 17:13 Dose: 500 mg Lisinopril (Zestril) 10 mg PO DAILY [facility] Last Admin: 06/11/17 09:54 Dose: 10 mg Metformin HCl (Glucophage) 500 mg PO BID [facility] Last Admin: 06/11/17 17:13 Dose: 500 mg Metoprolol Succinate (Toprol Xl) 25 mg PO DAILY [facility] Last Admin: 06/11/17 09:54 Dose: 25 mg Pantoprazole Sodium (Protonix Ec Tab) 40 mg PO DAILY [facility] Last Admin: 06/11/17 09:54 Dose: 40 mg Rosuvastatin Calcium (Crestor) 40 mg PO HS [facility] Last Admin: 06/11/17 22:04 Dose: 40 mg Saccharomyces Boulardii (Florastor) 250 mg PO DAILY [facility] Last Admin: 06/11/17 09:55 Dose: 250 mg - Labs Labs: 06/11/17 07:13 06/11/17 07:13 PT 11.9 SECONDS (9.7-12.2) 06/07/17 09:12 INR 1.0 06/07/17 09:12 APTT 33 SECONDS (21-34) 06/02/17 15:18 - Constitutional Appears: No Acute Distress - Head Exam Head Exam: NORMAL INSPECTION - Eye Exam Eye Exam: EOMI, Normal appearance - ENT Exam ENT Exam: Mucous Membranes Moist - Respiratory Exam Respiratory Exam: Clear to Ausculation Bilateral, NORMAL BREATHING PATTERN - Cardiovascular Exam Cardiovascular Exam: REGULAR RHYTHM, +S1, +S2 - GI/Abdominal Exam GI & Abdominal Exam: Soft, Normal Bowel Sounds. absent: Tenderness - Extremities Exam Additional comments: PICC line in pace in left arm Right lower extremity wrapped in gauze and boot in place, dressing clean, dry, intact Left lower extremity boot in place - Neurological Exam Neurological Exam: Alert, Awake - Psychiatric Exam Psychiatric exam: Normal Affect - Skin Skin Exam: Dry, Intact, Normal Color, Warm Additional comments: Former peg tube insertion site on abdomen - dressing is clean/dry/intact Assessment and Plan - Assessment and Plan (Free Text) Assessment: 1.) Right foot ulcer - Cardiology Consult: Dr. Rosen --> appreciated for Cardiac clearance for surgery - per cardiology note: Patient is clear from cardiology standpoint for surgery under LOCAL anesthesia - Podiatry Consult: Dr. Song --> help appreciated - Blister drained by podiatry in ED - s/p surgery (06/05/17): debridement of necrotic ulceration right foot with application of Integra graft and wound vac - spoke with podiatry resident Dr. Valeria Donovan: Upon discharge, pt will follow up with Dr. Song in [facility] on Thursday after discharge. Current wound vac dressing can remain in place for up to 7 days or until saturated. 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 No demonstrated acute fracture no evidence of periosteal reaction. * Venous dopplers: No evidence of DVT of the right lower extremity with excellent venous flow. Normal valve function noted of the right side. Normal venous flow noted in the left common femoral vein. * Arterial duplex: There is no evidence of hemo-dynamically significant arterial insufficiency in the right lower extremity. Arterial wall calcification is noted throughout the right lower extremity. 2.) Infective Endocarditis Cardiology Consult: Dr. Rosen --> recommendations appreciated - Echo (06/04/17) results showed 1cm density on the posterior leaflet of the mitral valve, atrial aspect. Fixed on the leaflet highly suggestive for vegetations. EF 55-60%. - RAHEL (06/08/17): circumferential vegetation on A1 and A2 cusp of mitral valve measuring 8mm x 8mm ID Consult: Dr. Myers --> recommendations appreciated - Medications * Daptomycin 420mg (06/08/17) q48h - discontinued 2/8/18 * Vancomycin 750mg IV daily for a total of 5 weeks (started 06/11/17) * f/u Vanco troph 06/14/17 which should be between 15-20 range - PICC line placed in left arm 06/10/17 3.) Abnormal EKG History of triple bypass - Cardiology Consult: Dr. Rosen --> help appreciated appreciated - Echo (06/04/17) results showed 1cm density on the posterior leaflet of the mitral valve, atrial aspect. Fixed on the leaflet highly suggestive for vegetations. EF 55-60%. 4.) Hypertension - uncontrolled - Norvasc 10mg po daily - Metoprolol Succinate 25mg PO daily - Hydralazine 10mg po q8h prn >180 systolic bp - Lisinopril 10mg po daily - Continue to monitor 5.) Diabetes - ISS - Accuchecks - Hemoglobin A1c: 8.6 - Lipid panel: Triglycerides 219; Total Cholesterol 112; LDL 46; HDL 34 - Metformin 500mg bid po daily - Hypoglycemic protocol 6.) CARLOS - secondary to antibiotics - Lightly hydrate with N/S @ 40cc/hr 7.) History of seizure - Keppra 500mg PO BID - Seizure precautions 8.) History of cerebrovascular accident (CVA) with residual deficit History of CVA with right sided weakness - Aspirin 81mg po daily - Atorvastatin 40mg PO HS 9.) Former Peg Tube insertion Site - Medi honey daily and change dressing daily 10.) Benign prostatic hyperplasia - Finasteride 5mg PO daily 11.) Depression - Lexapro 5mg PO daily 12.) Prophylactic measure - Heparin 5000sc Q8h - Protonix 40mg PO daily - PT eval and treat - OT eval and treat Family meeting 06/08/17 per palliative nurse Tabitha: Patient is Full Code. Disposition: Discharge planning to [place] Thursday06/15/[address] Murtaza Nieto PGY-1 <Nestor Hauser - Last Filed: 06/12/17 20:16> Objective - Vital Signs/Intake and Output Vital Signs (last 24 hours): Temp Pulse Resp BP Pulse Ox 97.7 F 64 20 154/72 H 97 06/12/17 17:19 06/12/17 17:19 06/12/17 17:19 06/12/17 17:19 06/12/17 17:19 - Medications Medications: Current Medications Acetaminophen (Tylenol 325mg Tab) 650 mg PO Q6 PRN PRN Reason: Pain, moderate (4-7) Last Admin: 06/09/17 13:19 Dose: 650 mg Amlodipine Besylate (Norvasc) 10 mg PO DAILY [facility] Last Admin: 06/12/17 10:30 Dose: 10 mg Aspirin (Aspirin Chewable) 81 mg PO DAILY [facility] Last Admin: 06/12/17 10:30 Dose: 81 mg Docusate Sodium (Colace) 100 mg PO TID [facility] Last Admin: 06/12/17 17:59 Dose: 100 mg Escitalopram Oxalate (Lexapro) 5 mg PO DAILY [facility] Last Admin: 06/12/17 10:30 Dose: 5 mg Finasteride (Proscar) 5 mg PO DAILY [facility] Last Admin: 06/12/17 10:31 Dose: 5 mg Folic Acid (Folic Acid) 1 mg PO DAILY [facility] Last Admin: 06/12/17 10:30 Dose: 1 mg Heparin Sodium (Porcine) (Heparin) 5,000 units SC Q8 [facility] Last Admin: 06/12/17 13:29 Dose: 5,000 units Hydralazine HCl (Apresoline) 10 mg PO Q8H PRN PRN Reason: Systolic Blood Pressure Sodium Chloride (Sodium Chloride 0.9%) 1,000 mls @ 40 mls/hr IV .Q24H [facility] Last Admin: 06/12/17 15:05 Dose: Not Given Vancomycin HCl (Vancocin 750mg/Ns 150 Ml) 150 mls @ 100 mls/hr IVPB Q24H [facility] Stop: 06/16/17 15:01 Last Admin: 06/12/17 14:19 Dose: 100 mls/hr Insulin Human Regular (Novolin R) 0 unit SC ACHS [facility] PRN Reason: Protocol Last Admin: 06/12/17 17:58 Dose: 2 unit Levetiracetam (Keppra) 500 mg PO BID [facility] Last Admin: 06/12/17 18:00 Dose: 500 mg Lisinopril (Zestril) 10 mg PO DAILY [facility] Last Admin: 06/12/17 10:30 Dose: 10 mg Metformin HCl (Glucophage) 500 mg PO BID [facility] Last Admin: 06/12/17 17:59 Dose: 500 mg Metoprolol Succinate (Toprol Xl) 25 mg PO DAILY [facility] Last Admin: 06/12/17 10:30 Dose: 25 mg Pantoprazole Sodium (Protonix Ec Tab) 40 mg PO DAILY [facility] Last Admin: 06/12/17 10:30 Dose: 40 mg Rosuvastatin Calcium (Crestor) 40 mg PO HS [facility] Last Admin: 06/11/17 22:04 Dose: 40 mg Saccharomyces Boulardii (Florastor) 250 mg PO DAILY [facility] Last Admin: 06/12/17 10:30 Dose: 250 mg - Labs Labs: 06/12/17 07:42 06/12/17 07:42 PT 11.9 SECONDS (9.7-12.2) 06/07/17 09:12 INR 1.0 06/07/17 09:12 APTT 33 SECONDS (21-34) 06/02/17 15:18 Attending/Attestation - Attestation I have personally seen and examined this patient.: Yes I have fully participated in the care of the patient.: Yes I have reviewed all pertinent clinical information, including history, physical exam and plan: Yes Notes (Text): 06/12/17 20:12 Patient was seen and examined with resident 06/12/17 Exam, assessment and plan were gone over with the resident Also on Exam: CHAD wound vac on right pedal surface Assessments: 1). Endocarditis Confirmed with RAHEL on Mitral Valve Blood Culture 06/02/17 Enterococcus Repeat Blood Cutlure 06/06/17 negative to date Vancomycin 750 mg IV 1x/day for 5 more weeks from 06/11/17 F/U Vancomycin Trough 06/14/17 Left Arm PICC placed 06/10/17 2). Right Foot Ulcer s/p debridement with application of Integra graft and CHAD Wound Vac 06/06/17 Wound Culture showed MRSA and Beta Hemolytic Strep Group B Arterial Dopplers negative X Ray Right Foot shows prior 5th transmetatarsal amputation with NO periosteal elevation Multipodus Boot CHAD wound vac Vancomycin 750 mg IV 1x/day for 5 more weeks from 06/11/[address] Song: Current wound vac dressing can remain in place for up to 7 days( 06/16/17) or until saturated. Upon discharge, patient will follow up with Dr. Song in [facility] on Thursday after discharge. 3). Hx CAD/Systolic HF/CABG ASA 81 mg PO 1x/day Crestor 40 mg PO HS Zestril 10 mg PO 1x/day 4). Hx HTN Norvasc 10 mg PO 1x/day Zestril 10 mg PO 1x/day Metoprolol Succinate 25 mg PO 1x/day 5). Hx DM RISS ACHS Metformin 500 mg PO 2x/day 6). Hx Seizure Keppra 500 mg PO 2x/day 7). Hx CVA with Right Side Body Residual Deficit ASA, Crestor as above 8). Hx BPH Proscar 5 mg PO 1x/day 9). Hx Depression Lexapro 5 mg PO 1x/day 10). Elevated BUN/Cr Likely prerenal IVF 40 ml/hr continued due to patient likely not taking in enough fluids and because of the Zosyn and Daptomycin Nephrology Dr. Maxwell 11). 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
[2017-06-12 07:51] LABS: BASO % 0.7 % (0.0-2.0); EOS # 0.3 K/uL (0.0-0.7); EOS % 5.9 % (0.0-4.0); HEMOGLOBIN 8.7 g/dL (12.0-18.0); LYMPH # 1.5 K/uL (1.0-4.3); LYMPH % 26.7 % (20.0-40.0); MEAN CELL VOLUME 90.5 fL (80.0-94.0); MEAN CORPUSCULAR HEMOGLOBIN 31.9 pg (27.0-31.0); MEAN CORPUSCULAR HGB CONC 35.2 g/dL (33.0-37.0); MEAN PLATELET VOLUME 9.8 fL (7.2-11.7); MONO # 0.4 K/uL (0.0-0.8); MONO % 6.7 % (0.0-10.0); NEUT # 3.4 K/uL (1.8-7.0); RBC 2.74 Mil/uL (4.40-5.90); WHITE BLOOD COUNT 5.7 K/uL (4.8-10.8)
[2017-06-12] MEDS: (Novolin R) Insulin Human Regular 100 units/ml vial SC SCH ×4 (07:52→21:52)
[2017-06-12 08:32] LABS: ALBUMIN 3.2 g/dL (3.5-5.0); ALT/SGPT 34 U/L (21-72); AST/SGOT 22 U/L (17-59); BLOOD UREA NITROGEN 13 mg/dL (9-20); CALCIUM 8.2 mg/dl (8.6-10.4); GFR AFRICAN-AMERICAN > 60; GFR NON-AFRICAN AMERICAN 52; MAGNESIUM 1.5 mg/dL (1.6-2.3)
[2017-06-12] MEDS: Pantoprazole 40 mg EC Tab PO SCH (10:30)
[2017-06-12] MEDS: Metoprolol Succinate 25 mg XL Tab PO SCH (10:30)
[2017-06-12] MEDS: Saccharomyces Boulardi 250 mg Cap PO SCH (10:30)
[2017-06-12] MEDS: Vancomycin 750mg/NS 150 ml 150 ML IVPB SCH (14:19)
--- NOTE | 2017-06-12 19:48 | CP.PCM.PN ---
Subjective - Date & Time of Evaluation Date of Evaluation: 06/12/17 Time of Evaluation: 17:00 - Subjective Subjective: Patient tolerating diet; reporting some abd discomfort? Objective - Vital Signs/Intake and Output Vital Signs (last 24 hours): Temp Pulse Resp BP Pulse Ox 97.7 F 64 20 154/72 H 97 06/12/17 17:19 06/12/17 17:19 06/12/17 17:19 06/12/17 17:19 06/12/17 17:19 - Medications Medications: Current Medications Acetaminophen (Tylenol 325mg Tab) 650 mg PO Q6 PRN PRN Reason: Pain, moderate (4-7) Last Admin: 06/09/17 13:19 Dose: 650 mg Amlodipine Besylate (Norvasc) 10 mg PO DAILY [facility] Last Admin: 06/12/17 10:30 Dose: 10 mg Aspirin (Aspirin Chewable) 81 mg PO DAILY [facility] Last Admin: 06/12/17 10:30 Dose: 81 mg Docusate Sodium (Colace) 100 mg PO TID [facility] Last Admin: 06/12/17 17:59 Dose: 100 mg Escitalopram Oxalate (Lexapro) 5 mg PO DAILY [facility] Last Admin: 06/12/17 10:30 Dose: 5 mg Finasteride (Proscar) 5 mg PO DAILY [facility] Last Admin: 06/12/17 10:31 Dose: 5 mg Folic Acid (Folic Acid) 1 mg PO DAILY [facility] Last Admin: 06/12/17 10:30 Dose: 1 mg Heparin Sodium (Porcine) (Heparin) 5,000 units SC Q8 [facility] Last Admin: 06/12/17 13:29 Dose: 5,000 units Hydralazine HCl (Apresoline) 10 mg PO Q8H PRN PRN Reason: Systolic Blood Pressure Sodium Chloride (Sodium Chloride 0.9%) 1,000 mls @ 40 mls/hr IV .Q24H [facility] Last Admin: 06/12/17 15:05 Dose: Not Given Vancomycin HCl (Vancocin 750mg/Ns 150 Ml) 150 mls @ 100 mls/hr IVPB Q24H [facility] Stop: 06/16/17 15:01 Last Admin: 06/12/17 14:19 Dose: 100 mls/hr Insulin Human Regular (Novolin R) 0 unit SC ACHS [facility] PRN Reason: Protocol Last Admin: 06/12/17 17:58 Dose: 2 unit Levetiracetam (Keppra) 500 mg PO BID [facility] Last Admin: 06/12/17 18:00 Dose: 500 mg Lisinopril (Zestril) 10 mg PO DAILY [facility] Last Admin: 06/12/17 10:30 Dose: 10 mg Metformin HCl (Glucophage) 500 mg PO BID [facility] Last Admin: 06/12/17 17:59 Dose: 500 mg Metoprolol Succinate (Toprol Xl) 25 mg PO DAILY [facility] Last Admin: 06/12/17 10:30 Dose: 25 mg Pantoprazole Sodium (Protonix Ec Tab) 40 mg PO DAILY [facility] Last Admin: 06/12/17 10:30 Dose: 40 mg Rosuvastatin Calcium (Crestor) 40 mg PO HS [facility] Last Admin: 06/11/17 22:04 Dose: 40 mg Saccharomyces Boulardii (Florastor) 250 mg PO DAILY [facility] Last Admin: 06/12/17 10:30 Dose: 250 mg - Labs Labs: 06/12/17 07:42 06/12/17 07:42 PT 11.9 SECONDS (9.7-12.2) 06/07/17 09:12 INR 1.0 06/07/17 09:12 APTT 33 SECONDS (21-34) 06/02/17 15:18 - Constitutional Appears: Non-toxic, No Acute Distress - Eye Exam Eye Exam: Normal appearance - ENT Exam ENT Exam: Mucous Membranes Moist - Respiratory Exam Respiratory Exam: Clear to Ausculation Bilateral. absent: Respiratory Distress - Cardiovascular Exam Cardiovascular Exam: RRR, +S1, +S2 - GI/Abdominal Exam GI & Abdominal Exam: Soft. absent: Distended, Tenderness - Extremities Exam Additional comments: mild leg edema; - Neurological Exam Neurological Exam: Alert, Awake - Psychiatric Exam Psychiatric exam: Normal Mood. absent: Agitated Assessment and Plan (1) CARLOS (acute kidney injury) Assessment & Plan: Non-oliguric renal failure, improving slowly; avoid nephrotoxic agents; vanco restarted, check trough level before 3rd dose to ensure it is not > 20; Status: Acute (2) Endocarditis Status: Acute (3) CKD (chronic kidney disease) Assessment & Plan: Proteinuric kidney disease likely from DM; on lisinopril 10 mg daily, continue same for now; Status: Chronic (4) Hypertension Assessment & Plan: BP elevated on toprol and lisinopril; monitor for now; IVF may be driving htn; Status: Acute
--- NOTE | 2017-06-12 20:34 | CP.PCM.PN ---
Subjective - Date & Time of Evaluation Date of Evaluation: 06/12/17 Time of Evaluation: 11:40 - Subjective Subjective: Podiatry Progress Note- Dr. Song 56 y/o male seen 7 days s/p debridement of necrotic ulceration right foot with application of Integra graft and wound vac. Patient is seen sleeping comfortably at bedside and in NAD. Patient is less verbal and oriented today due to CVA in 2016. Dressing is c/d/i without strikethrough. Multipodus on bilateral LE. CHAD is turned on but displays below therapuetic pressure levels. Pt denies and acute overnight events. Objective - Vital Signs/Intake and Output Vital Signs (last 24 hours): Temp Pulse Resp BP Pulse Ox 97.7 F 64 20 154/72 H 97 06/12/17 17:19 06/12/17 17:19 06/12/17 17:19 06/12/17 17:19 06/12/17 17:19 - Medications Medications: Current Medications Acetaminophen (Tylenol 325mg Tab) 650 mg PO Q6 PRN PRN Reason: Pain, moderate (4-7) Last Admin: 06/09/17 13:19 Dose: 650 mg Amlodipine Besylate (Norvasc) 10 mg PO DAILY [facility] Last Admin: 06/12/17 10:30 Dose: 10 mg Aspirin (Aspirin Chewable) 81 mg PO DAILY [facility] Last Admin: 06/12/17 10:30 Dose: 81 mg Docusate Sodium (Colace) 100 mg PO TID [facility] Last Admin: 06/12/17 17:59 Dose: 100 mg Escitalopram Oxalate (Lexapro) 5 mg PO DAILY [facility] Last Admin: 06/12/17 10:30 Dose: 5 mg Finasteride (Proscar) 5 mg PO DAILY [facility] Last Admin: 06/12/17 10:31 Dose: 5 mg Folic Acid (Folic Acid) 1 mg PO DAILY [facility] Last Admin: 06/12/17 10:30 Dose: 1 mg Heparin Sodium (Porcine) (Heparin) 5,000 units SC Q8 [facility] Last Admin: 06/12/17 13:29 Dose: 5,000 units Hydralazine HCl (Apresoline) 10 mg PO Q8H PRN PRN Reason: Systolic Blood Pressure Sodium Chloride (Sodium Chloride 0.9%) 1,000 mls @ 40 mls/hr IV .Q24H [facility] Last Admin: 06/12/17 15:05 Dose: Not Given Vancomycin HCl (Vancocin 750mg/Ns 150 Ml) 150 mls @ 100 mls/hr IVPB Q24H [facility] Stop: 06/16/17 15:01 Last Admin: 06/12/17 14:19 Dose: 100 mls/hr Insulin Human Regular (Novolin R) 0 unit SC ACHS [facility] PRN Reason: Protocol Last Admin: 06/12/17 17:58 Dose: 2 unit Levetiracetam (Keppra) 500 mg PO BID [facility] Last Admin: 06/12/17 18:00 Dose: 500 mg Lisinopril (Zestril) 10 mg PO DAILY [facility] Last Admin: 06/12/17 10:30 Dose: 10 mg Metformin HCl (Glucophage) 500 mg PO BID [facility] Last Admin: 06/12/17 17:59 Dose: 500 mg Metoprolol Succinate (Toprol Xl) 25 mg PO DAILY [facility] Last Admin: 06/12/17 10:30 Dose: 25 mg Pantoprazole Sodium (Protonix Ec Tab) 40 mg PO DAILY [facility] Last Admin: 06/12/17 10:30 Dose: 40 mg Rosuvastatin Calcium (Crestor) 40 mg PO HS [facility] Last Admin: 06/11/17 22:04 Dose: 40 mg Saccharomyces Boulardii (Florastor) 250 mg PO DAILY [facility] Last Admin: 06/12/17 10:30 Dose: 250 mg - Labs Labs: 06/12/17 07:42 06/12/17 07:42 PT 11.9 SECONDS (9.7-12.2) 06/07/17 09:12 INR 1.0 06/07/17 09:12 APTT 33 SECONDS (21-34) 06/02/17 15:18 Assessment and Plan - Assessment and Plan (Free Text) Assessment: 56 y.o male seen 7 days s/p debridement of necrotic ulceration right foot with application of Integra graft and wound vac to right foot ulceration (DOS 06/05/17) . Plan: Wellness check performed. Plan discussed with attending DR. Song Chart, labs and vitals reviewed CHAD to remain in place. Vac seal reinforced, error resolved, therapeutic pressure level resumed. Pt is stable for discharge to specialized nursing facility. Current wound vac dressing can remain inplace for up to 7 days( 06/16/17) or until saturated. Upon discharge, pt will follow up with Dr. Song in [facility] on Thursday after discharge. PICC line in place. Continue IV abx per Dr. Myers-( Padmaja) c/w multipodus boot at all times right foot Podiatry will continue to follow while in house
--- NOTE | 2017-06-12 21:18 | CP.PCM.PN ---
Subjective - Date & Time of Evaluation Date of Evaluation: 06/12/17 Time of Evaluation: 05:20 - Subjective Subjective: dictated Objective - Vital Signs/Intake and Output Vital Signs (last 24 hours): Temp Pulse Resp BP Pulse Ox 97.7 F 64 20 154/72 H 97 06/12/17 17:19 06/12/17 17:19 06/12/17 17:19 06/12/17 17:19 06/12/17 17:19 - Medications Medications: Current Medications Acetaminophen (Tylenol 325mg Tab) 650 mg PO Q6 PRN PRN Reason: Pain, moderate (4-7) Last Admin: 06/09/17 13:19 Dose: 650 mg Amlodipine Besylate (Norvasc) 10 mg PO DAILY [facility] Last Admin: 06/12/17 10:30 Dose: 10 mg Aspirin (Aspirin Chewable) 81 mg PO DAILY [facility] Last Admin: 06/12/17 10:30 Dose: 81 mg Docusate Sodium (Colace) 100 mg PO TID [facility] Last Admin: 06/12/17 17:59 Dose: 100 mg Escitalopram Oxalate (Lexapro) 5 mg PO DAILY [facility] Last Admin: 06/12/17 10:30 Dose: 5 mg Finasteride (Proscar) 5 mg PO DAILY [facility] Last Admin: 06/12/17 10:31 Dose: 5 mg Folic Acid (Folic Acid) 1 mg PO DAILY [facility] Last Admin: 06/12/17 10:30 Dose: 1 mg Heparin Sodium (Porcine) (Heparin) 5,000 units SC Q8 [facility] Last Admin: 06/12/17 13:29 Dose: 5,000 units Hydralazine HCl (Apresoline) 10 mg PO Q8H PRN PRN Reason: Systolic Blood Pressure Sodium Chloride (Sodium Chloride 0.9%) 1,000 mls @ 40 mls/hr IV .Q24H [facility] Last Admin: 06/12/17 15:05 Dose: Not Given Vancomycin HCl (Vancocin 750mg/Ns 150 Ml) 150 mls @ 100 mls/hr IVPB Q24H [facility] Stop: 06/16/17 15:01 Last Admin: 06/12/17 14:19 Dose: 100 mls/hr Insulin Human Regular (Novolin R) 0 unit SC ACHS [facility] PRN Reason: Protocol Last Admin: 06/12/17 17:58 Dose: 2 unit Levetiracetam (Keppra) 500 mg PO BID [facility] Last Admin: 06/12/17 18:00 Dose: 500 mg Lisinopril (Zestril) 10 mg PO DAILY [facility] Last Admin: 06/12/17 10:30 Dose: 10 mg Metformin HCl (Glucophage) 500 mg PO BID [facility] Last Admin: 06/12/17 17:59 Dose: 500 mg Metoprolol Succinate (Toprol Xl) 25 mg PO DAILY [facility] Last Admin: 06/12/17 10:30 Dose: 25 mg Pantoprazole Sodium (Protonix Ec Tab) 40 mg PO DAILY [facility] Last Admin: 06/12/17 10:30 Dose: 40 mg Rosuvastatin Calcium (Crestor) 40 mg PO HS [facility] Last Admin: 06/11/17 22:04 Dose: 40 mg Saccharomyces Boulardii (Florastor) 250 mg PO DAILY [facility] Last Admin: 06/12/17 10:30 Dose: 250 mg - Labs Labs: 06/12/17 07:42 06/12/17 07:42 PT 11.9 SECONDS (9.7-12.2) 06/07/17 09:12 INR 1.0 06/07/17 09:12 APTT 33 SECONDS (21-34) 06/02/17 15:18
--- NOTE | 2017-06-12 23:57 | PN ---
DATE: SUBJECTIVE: The patient is afebrile. He complains of some pain in the back and the shoulder on right side, it could be muscular as he has been bed bound and has right hemiparesis. He is trying to eat. PHYSICAL EXAMINATION: VITAL SIGNS: T-max 97.6, pulse 64, blood pressure 154/72, respirations 20. LUNGS: Clear. HEART: S1, S2. Regular. BACK: His whole back side is with clean dressing. ABDOMEN: Soft. Nontender. NEUROLOGIC: He remains with right hemiplegia. He is not able to converse much and gets confused sometimes. LABORATORY DATA: White count is 5.7, hemoglobin 8.7, hematocrit 24.9, platelet count is 176. His creatinine yesterday was 1.5 and it is 1.4, it is improving. We have started him on vancomycin 750 a day, but it probably can be increased if the creatinine gets better to a 1 gram or more. We will follow the vancomycin trough, we will do it on the third dose and he will need vancomycin for 5 weeks and need to monitor creatinine and vancomycin peak and trough. I would like to have the trough between 10 and 20 and the peak between 30 and 40. IMPRESSION AND PLAN: He had right foot necrotic ulcer with graft at this time, he also has endocarditis and is being treated for that. His blood culture was positive for Enterococcus faecalis and the wounds had methicillin-resistant Staphylococcus aureus as well as beta hemolytic streptococus, which all we can cover with vancomycin. We will follow. Makenzie Myers MD
--- NOTE | 2017-06-13 01:37 | CP.PCM.PN ---
<Russell Price - Last Filed: 06/13/17 01:39> Subjective - Date & Time of Evaluation Date of Evaluation: 06/13/17 Time of Evaluation: 06:37 - Subjective Subjective: Medicine Progress Note: Patient was seen and examined at bedside in the AM. ROS of systems not obtained because patient is not completely verbal and oriented due to CVA in 2016. Objective - Vital Signs/Intake and Output Vital Signs (last 24 hours): Temp Pulse Resp BP Pulse Ox 98.5 F 74 20 154/68 H 97 06/12/17 23:45 06/12/17 23:45 06/12/17 23:45 06/12/17 23:45 06/12/17 23:45 Intake and Output: 06/12/17 06/13/17 18:59 06:59 Intake Total 990 560 Output Total 1400 Balance -410 560 - Medications Medications: Current Medications Acetaminophen (Tylenol 325mg Tab) 650 mg PO Q6 PRN PRN Reason: Pain, moderate (4-7) Last Admin: 06/09/17 13:19 Dose: 650 mg Amlodipine Besylate (Norvasc) 10 mg PO DAILY [facility] Last Admin: 06/12/17 10:30 Dose: 10 mg Aspirin (Aspirin Chewable) 81 mg PO DAILY [facility] Last Admin: 06/12/17 10:30 Dose: 81 mg Docusate Sodium (Colace) 100 mg PO TID [facility] Last Admin: 06/12/17 17:59 Dose: 100 mg Escitalopram Oxalate (Lexapro) 5 mg PO DAILY [facility] Last Admin: 06/12/17 10:30 Dose: 5 mg Finasteride (Proscar) 5 mg PO DAILY [facility] Last Admin: 06/12/17 10:31 Dose: 5 mg Folic Acid (Folic Acid) 1 mg PO DAILY [facility] Last Admin: 06/12/17 10:30 Dose: 1 mg Heparin Sodium (Porcine) (Heparin) 5,000 units SC Q8 [facility] Last Admin: 06/12/17 22:15 Dose: 5,000 units Hydralazine HCl (Apresoline) 10 mg PO Q8H PRN PRN Reason: Systolic Blood Pressure Sodium Chloride (Sodium Chloride 0.9%) 1,000 mls @ 40 mls/hr IV .Q24H [facility] Last Admin: 06/12/17 15:05 Dose: Not Given Vancomycin HCl (Vancocin 750mg/Ns 150 Ml) 150 mls @ 100 mls/hr IVPB Q24H [facility] Stop: 06/16/17 15:01 Last Admin: 06/12/17 14:19 Dose: 100 mls/hr Insulin Human Regular (Novolin R) 0 unit SC ACHS [facility] PRN Reason: Protocol Last Admin: 06/12/17 21:52 Dose: Not Given Levetiracetam (Keppra) 500 mg PO BID [facility] Last Admin: 06/12/17 18:00 Dose: 500 mg Lisinopril (Zestril) 10 mg PO DAILY [facility] Last Admin: 06/12/17 10:30 Dose: 10 mg Metformin HCl (Glucophage) 500 mg PO BID [facility] Last Admin: 06/12/17 17:59 Dose: 500 mg Metoprolol Succinate (Toprol Xl) 25 mg PO DAILY [facility] Last Admin: 06/12/17 10:30 Dose: 25 mg Pantoprazole Sodium (Protonix Ec Tab) 40 mg PO DAILY [facility] Last Admin: 06/12/17 10:30 Dose: 40 mg Rosuvastatin Calcium (Crestor) 40 mg PO HS [facility] Last Admin: 06/12/17 22:14 Dose: 40 mg Saccharomyces Boulardii (Florastor) 250 mg PO DAILY [facility] Last Admin: 06/12/17 10:30 Dose: 250 mg - Labs Labs: 06/12/17 07:42 06/12/17 07:42 PT 11.9 SECONDS (9.7-12.2) 06/07/17 09:12 INR 1.0 06/07/17 09:12 APTT 33 SECONDS (21-34) 06/02/17 15:18 - Head Exam Head Exam: ATRAUMATIC, NORMAL INSPECTION, NORMOCEPHALIC - Eye Exam Eye Exam: EOMI, Normal appearance, PERRL Pupil Exam: NORMAL ACCOMODATION, PERRL - ENT Exam ENT Exam: Mucous Membranes Moist, Normal Oropharynx - Neck Exam Neck Exam: Normal Inspection. absent: Lymphadenopathy, Thyromegaly - Respiratory Exam Respiratory Exam: Clear to Ausculation Bilateral, NORMAL BREATHING PATTERN. absent: Chest Wall Tenderness, Prolonged Expiratory Phase, Respiratory Distress - Cardiovascular Exam Cardiovascular Exam: REGULAR RHYTHM, +S1, +S2 - GI/Abdominal Exam GI & Abdominal Exam: Soft, Normal Bowel Sounds - Extremities Exam Extremities Exam: Normal Inspection. absent: Joint Swelling, Pedal Edema, Tenderness Additional comments: PICC line in pace in left arm Right lower extremity wrapped in gauze and boot in place, dressing clean, dry, intact Left lower extremity boot in place - Psychiatric Exam Psychiatric exam: Normal Affect, Normal Mood Assessment and Plan - Assessment and Plan (Free Text) Plan: 1.) Right foot ulcer - Cardiology Consult: Dr. Rosen --> appreciated for Cardiac clearance for surgery - per cardiology note: Patient is clear from cardiology standpoint for surgery under LOCAL anesthesia - Podiatry Consult: Dr. Song --> help appreciated - Blister drained by podiatry in ED - s/p surgery (06/05/17): debridement of necrotic ulceration right foot with application of Integra graft and wound vac - spoke with podiatry resident Dr. Valeria Donovan: Upon discharge, pt will follow up with Dr. Song in [facility] on Thursday after discharge. Current wound vac dressing can remain in place for up to 7 days or until saturated. 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 No demonstrated acute fracture no evidence of periosteal reaction. * Venous dopplers: No evidence of DVT of the right lower extremity with excellent venous flow. Normal valve function noted of the right side. Normal venous flow noted in the left common femoral vein. * Arterial duplex: There is no evidence of hemo-dynamically significant arterial insufficiency in the right lower extremity. Arterial wall calcification is noted throughout the right lower extremity. 2.) Infective Endocarditis Cardiology Consult: Dr. Rosen --> recommendations appreciated - Echo (06/04/17) results showed 1cm density on the posterior leaflet of the mitral valve, atrial aspect. Fixed on the leaflet highly suggestive for vegetations. EF 55-60%. - RAHEL (06/08/17): circumferential vegetation on A1 and A2 cusp of mitral valve measuring 8mm x 8mm ID Consult: Dr. Myers --> recommendations appreciated - Medications * Daptomycin 420mg (06/08/17) q48h - discontinued 06/11/17 * Vancomycin 750mg IV daily for a total of 5 weeks (started 06/11/17) * f/u Vanco troph 06/14/17 which should be between 15-20 range - PICC line placed in left arm 06/10/17 3.) Abnormal EKG History of triple bypass - Cardiology Consult: Dr. Rosen --> help appreciated appreciated - Echo (06/04/17) results showed 1cm density on the posterior leaflet of the mitral valve, atrial aspect. Fixed on the leaflet highly suggestive for vegetations. EF 55-60%. 4.) Hypertension - uncontrolled - Norvasc 10mg po daily - Metoprolol Succinate 25mg PO daily - Hydralazine 10mg po q8h prn >180 systolic bp - Lisinopril 10mg po daily - Continue to monitor 5.) Diabetes - ISS - Accuchecks - Hemoglobin A1c: 8.6 - Lipid panel: Triglycerides 219; Total Cholesterol 112; LDL 46; HDL 34 - Metformin 500mg bid po daily - Hypoglycemic protocol 6.) CARLOS - secondary to antibiotics - Lightly hydrate with N/S @ 40cc/hr 7.) History of seizure - Keppra 500mg PO BID - Seizure precautions 8.) History of cerebrovascular accident (CVA) with residual deficit History of CVA with right sided weakness - Aspirin 81mg po daily - Atorvastatin 40mg PO HS 9.) Former Peg Tube insertion Site - Medi honey daily and change dressing daily 10.) Benign prostatic hyperplasia - Finasteride 5mg PO daily 11.) Depression - Lexapro 5mg PO daily 12.) Prophylactic measure - Heparin 5000sc Q8h - Protonix 40mg PO daily - PT eval and treat - OT eval and treat Family meeting 06/08/17 per palliative nurse Tabitha: Patient is Full Code. Disposition: Discharge planning to [place] Thursday06/15/17 <Nestor Hauser - Last Filed: 06/13/17 10:14> Objective - Vital Signs/Intake and Output Vital Signs (last 24 hours): Temp Pulse Resp BP Pulse Ox 98.2 F 66 18 159/71 H 95 06/13/17 07:20 06/13/17 09:14 06/13/17 07:20 06/13/17 09:14 06/13/17 07:20 Intake and Output: 06/13/17 06/13/17 06:59 18:59 Intake Total 560 Balance 560 - Medications Medications: Current Medications Acetaminophen (Tylenol 325mg Tab) 650 mg PO Q6 PRN PRN Reason: Pain, moderate (4-7) Last Admin: 06/09/17 13:19 Dose: 650 mg Amlodipine Besylate (Norvasc) 10 mg PO DAILY [facility] Last Admin: 06/13/17 09:11 Dose: 10 mg Aspirin (Aspirin Chewable) 81 mg PO DAILY [facility] Last Admin: 06/13/17 09:11 Dose: 81 mg Docusate Sodium (Colace) 100 mg PO TID [facility] Last Admin: 06/13/17 09:10 Dose: 100 mg Escitalopram Oxalate (Lexapro) 5 mg PO DAILY [facility] Last Admin: 06/13/17 09:09 Dose: 5 mg Finasteride (Proscar) 5 mg PO DAILY [facility] Last Admin: 06/13/17 09:09 Dose: 5 mg Folic Acid (Folic Acid) 1 mg PO DAILY [facility] Last Admin: 06/13/17 09:11 Dose: 1 mg Heparin Sodium (Porcine) (Heparin) 5,000 units SC Q8 [facility] Last Admin: 06/13/17 05:06 Dose: 5,000 units Hydralazine HCl (Apresoline) 10 mg PO Q8H PRN PRN Reason: Systolic Blood Pressure Sodium Chloride (Sodium Chloride 0.9%) 1,000 mls @ 40 mls/hr IV .Q24H [facility] Last Admin: 06/13/17 08:50 Dose: 40 mls/hr Vancomycin HCl (Vancocin 750mg/Ns 150 Ml) 150 mls @ 100 mls/hr IVPB Q24H [facility] Stop: 06/16/17 15:01 Last Admin: 06/12/17 14:19 Dose: 100 mls/hr Insulin Human Regular (Novolin R) 0 unit SC ACHS [facility] PRN Reason: Protocol Last Admin: 06/13/17 08:30 Dose: 2 unit Levetiracetam (Keppra) 500 mg PO BID [facility] Last Admin: 06/13/17 09:10 Dose: 500 mg Lisinopril (Zestril) 10 mg PO DAILY [facility] Last Admin: 06/13/17 09:11 Dose: 10 mg Metformin HCl (Glucophage) 500 mg PO BID [facility] Last Admin: 06/13/17 09:11 Dose: 500 mg Metoprolol Succinate (Toprol Xl) 25 mg PO DAILY [facility] Last Admin: 06/13/17 09:10 Dose: 25 mg Pantoprazole Sodium (Protonix Ec Tab) 40 mg PO DAILY [facility] Last Admin: 06/13/17 09:10 Dose: 40 mg Rosuvastatin Calcium (Crestor) 40 mg PO HS [facility] Last Admin: 06/12/17 22:14 Dose: 40 mg Saccharomyces Boulardii (Florastor) 250 mg PO DAILY [facility] Last Admin: 06/13/17 09:11 Dose: 250 mg - Labs Labs: 06/13/17 07:10 06/13/17 07:10 PT 11.9 SECONDS (9.7-12.2) 06/07/17 09:12 INR 1.0 06/07/17 09:12 APTT 33 SECONDS (21-34) 06/02/17 15:18 Attending/Attestation - Attestation I have personally seen and examined this patient.: Yes I have fully participated in the care of the patient.: Yes I have reviewed all pertinent clinical information, including history, physical exam and plan: Yes Notes (Text): 06/13/17 10:05 Patient was seen and examined 10:00 AM 06/13/17 566 P Exam, assessment and plan were gone over with the resident Also on Exam: CHAD wound vac on right pedal surface Left Arm PICC Line GI: Prior Peg Tube Insertion Site applied medihoney and covered with adhesive island dressing Assessments: 1). Endocarditis Confirmed with RAHEL on Mitral Valve Blood Culture 06/02/17 Enterococcus Repeat Blood Cutlure 06/06/17 negative to date Vancomycin 750 mg IV 1x/day for 5 more weeks from 06/11/17 F/U Vancomycin Trough 06/14/17 Left Arm PICC placed 06/10/17 2). Right Foot Ulcer s/p debridement with application of Integra graft and CHAD Wound Vac 06/06/17 Wound Culture showed MRSA and Beta Hemolytic Strep Group B Arterial Dopplers negative X Ray Right Foot shows prior 5th transmetatarsal amputation with NO periosteal elevation Multipodus Boot CHAD wound vac Vancomycin 750 mg IV 1x/day for 5 more weeks from 06/11/[address] Song: Current wound vac dressing can remain in place for up to 7 days( 06/16/17) or until saturated. Upon discharge, patient will follow up with Dr. Song in [facility] on Thursday after discharge. 3). Hx CAD/Systolic HF/CABG ASA 81 mg PO 1x/day Crestor 40 mg PO HS Zestril 10 mg PO 1x/day 4). Hx HTN Norvasc 10 mg PO 1x/day Zestril 10 mg PO 1x/day Metoprolol Succinate 25 mg PO 1x/day increased (06/13/17) to 25 mg PO Q12H (10 AM and 10 PM) as blood pressure not under control 5). Hx DM RISS ACHS Metformin 500 mg PO 2x/day 6). Hx Seizure Keppra 500 mg PO 2x/day 7). Hx CVA with Right Side Body Residual Deficit ASA, Crestor as above 8). Hx BPH Proscar 5 mg PO 1x/day 9). Hx Depression Lexapro 5 mg PO 1x/day 10). Elevated BUN/Cr Likely prerenal IVF 40 ml/hr continued due to patient likely not taking in enough fluids and because of the Zosyn and Daptomycin Nephrology Dr. Maxwell 11). Low HgB/Hct Stablized Stool Occult Blood ordered 06/09/17 is negative 12). Prophylaxis Heparin 5,000 Units SC Q8H Protonix 40 mg PO 1x/day Florastor 250 mg PO 2x/day Folic Acid 1 mg PO 1x/day Colace 100 mg PO 3x/day Patient is for discharge to [place] on Thursday06/15/17 as per Sales Representatives Taty. Medicine Team: Coordinate with Podiatry Team to have CHAD Wound Vac dressing changed PRIOR to transfer to [place] Change former PEG Tube Insertion Site everyday with Silvina and cover with adhesive island dressing: materials on nightstand at bedside Nestor Hauser D.O.
[2017-06-13 07:28] LABS: BASO % 0.8 % (0.0-2.0); EOS # 0.3 K/uL (0.0-0.7); EOS % 4.6 % (0.0-4.0); HEMOGLOBIN 8.3 g/dL (12.0-18.0); LYMPH # 1.8 K/uL (1.0-4.3); LYMPH % 32.9 % (20.0-40.0); MEAN CELL VOLUME 91.1 fL (80.0-94.0); MEAN CORPUSCULAR HEMOGLOBIN 31.9 pg (27.0-31.0); MEAN CORPUSCULAR HGB CONC 35.1 g/dL (33.0-37.0); MEAN PLATELET VOLUME 10.3 fL (7.2-11.7); MONO # 0.4 K/uL (0.0-0.8); MONO % 7.3 % (0.0-10.0); NEUT % 54.4 % (50.0-75.0); RBC 2.61 Mil/uL (4.40-5.90); RED CELL DISTRIBUTION WIDTH 12.7 % (11.5-14.5); WHITE BLOOD COUNT 5.6 K/uL (4.8-10.8)
[2017-06-13 07:39] LABS: IRON 47 ug/dL (49-181)
[2017-06-13 07:52] LABS: ALB/GLOB RATIO 1.1 (1.0-2.1); ALBUMIN 3.1 g/dL (3.5-5.0); ALT/SGPT 41 U/L (21-72); AST/SGOT 37 U/L (17-59); BLOOD UREA NITROGEN 17 mg/dL (9-20); CALCIUM 8.4 mg/dl (8.6-10.4); GFR AFRICAN-AMERICAN > 60; GFR NON-AFRICAN AMERICAN 57; MAGNESIUM 1.6 mg/dL (1.6-2.3)
[2017-06-13 07:58] LABS: % IRON SATURATION 18 (20-55); TOTAL IRON BINDING CAPACITY 260 ug/dL (250-450)
[2017-06-13 08:11] LABS: FERRITIN 95.5 ng/mL
[2017-06-13] MEDS: (Novolin R) Insulin Human Regular 100 units/ml vial SC SCH ×4 (08:30→21:59)
[2017-06-13] MEDS: Sodium Chloride 0.9% 1,000 ML IV SCH ×2 (08:50→17:36)
[2017-06-13] MEDS: Metoprolol Succinate 25 mg XL Tab PO SCH ×2 (09:10→21:58)
[2017-06-13] MEDS: Pantoprazole 40 mg EC Tab PO SCH (09:10)
[2017-06-13] MEDS: Saccharomyces Boulardi 250 mg Cap PO SCH (09:11)
--- NOTE | 2017-06-13 11:21 | CP.PCM.PN ---
Subjective - Date & Time of Evaluation Date of Evaluation: 06/13/17 Time of Evaluation: 11:21 - Subjective Subjective: Podiatry Progress Note- Dr. Song 56 y/o male seen 8 days s/p debridement of necrotic ulceration right foot with application of Integra graft and wound vac. Patient is seen sleeping comfortably at bedside and in NAD. Patient is less verbal and oriented today due to CVA in 2016. Dressing is C/D/I without strikethrough. Multipodus on bilateral LE. Pt denies any acute overnight events. Objective - Vital Signs/Intake and Output Vital Signs (last 24 hours): Temp Pulse Resp BP Pulse Ox 98.2 F 66 18 159/71 H 95 06/13/17 07:20 06/13/17 09:14 06/13/17 07:20 06/13/17 09:14 06/13/17 07:20 Intake and Output: 06/13/17 06/13/17 06:59 18:59 Intake Total 560 Balance 560 - Medications Medications: Current Medications Acetaminophen (Tylenol 325mg Tab) 650 mg PO Q6 PRN PRN Reason: Pain, moderate (4-7) Last Admin: 06/09/17 13:19 Dose: 650 mg Amlodipine Besylate (Norvasc) 10 mg PO DAILY [facility] Last Admin: 06/13/17 09:11 Dose: 10 mg Aspirin (Aspirin Chewable) 81 mg PO DAILY [facility] Last Admin: 06/13/17 09:11 Dose: 81 mg Docusate Sodium (Colace) 100 mg PO TID [facility] Last Admin: 06/13/17 09:10 Dose: 100 mg Escitalopram Oxalate (Lexapro) 5 mg PO DAILY [facility] Last Admin: 06/13/17 09:09 Dose: 5 mg Finasteride (Proscar) 5 mg PO DAILY [facility] Last Admin: 06/13/17 09:09 Dose: 5 mg Folic Acid (Folic Acid) 1 mg PO DAILY [facility] Last Admin: 06/13/17 09:11 Dose: 1 mg Heparin Sodium (Porcine) (Heparin) 5,000 units SC Q8 [facility] Last Admin: 06/13/17 05:06 Dose: 5,000 units Hydralazine HCl (Apresoline) 10 mg PO Q8H PRN PRN Reason: Systolic Blood Pressure Sodium Chloride (Sodium Chloride 0.9%) 1,000 mls @ 40 mls/hr IV .Q24H [facility] Last Admin: 06/13/17 08:50 Dose: 40 mls/hr Vancomycin HCl (Vancocin 750mg/Ns 150 Ml) 150 mls @ 100 mls/hr IVPB Q24H [facility] Stop: 06/16/17 15:01 Last Admin: 06/12/17 14:19 Dose: 100 mls/hr Insulin Human Regular (Novolin R) 0 unit SC ACHS [facility] PRN Reason: Protocol Last Admin: 06/13/17 08:30 Dose: 2 unit Levetiracetam (Keppra) 500 mg PO BID [facility] Last Admin: 06/13/17 09:10 Dose: 500 mg Lisinopril (Zestril) 10 mg PO DAILY [facility] Last Admin: 06/13/17 09:11 Dose: 10 mg Metformin HCl (Glucophage) 500 mg PO BID [facility] Last Admin: 06/13/17 09:11 Dose: 500 mg Metoprolol Succinate (Toprol Xl) 25 mg PO Q12H [facility] Pantoprazole Sodium (Protonix Ec Tab) 40 mg PO DAILY [facility] Last Admin: 06/13/17 09:10 Dose: 40 mg Rosuvastatin Calcium (Crestor) 40 mg PO HS [facility] Last Admin: 06/12/17 22:14 Dose: 40 mg Saccharomyces Boulardii (Florastor) 250 mg PO DAILY [facility] Last Admin: 06/13/17 09:11 Dose: 250 mg - Labs Labs: 06/13/17 07:10 06/13/17 07:10 PT 11.9 SECONDS (9.7-12.2) 06/07/17 09:12 INR 1.0 06/07/17 09:12 APTT 33 SECONDS (21-34) 06/02/17 15:18 - Constitutional Appears: Well, Non-toxic, No Acute Distress - Extremities Exam Additional comments: R foot wound dressing intact with wound vac (CHAD) dressing running without any leaks - Neurological Exam Neurological Exam: Alert, Awake, Oriented x3 - Psychiatric Exam Psychiatric exam: Normal Affect, Normal Mood Assessment and Plan - Assessment and Plan (Free Text) Assessment: 56 y/o male seen 8 days s/p debridement of necrotic ulceration right foot with application of Integra graft and wound vac to right foot ulceration (DOS 06/05/17) Plan: Wellness check performed. Plan discussed with attending Dr. Song Chart, labs and vitals reviewed - afebrile, WBC 5.6 CHAD to remain in place Vac running well without any detected leaks Pt is stable for discharge to specialized nursing facility - to go to [place] on Thursday Current wound vac dressing can remain inplace for up to 7 days( 06/16/17) or until saturated. Upon discharge, pt will follow up with Dr. Song in [facility] on Thursday after discharge PICC line in place Continue IV abx per Dr. Myers-( Vanco) C/w multipodus boot at all times to right foot Podiatry will continue to follow while in house
[2017-06-13] MEDS: Vancomycin 750mg/NS 150 ml 150 ML IVPB SCH (14:03)
--- NOTE | 2017-06-14 00:14 | CP.PCM.PN ---
<Russell Price - Last Filed: 06/14/17 00:16> Subjective - Date & Time of Evaluation Date of Evaluation: 06/14/17 Time of Evaluation: 06:14 - Subjective Subjective: Medicine Progress Note: Patient was seen and examined at bedside in the AM. ROS of systems not obtained because patient is not completely verbal and oriented due to CVA in 2016. Objective - Vital Signs/Intake and Output Vital Signs (last 24 hours): Temp Pulse Resp BP Pulse Ox 98.9 F 68 20 143/66 95 06/13/17 18:17 06/13/17 22:00 06/13/17 18:17 06/13/17 22:00 06/13/17 18:17 Intake and Output: 06/13/17 06/14/17 18:59 06:59 Intake Total 320 560 Output Total 1100 600 Balance -780 -40 - Medications Medications: Current Medications Acetaminophen (Tylenol 325mg Tab) 650 mg PO Q6 PRN PRN Reason: Pain, moderate (4-7) Last Admin: 06/09/17 13:19 Dose: 650 mg Amlodipine Besylate (Norvasc) 10 mg PO DAILY [facility] Last Admin: 06/13/17 09:11 Dose: 10 mg Aspirin (Aspirin Chewable) 81 mg PO DAILY [facility] Last Admin: 06/13/17 09:11 Dose: 81 mg Docusate Sodium (Colace) 100 mg PO TID [facility] Last Admin: 06/13/17 17:35 Dose: 100 mg Escitalopram Oxalate (Lexapro) 5 mg PO DAILY [facility] Last Admin: 06/13/17 09:09 Dose: 5 mg Finasteride (Proscar) 5 mg PO DAILY [facility] Last Admin: 06/13/17 09:09 Dose: 5 mg Folic Acid (Folic Acid) 1 mg PO DAILY [facility] Last Admin: 06/13/17 09:11 Dose: 1 mg Heparin Sodium (Porcine) (Heparin) 5,000 units SC Q8 [facility] Last Admin: 06/13/17 21:59 Dose: 5,000 units Hydralazine HCl (Apresoline) 10 mg PO Q8H PRN PRN Reason: Systolic Blood Pressure Sodium Chloride (Sodium Chloride 0.9%) 1,000 mls @ 40 mls/hr IV .Q24H [facility] Last Admin: 06/13/17 17:36 Dose: Not Given Vancomycin HCl (Vancocin 750mg/Ns 150 Ml) 150 mls @ 100 mls/hr IVPB Q24H [facility] Stop: 06/16/17 15:01 Last Admin: 06/13/17 14:03 Dose: 100 mls/hr Insulin Human Regular (Novolin R) 0 unit SC ACHS [facility] PRN Reason: Protocol Last Admin: 06/13/17 21:59 Dose: 2 unit Levetiracetam (Keppra) 500 mg PO BID [facility] Last Admin: 06/13/17 17:35 Dose: 500 mg Lisinopril (Zestril) 10 mg PO DAILY [facility] Last Admin: 06/13/17 09:11 Dose: 10 mg Metformin HCl (Glucophage) 500 mg PO BID [facility] Last Admin: 06/13/17 17:35 Dose: 500 mg Metoprolol Succinate (Toprol Xl) 25 mg PO Q12H [facility] Last Admin: 06/13/17 21:58 Dose: 25 mg Pantoprazole Sodium (Protonix Ec Tab) 40 mg PO DAILY [facility] Last Admin: 06/13/17 09:10 Dose: 40 mg Rosuvastatin Calcium (Crestor) 40 mg PO HS [facility] Last Admin: 06/13/17 21:59 Dose: 40 mg Saccharomyces Boulardii (Florastor) 250 mg PO DAILY [facility] Last Admin: 06/13/17 09:11 Dose: 250 mg - Labs Labs: 06/13/17 07:10 06/13/17 07:10 PT 11.9 SECONDS (9.7-12.2) 06/07/17 09:12 INR 1.0 06/07/17 09:12 APTT 33 SECONDS (21-34) 06/02/17 15:18 - Head Exam Head Exam: ATRAUMATIC, NORMAL INSPECTION, NORMOCEPHALIC - Eye Exam Eye Exam: EOMI, Normal appearance, PERRL. absent: Periorbital tenderness Pupil Exam: NORMAL ACCOMODATION, PERRL. absent: Irregular, Unequal - ENT Exam ENT Exam: Mucous Membranes Moist, Normal Exam, Normal Oropharynx - Neck Exam Neck Exam: absent: Lymphadenopathy, Thyromegaly - Respiratory Exam Respiratory Exam: Clear to Ausculation Bilateral, NORMAL BREATHING PATTERN. absent: Chest Wall Tenderness, Prolonged Expiratory Phase, Respiratory Distress - Cardiovascular Exam Cardiovascular Exam: REGULAR RHYTHM, +S1, +S2 - GI/Abdominal Exam GI & Abdominal Exam: Soft, Normal Bowel Sounds - Extremities Exam Additional comments: PICC line in pace in left arm Right lower extremity wrapped in gauze and boot in place, dressing clean, dry, intact Left lower extremity boot in place - Back Exam Back Exam: NORMAL INSPECTION - Neurological Exam Neurological Exam: Alert, Awake, CN II-XII Intact, Oriented x3 - Psychiatric Exam Psychiatric exam: Normal Affect, Normal Mood - Skin Skin Exam: Dry, Intact Assessment and Plan - Assessment and Plan (Free Text) Plan: 1.) Right foot ulcer - Cardiology Consult: Dr. Rosen --> appreciated for Cardiac clearance for surgery - per cardiology note: Patient is clear from cardiology standpoint for surgery under LOCAL anesthesia - Podiatry Consult: Dr. Song --> help appreciated - Blister drained by podiatry in ED - s/p surgery (06/05/17): debridement of necrotic ulceration right foot with application of Integra graft and wound vac - spoke with podiatry resident Dr. Valeria Donovan: Upon discharge, pt will follow up with Dr. Song in [facility] on Thursday after discharge. Current wound vac dressing can remain in place for up to 7 days or until saturated. 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 No demonstrated acute fracture no evidence of periosteal reaction. * Venous dopplers: No evidence of DVT of the right lower extremity with excellent venous flow. Normal valve function noted of the right side. Normal venous flow noted in the left common femoral vein. * Arterial duplex: There is no evidence of hemo-dynamically significant arterial insufficiency in the right lower extremity. Arterial wall calcification is noted throughout the right lower extremity. 2.) Infective Endocarditis Cardiology Consult: Dr. Rosen --> recommendations appreciated - Echo (06/04/17) results showed 1cm density on the posterior leaflet of the mitral valve, atrial aspect. Fixed on the leaflet highly suggestive for vegetations. EF 55-60%. - RAHEL (06/08/17): circumferential vegetation on A1 and A2 cusp of mitral valve measuring 8mm x 8mm ID Consult: Dr. Myers --> recommendations appreciated - Medications * Daptomycin 420mg (06/08/17) q48h - discontinued 06/11/17 * Vancomycin 750mg IV daily for a total of 5 weeks (started 06/11/17) * f/u Vanco troph 06/14/17 which should be between 15-20 range - PICC line placed in left arm 06/10/17 3.) Abnormal EKG History of triple bypass - Cardiology Consult: Dr. Rosen --> help appreciated appreciated - Echo (06/04/17) results showed 1cm density on the posterior leaflet of the mitral valve, atrial aspect. Fixed on the leaflet highly suggestive for vegetations. EF 55-60%. 4.) Hypertension - uncontrolled - Norvasc 10mg po daily - Metoprolol Succinate 25mg PO daily - Hydralazine 10mg po q8h prn >180 systolic bp - Lisinopril 10mg po daily - Continue to monitor 5.) Diabetes - ISS - Accuchecks - Hemoglobin A1c: 8.6 - Lipid panel: Triglycerides 219; Total Cholesterol 112; LDL 46; HDL 34 - Metformin 500mg bid po daily - Hypoglycemic protocol 6.) CARLOS - secondary to antibiotics - Lightly hydrate with N/S @ 40cc/hr 7.) History of seizure - Keppra 500mg PO BID - Seizure precautions 8.) History of cerebrovascular accident (CVA) with residual deficit History of CVA with right sided weakness - Aspirin 81mg po daily - Atorvastatin 40mg PO HS 9.) Former Peg Tube insertion Site - Medi honey daily and change dressing daily 10.) Benign prostatic hyperplasia - Finasteride 5mg PO daily 11.) Depression - Lexapro 5mg PO daily 12.) Prophylactic measure - Heparin 5000sc Q8h - Protonix 40mg PO daily - PT eval and treat - OT eval and treat Family meeting 06/08/17 per palliative nurse Tabitha: Patient is Full Code. Disposition: Discharge planning to [facility] Thursday06/15/17 <Nestor Hauser - Last Filed: 06/14/17 11:07> Objective - Vital Signs/Intake and Output Vital Signs (last 24 hours): Temp Pulse Resp BP Pulse Ox 97.9 F 20 L 97 H 134/65 97 06/14/17 07:59 06/14/17 07:59 06/14/17 07:59 06/14/17 07:59 06/14/17 07:59 Intake and Output: 06/14/17 06/14/17 06:59 18:59 Intake Total 560 Output Total 600 Balance -40 - Medications Medications: Current Medications Acetaminophen (Tylenol 325mg Tab) 650 mg PO Q6 PRN PRN Reason: Pain, moderate (4-7) Last Admin: 06/09/17 13:19 Dose: 650 mg Amlodipine Besylate (Norvasc) 10 mg PO DAILY [facility] Last Admin: 06/14/17 09:38 Dose: 10 mg Aspirin (Aspirin Chewable) 81 mg PO DAILY [facility] Last Admin: 06/14/17 09:38 Dose: 81 mg Docusate Sodium (Colace) 100 mg PO TID [facility] Last Admin: 06/14/17 09:38 Dose: 100 mg Escitalopram Oxalate (Lexapro) 5 mg PO DAILY [facility] Last Admin: 06/14/17 09:39 Dose: 5 mg Finasteride (Proscar) 5 mg PO DAILY [facility] Last Admin: 06/14/17 09:38 Dose: 5 mg Folic Acid (Folic Acid) 1 mg PO DAILY [facility] Last Admin: 06/14/17 09:39 Dose: 1 mg Heparin Sodium (Porcine) (Heparin) 5,000 units SC Q8 [facility] Last Admin: 06/14/17 05:54 Dose: 5,000 units Hydralazine HCl (Apresoline) 10 mg PO Q8H PRN PRN Reason: Systolic Blood Pressure Sodium Chloride (Sodium Chloride 0.9%) 1,000 mls @ 40 mls/hr IV .Q24H [facility] Last Admin: 06/13/17 17:36 Dose: Not Given Vancomycin HCl (Vancocin 750mg/Ns 150 Ml) 150 mls @ 100 mls/hr IVPB Q24H [facility] Stop: 06/16/17 15:01 Last Admin: 06/13/17 14:03 Dose: 100 mls/hr Insulin Human Regular (Novolin R) 0 unit SC ACHS [facility] PRN Reason: Protocol Last Admin: 06/14/17 08:20 Dose: 3 unit Levetiracetam (Keppra) 500 mg PO BID [facility] Last Admin: 06/14/17 09:39 Dose: 500 mg Lisinopril (Zestril) 10 mg PO DAILY [facility] Last Admin: 06/14/17 09:38 Dose: 10 mg Metformin HCl (Glucophage) 500 mg PO BID [facility] Last Admin: 06/14/17 09:38 Dose: 500 mg Metoprolol Succinate (Toprol Xl) 25 mg PO Q12H [facility] Last Admin: 06/14/17 09:39 Dose: 25 mg Pantoprazole Sodium (Protonix Ec Tab) 40 mg PO DAILY [facility] Last Admin: 06/14/17 09:39 Dose: 40 mg Rosuvastatin Calcium (Crestor) 40 mg PO HS [facility] Last Admin: 06/13/17 21:59 Dose: 40 mg Saccharomyces Boulardii (Florastor) 250 mg PO DAILY [facility] Last Admin: 06/14/17 09:38 Dose: 250 mg - Labs Labs: 06/13/17 07:10 06/13/17 07:10 PT 11.9 SECONDS (9.7-12.2) 06/07/17 09:12 INR 1.0 06/07/17 09:12 APTT 33 SECONDS (21-34) 06/02/17 15:18 Attending/Attestation - Attestation I have personally seen and examined this patient.: Yes I have fully participated in the care of the patient.: Yes I have reviewed all pertinent clinical information, including history, physical exam and plan: Yes Notes (Text): 06/14/17 10:46 Patient was seen and examined 10:45 AM 06/14/17 566 P Exam, assessment and plan were gone over with the resident Also on Exam: CHAD wound vac on right pedal surface Left Arm PICC Line GI: Prior Peg Tube Insertion Site applied medihoney and covered with adhesive island dressing Skin: NO ulcers present on any of the natasha prominences (examined with assistance of Dr. Aguilar Assessments: 1). Endocarditis Confirmed with RAHEL on Mitral Valve Blood Culture 06/02/17 Enterococcus Repeat Blood Cutlure 06/06/17 negative to date Vancomycin 750 mg IV 1x/day for 5 more weeks from 06/11/17 through 07/16/17 F/U Vancomycin Trough 06/14/17 at 2:30 PM Left Arm PICC placed 06/10/17 2). Right Foot Ulcer s/p debridement with application of Integra graft and CHAD Wound Vac 06/06/17 Wound Culture showed MRSA and Beta Hemolytic Strep Group B Arterial Dopplers negative X Ray Right Foot shows prior 5th transmetatarsal amputation with NO periosteal elevation Multipodus Boot CHAD wound vac Vancomycin 750 mg IV 1x/day for 5 more weeks from 06/11/[address] Song: Current wound vac dressing can remain in place for up to 7 days( 06/16/17) or until saturated. Upon discharge, patient will follow up with Dr. Song in [facility] on Thursday after discharge. 3). Hx CAD/Systolic HF/CABG ASA 81 mg PO 1x/day Crestor 40 mg PO HS Zestril 10 mg PO 1x/day 4). Hx HTN Norvasc 10 mg PO 1x/day Zestril 10 mg PO 1x/day Metoprolol Succinate 25 mg PO 1x/day was increased (06/13/17) to 25 mg PO Q12H ( 10 AM and 10 PM) as blood pressure was not under control: now better under control 5). Hx DM 2 RISS ACHS Metformin 500 mg PO 2x/day 6). Hx Seizure Keppra 500 mg PO 2x/day 7). Hx CVA with Right Side Body Residual Deficit ASA, Crestor as above 8). Hx BPH Proscar 5 mg PO 1x/day 9). Hx Depression Lexapro 5 mg PO 1x/day 10). Elevated BUN/Cr Likely prerenal IVF 40 ml/hr continued due to patient likely not taking in enough fluids Nephrology Dr. Maxwell 11). Low HgB/Hct Stablized Stool Occult Blood ordered 06/09/17 is negative F/U CBC at 4 PM today 12). Prophylaxis Heparin 5,000 Units SC Q8H Protonix 40 mg PO 1x/day Florastor 250 mg PO 2x/day Folic Acid 1 mg PO 1x/day Colace 100 mg PO 3x/day Patient is for discharge to [facility] on Thursday06/15/17 as per Manager Qa Taty. Medicine Team: Coordinate with Podiatry Team to have CHAD Wound Vac dressing changed morning of 06/15/17 as well as being seen by Dr. Song PRIOR to transfer to [facility] so that he does not have to be be transferred back to [facility] while at [facility]. Change former PEG Tube Insertion Site everyday with MediHoney and cover with adhesive island dressing: materials on nightstand at bedside. Nestor Hauser D.O.
[2017-06-14] MEDS: (Novolin R) Insulin Human Regular 100 units/ml vial SC SCH ×4 (08:20→21:46)
[2017-06-14] MEDS: Saccharomyces Boulardi 250 mg Cap PO SCH (09:38)
[2017-06-14] MEDS: Metoprolol Succinate 25 mg XL Tab PO SCH ×2 (09:39→21:56)
[2017-06-14] MEDS: Pantoprazole 40 mg EC Tab PO SCH (09:39)
--- NOTE | 2017-06-14 13:02 | CP.PCM.PN ---
Subjective - Date & Time of Evaluation Date of Evaluation: 06/14/17 Time of Evaluation: 12:59 - Subjective Subjective: Podiatry Progress Note- Dr. Song 56 y/o male seen 9 days s/p debridement of necrotic ulceration right foot with application of Integra graft and wound vac. Patient is seen sleeping comfortably at bedside and in NAD. Patient is somewhat verbal today and seems in good spirits. Dressing is C/D/I without strikethrough. Multipodus on bilateral LE. Pt denies any acute overnight events. Objective - Vital Signs/Intake and Output Vital Signs (last 24 hours): Temp Pulse Resp BP Pulse Ox 97.9 F 20 L 97 H 134/65 97 06/14/17 07:59 06/14/17 07:59 06/14/17 07:59 06/14/17 07:59 06/14/17 07:59 Intake and Output: 06/14/17 06/14/17 06:59 18:59 Intake Total 560 Output Total 600 Balance -40 - Medications Medications: Current Medications Acetaminophen (Tylenol 325mg Tab) 650 mg PO Q6 PRN PRN Reason: Pain, moderate (4-7) Last Admin: 06/09/17 13:19 Dose: 650 mg Amlodipine Besylate (Norvasc) 10 mg PO DAILY [facility] Last Admin: 06/14/17 09:38 Dose: 10 mg Aspirin (Aspirin Chewable) 81 mg PO DAILY [facility] Last Admin: 06/14/17 09:38 Dose: 81 mg Docusate Sodium (Colace) 100 mg PO TID [facility] Last Admin: 06/14/17 09:38 Dose: 100 mg Escitalopram Oxalate (Lexapro) 5 mg PO DAILY [facility] Last Admin: 06/14/17 09:39 Dose: 5 mg Finasteride (Proscar) 5 mg PO DAILY [facility] Last Admin: 06/14/17 09:38 Dose: 5 mg Folic Acid (Folic Acid) 1 mg PO DAILY [facility] Last Admin: 06/14/17 09:39 Dose: 1 mg Heparin Sodium (Porcine) (Heparin) 5,000 units SC Q8 [facility] Last Admin: 06/14/17 05:54 Dose: 5,000 units Hydralazine HCl (Apresoline) 10 mg PO Q8H PRN PRN Reason: Systolic Blood Pressure Sodium Chloride (Sodium Chloride 0.9%) 1,000 mls @ 40 mls/hr IV .Q24H [facility] Last Admin: 06/13/17 17:36 Dose: Not Given Vancomycin HCl (Vancocin 750mg/Ns 150 Ml) 150 mls @ 100 mls/hr IVPB Q24H [facility] Stop: 06/16/17 15:01 Last Admin: 06/13/17 14:03 Dose: 100 mls/hr Insulin Human Regular (Novolin R) 0 unit SC ACHS [facility] PRN Reason: Protocol Last Admin: 06/14/17 08:20 Dose: 3 unit Levetiracetam (Keppra) 500 mg PO BID [facility] Last Admin: 06/14/17 09:39 Dose: 500 mg Lisinopril (Zestril) 10 mg PO DAILY [facility] Last Admin: 06/14/17 09:38 Dose: 10 mg Metformin HCl (Glucophage) 500 mg PO BID [facility] Last Admin: 06/14/17 09:38 Dose: 500 mg Metoprolol Succinate (Toprol Xl) 25 mg PO Q12H [facility] Last Admin: 06/14/17 09:39 Dose: 25 mg Pantoprazole Sodium (Protonix Ec Tab) 40 mg PO DAILY [facility] Last Admin: 06/14/17 09:39 Dose: 40 mg Rosuvastatin Calcium (Crestor) 40 mg PO HS [facility] Last Admin: 06/13/17 21:59 Dose: 40 mg Saccharomyces Boulardii (Florastor) 250 mg PO DAILY [facility] Last Admin: 06/14/17 09:38 Dose: 250 mg - Labs Labs: 06/13/17 07:10 06/13/17 07:10 PT 11.9 SECONDS (9.7-12.2) 06/07/17 09:12 INR 1.0 06/07/17 09:12 APTT 33 SECONDS (21-34) 06/02/17 15:18 - Constitutional Appears: Well, Non-toxic, No Acute Distress - Extremities Exam Additional comments: R foot wound dressing intact with wound vac (CHAD) dressing running without any leaks Green light on vac machine, running well - Neurological Exam Neurological Exam: Alert, Awake, Oriented x3 - Psychiatric Exam Psychiatric exam: Normal Affect, Normal Mood Assessment and Plan - Assessment and Plan (Free Text) Assessment: 56 y/o male seen 9 days s/p debridement of necrotic ulceration right foot with application of Integra graft and wound vac to right foot ulceration (DOS 06/05/17) Plan: Wellness check performed at bedside with vac assessment Plan discussed with attending Dr. Song Chart, labs and vitals reviewed - afebrile, no leukocytosis (last CBC done 06/13 with WBC 5.6) CHAD to remain in place Vac running well without any detected leaks Pt is stable for discharge to specialized nursing facility - to go to [place] tomorrow Vac change to be performed prior to discharge Upon discharge, pt will follow up with Dr. Song in [facility] on Thursday after discharge PICC line in place Continue IV abx per Dr. Myers-( Gavino) C/w multipodus boot at all times to right foot Podiatry will continue to follow while in house
[2017-06-14] MEDS: Sodium Chloride 0.9% 1,000 ML IV SCH (14:50)
[2017-06-14 17:31] LABS: BASO # 0.1 K/uL (0.0-0.2); BASO % 0.8 % (0.0-2.0); EOS # 0.2 K/uL (0.0-0.7); EOS % 3.2 % (0.0-4.0); HEMOGLOBIN 8.9 g/dL (12.0-18.0); LYMPH # 1.5 K/uL (1.0-4.3); LYMPH % 22.1 % (20.0-40.0); MEAN CELL VOLUME 91.3 fL (80.0-94.0); MEAN CORPUSCULAR HEMOGLOBIN 31.2 pg (27.0-31.0); MEAN CORPUSCULAR HGB CONC 34.2 g/dL (33.0-37.0); MEAN PLATELET VOLUME 9.8 fL (7.2-11.7); MONO # 0.6 K/uL (0.0-0.8); MONO % 8.6 % (0.0-10.0); NEUT # 4.5 K/uL (1.8-7.0); NEUT % 65.3 % (50.0-75.0); NRBC % 0.1 % (0.0-2.0); RBC 2.83 Mil/uL (4.40-5.90); RED CELL DISTRIBUTION WIDTH 12.9 % (11.5-14.5); WHITE BLOOD COUNT 6.8 K/uL (4.8-10.8)
[2017-06-14 18:29] VITALS: RESP 20
[2017-06-14] MEDS ORDERED: Vancomycin 1 gm/NS 200 ml 1 GM/200 ML BAG IVPB SCH (19:00)
[2017-06-15 07:43] LABS: BASO % 0.5 % (0.0-2.0); EOS # 0.3 K/uL (0.0-0.7); EOS % 4.5 % (0.0-4.0); HEMOGLOBIN 8.5 g/dL (12.0-18.0); LYMPH # 1.7 K/uL (1.0-4.3); MEAN CELL VOLUME 91.5 fL (80.0-94.0); MEAN CORPUSCULAR HEMOGLOBIN 31.5 pg (27.0-31.0); MEAN CORPUSCULAR HGB CONC 34.5 g/dL (33.0-37.0); MEAN PLATELET VOLUME 9.7 fL (7.2-11.7); MONO # 0.6 K/uL (0.0-0.8); MONO % 8.8 % (0.0-10.0); NEUT # 4.2 K/uL (1.8-7.0); NEUT % 61.2 % (50.0-75.0); RBC 2.69 Mil/uL (4.40-5.90); WHITE BLOOD COUNT 6.9 K/uL (4.8-10.8)
[2017-06-15] MEDS: (Novolin R) Insulin Human Regular 100 units/ml vial SC SCH ×3 (08:25→17:26)
[2017-06-15 08:26] LABS: ALB/GLOB RATIO 1.1 (1.0-2.1); ALBUMIN 3.2 g/dL (3.5-5.0); ALT/SGPT 40 U/L (21-72); AST/SGOT 35 U/L (17-59); BLOOD UREA NITROGEN 16 mg/dL (9-20); CALCIUM 8.6 mg/dl (8.6-10.4); GFR AFRICAN-AMERICAN > 60; GFR NON-AFRICAN AMERICAN 52
[2017-06-15 08:34] VITALS: O2SAT 100
[2017-06-15] MEDS: Saccharomyces Boulardi 250 mg Cap PO SCH (09:06)
[2017-06-15] MEDS: Pantoprazole 40 mg EC Tab PO SCH (09:07)
[2017-06-15] MEDS: Metoprolol Succinate 25 mg XL Tab PO SCH (09:07)
--- NOTE | 2017-06-15 09:28 | CP.PCM.PN ---
<Zackery Longoria - Last Filed: 06/15/17 09:49> Subjective - Date & Time of Evaluation Date of Evaluation: 06/15/17 Time of Evaluation: 09:25 - Subjective Subjective: Cardiology Progress Note for Dr. Rosen: Patient seen and examined at bedside. Patient denies fever, chills, chest pain, dyspnea, or new-onset skin lesions. Nurse reports no events overnights. Objective - Vital Signs/Intake and Output Vital Signs (last 24 hours): Temp Pulse Resp BP Pulse Ox 98.1 F 63 20 142/71 100 06/15/17 07:40 06/15/17 07:40 06/15/17 07:40 06/15/17 07:40 06/15/17 07:40 - Medications Medications: Current Medications Acetaminophen (Tylenol 325mg Tab) 650 mg PO Q6 PRN PRN Reason: Pain, moderate (4-7) Last Admin: 06/09/17 13:19 Dose: 650 mg Amlodipine Besylate (Norvasc) 10 mg PO DAILY [facility] Last Admin: 06/15/17 09:07 Dose: 10 mg Aspirin (Aspirin Chewable) 81 mg PO DAILY [facility] Last Admin: 06/15/17 09:06 Dose: 81 mg Docusate Sodium (Colace) 100 mg PO TID [facility] Last Admin: 06/15/17 09:07 Dose: 100 mg Escitalopram Oxalate (Lexapro) 5 mg PO DAILY [facility] Last Admin: 06/15/17 09:06 Dose: 5 mg Finasteride (Proscar) 5 mg PO DAILY [facility] Last Admin: 06/15/17 09:07 Dose: 5 mg Folic Acid (Folic Acid) 1 mg PO DAILY [facility] Last Admin: 06/14/17 09:39 Dose: 1 mg Heparin Sodium (Porcine) (Heparin) 5,000 units SC Q8 [facility] Last Admin: 06/14/17 21:55 Dose: 5,000 units Hydralazine HCl (Apresoline) 10 mg PO Q8H PRN PRN Reason: Systolic Blood Pressure Sodium Chloride (Sodium Chloride 0.9%) 1,000 mls @ 40 mls/hr IV .Q24H [facility] Last Admin: 06/14/17 14:50 Dose: 40 mls/hr Vancomycin/Sodium Chloride (Vancomycin 1 Gm/Ns 200 Ml) 1 gm in 200 mls @ 133.333 mls/hr IVPB Q24H [facility] Last Admin: 06/14/17 21:56 Dose: 133.333 mls/hr Insulin Human Regular (Novolin R) 0 unit SC ACHS [facility] PRN Reason: Protocol Last Admin: 06/15/17 08:25 Dose: 1 unit Levetiracetam (Keppra) 500 mg PO BID [facility] Last Admin: 06/15/17 09:07 Dose: 500 mg Lisinopril (Zestril) 10 mg PO DAILY [facility] Last Admin: 06/15/17 09:07 Dose: 10 mg Metformin HCl (Glucophage) 500 mg PO BID [facility] Last Admin: 06/15/17 09:07 Dose: 500 mg Metoprolol Succinate (Toprol Xl) 25 mg PO Q12H [facility] Last Admin: 06/15/17 09:07 Dose: 25 mg Ondansetron HCl (Zofran Inj) 4 mg IVP Q6H PRN PRN Reason: Nausea/Vomiting Last Admin: 06/14/17 14:50 Dose: 4 mg Pantoprazole Sodium (Protonix Ec Tab) 40 mg PO DAILY [facility] Last Admin: 06/15/17 09:07 Dose: 40 mg Rosuvastatin Calcium (Crestor) 40 mg PO HS [facility] Last Admin: 06/14/17 21:55 Dose: 40 mg Saccharomyces Boulardii (Florastor) 250 mg PO DAILY [facility] Last Admin: 06/15/17 09:06 Dose: 250 mg - Labs Labs: 06/15/17 07:35 06/15/17 07:35 PT 11.9 SECONDS (9.7-12.2) 06/07/17 09:12 INR 1.0 06/07/17 09:12 APTT 33 SECONDS (21-34) 06/02/17 15:18 - Constitutional Appears: Non-toxic, No Acute Distress - Head Exam Head Exam: ATRAUMATIC, NORMOCEPHALIC - Eye Exam Eye Exam: EOMI, Normal appearance - ENT Exam ENT Exam: Mucous Membranes Moist - Respiratory Exam Respiratory Exam: Clear to Ausculation Bilateral, NORMAL BREATHING PATTERN. absent: Decreased Breath Sounds, Rales, Wheezes - Cardiovascular Exam Cardiovascular Exam: RRR, +S1, +S2 - GI/Abdominal Exam GI & Abdominal Exam: Soft, Normal Bowel Sounds. 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 A preoperative cardiac assessment was performed and transesophageal echocardiogram showed findings suspicious for a vegetation on the posterior mitral valve leaflet. Plan: 1. Right Foot Ulcer - Management per Podiatry - Cont IV abx 2. Infective Endocarditis - Echo showed 1 cm density on posterior leaflet of mitral valve - RAHEL revealed circumferential vegetation on A1 and A2 cusp of mitral valve measuring 8mm x 8mm - Recommend 6 weeks of abx on discharge Abx per ID 3. Chronic CHF with Reduced EF - Echo showed EF 45%, repeat Echo showed EF 55-60%, mild to moderate hypokinesis , 1 cm density on posterior leaflet of mitral valve - Lisinopril 10 mg PO daily - Metoprolol 25 mg PO BID - Amlodipine 10 mg PO daily - Hydralazine 10 mg PO Q8H [facility] 4. CARLOS, resolved - Continue to monitor Cr via serial CMP 5. CAD s/p CABG - Continue ASA, Crestor 6. Peripheral Vascular Disease - Cont Crestor and ASA 7. HTN - Lisinopril 10 mg PO daily - Metoprolol 25 mg PO BID - Amlodipine 10 mg PO daily - Hydralazine 10 mg PO Q8H prn - Continue to monitor Creatinine via serial CMP 8. HLD - Continue Crestor 40 mg HS 9. DM - Management per primary 10. BPH - Management per primary 11. H/O Seizures - Management per primary 12. Depression - Management per primary GI/DVT PPx - Protonix - Heparin Patint seen and discussed in detail with Dr. Rosen. Zackery Longoria DO, PGY1 <Raffi Rosen - Last Filed: 06/15/17 12:02> Objective - Vital Signs/Intake and Output Vital Signs (last 24 hours): Temp Pulse Resp BP Pulse Ox 98.1 F 63 20 142/71 100 06/15/17 07:40 06/15/17 07:40 06/15/17 07:40 06/15/17 07:40 06/15/17 07:40 - Medications Medications: Current Medications Acetaminophen (Tylenol 325mg Tab) 650 mg PO Q6 PRN PRN Reason: Pain, moderate (4-7) Last Admin: 06/09/17 13:19 Dose: 650 mg Amlodipine Besylate (Norvasc) 10 mg PO DAILY [facility] Last Admin: 06/15/17 09:07 Dose: 10 mg Aspirin (Aspirin Chewable) 81 mg PO DAILY [facility] Last Admin: 06/15/17 09:06 Dose: 81 mg Docusate Sodium (Colace) 100 mg PO TID [facility] Last Admin: 06/15/17 09:07 Dose: 100 mg Escitalopram Oxalate (Lexapro) 5 mg PO DAILY [facility] Last Admin: 06/15/17 09:06 Dose: 5 mg Finasteride (Proscar) 5 mg PO DAILY [facility] Last Admin: 06/15/17 09:07 Dose: 5 mg Folic Acid (Folic Acid) 1 mg PO DAILY [facility] Last Admin: 06/15/17 10:33 Dose: 1 mg Heparin Sodium (Porcine) (Heparin) 5,000 units SC Q8 [facility] Last Admin: 06/14/17 21:55 Dose: 5,000 units Hydralazine HCl (Apresoline) 10 mg PO Q8H PRN PRN Reason: Systolic Blood Pressure Sodium Chloride (Sodium Chloride 0.9%) 1,000 mls @ 40 mls/hr IV .Q24H [facility] Last Admin: 06/15/17 10:34 Dose: 40 mls/hr Vancomycin/Sodium Chloride (Vancomycin 1 Gm/Ns 200 Ml) 1 gm in 200 mls @ 133.333 mls/hr IVPB Q24H [facility] Last Admin: 06/14/17 21:56 Dose: 133.333 mls/hr Insulin Human Regular (Novolin R) 0 unit SC ACHS [facility] PRN Reason: Protocol Last Admin: 06/15/17 08:25 Dose: 1 unit Levetiracetam (Keppra) 500 mg PO BID [facility] Last Admin: 06/15/17 09:07 Dose: 500 mg Lisinopril (Zestril) 10 mg PO DAILY [facility] Last Admin: 06/15/17 09:07 Dose: 10 mg Metformin HCl (Glucophage) 500 mg PO BID [facility] Last Admin: 06/15/17 09:07 Dose: 500 mg Metoprolol Succinate (Toprol Xl) 25 mg PO Q12H [facility] Last Admin: 06/15/17 09:07 Dose: 25 mg Ondansetron HCl (Zofran Inj) 4 mg IVP Q6H PRN PRN Reason: Nausea/Vomiting Last Admin: 06/14/17 14:50 Dose: 4 mg Pantoprazole Sodium (Protonix Ec Tab) 40 mg PO DAILY [facility] Last Admin: 06/15/17 09:07 Dose: 40 mg Rosuvastatin Calcium (Crestor) 40 mg PO HS [facility] Last Admin: 06/14/17 21:55 Dose: 40 mg Saccharomyces Boulardii (Florastor) 250 mg PO DAILY [facility] Last Admin: 06/15/17 09:06 Dose: 250 mg - Labs Labs: 06/15/17 07:35 06/15/17 07:35 PT 11.9 SECONDS (9.7-12.2) 06/07/17 09:12 INR 1.0 06/07/17 09:12 APTT 33 SECONDS (21-34) 06/02/17 15:18 Assessment and Plan (1) Endocarditis Status: Acute (2) Abnormal EKG Status: Acute (3) Foot ulcer Status: Acute (4) Hypertension Status: Acute (5) History of cerebrovascular accident (CVA) with residual deficit Status: Chronic (6) History of seizure Status: Chronic Attending/Attestation - Attestation I have personally seen and examined this patient.: Yes I have fully participated in the care of the patient.: Yes I have reviewed all pertinent clinical information, including history, physical exam and plan: Yes Notes (Text): 06/15/17 12:00 MS back to baseline awake and completely responsive family at bedside overnight had nausea and emesis repeat blood cx cont Abx x 6 weeks repeat RAHEL in 6 weeks
[2017-06-15] MEDS: Sodium Chloride 0.9% 1,000 ML IV SCH ×2 (10:34→15:18)
[2017-06-15] MEDS ORDERED: POLYETHYLENE GLYCOL 3350 17 GM/Dose PACKET PO ONE (11:24)
[2017-06-15 17:03] VITALS: BP 134/64; PULSE 61; TEMP 98
--- NOTE | 2017-06-15 17:24 | CP.PCM.PN ---
Subjective - Date & Time of Evaluation Date of Evaluation: 06/15/17 Time of Evaluation: 15:00 - Subjective Subjective: Podiatry Progress Note- Dr. Song 56 y.o male seen 9 days s/p debridement of necrotic ulceration right foot with application of Integra graft and wound vac. Patient seen with attending, Dr. Song. Patient is seen resting comfortably at bedside and in NAD. Dressing is c /d/i without strikethrough. Multipodus on bilateral LE. CHAD is turned on and displaying no errors. Pt denies and acute overnight events. Objective - Vital Signs/Intake and Output Vital Signs (last 24 hours): Temp Pulse Resp BP Pulse Ox 98.0 F 61 20 134/64 100 06/15/17 16:00 06/15/17 16:00 06/15/17 16:00 06/15/17 16:00 06/15/17 16:00 - Medications Medications: Current Medications Acetaminophen (Tylenol 325mg Tab) 650 mg PO Q6 PRN PRN Reason: Pain, moderate (4-7) Last Admin: 06/09/17 13:19 Dose: 650 mg Amlodipine Besylate (Norvasc) 10 mg PO DAILY [facility] Last Admin: 06/15/17 09:07 Dose: 10 mg Aspirin (Aspirin Chewable) 81 mg PO DAILY [facility] Last Admin: 06/15/17 09:06 Dose: 81 mg Docusate Sodium (Colace) 100 mg PO TID [facility] Last Admin: 06/15/17 13:08 Dose: 100 mg Escitalopram Oxalate (Lexapro) 5 mg PO DAILY [facility] Last Admin: 06/15/17 09:06 Dose: 5 mg Finasteride (Proscar) 5 mg PO DAILY [facility] Last Admin: 06/15/17 09:07 Dose: 5 mg Folic Acid (Folic Acid) 1 mg PO DAILY [facility] Last Admin: 06/15/17 10:33 Dose: 1 mg Heparin Sodium (Porcine) (Heparin) 5,000 units SC Q8 [facility] Last Admin: 06/15/17 13:08 Dose: 5,000 units Hydralazine HCl (Apresoline) 10 mg PO Q8H PRN PRN Reason: Systolic Blood Pressure Sodium Chloride (Sodium Chloride 0.9%) 1,000 mls @ 40 mls/hr IV .Q24H [facility] Last Admin: 02/12/18 15:18 Dose: Not Given Vancomycin/Sodium Chloride (Vancomycin 1 Gm/Ns 200 Ml) 1 gm in 200 mls @ 133.333 mls/hr IVPB Q24H [facility] Last Admin: 06/14/17 21:56 Dose: 133.333 mls/hr Insulin Human Regular (Novolin R) 0 unit SC ACHS [facility] PRN Reason: Protocol Last Admin: 06/15/17 11:50 Dose: 6 unit Levetiracetam (Keppra) 500 mg PO BID [facility] Last Admin: 06/15/17 09:07 Dose: 500 mg Lisinopril (Zestril) 10 mg PO DAILY [facility] Last Admin: 06/15/17 09:07 Dose: 10 mg Metformin HCl (Glucophage) 500 mg PO BID [facility] Last Admin: 06/15/17 09:07 Dose: 500 mg Metoprolol Succinate (Toprol Xl) 25 mg PO Q12H [facility] Last Admin: 06/15/17 09:07 Dose: 25 mg Ondansetron HCl (Zofran Inj) 4 mg IVP Q6H PRN PRN Reason: Nausea/Vomiting Last Admin: 06/14/17 14:50 Dose: 4 mg Pantoprazole Sodium (Protonix Ec Tab) 40 mg PO DAILY [facility] Last Admin: 06/15/17 09:07 Dose: 40 mg Rosuvastatin Calcium (Crestor) 40 mg PO HS [facility] Last Admin: 06/14/17 21:55 Dose: 40 mg Saccharomyces Boulardii (Florastor) 250 mg PO DAILY [facility] Last Admin: 06/15/17 09:06 Dose: 250 mg - Labs Labs: 06/15/17 07:35 06/15/17 07:35 PT 11.9 SECONDS (9.7-12.2) 06/07/17 09:12 INR 1.0 06/07/17 09:12 APTT 33 SECONDS (21-34) 06/02/17 15:18 - Constitutional Appears: Well, Non-toxic, No Acute Distress - Extremities Exam Additional comments: RLE exam: CHAD vac contact dressing intact. VASC- pedal pulses palpable (DP/PT graded 2/4), skin temp runs warm to cool, cap refill is brisk to all digits, neg edema NEURO- gross and protective pedal sensation are intact DERM- Graft seen intact to the central-lateral aspect of plantar right foot with no active drainage. Upon removal of outer layer of midfoot bi-layer dressing, 2 plantar lateral partial thickness ulcers with imbedded hematoma's noted measuring 2x2cm each. All peripheral visible monocryl sutures were removed. No purulent dranage. Hematomas cleared, showing granular ulcer bases. Pt bleeding healthily, prompt coagulation noted. Proximal graft site at heel left intact as well incorporated, all peripheral anchoring sutures are all intact. No local erythema, no ascending cellulitis, + malodor; MSK: + POP to central aspect of wound, MMT 0/4 in all directions right lower extremity - Neurological Exam Neurological Exam: Alert, Awake - Psychiatric Exam Psychiatric exam: Normal Affect, Normal Mood Assessment and Plan - Assessment and Plan (Free Text) Assessment: 56 y.o male seen 9 day s/p debridement of necrotic ulceration right foot with application of Integra graft and wound vac to right foot ulceration Plan: Pt S&E at the bedside with attending, Dr. Song. Chart, labs and vitals reviewed. CHAD vac and negative pressure wound therapy discontinuted. - Distal/midfoot graft site cleansed and hematoma mechanically debrided. Cleansed sited and foor with sterile saline. Followed/ dressed ulcer sited with xeroform, DSD, kerlix, and light VERÓNICA. c/w multipodus boot at all times right foot. Pt is stable for discharge to specialized nursing facility. -CHAD vac and negative pressure wound therapy discontinuted. -Order placed for wound nursing at [facility] upon transfer. -Upon discharge, pt will follow up with Dr. Song in [facility] on Thursday after discharge.
--- NOTE | 2017-06-15 17:54 | CP.PCM.DIS ---
<Jed Cho E - Last Filed: 06/15/17 20:32> Provider - Provider Date of Admission: 06/02/17 17:25 Attending physician: Nestor Hauser MD Hospital Course - Lab Results Lab Results: Micro Results 06/06/17 07:30 Blood Blood Culture - Final NO GROWTH AFTER 5 DAYS 06/06/17 07:30 Blood Gram Stain - Final TEST NOT PERFORMED 06/06/17 07:00 Blood Blood Culture - Final NO GROWTH AFTER 5 DAYS 06/06/17 07:00 Blood Gram Stain - Final TEST NOT PERFORMED 06/05/17 15:07 Foot - Right Gram Stain - Final 06/05/17 15:07 Foot - Right Wound Culture - Final Methicillin Resistant S Aureus 06/02/17 21:30 Blood Blood Culture - Final NO GROWTH AFTER 5 DAYS 06/02/17 21:30 Blood Gram Stain - Final TEST NOT PERFORMED 06/02/17 16:42 Foot - Right Gram Stain - Final 06/02/17 16:42 Foot - Right Wound Culture - Final Methicillin Resistant S Aureus Beta Hemolytic Strep Group B 06/02/17 21:00 Blood S.aureus & Coag-Neg Staph PNA FISH - Final 06/02/17 21:00 Blood Blood Culture - Final Enterococcus Faecalis 06/02/17 21:00 Blood Gram Stain - Final Most Recent Lab Values WBC 6.9 K/uL (4.8-10.8) 06/15/17 07:35 RBC 2.69 Mil/uL (4.40-5.90) L 06/15/17 07:35 Hgb 8.5 g/dL (12.0-18.0) L 06/15/17 07:35 Hct 24.6 % (35.0-51.0) L 06/15/17 07:35 MCV 91.5 fL (80.0-94.0) 06/15/17 07:35 MCH 31.5 pg (27.0-31.0) H 06/15/17 07:35 MCHC 34.5 g/dL (33.0-37.0) 06/15/17 07:35 RDW 13.0 % (11.5-14.5) 06/15/17 07:35 Plt Count 194 K/uL (130-400) 06/15/17 07:35 MPV 9.7 fL (7.2-11.7) 06/15/17 07:35 Neut % (Auto) 61.2 % (50.0-75.0) 06/15/17 07:35 Lymph % (Auto) 25.0 % (20.0-40.0) 06/15/17 07:35 [place] % (Auto) 8.8 % (0.0-10.0) 06/15/17 07:35 Eos % (Auto) 4.5 % (0.0-4.0) H 06/15/17 07:35 Baso % (Auto) 0.5 % (0.0-2.0) 06/15/17 07:35 Neut # (Auto) 4.2 K/uL (1.8-7.0) 06/15/17 07:35 Lymph # (Auto) 1.7 K/uL (1.0-4.3) 06/15/17 07:35 [place] # (Auto) 0.6 K/uL (0.0-0.8) 06/15/17 07:35 Eos # (Auto) 0.3 K/uL (0.0-0.7) 06/15/17 07:35 Baso # (Auto) 0.0 K/uL (0.0-0.2) 06/15/17 07:35 Differential Comment 06/06/17 07:52 PT 11.9 SECONDS (9.7-12.2) 06/07/17 09:12 INR 1.0 06/07/17 09:12 APTT 33 SECONDS (21-34) 06/02/17 15:18 Sodium 136 mmol/L (132-148) 06/15/17 07:35 Potassium 4.6 mmol/L (3.6-5.2) 06/15/17 07:35 Chloride 101 mmol/L (98-107) 06/15/17 07:35 Carbon Dioxide 28 mmol/L (22-30) 06/15/17 07:35 Anion Gap 11 (10-20) 06/15/17 07:35 BUN 16 mg/dL (9-20) 06/15/17 07:35 Creatinine 1.4 mg/dL (0.8-1.5) 06/15/17 07:35 Est GFR ( Amer) > 60 06/15/17 07:35 Est GFR (Non-Af Amer) 52 06/15/17 07:35 POC Glucose (mg/dL) 155 mg/dL (65-110) H 06/15/17 16:44 Random Glucose 147 mg/dL (75-110) H 06/15/17 07:35 Hemoglobin A1c 8.6 % (4.2-6.5) H 06/03/17 03:45 Calcium 8.6 mg/dl (8.6-10.4) 06/15/17 07:35 Phosphorus 2.6 mg/dL (2.5-4.5) 06/13/17 07:10 Magnesium 1.6 mg/dL (1.6-2.3) 06/13/17 07:10 Iron 47 ug/dL (49-181) L 06/13/17 07:10 TIBC 260 ug/dL (250-450) 06/13/17 07:10 % Saturation 18 (20-55) L 06/13/17 07:10 Ferritin 95.5 ng/mL 06/13/17 07:10 Total Bilirubin 0.2 mg/dL (0.2-1.3) 06/15/17 07:35 AST 35 U/L (17-59) 06/15/17 07:35 ALT 40 U/L (21-72) 06/15/17 07:35 Alkaline Phosphatase 76 U/L (38-126) 06/15/17 07:35 Total Creatine Kinase 69 U/L (55-170) 06/02/17 16:29 Troponin I < 0.0120 ng/mL (0.00-0.120) 06/02/17 16:29 NT-Pro-B Natriuret Pep 1240 pg/mL (0-900) H 06/02/17 16:29 Total Protein 6.2 g/dL (6.3-8.3) L 06/15/17 07:35 Albumin 3.2 g/dL (3.5-5.0) L 06/15/17 07:35 Globulin 3.0 gm/dL (2.2-3.9) 06/15/17 07:35 Albumin/Globulin Ratio 1.1 (1.0-2.1) 06/15/17 07:35 Triglycerides 219 mg/dL (0-149) H 06/02/17 23:38 Cholesterol 112 mg/dL (0-199) 06/02/17 23:38 LDL Cholesterol Direct 46 mg/dL (0-129) 06/02/17 23:38 HDL Cholesterol 34 mg/dL (30-70) 06/02/17 23:38 Urine Color Yellow (YELLOW) 06/09/17 18:28 Urine Clarity Clear (Clear) 06/09/17 18:28 Urine pH 5.0 (5.0-8.0) 06/09/17 18:28 Ur Specific [place] 1.013 (1.003-1.030) 06/09/17 18:28 Urine Protein 2+ mg/dL (NEGATIVE) H 06/09/17 18:28 Urine Glucose (UA) 3+ mg/dL (Normal) H 06/09/17 18: Urine Ketones Negative mg/dL (NEGATIVE) 06/09/17 18:28 Urine Blood 1+ (NEGATIVE) H 06/09/17 18:28 Urine Nitrate Negative (NEGATIVE) 06/09/17 18: Urine Bilirubin Negative (NEGATIVE) 06/09/17 18:28 Urine Urobilinogen Normal mg/dL (0.2-1.0) 06/09/17 18:28 Ur Leukocyte Esterase Negative Jodi/uL (Negative) 06/09/17 18:28 Urine WBC (Auto) 2 /hpf (0-5) 06/09/17 18:28 Urine RBC (Auto) 5 /hpf (0-3) H 06/09/17 18:28 Ur Transition Epith Cell < 1 /hpf (0-3) 06/09/17 18:28 Urine Bacteria Rare (<OCC) 06/09/17 18:28 Ur Random Creatinine 73.2 mg/dL 06/09/17 18:30 U Random Total Protein 112.0 mg/dL (0.0-12.0) H 06/09/17 18:30 Ur Random Sodium 82 mmol/L 06/09/17 18:30 Ur Random Urea Nitrogn 349 mg/dL 06/09/17 06:30 Urine Microalbumin 630.0 mg/L (0.0-16.6) H 06/09/17 18:28 Stool Occult Blood Negative (NEGATIVE) 06/10/17 07:28 Vancomycin Trough 9.1 ug/mL (5.0-10.0) 06/14/17 13:23 Random Vancomycin < 5.00 ug/mL 06/09/17 07:51 Complement C3 101.0 mg/dL (88.0-165.0) 06/10/17 07:20 Complement C4 26.0 mg/dL (14.0-44.0) 06/10/17 07:20 Hep Bs Antigen Negative (NEGATIVE) 06/10/17 07:20 Hepatitis C Antibody Negative (NEGATIVE) 06/10/17 07:20 HIV 1&2 Antibody Screen Negative (NEGATIVE) 06/10/17 07:20 - Hospital Course Hospital Course: HPI ( As per admission): Patient is a 56 year old male with a past medical history of HTN, DM, HLD, CVA with right sided weakness, seizures, and triple bypass, who presents to the ED with a right foot ulcer. Patient's son, Romeo, and , Taty, were at bedside providing the history. Patient is nonverbal since patient had CVA in 2016 (occasionally saying a few words and responds to some commands). Patient's noticed the right foot ulceration 4 weeks ago, which started on the heel and progressed to the arch. The tried to "pop" the blister and used hydrogen peroxide to clean the wound; no improvement was noticed. Patient's noticed "water" that drained from the blister. Patient has not complained of any pain in the lower extremity. As per the family, the patient has never had a foot ulcer in the past. Review of systems is limited due to patient's condition. Hospital Course: Patient was admitted with the consideration right foot ulcer, with right wound culture positive for MRSA with surgically and medically managed by Podiatry, Dr. Song. Over the course of admission, patient was noted to have infective endocarditis; Cardiology, Dr. Rosen and Infectious Disease, Dr. Myers, patient was medically managed with antibiotics, which patient is to complete on July 16 2017 at [facility]. Patient had no other acute issues over the course of hospital course. Patient's other chronic medical issues were medically managed appropriately. Patient was cleared by medical team upon discharge with appropriate instructions for the retirement. Pertinent Imaging: * Right foot xray: Prior 5th transmetatarsal amputation. No demonstrated acute fracture no evidence of periosteal reaction. * Venous dopplers: No evidence of DVT of the right lower extremity with excellent venous flow. Normal valve function noted of the right side. Normal venous flow noted in the left common femoral vein. * Arterial duplex: There is no evidence of hemo-dynamically significant arterial insufficiency in the right lower extremity. Arterial wall calcification is noted throughout the right lower extremity. * Echo (06/04/17) results showed 1cm density on the posterior leaflet of the mitral valve, atrial aspect. Fixed on the leaflet highly suggestive for vegetations. EF 55-60%. * RAHEL (06/08/17): circumferential vegetation on A1 and A2 cusp of mitral valve measuring 8mm x 8mm Pertinent Procedure (06/05/17): debridement of necrotic ulceration right foot with application of Integra graft and wound vac (06/08/17) RAHEL: circumferential vegetation on A1 and A2 cusp of mitral valve measuring 8mm x 8mm (06/10/17): PICC line placed in left arm This is a brief summary for a complete course, please refer to medical records. Discharge Exam - Head Exam Head Exam: ATRAUMATIC, NORMOCEPHALIC - Eye Exam Eye Exam: EOMI, Normal appearance - ENT Exam ENT Exam: Mucous Membranes Moist - Respiratory Exam Respiratory Exam: Clear to PA & Lateral. absent: Wheezes, Respiratory Distress - Cardiovascular Exam Cardiovascular Exam: REGULAR RHYTHM, +S1, +S2 - GI/Abdominal Exam GI & Abdominal Exam: Normal Bowel Sounds, Soft. absent: Tenderness - Extremities Exam Additional comments: s/p debridement of necrotic ulceration right foot with application of Integra graft and wound vac Dressing in clean, dry and intact - Neurological Exam Neurological exam: Alert - Psychiatric Exam Psychiatric exam: Anxious - Skin Skin Exam: Normal Color Discharge Plan - Discharge Medications Prescriptions: RX: amLODIPine [Norvasc] 10 mg PO DAILY #30 tab RX: Saccharomyces Boulardi [Florastor] 250 mg PO DAILY #30 RX: Vancomycin 1 gm/NS 200 ml 1 gm IVPB DAILY #30 bag - Follow Up Plan Condition: STABLE Disposition: HOME/ ROUTINE Instructions: Amlodipine (By mouth), Vancomycin (By injection), Endocarditis ( DC), Acute Kidney Injury (DC), Benign Prostatic Hypertrophy (DC), Osteomyelitis (DC), Depression (DC), Diabetic Foot Care (DC), Diabetes Mellitus Type 2 in Adults (GEN), Nonepileptic Seizures (DC), Diabetic Foot Ulcers (DC), Hypertension (DC) Additional Instructions: Patient is medically stable for discharge when bed is available at subacute rehab. Patient is to continue Vancomycin 1 gram IV Q daily until 07/16/17 with vancomycin trough: 15-20. Referrals: Anny Ellison MD [Staff Provider] - <Katie Wright V - Last Filed: 06/15/17 21:19> Provider - Provider Date of Admission: 06/02/17 17:25 Attending physician: Nestor Hauser MD Primary care physician: Dr. Lucy Ellison Consults: Cardiology: Dr. Rosen ID: Dr. Myers Podiatry: Dr. Bola Song Time Spent in preparation of Discharge (in minutes): 31 Hospital Course - Lab Results Lab Results: Micro Results 06/06/17 07:30 Blood Blood Culture - Final NO GROWTH AFTER 5 DAYS 06/06/17 07:30 Blood Gram Stain - Final TEST NOT PERFORMED 06/06/17 07:00 Blood Blood Culture - Final NO GROWTH AFTER 5 DAYS 06/06/17 07:00 Blood Gram Stain - Final TEST NOT PERFORMED 06/05/17 15:07 Foot - Right Gram Stain - Final 06/05/17 15:07 Foot - Right Wound Culture - Final Methicillin Resistant S Aureus 06/02/17 21:30 Blood Blood Culture - Final NO GROWTH AFTER 5 DAYS 06/02/17 21:30 Blood Gram Stain - Final TEST NOT PERFORMED 06/02/17 16:42 Foot - Right Gram Stain - Final 06/02/17 16:42 Foot - Right Wound Culture - Final Methicillin Resistant S Aureus Beta Hemolytic Strep Group B 06/02/17 21:00 Blood S.aureus & Coag-Neg Staph PNA FISH - Final 06/02/17 21:00 Blood Blood Culture - Final Enterococcus Faecalis 06/02/17 21:00 Blood Gram Stain - Final Most Recent Lab Values WBC 6.9 K/uL (4.8-10.8) 06/15/17 07:35 RBC 2.69 Mil/uL (4.40-5.90) L 06/15/17 07:35 Hgb 8.5 g/dL (12.0-18.0) L 06/15/17 07:35 Hct 24.6 % (35.0-51.0) L 06/15/17 07:35 MCV 91.5 fL (80.0-94.0) 06/15/17 07:35 MCH 31.5 pg (27.0-31.0) H 06/15/17 07:35 MCHC 34.5 g/dL (33.0-37.0) 06/15/17 07:35 RDW 13.0 % (11.5-14.5) 06/15/17 07:35 Plt Count 194 K/uL (130-400) 06/15/17 07:35 MPV 9.7 fL (7.2-11.7) 06/15/17 07:35 Neut % (Auto) 61.2 % (50.0-75.0) 06/15/17 07:35 Lymph % (Auto) 25.0 % (20.0-40.0) 06/15/17 07:35 [place] % (Auto) 8.8 % (0.0-10.0) 06/15/17 07:35 Eos % (Auto) 4.5 % (0.0-4.0) H 06/15/17 07:35 Baso % (Auto) 0.5 % (0.0-2.0) 06/15/17 07:35 Neut # (Auto) 4.2 K/uL (1.8-7.0) 06/15/17 07:35 Lymph # (Auto) 1.7 K/uL (1.0-4.3) 06/15/17 07:35 [place] # (Auto) 0.6 K/uL (0.0-0.8) 06/15/17 07:35 Eos # (Auto) 0.3 K/uL (0.0-0.7) 06/15/17 07:35 Baso # (Auto) 0.0 K/uL (0.0-0.2) 06/15/17 07:35 Differential Comment 06/06/17 07:52 PT 11.9 SECONDS (9.7-12.2) 06/07/17 09:12 INR 1.0 06/07/17 09:12 APTT 33 SECONDS (21-34) 06/02/17 15:18 Sodium 136 mmol/L (132-148) 06/15/17 07:35 Potassium 4.6 mmol/L (3.6-5.2) 06/15/17 07:35 Chloride 101 mmol/L (98-107) 06/15/17 07:35 Carbon Dioxide 28 mmol/L (22-30) 06/15/17 07:35 Anion Gap 11 (10-20) 06/15/17 07:35 BUN 16 mg/dL (9-20) 06/15/17 07:35 Creatinine 1.4 mg/dL (0.8-1.5) 06/15/17 07:35 Est GFR ( Amer) > 60 06/15/17 07:35 Est GFR (Non-Af Amer) 52 06/15/17 07:35 POC Glucose (mg/dL) 155 mg/dL (65-110) H 06/15/17 16:44 Random Glucose 147 mg/dL (75-110) H 06/15/17 07:35 Hemoglobin A1c 8.6 % (4.2-6.5) H 06/03/17 03:45 Calcium 8.6 mg/dl (8.6-10.4) 06/15/17 07:35 Phosphorus 2.6 mg/dL (2.5-4.5) 06/13/17 07:10 Magnesium 1.6 mg/dL (1.6-2.3) 06/13/17 07:10 Iron 47 ug/dL (49-181) L 06/13/17 07:10 TIBC 260 ug/dL (250-450) 06/13/17 07:10 % Saturation 18 (20-55) L 06/13/17 07:10 Ferritin 95.5 ng/mL 06/13/17 07:10 Total Bilirubin 0.2 mg/dL (0.2-1.3) 06/15/17 07:35 AST 35 U/L (17-59) 06/15/17 07:35 ALT 40 U/L (21-72) 06/15/17 07:35 Alkaline Phosphatase 76 U/L (38-126) 06/15/17 07:35 Total Creatine Kinase 69 U/L (55-170) 06/02/17 16:29 Troponin I < 0.0120 ng/mL (0.00-0.120) 06/02/17 16:29 NT-Pro-B Natriuret Pep 1240 pg/mL (0-900) H 06/02/17 16:29 Total Protein 6.2 g/dL (6.3-8.3) L 06/15/17 07:35 Albumin 3.2 g/dL (3.5-5.0) L 06/15/17 07:35 Globulin 3.0 gm/dL (2.2-3.9) 06/15/17 07:35 Albumin/Globulin Ratio 1.1 (1.0-2.1) 06/15/17 07:35 Triglycerides 219 mg/dL (0-149) H 06/02/17 23:38 Cholesterol 112 mg/dL (0-199) 06/02/17 23:38 LDL Cholesterol Direct 46 mg/dL (0-129) 06/02/17 23:38 HDL Cholesterol 34 mg/dL (30-70) 06/02/17 23:38 Urine Color Yellow (YELLOW) 06/09/17 18:28 Urine Clarity Clear (Clear) 06/09/17 18: Urine pH 5.0 (5.0-8.0) 06/09/17 18:28 Ur Specific [place] 1.013 (1.003-1.030) 06/09/17 18:28 Urine Protein 2+ mg/dL (NEGATIVE) H 06/09/17 18:28 Urine Glucose (UA) 3+ mg/dL (Normal) H 06/09/17 18:28 Urine Ketones Negative mg/dL (NEGATIVE) 06/09/17 18:28 Urine Blood 1+ (NEGATIVE) H 06/09/17 18:28 Urine Nitrate Negative (NEGATIVE) 06/09/17 18:28 Urine Bilirubin Negative (NEGATIVE) 06/09/17 18:28 Urine Urobilinogen Normal mg/dL (0.2-1.0) 06/09/17 18:28 Ur Leukocyte Esterase Negative Jodi/uL (Negative) 06/09/17 18:28 Urine WBC (Auto) 2 /hpf (0-5) 06/09/17 18:28 Urine RBC (Auto) 5 /hpf (0-3) H 06/09/17 18:28 Ur Transition Epith Cell < 1 /hpf (0-3) 06/09/17 18:28 Urine Bacteria Rare (<OCC) 06/09/17 18:28 Ur Random Creatinine 73.2 mg/dL 06/09/17 18:30 U Random Total Protein 112.0 mg/dL (0.0-12.0) H 06/09/17 18:30 Ur Random Sodium 82 mmol/L 06/09/17 18:30 Ur Random Urea Nitrogn 349 mg/dL 06/09/17 06:30 Urine Microalbumin 630.0 mg/L (0.0-16.6) H 06/09/17 18:28 Stool Occult Blood Negative (NEGATIVE) 06/10/17 07:28 Vancomycin Trough 9.1 ug/mL (5.0-10.0) 06/14/17 13:23 Random Vancomycin < 5.00 ug/mL 06/09/17 07:51 Complement C3 101.0 mg/dL (88.0-165.0) 06/10/17 07:20 Complement C4 26.0 mg/dL (14.0-44.0) 06/10/17 07:20 Hep Bs Antigen Negative (NEGATIVE) 06/10/17 07:20 Hepatitis C Antibody Negative (NEGATIVE) 06/10/17 07:20 HIV 1&2 Antibody Screen Negative (NEGATIVE) 06/10/17 07:20 Clinical Quality Measures - CQM - Stroke Antithrombotic Prescribed: Yes Anticoagulation Prescribed for Atrial Flutter, Atrial Fibrillation and History of:: Not Applicable Statin prescribed: Yes - CQM - Heart Failure Ejection Fraction: 40 % or Greater Left Ventricular Function to be assessed after discharge: Yes VERÓNICA Inhibitor Prescribed: Yes Beta-Luis Prescribed: Metoprolol Succinate Angiotensin II Receptor Luis Prescribed: No Contraindication/Reason for not providing: given verónica inhibitor AnticoagulationTherapy for Atrial Fibrillation/Atrialflutter: No Contraindication/Reason for not providing: not clinically indicated Aldosterone Antagonist Prescribed: No Contraindication/Reason for not providing: not clinically indicated Hydralazine Nitrate Prescribed: No Contraindication/Reason for not providing: not clinically indicated Implantable Cardioverter Defibrillator Therapy: No Contraindication/Reason for not providing: not clinically indicated Cardiac Resynchronization Therapy Prescribed: No Contraindication/Reason for not providing: not clinically indicated [facility] Follow Up Date (must be within 7 days from discharge): 06/15/17 Follow Up Time: 09:00 Attending/Attestation - Attestation I have personally seen and examined this patient.: Yes I have fully participated in the care of the patient.: Yes I have reviewed all pertinent clinical information, including history, physical exam and plan: Yes Notes (Text): Patient seen, examined and case discussed with day-time resident. Patient seen at bedside with his family at bedside this morning. Patient has not had a strong bowel movement and feels distended. Patient seen with his and son, Romeo at bedside. 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 Cardiology recommends for repeat RAHEL in 6 weeks. Patient was seen and evaluated by Dr. Rosen, [facility] cardiology who also has privileges where patient's cardiology team is at [facility]. Patient to complete total 6 weeks; last dose on 07/16/17. Patient recommended for Vancomycin 1gram IV qdaily with trough 15-20 for endocarditis; please check trough 30 minutes prior to 4th dose and BMP to monitor BUN/Cr while on Vancomycin. Discharge Diagnoses 1). Endocarditis * Confirmed with RAHEL on Mitral Valve * Blood Culture 06/02/17 Enterococcus * Repeat Blood Culture 06/06/17 negative to date * Vancomycin 1 g IV 1x/day for 5 more weeks from 06/11/17 through 07/16/17 * Vancomycin trough: 15-20 and monitor renal function * Left Arm PICC placed 06/10/17 2). Right Foot Ulcer s/p debridement with application of Integra graft and CHAD Wound Vac 06/06/17 * Wound Culture showed MRSA and Beta Hemolytic Strep Group B * Arterial Dopplers negative * X Ray Right Foot shows prior 5th transmetatarsal amputation with NO periosteal elevation * Multipodus Boot * CHAD wound vac * Vancomycin 1 g IV 1x/day for 5 more weeks from 06/11/17 through 07/16/17 * CHAD vac and negative pressure wound therapy discontinued on 06/15/17. - Distal/midfoot graft site cleansed and hematoma mechanically debrided. Cleansed sited and foor with sterile saline. * Order placed for wound nursing at [facility] upon transfer placed by podiatry -Upon discharge, pt will follow up with Dr. Song in [facility] on Thursday after discharge. 3). Hx CAD/Systolic HF/CABG * ASA 81 mg PO 1x/day * Crestor 40 mg PO HS * Zestril 10 mg PO 1x/day * Topxol XL 25mg PO Q12H 4). Hx HTN * Norvasc 10 mg PO 1x/day * Zestril 10 mg PO 1x/day * Metoprolol Succinate 25 mg PO Q12H 5). Hx DM 2 * RISS ACHS * Metformin 500 mg PO 2x/day 6). Hx Seizure * Keppra 500 mg PO 2x/day 7). Hx CVA with Right Side Body Residual Deficit * ASA, Crestor as above 8). Hx BPH * Proscar 5 mg PO 1x/day 9). Hx Depression * Lexapro 5 mg PO 1x/day 10). Elevated BUN/Cr * Likely prerenal * IVF 40 ml/hr continued due to patient likely not taking in enough fluids * Nephrology Dr. Maxwell 11). Low HgB/Hct * Stablized * Stool Occult Blood ordered 06/09/17 is negative 12). Prophylaxis * Heparin 5,000 Units SC Q8H * Protonix 40 mg PO 1x/day * Florastor 250 mg PO 2x/day * Folic Acid 1 mg PO 1x/day * Colace 100 mg PO 3x/day Discharge instructions: * Patient to complete IV abx for 6 weeks total for endocarditis * Patient to follow-up with podiatry in the [facility] * Will need a repeat RAHEL in 6 weeks per cardiology
== END 2017-06-15 18:00 | DRG 622 ==
LOC: C.ER 13:29 → C.9E 17:25 → C.5S 06-03 12:27
PROVIDERS: ADMIT Hospitalist; ATTEND Family Medicine
PROC: 0JBQ0ZZ Excision of Right Foot Subcutaneous Tissue and Fascia, Open Approach (ICD-10-PCS; principal; 2017-06-06)
PROC: 0HRMXK3 Replacement of Right Foot Skin with Nonautologous Tissue Substitute, Full Thickness, External Approach (ICD-10-PCS; 2017-06-06)
DX: E11.621 Type 2 diabetes mellitus with foot ulcer (principal); I33.0 Acute and subacute infective endocarditis; L97.519 Non-pressure chronic ulcer of other part of right foot with unspecified severity; L97.418 Non-pressure chronic ulcer of right heel and midfoot with other specified severity; N17.9 Acute kidney failure, unspecified; E11.21 Type 2 diabetes mellitus with diabetic nephropathy; I13.0 Hypertensive heart and chronic kidney disease with heart failure and stage 1 through stage 4 chronic kidney disease, or unspecified chronic kidney disease; I50.22 Chronic systolic (congestive) heart failure; I69.351 Hemiplegia and hemiparesis following cerebral infarction affecting right dominant side; L97.419 Non-pressure chronic ulcer of right heel and midfoot with unspecified severity; E11.51 Type 2 diabetes mellitus with diabetic peripheral angiopathy without gangrene; B95.62 Methicillin resistant Staphylococcus aureus infection as the cause of diseases classified elsewhere; D64.9 Anemia, unspecified; E11.22 Type 2 diabetes mellitus with diabetic chronic kidney disease; E11.65 Type 2 diabetes mellitus with hyperglycemia; E78.00 Pure hypercholesterolemia, unspecified; E78.5 Hyperlipidemia, unspecified; F32.9 Major depressive disorder, single episode, unspecified; G40.909 Epilepsy, unspecified, not intractable, without status epilepticus; G47.33 Obstructive sleep apnea (adult) (pediatric); I25.10 Atherosclerotic heart disease of native coronary artery without angina pectoris; N18.9 Chronic kidney disease, unspecified; N40.0 Benign prostatic hyperplasia without lower urinary tract symptoms; I69.320 Aphasia following cerebral infarction; Z74.01 Bed confinement status; Z87.891 Personal history of nicotine dependence; Z95.1 Presence of aortocoronary bypass graft; Z99.3 Dependence on wheelchair; I86.8 Varicose veins of other specified sites

== ENCOUNTER 2018-01-06 10:55 | Inpatient (IN) | payer MEDICARE, OTHER ==
[2018-01-06 11:30] VITALS: BMI 25.7
[2018-01-06 14:06] LABS: BASO # 0.1 K/uL (0.0-0.2); BASO % 0.8 % (0.0-2.0); EOS # 0.3 K/uL (0.0-0.7); EOS % 3.9 % (0.0-4.0); HEMOGLOBIN 11.4 g/dL (12.0-18.0); LYMPH # 1.4 K/uL (1.0-4.3); LYMPH % 19.9 % (20.0-40.0); MEAN CORPUSCULAR HEMOGLOBIN 30.5 pg (27.0-31.0); MEAN CORPUSCULAR HGB CONC 33.9 g/dL (33.0-37.0); MEAN PLATELET VOLUME 10.2 fL (7.2-11.7); MONO # 0.5 K/uL (0.0-0.8); MONO % 6.7 % (0.0-10.0); NEUT # 4.9 K/uL (1.8-7.0); NEUT % 68.7 % (50.0-75.0); RBC 3.72 Mil/uL (4.40-5.90); RED CELL DISTRIBUTION WIDTH 13.5 % (11.5-14.5); WHITE BLOOD COUNT 7.1 K/uL (4.8-10.8)
[2018-01-06 14:35] LABS: CALCIUM 8.7 mg/dl (8.6-10.4); GFR NON-AFRICAN AMERICAN > 60; LIPASE 148 U/L (23-300)
[2018-01-06 14:38] LABS: ALB/GLOB RATIO 1.2 (1.0-2.1); ALT/SGPT 23 U/L (21-72); AST/SGOT 42 U/L (17-59); BLOOD UREA NITROGEN 16 mg/dL (9-20)
[2018-01-06] MEDS ORDERED: Iohexol 240 (50 ml) PO ONE (15:43)
[2018-01-06] MEDS ORDERED: Iohexol 240 (50 ml) ONE (16:06)
[2018-01-06] MEDS ORDERED: Iohexol 350mg/ml 100 ML ONE ×2 (17:13→18:27)
--- NOTE | 2018-01-06 17:48 | C.PDOC ---
History Of Present Illness <Hattie Parkinson - Last Filed: 01/06/18 19:09> <Marie Taylor - Last Filed: 01/06/18 19:54> 57-year-old male, whose PMHx includes HTN, DM, and is s/p CABG, is brought to the ED by daughter for evaluation after having multiple episodes of loose watery stool 3 days ago. Patient is now c/o al-rectal skin breakdown. Additional history is limited because patient is non-verbal and is a poor historian. (Hattie Parkinson) History Per: Patient, Family History/Exam Limitations: other (non-verbal, poor historian ) Onset/Duration Of Symptoms: Days (3) Current Symptoms Are (Timing): Still Present Additional History Per: Patient <Hattie Parkinson - Last Filed: 01/06/18 19:09> <Marie Taylor - Last Filed: 01/06/18 19:54> Time Seen by Provider: 01/06/18 13:07 Chief Complaint (Nursing): GI Problem Past Medical History Reviewed: Historical Data, Nursing Documentation, Vital Signs - Medical History PMH: Anemia, Depression, HTN, Hypercholesterolemia, Seizures Denies: Chronic Kidney Disease Surgical History: CABG, Endoscopy Family History: States: Unknown Family Hx - Social History Hx Alcohol Use: No Hx Substance Use: No - Immunization History Hx Influenza Vaccination: No Hx Pneumococcal Vaccination: No <Hattie Parkinson - Last Filed: 01/06/18 19:09> Vital Signs: Last Vital Signs Temp 98.6 F 01/06/18 18:33 Pulse 66 01/06/18 18:33 Resp 18 01/06/18 18:33 BP 151/78 H 01/06/18 18:33 Pulse Ox 100 01/06/18 19:09 - [facility] Procedures CATARAC PHACOEMULS/ASPIR (05/17/14) EXCISION OF R FOOT SUBCU/FASCIA, OPEN APPROACH (06/02/17) INSERT LENS AT CATAR EXT (05/17/14) REPLACE R FOOT SKIN W NONAUT SUB, FULL THICK, 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 Negative for: Abdominal Pain, Constipation Skin: Positive for: Other (erythema al rectal area, skin intact) <Hattie Parkinson - Last Filed: 01/06/18 19:09> Physical Exam - Physical Exam Appears: Non-toxic, No Acute Distress Skin: Normal Color, Warm, Dry Head: Atraumatic, Normacephalic Eye(s): bilateral: Normal Inspection Oral Mucosa: Moist Neck: Supple Chest: Symmetrical, No Deformity, No Tenderness, Other (CABG scar ) Cardiovascular: Rhythm Regular, No Murmur Respiratory: Normal Breath Sounds, No Rales, No Rhonchi, No Wheezing Gastrointestinal/Abdominal: Soft, Tenderness (mild, diffuse), No Guarding, No Rebound, Other (healing PEG tube opening ) Rectal: Other (skin proximal to the perirectal area is erythematous. no skin breakdown ) Extremity: Normal ROM, Capillary Refill (less than 2 seconds ) Neurological/Psych: Oriented x3, Normal Speech, Normal Cognition <Hattie Parkinson - Last Filed: 01/06/18 19:09> ED Course And Treatment - Laboratory Results Result Diagrams: 01/06/18 14:00 01/06/18 14:00 O2 Sat by Pulse Oximetry: 100 (on RA) Pulse Ox Interpretation: Normal <Hattie Parkinson - Last Filed: 01/06/18 19:09> - Laboratory Results Result Diagrams: 01/06/18 14:00 01/06/18 14:00 <Marie Taylor - Last Filed: 01/06/18 19:54> Medical Decision Making <Hattie Parkinson - Last Filed: 01/06/18 19:09> <Marie Taylor - Last Filed: 01/06/18 19:54> Medical Decision Making: Progress: Bloodwork, CT A/P ordered and reviewed. (Hattie Parkinson) Disposition - Disposition Disposition Time: 19:09 <Hattie Parkinson Last Filed: 01/06/18 19:09> Discussed With : Noe Strickland Comment: acceptd the pt on his service and took over the care at 7:53 PM Doctor Will See Patient In The: ED Counseled Patient/Family Regarding: Studies Performed, Diagnosis - POA Present On Arrival: Poor Glycemic Control <Marie Taylor - Last Filed: 01/06/18 19:54> - Disposition Disposition: HOSPITALIZED Condition: FAIR Forms: [facility] (Bhutanese) - Clinical Impression Clinical Impression: Diarrhea, Acute colitis - PA / HAIR DESIGNER / Resident Statement MD/DO has reviewed & agrees with the documentation as recorded. - Scribe Statement The provider has reviewed the documentation as recorded by the Scribe (Debbie Hauser) <Hattie Parkinson - Last Filed: 01/06/18 19:09> <Marie Taylor - Last Filed: 01/06/18 19:54> - Scribe Statement All medical record entries made by the Scribe were at my direction and personally dictated by me. I have reviewed the chart and agree that the record accurately reflects my personal performance of the history, physical exam, medical decision making, and the department course for this patient. I have also personally directed, reviewed, and agree with the discharge instructions and disposition. (Hattie Parkinson) Physician Patient Turnover Patient Signed Over To: Marie Taylor Handoff Comments: f/u ab ct scan and dispo accordingly <Hattie Parkinson - Last Filed: 01/06/18 19:09> Decision To Admit <Hattie Parkinson - Last Filed: 01/06/18 19:09> - Pt Status Changed To: Hospital Disposition Of: Inpatient - Admit Certification Admit to Inpatient:: After my assessment, the patient will require hospitalization for at least two midnights. This is because of the severity of symptoms shown, intensity of services needed, and/or the medical risk in this patient being treated as an outpatient. - InPatient: Physician Admission Certification: I certify that this patient requires 2 or more midnights of care for the following reason:: After my assessment, the patient will require hospitalization for at least two midnights. This is because of the severity of symptoms shown, intensity of services needed, and/or the medical risk in this patient being treated as an outpatient. - . Bed Request Type: Regular Admitting Physician: Noe Strickland <Marie Taylor - Last Filed: 01/06/18 19:54> - . Patient Diagnosis: Diarrhea, Acute colitis
[2018-01-06] MEDS ORDERED: metroNIDAZOLE IV 500 mg/100 ml 500 MG/100 ML BAG IVPB SCH (19:45)
--- NOTE | 2018-01-06 22:07 | CP.PCM.HP ---
<Kobe Servin - Last Filed: 01/07/18 04:18> History of Present Illness - History of Present Illness History of Present Illness: PGY2 Medicine H+P for Dr. Strickland Patient is a 57 year old male with a past medical history HTN, HLD, DM, CVA with right sided weakness, seizures, CAD s/p CABG, depression, BPH was brought in by daughter for evaluation. No family member was present during examination. Patient is aphasic from previous CVA. Call made to home phone number but no answer. History obtained through EMR. Patient has been experiencing watery stool for the past three days. Patient is also experiencing al-rectal skin breakdown. ROS unobtainable due to patient being poor historian and aphasic. He appears to understand, but have expressive aphasia. PMD: Dr. Ellison PMH: HTN, HLD, DM, CVA with right sided weakness, seizures, CAD s/p CABG, depression, BPH. PSH: triple bypass at [facility] (2015); left temporoparietal craniectomy and duraplasty; PEG placement and removal (02/17); tracheostomy (removed 05/20) Family: denies Social: former tobacco user (1 pack per month for 1 year); Former social drinker ; denies drug use; lives with and son (Romeo Posey) in [place]. Allergies: NKDA Present on Admission - Present on Admission Any Indicators Present on Admission: No Review of Systems - Review of Systems All systems: reviewed and no additional remarkable complaints except - Constitutional Constitutional: As Per HPI - EENT Eyes: As Per HPI Nose/Mouth/Throat: As Per HPI - Cardiovascular Cardiovascular: As Per HPI - Respiratory Respiratory: As Per HPI - Gastrointestinal Gastrointestinal: As Per HPI - Genitourinary Genitourinary: As Per HPI - Musculoskeletal Musculoskeletal: As Per HPI - Integumentary Integumentary: As Per HPI - Neurological Neurological: As Per HPI - Psychiatric Psychiatric: As Per HPI - Endocrine Endocrine: As Per HPI - Hematologic/Lymphatic Hematologic: As Per HPI Past Patient History - Infectious Disease Hx of Infectious Diseases: None - Past Medical History & Family History Past Medical History?: Yes - Past Social History Smoking Status: Never Smoked - CARDIAC Hx Hypercholesterolemia: Yes Hx Hypertension: Yes - NEUROLOGICAL Hx Seizures: Yes - HEENT Hx Cataracts: Yes - RENAL Hx Chronic Kidney Disease: No - ENDOCRINE/METABOLIC Hx Diabetes Mellitus Type 2: Yes - HEMATOLOGICAL/ONCOLOGICAL Hx Anemia: Yes - INTEGUMENTARY Hx Dermatological Problems: No - MUSCULOSKELETAL/RHEUMATOLOGICAL Hx Musculoskeletal Disorders: No - GASTROINTESTINAL Hx Gastrointestinal Disorders: Yes HX Swallowing Problems: Yes (now eats "reg food") - GENITOURINARY/GYNECOLOGICAL Hx Genitourinary Disorders: No - PSYCHIATRIC Hx Depression: Yes Hx Substance Use: No - SURGICAL HISTORY Hx Coronary Artery Bypass Graft: Yes - ANESTHESIA Hx Anesthesia: Yes Hx Anesthesia Reactions: No Hx Malignant Hyperthermia: No Meds Allergies/Adverse Reactions: Allergies Allergy/AdvReac Type Severity Reaction Status Date / Time No Known Allergies Allergy Verified 01/06/18 11:27 Physical Exam - Constitutional Appears: Non-toxic, No Acute Distress - Head Exam Head Exam: ATRAUMATIC, NORMOCEPHALIC - Eye Exam Eye Exam: EOMI, Normal appearance, PERRL Pupil Exam: NORMAL ACCOMODATION - ENT Exam ENT Exam: Mucous Membranes Moist - Neck Exam Neck exam: Negative for: Lymphadenopathy - Respiratory Exam Respiratory Exam: Clear to Auscultation Bilateral, NORMAL BREATHING PATTERN. absent: Accessory Muscle Use, Rales, Rhonchi, Wheezes, Respiratory Distress - Cardiovascular Exam Cardiovascular Exam: REGULAR RHYTHM, +S1, +S2 - GI/Abdominal Exam GI & Abdominal Exam: Soft. absent: Distended, Firm, Guarding, Rebound, Rigid, Tenderness - Rectal Exam Additional comments: no skin breakdown, healed previous skin breakdown. liquid stool incontinence - Extremities Exam Extremities exam: Positive for: pedal pulses present. Negative for: calf tenderness, pedal edema Additional comments: patient does not move right upper extremity and has right lower extremity weakness at baseline from previous CVA. - Neurological Exam Neurological exam: Alert, Oriented x3 Additional comments: expressive aphasia - Psychiatric Exam Psychiatric exam: Normal Affect, Normal Mood - Skin Skin Exam: Dry, Warm Results - Vital Signs Recent Vital Signs: Last Vital Signs Temp 98.7 F 01/06/18 21:27 Pulse 68 01/06/18 21:27 Resp 18 01/06/18 21:27 BP 145/87 01/06/18 21:27 Pulse Ox 97 01/06/18 21:27 - Labs Result Diagrams: 01/06/18 14:00 01/06/18 14:00 Labs: Laboratory Results - last 24 hr 0901/06/18 01/06/18 14:00 14:00 15:49 WBC 7.1 RBC 3.72 L Hgb 11.4 L D Hct 33.5 L MCV 90.0 MCH 30.5 MCHC 33.9 RDW 13.5 Plt Count 195 MPV 10.2 Neut % (Auto) 68.7 Lymph % (Auto) 19.9 L [place] % (Auto) 6.7 Eos % (Auto) 3.9 Baso % (Auto) 0.8 Neut # (Auto) 4.9 Lymph # (Auto) 1.4 [place] # (Auto) 0.5 Eos # (Auto) 0.3 Baso # (Auto) 0.1 Sodium 139 Potassium 5.3 H Chloride 103 Carbon Dioxide 24 Anion Gap 18 BUN 16 Creatinine 1.2 Est GFR ( Amer) > 60 Est GFR (Non-Af Amer) > 60 Random Glucose 133 H Calcium 8.7 Total Bilirubin 0.9 AST 42 ALT 23 Alkaline Phosphatase 110 Total Protein 7.4 Albumin 4.0 Globulin 3.4 Albumin/Globulin Ratio 1.2 Lipase 148 Stool Occult Blood Negative Assessment & Plan - Assessment and Plan (Free Text) Plan: Diarrhea Abd/Pelvis CT w/IV&PO contrast * Descending acute colitis extending to the sigmoid region. * The appendix is normal No obstructive uropathy is seen afebrile no leukocytosis Stool Studies * occult blood neg; f/u pending x2 * Stool culture pending * Ova and parasite * Fecal leukocytes * C. Diff toxin Medications: * No abx indicated at this time, afebrile/no leukocytosis/no tenderness on abd exam/no fat stranding on abd/pelvis CT * Florastor 250mg PO daily * Tylenol 650mg PO q6h prn * Toradol 30mg IVP q6h prn * Zofran 4mg IVP q6h prn * NS w/K+ 20meq @75mL/hr Hypertension controlled continue home medications * Amlodipine 10mg PO daily * Aspirin 81mg PO daily * Lisinopril 10mg PO daily Diabetes ISS hold home Metformin while in hospital CAD s/p CABG continue home medications * Amlodipine 10mg PO daily * Aspirin 81mg PO daily * Metoprolol Succ 25mg PO q12h * Crestor 40mg PO HS hx of Seizures continue home medications * Keppra 500mg PO BID hx of Depression continue home medications * Lexaprol 5mg PO daily hx of BPH continue home medications * Finasteride 5mg PO daily Prophylactic Care Heparin 5,000units SC q8h Protonix 40mg PO daily Case discussed with Dr. Em Servin PGY2 <Noe Strickland - Last Filed: 01/07/18 06:56> Results - Vital Signs Recent Vital Signs: Last Vital Signs Temp 98.7 F 01/06/18 21:27 Pulse 62 01/07/18 05:26 Resp 16 01/07/18 05:26 BP 169/67 H 01/07/18 05:26 Pulse Ox 96 01/07/18 05:26 - Labs Result Diagrams: 01/07/18 04:18 01/07/18 04:18 Labs: Laboratory Results - last 24 hr 01/06/18 01/06/18 01/06/18 14:00 14:00 15:49 WBC 7.1 RBC 3.72 L Hgb 11.4 L D Hct 33.5 L MCV 90.0 MCH 30.5 MCHC 33.9 RDW 13.5 Plt Count 195 MPV 10.2 Neut % (Auto) 68.7 Lymph % (Auto) 19.9 L [place] % (Auto) 6.7 Eos % (Auto) 3.9 Baso % (Auto) 0.8 Neut # (Auto) 4.9 Lymph # (Auto) 1.4 [place] # (Auto) 0.5 Eos # (Auto) 0.3 Baso # (Auto) 0.1 Sodium 139 Potassium 5.3 H Chloride 103 Carbon Dioxide 24 Anion Gap 18 BUN 16 Creatinine 1.2 Est GFR ( Amer) > 60 Est GFR (Non-Af Amer) > 60 POC Glucose (mg/dL) Random Glucose 133 H Calcium 8.7 Total Bilirubin 0.9 AST 42 ALT 23 Alkaline Phosphatase 110 Total Protein 7.4 Albumin 4.0 Globulin 3.4 Albumin/Globulin Ratio 1.2 Lipase 148 Stool Occult Blood Negative 01/06/18 01/07/18 01/07/18 22:42 04:18 04:18 WBC 6.4 RBC 3.57 L Hgb 10.9 L Hct 31.8 L MCV 89.2 MCH 30.7 MCHC 34.4 RDW 13.1 Plt Count 211 MPV 8.9 Neut % (Auto) 56.2 Lymph % (Auto) 29.9 [place] % (Auto) 8.6 Eos % (Auto) 4.4 H Baso % (Auto) 0.9 Neut # (Auto) 3.6 Lymph # (Auto) 1.9 [place] # (Auto) 0.5 Eos # (Auto) 0.3 Baso # (Auto) 0.1 Sodium 140 Potassium 3.9 Chloride 105 Carbon Dioxide 26 Anion Gap 13 BUN 15 Creatinine 1.3 Est GFR ( Amer) > 60 Est GFR (Non-Af Amer) 57 POC Glucose (mg/dL) 100 Random Glucose 96 Calcium 8.6 Total Bilirubin 0.5 AST 20 ALT 35 Alkaline Phosphatase 107 Total Protein 6.4 Albumin 3.5 Globulin 2.9 Albumin/Globulin Ratio 1.2 Lipase Stool Occult Blood Attending/Attestation - Attestation I have personally seen and examined this patient.: Yes I have fully participated in the care of the patient.: Yes I have reviewed all pertinent clinical information: Yes Notes (Text): 01/07/18 06:51 57 M with h/o CABG, left craniotomy, h/o peg/removal, h/o trache/removal, dm, CVA with right arm 5/5 weakness, right leg 3/5 weakness, expressive aphasia hence limited history but presented for diarrhea x3 days, descending colon colitis noticed on the CT without any fat stranding, outside colon inflammation and clinically notoxic, no tenderness, no peritoneal signs. H/o prior sacral skin break down irritated but no actual breakdown now. Plan Stool w/u Cdiff Procalcitonin IVF Diabetic diet Hold on metformin Accuchecks GI/DVT prophylaxis See orders for detail.
[2018-01-06] MEDS ORDERED: Metoprolol Succinate 50 mg XL Tab PO ONE (22:31)
[2018-01-06] MEDS: Metoprolol Succinate 25 mg XL Tab PO SCH (22:35)
[2018-01-06] MEDS: (Novolin R) Insulin Human Regular 100 units/ml vial SC SCH (22:36)
[2018-01-07] MEDS: Potassium Chloride 20 MEQ in Sodium Chloride 0.45% 1,000 ML IV SCH ×2 (00:12→12:10)
[2018-01-07] MEDS ORDERED: metroNIDAZOLE IV 500 mg/100 ml 500 MG/100 ML BAG IVPB STA (00:17)
[2018-01-07] MEDS ORDERED: metroNIDAZOLE IV 500 mg/100 ml 500 MG/100 ML BAG ONE (00:23)
[2018-01-07 04:29] LABS: BASO # 0.1 K/uL (0.0-0.2); BASO % 0.9 % (0.0-2.0); EOS # 0.3 K/uL (0.0-0.7); EOS % 4.4 % (0.0-4.0); HEMOGLOBIN 10.9 g/dL (12.0-18.0); LYMPH # 1.9 K/uL (1.0-4.3); LYMPH % 29.9 % (20.0-40.0); MEAN CELL VOLUME 89.2 fL (80.0-94.0); MEAN CORPUSCULAR HEMOGLOBIN 30.7 pg (27.0-31.0); MEAN CORPUSCULAR HGB CONC 34.4 g/dL (33.0-37.0); MEAN PLATELET VOLUME 8.9 fL (7.2-11.7); MONO # 0.5 K/uL (0.0-0.8); MONO % 8.6 % (0.0-10.0); NEUT # 3.6 K/uL (1.8-7.0); NEUT % 56.2 % (50.0-75.0); RBC 3.57 Mil/uL (4.40-5.90); RED CELL DISTRIBUTION WIDTH 13.1 % (11.5-14.5); WHITE BLOOD COUNT 6.4 K/uL (4.8-10.8)
[2018-01-07 04:48] LABS: ALB/GLOB RATIO 1.2 (1.0-2.1); ALBUMIN 3.5 g/dL (3.5-5.0); ALT/SGPT 35 U/L (21-72); AST/SGOT 20 U/L (17-59); BLOOD UREA NITROGEN 15 mg/dL (9-20); CALCIUM 8.6 mg/dl (8.6-10.4); GFR NON-AFRICAN AMERICAN 57
[2018-01-07] MEDS: (Novolin R) Insulin Human Regular 100 units/ml vial SC SCH ×4 (08:10→21:27)
--- NOTE | 2018-01-07 09:33 | CT ---
Date of service: 01/06/2018 PROCEDURE: CT Abdomen and Pelvis with intravenous contrast HISTORY: diarrhea, left lower quadrant abdominal pain COMPARISON: None. TECHNIQUE: Multiple contiguous axial images were performed through the abdomen and pelvis with the use of intravenous contrast. Subsequently, sagittal and coronal reformatted images were obtained. Radiation dose: Total exam DLP = 689 mGy-cm. This CT exam was performed using one or more of the following dose reduction techniques: Automated exposure control, adjustment of the mA and/or kV according to patient size, and/or use of iterative reconstruction technique. FINDINGS: LOWER THORAX: 6 millimeter calcified granuloma in the right lung on series 2, image 8. Additional scattered calcified granulomas in both lower lobes of the lung. Coronary calcifications. LIVER: Diffuse decrease in hepatic parenchymal density consistent with fatty infiltration. GALLBLADDER AND BILE DUCTS: Unremarkable. PANCREAS: Unremarkable. No gross lesion or ductal dilatation. SPLEEN: Focal splenic 1.7 centimeter hypodensity, indeterminate. Correlation with multiphasic CT or MR may be helpful for further evaluation if clinically indicated. ADRENALS: Unremarkable. No mass. KIDNEYS AND URETERS: Unremarkable. No hydronephrosis. No solid mass. VASCULATURE: Atherosclerotic calcification of the aorta. BOWEL: Moderate mucosal edema and thickening associated with the descending colon and particularly the rectosigmoid colon with adjacent mild stranding and moderate colonic wall edema. APPENDIX: No findings to suggest acute appendicitis. PERITONEUM: Unremarkable. No free fluid. No free air. LYMPH NODES: Unremarkable. No enlarged lymph nodes. BLADDER: Unremarkable. REPRODUCTIVE: Unremarkable. BONES: Degenerative changes in the spine. OTHER FINDINGS: Fat containing left inguinal hernia. IVC filter in place. IMPRESSION: Descending acute colitis extending to the rectosigmoid region. Clinical correlation. Focal splenic 1.7 centimeter hypodensity, indeterminate. Correlation with multiphasic CT or MR may be helpful for further evaluation if clinically indicated. Additional findings as above. These findings were preliminarily reported at 7:24 p.m. on 01/06/[address] Momo Cardenas from [facility].
[2018-01-07] MEDS: Metoprolol Succinate 25 mg XL Tab PO SCH ×2 (10:45→21:28)
[2018-01-07] MEDS: Pantoprazole 40 mg EC Tab PO SCH (10:46)
[2018-01-07] MEDS: Saccharomyces Boulardi 250 mg Cap PO SCH (10:46)
[2018-01-07 16:05] VITALS: RESP 20
--- NOTE | 2018-01-07 17:56 | CP.PCM.PN ---
Subjective - Date & Time of Evaluation Date of Evaluation: 01/07/18 Time of Evaluation: 17:56 - Subjective Subjective: PGY-[address] Hauser Patient seen and examined at bedside. No acute events overnight. Patient tolerating PO meals on heart healthy diet. Communication was limited due to patient seemingly has an expressive aphasia. Patient does have diffuse mild abdominal pain. Patient is still having watery diarrhea throughout the day. Pt denies any blood in the stool. Patient denies dizziness, chest pain, nausea, vomiting. Objective - Vital Signs/Intake and Output Vital Signs (last 24 hours): Temp Pulse Resp BP Pulse Ox 98.4 F 79 20 154/76 H 97 01/07/18 15:00 01/07/18 15:00 01/07/18 15:00 01/07/18 15:00 01/07/18 15:00 Intake and Output: 01/07/18 01/07/18 06:59 18:59 Intake Total 625 Output Total 200 Balance 425 - Medications Medications: Current Medications Acetaminophen (Tylenol 325mg Tab) 650 mg PO Q6 PRN PRN Reason: Pain, moderate (4-7) Amlodipine Besylate (Norvasc) 10 mg PO DAILY [facility] Last Admin: 01/07/18 10:46 Dose: 10 mg Aspirin (Aspirin Chewable) 81 mg PO DAILY [facility] Last Admin: 01/07/18 10:45 Dose: 81 mg Docusate Sodium (Colace) 100 mg PO TID [facility] Last Admin: 01/07/18 13:06 Dose: 100 mg Escitalopram Oxalate (Lexapro) 5 mg PO DAILY [facility] Last Admin: 01/07/18 11:00 Dose: 5 mg Finasteride (Proscar) 5 mg PO DAILY [facility] Last Admin: 01/07/18 10:46 Dose: 5 mg Folic Acid (Folic Acid) 1 mg PO DAILY [facility] Last Admin: 01/07/18 10:46 Dose: 1 mg Heparin Sodium (Porcine) (Heparin) 5,000 units SC Q8 [facility] Last Admin: 01/07/18 13:06 Dose: 5,000 units Potassium Chloride 20 meq/ (Sodium Chloride) 1,010 mls @ 75 mls/hr IV .[id number] [facility] Last Admin: 01/07/18 12:10 Dose: 75 mls/hr Ciprofloxacin (Cipro 400mg/200ml Dsw) 400 mg in 200 mls @ 133 mls/hr IVPB Q12H [facility] PRN Reason: Protocol Insulin Human Regular (Novolin R) 0 unit SC ACHS [facility] PRN Reason: Protocol Last Admin: 01/07/18 17:46 Dose: 1 units Levetiracetam (Keppra) 500 mg PO BID [facility] Last Admin: 01/07/18 17:46 Dose: 500 mg Lisinopril (Zestril) 10 mg PO DAILY [facility] Last Admin: 01/07/18 10:46 Dose: 10 mg Metoprolol Succinate (Toprol Xl) 25 mg PO Q12H [facility] Last Admin: 01/07/18 10:45 Dose: 25 mg Ondansetron HCl (Zofran Inj) 4 mg IVP Q6 PRN PRN Reason: Nausea/Vomiting Pantoprazole Sodium (Protonix Ec Tab) 40 mg PO DAILY [facility] Last Admin: 01/07/18 10:46 Dose: 40 mg Rosuvastatin Calcium (Crestor) 40 mg PO HS [facility] Last Admin: 01/06/18 22:35 Dose: 40 mg Saccharomyces Boulardii (Florastor) 250 mg PO DAILY [facility] Last Admin: 01/07/18 10:46 Dose: 250 mg - Labs Labs: 01/07/18 04:18 01/07/18 04:18 - Constitutional Appears: Non-toxic, No Acute Distress - Head Exam Head Exam: ATRAUMATIC, NORMAL INSPECTION - Eye Exam Eye Exam: EOMI, Normal appearance Pupil Exam: NORMAL ACCOMODATION, PERRL - ENT Exam ENT Exam: Mucous Membranes Moist - Respiratory Exam Respiratory Exam: Clear to Ausculation Bilateral, NORMAL BREATHING PATTERN - Cardiovascular Exam Cardiovascular Exam: REGULAR RHYTHM, +S1, +S2 - GI/Abdominal Exam GI & Abdominal Exam: Distended, Firm, Tenderness, Hyperactive Bowel Sounds. absent: Guarding, Rigid, Soft, Rebound Additional comments: +mild diffuse abdominal tenderness - Extremities Exam Extremities Exam: Normal Capillary Refill, Normal Inspection. absent: Joint Swelling, Pedal Edema, Tenderness - Neurological Exam Neurological Exam: Alert, Awake, CN II-XII Intact, Oriented x3 Additional comments: +expressive aphasia - Psychiatric Exam Psychiatric exam: Normal Affect, Normal Mood - Skin Skin Exam: Dry, Intact, Normal Color, Warm Assessment and Plan - Assessment and Plan (Free Text) Assessment: Diarrhea Abd/Pelvis CT w/IV&PO contrast * Descending acute colitis extending to the sigmoid region. * The appendix is normal No obstructive uropathy is seen afebrile no leukocytosis Stool Studies * occult blood neg; f/u pending x2 * Stool culture pending * Ova and parasite * Fecal leukocytes * C. Diff toxin Medications: * Antibiotics started 01/07 * Cipro 400mg IV q12 * Flagyl 500 mg IV q8 * --> Given with PO lactobacillus 1 tab BID * Florastor 250mg PO daily * Tylenol 650mg PO q6h prn * Toradol 30mg IVP q6h prn * Zofran 4mg IVP q6h prn * NS w/K+ 20meq @75mL/hr * Glucerna shake supplement 3x/day Plan to discharge patient tomorrow if he continues to tolerate meals and continues to appear hydrated on physical exam. Patient's condition is stable and can be managed adequately on an outpatient basis. Hypertension controlled continue home medications * Amlodipine 10mg PO daily * Aspirin 81mg PO daily * Lisinopril 10mg PO daily Diabetes ISS hold home Metformin while in hospital Glucerna shake supplement 3x/day CAD s/p CABG continue home medications * Amlodipine 10mg PO daily * Aspirin 81mg PO daily * Metoprolol Succ 25mg PO q12h * Crestor 40mg PO HS hx of Seizures continue home medications * Keppra 500mg PO BID hx of Depression continue home medications * Lexaprol 5mg PO daily hx of BPH continue home medications * Finasteride 5mg PO daily Prophylactic Care Heparin 5,000units SC q8h Protonix 40mg PO daily Assessment/Plan discussed with Dr. Murtaza Lin, PGY-1
[2018-01-07] MEDS: metroNIDAZOLE IV 500 mg/100 ml 500 MG/100 ML BAG IVPB SCH (19:07)
[2018-01-07] MEDS: Ciprofloxacin 400mg/200ml D5W 400 MG/200 ML BAG IVPB SCH (20:21)
[2018-01-08] MEDS: metroNIDAZOLE IV 500 mg/100 ml 500 MG/100 ML BAG IVPB SCH ×3 (01:22→17:43)
[2018-01-08] MEDS: Ciprofloxacin 400mg/200ml D5W 400 MG/200 ML BAG IVPB SCH (06:07)
[2018-01-08] MEDS: Potassium Chloride 20 MEQ in Sodium Chloride 0.45% 1,000 ML IV SCH ×2 (06:13→06:14)
[2018-01-08] MEDS: (Novolin R) Insulin Human Regular 100 units/ml vial SC SCH ×3 (08:30→17:44)
[2018-01-08] MEDS: Pantoprazole 40 mg EC Tab PO SCH (09:07)
[2018-01-08] MEDS: Saccharomyces Boulardi 250 mg Cap PO SCH (09:07)
[2018-01-08] MEDS: Metoprolol Succinate 25 mg XL Tab PO SCH (09:17)
--- NOTE | 2018-01-08 10:06 | CP.PCM.DIS ---
Provider - Provider Date of Admission: 01/06/18 19:51 Attending physician: Noe Strickland MD Time Spent in preparation of Discharge (in minutes): 45 Diagnosis - Discharge Diagnosis (1) Acute colitis Status: Acute (2) Diarrhea Status: Acute Hospital Course - Lab Results Lab Results: Most Recent Lab Values WBC 6.4 K/uL (4.8-10.8) 01/07/18 04:18 RBC 3.57 Mil/uL (4.40-5.90) L 01/07/18 04:18 Hgb 10.9 g/dL (12.0-18.0) L 01/07/18 04:18 Hct 31.8 % (35.0-51.0) L 01/07/18 04:18 MCV 89.2 fL (80.0-94.0) 01/07/18 04:18 MCH 30.7 pg (27.0-31.0) 01/07/18 04:18 MCHC 34.4 g/dL (33.0-37.0) 01/07/18 04:18 RDW 13.1 % (11.5-14.5) 01/07/18 04:18 Plt Count 211 K/uL (130-400) 01/07/18 04:18 MPV 8.9 fL (7.2-11.7) 01/07/18 04:18 Neut % (Auto) 56.2 % (50.0-75.0) 01/07/18 04:18 Lymph % (Auto) 29.9 % (20.0-40.0) 01/07/18 04:18 [place] % (Auto) 8.6 % (0.0-10.0) 01/07/18 04:18 Eos % (Auto) 4.4 % (0.0-4.0) H 01/07/18 04:18 Baso % (Auto) 0.9 % (0.0-2.0) 01/07/18 04:18 Neut # (Auto) 3.6 K/uL (1.8-7.0) 01/07/18 04:18 Lymph # (Auto) 1.9 K/uL (1.0-4.3) 01/07/18 04:18 [place] # (Auto) 0.5 K/uL (0.0-0.8) 01/07/18 04:18 Eos # (Auto) 0.3 K/uL (0.0-0.7) 01/07/18 04:18 Baso # (Auto) 0.1 K/uL (0.0-0.2) 01/07/18 04:18 Sodium 140 mmol/L (132-148) 01/07/18 04:18 Potassium 3.9 mmol/L (3.6-5.2) 01/07/18 04:18 Chloride 105 mmol/L (98-107) 01/07/18 04:18 Carbon Dioxide 26 mmol/L (22-30) 01/07/18 04:18 Anion Gap 13 (10-20) 01/07/18 04:18 BUN 15 mg/dL (9-20) 01/07/18 04:18 Creatinine 1.3 mg/dL (0.8-1.5) 01/07/18 04:18 Est GFR ( Amer) > 60 01/07/18 04:18 Est GFR (Non-Af Amer) 57 01/07/18 04:18 POC Glucose (mg/dL) 162 mg/dL (65-110) H 01/08/18 08:38 Random Glucose 96 mg/dL (75-110) 01/07/18 04:18 Calcium 8.6 mg/dl (8.6-10.4) 01/07/18 04:18 Total Bilirubin 0.5 mg/dL (0.2-1.3) 01/07/18 04:18 AST 20 U/L (17-59) 01/07/18 04:18 ALT 35 U/L (21-72) 01/07/18 04:18 Alkaline Phosphatase 107 U/L (38-126) 01/07/18 04:18 Total Protein 6.4 g/dL (6.3-8.3) 01/07/18 04:18 Albumin 3.5 g/dL (3.5-5.0) 01/07/18 04:18 Globulin 2.9 gm/dL (2.2-3.9) 01/07/18 04:18 Albumin/Globulin Ratio 1.2 (1.0-2.1) 01/07/18 04:18 Lipase 148 U/L (23-300) 01/06/18 14:00 Procalcitonin < 0.05 NG/ML (0.19-0.49) L 01/07/18 19:54 Stool Occult Blood Negative (NEGATIVE) 01/07/18 07:02 Stool Leukocytes, Qual Negative (NEGATIVE) 01/07/18 05:18 C. difficile Ag & Toxin Negative (NEGATIVE) 01/07/18 08:28 - Hospital Course Hospital Course: HPI Patient is a 57 year old male with a past medical history HTN, HLD, DM, CVA with right sided weakness, seizures, CAD s/p CABG, depression, BPH was brought in by daughter for evaluation. No family member was present during examination. Patient is aphasic from previous CVA. Call made to home phone number but no answer. History obtained through EMR. Patient has been experiencing watery stool for the past three days. Patient is also experiencing al-rectal skin breakdown. ROS unobtainable due to patient being poor historian and aphasic. He appears to understand, but have expressive aphasia. PMD: Dr. Ellison PMH: HTN, HLD, DM, CVA with right sided weakness, seizures, CAD s/p CABG, depression, BPH. PSH: triple bypass at [facility] (2015); left temporoparietal craniectomy and duraplasty; PEG placement and removal (02/17); tracheostomy (removed 05/20) Family: denies Social: former tobacco user (1 pack per month for 1 year); Former social drinker ; denies drug use; lives with and son (Romeo Posey) in [place]. Allergies: NKDA Hospital Course: The chief complaint for this patient which was being managed during his hospital stay was watery diarrhea associated with mild abdominal pain. Patient was admitted to the general medical floor without a full history being obtained due to communication barrier with the patient as a result of his expressive aphasia, and his admitting physicians attempted to contact his relatives but they could not be reached. * Abd/Pelvis CT w/IV&PO contrast * Descending acute colitis extending to the sigmoid region. * The appendix is normal No obstructive uropathy is seen Patient was found to be afebrile with no leukocytosis. Stool studies were negative for blood or leukocytes. Stool ova and parasite cultures, as well as C Dif toxin were all negative. Patient's home medications were continued for hypertension, CAD, seizures, depression, and BPH (see med reconciliation). Metformin was held and patient was started on ISS, restarted on Metformin on discharge. Patient was treated for acute colitis with IV Cipro 400mg q12 and IV Flagyll 500mg q8, as well as IV fluids. Through his stay, patient tolerated a PO diet consisting of solid foods. His diarrhea had significantly improved on final day of hospitalization, with plans to continue antibiotic regimen on discharge. Plan: Patient to take the following medications as prescribed: Ciprofloxacin 500mg 1 tab 2 times by mouth per day at 8am and 8pm Metronidazole 500mg by mouth 3times/day at 8am, 2pm, 8pm Metoprolol 25 mg by mouth 2 times per day Lisinopril 10mg 1 tab by mouth 2 times per day at 8am and 8pm Norvasc 10mg 1 tab by mouth once per day at 8pm Atorvastatin 80mg 1 tab by mouth once a day at 8pm Metformin 500mg 1 tab by mouth 2 times per day at 8am and 8pm Proscar 5mg 1 tab by mouth once per day at 8am Escitalopram 5mg 1 tab by mouth one time per day at 8am Aspirin 81 mg one 1 tab by mouth one time per day at 8am Levitiracetam 500mg 1 tab by mouth 2 times per day at 8am and 8pm Folic acid 1mg 1 tab by mouth one time per day at 8am Lactobacillus, 1 capsule by mouth 2 times per day at 10 am and 6pm -Not to be taken within two hours of your antibiotics (Cipro and Metronidazole) Colace 100mg 1 tab by mouth 2 times per day at 8am and 8pm Patient has been set up for home physical therapy. Please schedule an appointment with your primary care physician, Dr. Ellison, to take place in 7- 10 days. Discharge Exam - Head Exam Head Exam: ATRAUMATIC, NORMAL INSPECTION - Eye Exam Eye Exam: EOMI, Normal appearance Pupil Exam: NORMAL ACCOMODATION, PERRL - Respiratory Exam Respiratory Exam: Clear to PA & Lateral, NORMAL BREATHING PATTERN, UNREMARKABLE - Cardiovascular Exam Cardiovascular Exam: REGULAR RHYTHM, +S1, +S2. absent: Rubs, Systolic Murmur - GI/Abdominal Exam GI & Abdominal Exam: Normal Bowel Sounds, Unremarkable. absent: Hyperactive Bowel Sounds, Rebound, Soft, Tenderness - Neurological Exam Neurological exam: Alert, CN II-XII Intact, Motor Sensory Deficit (+R-sided weakness, both upper and lower extremities), Oriented x3 Additional comments: +expressive aphasia - Skin Skin Exam: Dry, Intact, Normal Color, Warm Discharge Plan - Discharge Medications Prescriptions: amLODIPine [Norvasc] 10 mg PO DAILY #30 tab Aspirin [Aspirin Chewable] 81 mg PO DAILY #30 chew Atorvastatin [Lipitor] 80 mg PO HS #30 tab Docusate [Colace] 100 mg PO BID #60 cap Escitalopram [Lexapro] 5 mg PO DAILY #30 tab Finasteride [Proscar] 5 mg PO DAILY #30 tab Folic Acid 1 mg PO DAILY #30 tab Lactobacillus Acidophilus [Acidophilus] 1 each PO BID #60 capsule levETIRAcetam [Keppra] 500 mg PO BID #60 tab Lisinopril [Zestril] 10 mg PO DAILY #30 tab metFORMIN [glucOPHAGE] 500 mg PO BID #20 tab Metoprolol Succinate XL [Toprol XL] 25 mg PO Q12H #60 tab - Follow Up Plan Condition: FAIR Disposition: HOME/ ROUTINE Instructions: Rotavirus Infection (DC), Rotavirus Infection (GEN), Nutrition Tips for Relief of Diarrhea (DC), Nutrition Tips for Relief of Diarrhea (GEN) Additional Instructions: Patient to take the following medications as prescribed: Ciprofloxacin 500mg 1 tab 2 times by mouth per day at 8am and 8pm Metronidazole 500mg by mouth 3times/day at 8am, 2pm, 8pm Metoprolol 25 mg by mouth 2 times per day Lisinopril 10mg 1 tab by mouth 2 times per day at 8am and 8pm Norvasc 10mg 1 tab by mouth once per day at 8pm Atorvastatin 80mg 1 tab by mouth once a day at 8pm Metformin 500mg 1 tab by mouth 2 times per day at 8am and 8pm Proscar 5mg 1 tab by mouth once per day at 8am Escitalopram 5mg 1 tab by mouth one time per day at 8am Aspirin 81 mg one 1 tab by mouth one time per day at 8am Levitiracetam 500mg 1 tab by mouth 2 times per day at 8am and 8pm Folic acid 1mg 1 tab by mouth one time per day at 8am Lactobacillus, 1 capsule by mouth 2 times per day at 10 am and 6pm -Not to be taken within two hours of your antibiotics (Cipro and Metronidazole) Colace 100mg 1 tab by mouth 2 times per day at 8am and 8pm You have been set up for home physical therapy. Please schedule an appointment with your primary care physician, Dr. Ellison, to take place in 7-10 days. Paciente debe rosalio los siguientes medicamentos segn lo recetado: Ciprofloxacina 500 mg 1 tableta 2 veces por va oral por da a las 8 a. M. Y 8 p. M. Metronidazol 500 mg por va oral 3 veces al da a las 8 a.m., 2 p.m., 8 p.m. Metoprolol 25 mg por va oral 2 veces por da Lisinopril 10 mg 1 ficha por la boca 2 veces al da a las 8 a.m. y 8 p.m. Norvasc 10 mg 1 ficha por la boca dorinda vez al da a las 8 p.m. Atorvastatin 80 mg 1 tableta por la boca dorinda vez al da a las 8 p.m. Metformina 500 mg 1 tableta por va oral 2 veces al da a las 8 a. M. Y 8 p. M. Proscar 5 mg 1 ficha por la boca dorinda vez al da a las 8 a.m. Escitalopram 5 mg 1 ficha por la boca dorinda vez al da a las 8 a. M. Aspirina 81 mg dorinda 1 tableta por la boca dorinda vez al da a las 8 a. M. Levitiracetam 500 mg 1 ficha por va oral 2 veces al da a las 8 a.m. y 8 p.m. cido flico 1 mg 1 lengeta por la boca dorinda vez al da a las 8 a. M. Lactobacillus, 1 cpsula por va oral 2 veces al da a las 10 a. M. Y 6 p. M. No se debe rosalio dentro de las dos horas posteriores a la administracin de gregorio antibiticos (Cipro y Metronidazol) Colace 100 mg 1 tableta por la boca 2 veces al da a las 8 a. M. Y 8 p. M. Usted hannon sido configurado para terapia fsica en el hogar. Elliot dorinda isaiah con hernandez mdico de atencin primaria, el Dr. Ellison, para que se realice en 7 a 10 gal[place]iz. Referrals: Anny Ellison MD [Staff Provider] -
--- NOTE | 2018-01-08 11:28 | CP.PCM.PCO ---
Physician Communication Note - Physician Communication Note Physician Communication Note: See above
[2018-01-08 17:12] VITALS: BP 134/70; PULSE 59; TEMP 98.6; O2SAT 95
--- NOTE | 2018-01-08 20:07 | CP.PCM.PCO ---
Physician Communication Note - Physician Communication Note Physician Communication Note: Spoke w/ Daughter Jessica over phone.Will product picker Cipro and Flagyl from Pharm
== END 2018-01-08 19:31 | disposition home or self-care (01) | DRG 392 ==
LOC: C.ER 10:55 → C.9E 19:51 → C.5S 01-07 08:31
PROVIDERS: ADMIT Internal Medicine; ATTEND Internal Medicine
DX: K52.9 Noninfective gastroenteritis and colitis, unspecified (principal); I69.351 Hemiplegia and hemiparesis following cerebral infarction affecting right dominant side; I10 Essential (primary) hypertension; N40.0 Benign prostatic hyperplasia without lower urinary tract symptoms; I25.10 Atherosclerotic heart disease of native coronary artery without angina pectoris; E11.9 Type 2 diabetes mellitus without complications; R56.9 Unspecified convulsions; F32.9 Major depressive disorder, single episode, unspecified; E78.5 Hyperlipidemia, unspecified; E78.00 Pure hypercholesterolemia, unspecified; I69.320 Aphasia following cerebral infarction; Z95.1 Presence of aortocoronary bypass graft; Z87.891 Personal history of nicotine dependence; Z79.84 Long term (current) use of oral hypoglycemic drugs